=== PATIENT | female | born 1995 | race Caucasian/White ===

== ENCOUNTER → 2018-04-09 15:35 | Outpatient (CLI) | payer BC, SELFPAY ==
[2018-04-09 16:19] LABS: Basophils % 0.4 % (0.1-2.0); Eosinophils # 0.1 K/mm3 (0.0-0.4); Eosinophils % 0.6 % (0.1-12.0); Hematocrit 40.3 % (37.0-47.0); Hemoglobin 13.5 g/dL (12.2-16.2); Lymphocytes # 1.5 K/mm3 (0.7-4.5); Lymphocytes % 15.3 K/mm3 (10-50); Mean Corpuscular HGB Conc 33.5 g/dL (31.8-35.4); Mean Corpuscular Volume 95.5 fl (81-99); Mean Platelet Volume 8.5 fl (7.4-10.4); Monocytes # 0.4 K/mm3 (0.1-1.0); Monocytes % 3.8 % (1.7-9.3); Neutrophils % 79.9 % (37.0-80.0); Platelet Count 247 K/mm3 (142-424); Red Blood Count 4.22 M/mm3 (4.20-5.40); Red Cell Distribution Width 12.4 % (11.5-17.5)
[2018-04-11 18:16] LABS: HIV Screen 4th Generation wRfx Non Reactive (Non Reactive); Hepatitis B Surface Antigen Negative (Negative); Hepatitis C Antibody 0.1 s/co ratio (0.0-0.9); Rapid Plasma Reagin Ab Titer Non Reactive (NonRea<1:1)
== END ==
PROVIDERS: Family Provider Family Medicine; PCP Family Medicine; Visit Provider Obstetrics & Gynecology
DX: Z34.90 Encounter for supervision of normal pregnancy, unspecified, unspecified trimester (principal)
CPT/HCPCS: 36415; 85025; 86592; 86703; 86762; 86850; 87086; 87088; 87186; 87340; 87380; G0432

== ENCOUNTER → 2018-07-09 12:52 | Outpatient (CLI) | payer BC, SELFPAY ==
--- NOTE | 2018-07-09 12:55 | US_ITS ---
US OB /maternal detail: INDICATION: ITS.REASON: US OB Complete ORDERING PHYSICIAN: Silvia Craven MD PATIENT AGE: 23 years TECHNIQUE: ultrasound transabdominal scanning. COMPARISON: No previous relevant studies. FINDINGS: Single viable intrauterine gestation. Cephalic position. Placenta: Anterior placenta grade 1. There is average amount fluid. The cervix appears satisfactory. Closed and measuring 3.6 cm in length. Complete survey performed and was unremarkable on the submitted images as in PACS. No discrete anomalies identified on survey imaging by technologist. Active fetus. Three-vessel cord with satisfactory umbilical cord insertion. 4- chamber heart noted. Survey of brain & ventricles unremarkable. Face and neck survey unremarkable. Diaphragm and chest views unremarkable. Abdomen: Both kidneys noted and unremarkable. Stomach noted and satisfactory. Spine: Survey of the spine satisfactory with no anomalies identified nor imaged. Both arms and legs noted. Amniotic Fluid: Adequate. Maternal adnexa: No significant findings. Measurements: Average ultrasound age 20w6d. Gestational Age 20w3d. Estimated due date by ultrasound age 0311/20/2018. Estimated weight 378 grams. BPD = 21w0d OFD = 21w0d HC = 20w2d AC = 20w2d FL = 21w4d Growth Percentile= 66% Heart Rate = 142 Cerebellum = 20w1d Humerus = 20w6d HC/AC is 1.18 91.09-1.26). CI is 79% (70-86%). FL/BPD is 74%. FL/AC is 24%. IMPRESSION: Single live fetus which is in spine presentation with an average ultrasound age of 20 weeks and 6 days. All parameters correlate. No obvious anomalies apparent. Please see above for detail
== END ==
PROVIDERS: PCP Family Medicine; Visit Provider Obstetrics & Gynecology
DX: Z36.0 Encounter for antenatal screening for chromosomal anomalies (principal)
CPT/HCPCS: 76811

== ENCOUNTER → 2018-07-16 16:57 | Outpatient (CLI) | payer BC, SELFPAY | PROVIDERS: Visit Provider Obstetrics & Gynecology | DX: Z34.90 Encounter for supervision of normal pregnancy, unspecified, unspecified trimester (principal) | CPT/HCPCS: 87086; 87088; 87186 ==

== ENCOUNTER → 2018-08-11 17:52 | Outpatient (CLI) | payer BC, SELFPAY | PROVIDERS: Visit Provider Obstetrics & Gynecology | DX: Z34.90 Encounter for supervision of normal pregnancy, unspecified, unspecified trimester (principal) | CPT/HCPCS: 87086; 87088; 87186 ==

== ENCOUNTER 2018-08-25 07:07 | Outpatient (CLI) | payer BC, SELFPAY ==
[2018-08-25 07:34] LABS: Glucose,Fasting 86 mg/dL (60-105)
[2018-08-25 08:46] LABS: Glucose 1 Hour 81 mg/dL (74-106)
== END 2018-08-25 09:15 | disposition home or self-care (01) ==
LOC: LAB 07:07
PROVIDERS: Visit Provider Obstetrics & Gynecology
DX: Z34.90 Encounter for supervision of normal pregnancy, unspecified, unspecified trimester (principal)
CPT/HCPCS: 36415; 82951; 96372; J2790

== ENCOUNTER 2018-10-03 15:30 | Outpatient (CLI) | payer BC, SELFPAY ==
[2018-10-03 15:41] VITALS: BMI 26.9
[2018-10-03 16:00] VITALS: BP 121/73; PULSE 90; RESP 20; TEMP 36.8; O2SAT 99; BMI 25.3
[2018-10-03 16:04] LABS: Microscopic, Urine URINE MICROSCOPIC (MICROSCOPIC)
[2018-10-03 16:07] LABS: Appearance,Urine SL CLOUDY (Clear); Bilirubin,Urine Negative (Negative); Blood, Urine Negative (Negative); Color,Urine YELLOW (Yellow); Glucose,Urine (UA) Negative (Negative); Ketones,Urine Negative (Negative); Leukocyte Esterase,Urine TRACE (Negative); Nitrate,Urine Negative (Negative); Protein,Urine Negative (Negative); Specific Gravity, Urine 1.015 (1.005-1.030); Urobilinogen,Urine 0.2 EU/dl (0.2)
[2018-10-03 16:20] LABS: Bacteria,Urine 3+ /lpf; RBC,Urine Occasional #/hpf (0-3); Squamous Epithelial Cell,Urine 50-100 #/hpf (0-5)
[2018-10-03 16:37] LABS: Fetal Fibronectin (Rapid) Negative (Negative)
== END 2018-10-03 16:51 | disposition home or self-care (01) ==
LOC: OBOUT 15:34 → OB 15:36
PROVIDERS: PCP Obstetrics & Gynecology; Visit Provider Obstetrics & Gynecology
DX: O26.893 Other specified pregnancy related conditions, third trimester (principal); Z3A.32 32 weeks gestation of pregnancy; R10.9 Unspecified abdominal pain; R10.2 Pelvic and perineal pain
CPT/HCPCS: 59025; 81001; 82731; 87086

== ENCOUNTER → 2018-10-20 18:00 | Outpatient (CLI) | payer BC, SELFPAY | PROVIDERS: Visit Provider Obstetrics & Gynecology | DX: Z34.90 Encounter for supervision of normal pregnancy, unspecified, unspecified trimester (principal) | CPT/HCPCS: 86403 ==

== ENCOUNTER → 2018-10-24 15:03 | Outpatient (CLI) | payer BC, SELFPAY ==
--- NOTE | 2018-10-24 15:07 | US_ITS ---
US OB BPP w/Fet-Mat S/D: Indication: ITS.REASON: US OB BPP Growth S/D Ratio- Small for Dates ORDERING PHYSICIAN: Silvia Craven MD PATIENT AGE: 23 years FINDINGS: The following parameters are obtained: Average ultrasound age is 36w1d. Estimated due date by ultrasound is 11/20/2018. Estimated weight is 2748gm. This is 50th percentile BPD: 37w2d OFD: 34w4d HC: 35w3d AC: 35w2d FL: 36w1d heart rate: 147 bpm. HC/AC: 1.00 90.93-1.11) Cephalic index: 85% (70-86%) FL/BPD: 77%(71-87%) FL/AC: 22% (20-24%) Amniotic fluid index: 10 cm Qualitative AFV: 2 breathing movements: 2 Gross body movements: 2 Tone: 2 Biophysical profile score: 8/8 Doppler evaluation of the umbilical artery: SD ratio: 3.2 Resistive index: 0.69 No obvious anomalies evident. Placenta: Anterior, grade 2 Cervix: Appears closed and measures 2.3 cm IMPRESSION: Single live fetus which is in cephalic presentation with an average ultrasound age of 36 weeks 1 day. Estimated weight is 2748 g which is 50th percentile. All parameters correlate. Biophysical profiles of 8 with amniotic fluid volume index within normal limits at 10 cm SD ratio in resistive index unremarkable Anterior grade 2 placenta
== END ==
PROVIDERS: PCP Family Medicine; Visit Provider Obstetrics & Gynecology
DX: O36.5990 Maternal care for other known or suspected poor fetal growth, unspecified trimester, not applicable or unspecified (principal)
CPT/HCPCS: 76811; 76819; 76820

== ENCOUNTER 2018-11-20 10:46 | Inpatient (IN) ==
[2018-11-20 11:32] LABS: Basophils % 0.3 % (0.1-2.0); Eosinophils # 0.1 K/mm3 (0.0-0.4); Eosinophils % 0.7 % (0.1-12.0); Hematocrit 35.5 % (37.0-47.0); Hemoglobin 12.3 g/dL (12.2-16.2); Lymphocytes # 1.7 K/mm3 (0.7-4.5); Lymphocytes % 19.7 % (10-50); Mean Corpuscular HGB Conc 34.6 g/dL (31.8-35.4); Mean Corpuscular Hemoglobin 33.5 pg (27.0-31.2); Mean Corpuscular Volume 96.9 fl (81-99); Mean Platelet Volume 8.7 fl (7.4-10.4); Monocytes # 0.4 K/mm3 (0.1-1.0); Monocytes % 4.7 % (1.7-9.3); Neutrophils # 6.5 K/mm3 (1.8-7.8); Neutrophils % 74.6 % (37.0-80.0); Platelet Count 350 K/mm3 (142-424); Red Blood Count 3.66 M/mm3 (4.20-5.40); Red Cell Distribution Width 13.9 % (11.5-17.5); White Blood Count 8.7 K/mm3 (4.8-10.8)
[2018-11-20 13:21] LABS: Microscopic, Urine URINE MICROSCOPIC (MICROSCOPIC)
[2018-11-20 13:34] LABS: Appearance,Urine CLEAR (Clear); Bilirubin,Urine Negative (Negative); Blood, Urine TRACE-I (Negative); Color,Urine YELLOW (Yellow); Glucose,Urine (UA) Negative (Negative); Ketones,Urine Negative (Negative); Leukocyte Esterase,Urine Negative (Negative); Protein,Urine Negative (Negative); Specific Gravity, Urine 1.015 (1.005-1.030); Urobilinogen,Urine 0.2 EU/dl (0.2)
[2018-11-20 14:13] LABS: Bacteria,Urine Trace /lpf
[2018-11-20 14:14] LABS: WBC,Urine Occasional #/hpf (0-3)
--- NOTE | 2018-11-20 16:59 | Progress Note ---
[facility] Anesthesia Checklist - Patient Identification Patient Identification: Arm Band, Verbal (Name & ) - Structural Data Admitted From: Home Planned Operative Procedure/s: Labor epidural Consent for Planned Operative Procedure(s) Verified: Yes Verified Documents: Surgical Consent, History and Physical - Chart Verification Results Verified: CBC - Additional verifications Patient : Yes Anesthesia Reactions: No - Airway Assessment C-Spine Mobility Assessed: Yes TMJ Mobility Assessed: Yes Dentition: Good Dentition - Neurological Assessment Level of Consciousness: Awake Hx Seizures: No Numbness or tingling in extremities: No - Anesthesia Plan Anesthesia Risk discussed: Yes Anesthesia Plan: Verified ASA Class: II Anesthesia Type: Epidural [facility] History I have reviewed the patient's past medical history: Yes Medical History: Denies:: Anxiety, Depression, Migraine, MRSA, Seizures *Have you ever received a pneumonia vaccine?: No *Have you received a flu vaccine this season?: No Other Surgeries: Yes: Other. No: Amputation: No Fractures: No - *Social History Smoking Status: Never smoker Alcohol Intake: never Substance Use Type: denies use *Occupational Status:: employed Housing: house Household Members: family - Psychiatric History Pschychiatric History:: Denies:: Anxiety, Depression Family Hx:: Cancer, Diabetes, Thyroid Disorder, Stroke, Hypertension Para: 0
--- NOTE | 2018-11-20 20:19 | History & Physical Report ---
OB - H&P: HPI Antepartum - History of Present Illness Chief complaint: contractions History of present illness: 23 yo G1 @ 39 5/7 admitted from office with contractions and cervical change. complicated by recurrent UTI with antibiotic prophylaxis and Rh negative maternal status; rhogam administration given at appropriate time during . GBS negative. status reassuring. - History of Present care: good care Ultrasounds: normal 1st trimester US, normal mid trimester US Obstetrical complications: other (recurrent UTI) [facility] History I have reviewed the patient's past medical history: Yes Medical History: Denies:: Anxiety, Depression, Migraine, MRSA, Seizures *Have you ever received a pneumonia vaccine?: No *Have you received a flu vaccine this season?: No Other Surgeries: Yes: Other. No: Amputation: No Fractures: No - *Social History Smoking Status: Never smoker Alcohol Intake: never Substance Use Type: denies use *Occupational Status:: employed Housing: house Household Members: family - Psychiatric History Pschychiatric History:: Denies:: Anxiety, Depression Family Hx:: Cancer, Diabetes, Thyroid Disorder, Stroke, Hypertension Para: 0 Review of Systems - Review of Systems CONSTITUTIONAL: no fever/chills HEENT: no oral lesions PULMONARY: no shortness of breath or difficulty breathing CV: no racing heart, palpitations or chest pain ABD: no abdominal pain, N/V : + contractions and bloody show SKIN: no new rash or skin lesions EXT: no edema NEURO: no mental status changes PSYCH: no current anxiety/depression OTHER: normal movement Meds Home Medications Medication Instructions Recorded Confirmed Type 1 tab PO HS 04/09/18 11/20/18 History vitamin,calcium,ugslarhq-erom-hddye acid tablet Nitrofurantoin Monohyd/M-Cryst 100 mg PO DAILY 10/03/18 11/20/18 History [Nitrofurantoin [place]-Mcr 100 mg] breast pump See Dose Instructions .ROUTE 10/20/18 11/20/18 Rx .MEDSUPPLY #1 each Fluticasone Propionate [Flonase 1 spray INTRANASAL DAILY 11/20/18 11/20/18 History Allergy Relief NS] Allergies Allergy/AdvReac Type Severity Reaction Status Date / Time Penicillins Allergy Intermediate Hives Verified 11/20/18 13:19 Sulfa (Sulfonamide Allergy Intermediate Hives Verified 11/20/18 13:19 Antibiotics) OB - H&P: Exam - Physical Exam Vital signs: Temp Pulse Resp BP Pulse Ox 98.7 F 87 18 135/76 98 11/20/18 10:54 11/20/18 10:54 11/20/18 10:54 11/20/18 10:54 11/20/18 10:54 Narrative: CONSTITUTIONAL: no acute distress HEENT: mucous membranes moist PULMONARY: breathing unlabored without audible wheezes CV: no tachycardia or visible JVD; normal LE peripheral pulses ABD: soft, NT/ND, no guarding. Gravid uterus. : cervix 350/-1 SKIN: no visible rash or lesions HEME: no lymphadenopathy EXT: 1+ edema LEs NEURO: alert/oriented, no altered mental status PSYCH: appropriate mood and demeanor without visible anxiety/depression NST: Basline: 140 Variability: moderate Accelerations: yes Decelerations: no Impression: Reactive, Category 1 OB - Results - Labs Labs: Short CBC 11/20/18 Range/Units 11:18 WBC 8.7 (4.8-10.8) K/mm3 Hgb 12.3 (12.2-16.2) g/dL Hct 35.5 L (37.0-47.0) % Plt Count 350 (142-424) K/mm3 Urine 11/20/18 Range/Units 12:55 Urine Color Yellow (Yellow) Urine Appearance Clear (Clear) Urine pH 7.0 (5.0-8.5) Ur Specific [place] 1.015 (1.005-1.030) Urine Protein Negative (Negative) Urine Glucose (UA) Negative (Negative) OB - A/P Antepartum (1) 39 weeks gestation of Current visit: Yes Status: Acute (2) Xrnbo-wzl-zdywg fetus Current visit: No Status: Acute (3) Recurrent urinary tract infection affecting Problem details: macrobid prophylaxis Current visit: Yes Status: Acute (4) Rh negative status during Current visit: Yes Status: Acute - Additional Plan Additional Information:: Admit for labor Pitocin augmentation as needed Continuous monitoring Anticipate Urine culture sent to assess need for continued antibiotic therapy
--- NOTE | 2018-11-20 20:28 | Procedure Note ---
- Delivery Note Delivery Date:: 11/20/18 Delivery Time:: 19:40 Anesthesia Type: Epidural Was labor medically induced?: Yes Induction method: per pitocin protocol Gestational age (weeks): 39 delivered prior to 39 weeks?: No Gender: Female at 1 minute: 7 at 5 minutes: 9 LAC or MLE?: LAC Delivery Procedure:: Spontaneous vaginal delivery of vigorous liveborn female infant over intact perineum. Apgars: 7&9 Delivery uncomplicated; no shoulder dystocia with delivery; nuchal cord x 2 reduced on perineum taken to warmer for nursing assessment and suction immediately after umbilical cord clamped/cut Placenta spontaneously expressed and examined; noted to be complete/intact. Vulva, vagina, and cervix inspected; bilateral vaginal lacerations repaired with 2-0 and 3-0 vicryl EBL: 300cc All sponge/needle/instrument counts correct at conclusion of procedure Disposition: Mom/baby stable to recovery in LDRP Laceration:: vaginal Placental Delivery Description: Spontaneous
[2018-11-21 06:43] LABS: Hematocrit 34.5 % (37.0-47.0); Hemoglobin 11.5 g/dL (12.2-16.2)
--- NOTE | 2018-11-21 09:17 | Progress Note ---
Internal Medicine - PN: Subj *Date: 11/21/18 *Time: 09:13 Interval history: PPD #1 No complaints Lochia appropriate, pain mild Exam Vital signs and Labs for Last 24 Hours: Temp Pulse Resp BP Pulse Ox 98.6 F 97 H 16 129/68 96 11/20/18 20:25 11/20/18 20:25 11/20/18 20:25 11/20/18 20:25 11/20/18 20:25 Laboratory Results - last 24 hr 11/20/18 11:18: WBC 8.7, RBC 3.66 L, Hgb 12.3, Hct 35.5 L, MCV 96.9, MCH 33.5 H, MCHC 34.6, RDW 13.9, Plt Count 350, MPV 8.7, Neut % (Auto) 74.6, Lymph % (Auto) 19.7, [place] % (Auto) 4.7, Eos % (Auto) 0.7, Baso % (Auto) 0.3, Neut # (Auto) 6.5, Lymph # (Auto) 1.7, [place] # (Auto) 0.4, Eos # (Auto) 0.1, Baso # (Auto) 0.0 11/20/18 11:18: Blood Type A Negative, Antibody Screen Negative 11/20/18 12:55: Urine Color Yellow, Urine Appearance Clear, Urine pH 7.0, Ur Specific [place] 1.015, Urine Protein Negative, Urine Glucose (UA) Negative, Urine Ketones Negative, Urine Blood Trace-i, Urine Nitrate Negative, Urine Bilirubin Negative, Urine Urobilinogen 0.2, Ur Leukocyte Esterase Negative, Urine RBC 5-10, Urine WBC Occasional, Ur Squamous Epith Cells 3-5, Urine Bacteria Trace 11/21/18 06:25: Hgb 11.5 L, Hct 34.5 L 11/21/18 06:25: Blood Type A Negative, Baby's Rh Status Positive I & O for Last 24 hours: Intake & Output 11/18/18 11/19/18 11/20/18 11/21/18 11:59 11:59 11:59 11:59 Weight 162 lb Narrative: CONSTITUTIONAL: no acute distress HEENT: mucous membranes moist PULMONARY: breathing unlabored without audible wheezes CV: no tachycardia or visible JVD; normal LE peripheral pulses ABD: soft, NT/ND, no guarding : fundus firm at/below umbilicus SKIN: no visible rash or lesions EXT: 1+ edema LEs NEURO: alert/oriented, no altered mental status PSYCH: appropriate mood and demeanor without visible anxiety/depression Assessment and Plan (1) 39 weeks gestation of Current visit: Yes Status: Acute Category: Medical Code(s): Z3A.39 - 39 weeks gestation of (2) Npztv-nhm-qfgie fetus Current visit: No Status: Acute Category: Medical (3) Recurrent urinary tract infection affecting Problem details: macrobid prophylaxis Current visit: Yes Status: Acute Category: Medical Code(s): O23.40 - Unspecified infection of urinary tract in , unspecified trimester (4) Rh negative status during Current visit: Yes Status: Acute Category: Medical Code(s): O09.899 - Supervision of other high risk pregnancies, unspecified trimester; Z67.91 - Unspecified blood type, Rh negative - Assessment and plan all Dx Assessment and Plan for all problems:: Routine care Anticipate discharge tomorrow
--- NOTE | 2018-11-22 13:06 | Discharge Summary ---
General - General Admission date:: 11/20/18 Discharge date: 11/22/18 HPI HPI: 23 yo G1 admitted at 39+ wks with active labor Normal course uneventful/uncomplicated Ambulating and voiding without difficulty; tolerating regular diet Lochia appropriate and pain control sufficient Asymptomatic with mild acute blood loss anemia (Hgb 12.3 at admission, 11.5 after delivery) Declines narcotic Rx at discharge but requests Ibuprofen Hospital Course Hospital Course: see HPI Rhogam Administration: Given Objective Vital signs: Temp Pulse Resp BP Pulse Ox 98.3 F 69 18 122/67 99 11/21/18 20:02 11/21/18 20:02 11/21/18 20:02 11/21/18 20:02 11/21/18 20:02 Narrative: CONSTITUTIONAL: no acute distress HEENT: mucous membranes moist PULMONARY: breathing unlabored without audible wheezes CV: no tachycardia or visible JVD; normal LE peripheral pulses ABD: soft, NT/ND, no guarding : fundus firm at/below umbilicus SKIN: no visible rash or lesions EXT: 1+ edema LEs NEURO: alert/oriented, no altered mental status PSYCH: appropriate mood and demeanor without visible anxiety/depression DS: Diagnosis - Discharge Diagnosis (1) 39 weeks gestation of Status: Acute (2) Active labor at term Status: Acute (3) Vaginal delivery Status: Acute (4) Ftqrs-tmy-oxddy fetus Status: Acute (5) Rh negative status during Status: Acute (6) Recurrent urinary tract infection affecting Status: Acute Problem details: macrobid prophylaxis (7) Acute blood loss anemia Status: Acute Discharge Plan - Patient Discharge Instructions ACTIVITY: Continue current activity DIET: regular diet Additional Instructions: NO HEAVY LIFTING, NO STRENUOUS ACTIVITY AND NOTHING IN THE VAGINA FOR 6 WEEKS. Patient Instructions: Depression, Hemorrhage, [facility] Post Discharge Instructions - Follow up Plan Follow up with: Silvia Craven MD [Staff Physician] - 01/01/19 1:30 pm Disposition: Home, Self-Correction Medications: Home Medications Medication Instructions Recorded Confirmed Type 1 tab PO HS 04/09/18 11/20/18 History vitamin,calcium,uiuzmiss-zhaa-phtrw acid tablet Nitrofurantoin Monohyd/M-Cryst 100 mg PO DAILY 10/03/18 11/20/18 History [Nitrofurantoin [place]-Mcr 100 mg] breast pump See Dose Instructions .ROUTE 10/20/18 11/20/18 Rx .MEDSUPPLY #1 each Fluticasone Propionate [Flonase 1 spray INTRANASAL DAILY 11/20/18 11/20/18 History Allergy Relief NS] Ibuprofen [Motrin 400mg 800 mg PO Q6HP PRN #40 tablet 11/22/18 Rx tablet] Prescriptions/Medication Reconciliation: New Ibuprofen [Motrin 400mg tablet] 800 mg PO Q6HP PRN #40 tablet PRN Reason: Mild To Moderate Pain Continue vitamin,calcium,soikijsm-hlnf-ewelu acid tablet 1 tab PO HS breast pump See Dose Instructions .ROUTE .MEDSUPPLY #1 each Nitrofurantoin Monohyd/M-Cryst [Nitrofurantoin [place]-Mcr 100 mg] 100 mg PO DAILY Fluticasone Propionate [Flonase Allergy Relief NS] 1 spray INTRANASAL DAILY
[2018-11-22 14:09] VITALS: BP 120/74
== END 2018-11-22 13:52 | disposition home or self-care (01) | DRG 806 ==
LOC: OB 10:46
PROVIDERS: ADMIT Obstetrics & Gynecology; ATTEND Obstetrics & Gynecology
CPT/HCPCS: 36415; 59025; 81001; 85014; 85018; 85025; 85461; 86850; 90686; 94761; C1758; J2790

== ENCOUNTER → 2020-04-26 16:28 | Outpatient (CLI) | payer BC, SELFPAY ==
--- NOTE | 2020-04-26 16:38 | XR_ITS ---
PROCEDURE: XR CHEST PORTABLE CLINICAL HISTORY: COVID Cough and congestion COMPARISON: No exams were available for comparison FINDINGS: The cardiomediastinal silhouette and pulmonary vascularity are within normal limits. The lungs are clear without infiltrates, suspicious nodules, or pleural effusions. There is a calcified granuloma in the right upper lobe. No acute bony findings IMPRESSION: No acute findings. Dictated by: Joss Hernandez MD 04/26/2020 21:29 Joss Hernandez MD in [place] 04/26/2020 21:29
[2020-04-26 16:52] LABS: Adenovirus,PCR Not Detected (NotDetected); Bordetella Pertussis Not Detected (NotDetected); Chlamydophila Pneumoniae, PCR Not Detected (NotDetected); Coronavirus 229E Not Detected (NotDetected); Coronavirus NL63 Not Detected (NotDetected); Coronavirus OC43 Not Detected (NotDetected); Coronovirus HKU1,PCR Not Detected (NotDetected); Human Metapneumovirus Not Detected (NotDetected); Influenza A, PCR Not Detected (NotDetected); Influenza AH1, 2009 Not Detected (NotDetected); Influenza AH1, PCR Not Detected (NotDetected); Influenza AH3,PCR Not Detected (NotDetected); Influenza B, PCR Not Detected (NotDetected); Mycoplasma Pneumoniae, PCR Not Detected (NotDetected); Parainfluenza 1, PCR Not Detected (NotDetected); Parainfluenza 2, PCR Not Detected (NotDetected); Parainfluenza 3, PCR Not Detected (NotDetected); Parainfluenza 4, PCR Not Detected (NotDetected); Respiratory Syncytial Virus Not Detected (NotDetected)
[2020-04-26 16:56] LABS: Basophils # 0.1 K/mm3 (0-0.2); Basophils % 0.6 % (0.1-2.0); Eosinophils # 0.2 K/mm3 (0.0-0.4); Eosinophils % 1.8 % (0.1-12.0); Hematocrit 42.5 % (37.0-47.0); Hemoglobin 14.5 g/dL (12.2-16.2); Lymphocytes # 1.6 K/mm3 (0.7-4.5); Lymphocytes % 18.2 % (10-50); Mean Corpuscular HGB Conc 34.1 g/dL (31.8-35.4); Mean Corpuscular Hemoglobin 32.5 pg (27.0-31.2); Mean Corpuscular Volume 95.4 fl (81-99); Mean Platelet Volume 9.1 fl (7.4-10.4); Monocytes # 0.4 K/mm3 (0.1-1.0); Monocytes % 4.1 % (1.7-9.3); Neutrophils # 6.7 K/mm3 (1.8-7.8); Neutrophils % 75.3 % (37.0-80.0); Platelet Count 224 K/mm3 (142-424); Red Blood Count 4.45 M/mm3 (4.20-5.40); Red Cell Distribution Width 12.8 % (11.5-17.5); White Blood Count 8.9 K/mm3 (4.8-10.8)
[2020-04-26 21:02] LABS: Rhinovirus/Enterovirus Detected (NotDetected)
== END ==
PROVIDERS: PCP Family Medicine; Visit Provider Nurse Practitioner Family
DX: Z20.828 Contact with and (suspected) exposure to other viral communicable diseases (principal)
CPT/HCPCS: 36415; 71045; 85025; 87486; 87581; 87633; 87798; U0003

== ENCOUNTER 2020-07-23 17:23 | Emergency (ER) | payer BC, SELFPAY ==
[2020-07-23 17:45] VITALS: BP 138/82; PULSE 84; RESP 20; TEMP 36.7; O2SAT 96; BMI 24.7
--- NOTE | 2020-07-23 18:14 | HMH.EDUTC ---
[facility] [facility] [place] Clinical Impression: Sciatica Qualifiers: Laterality: right Qualified Code(s): M54.31 - Sciatica, right side Disposition: Home, Self-Care Condition on Discharge: Good Instructions: Sciatica, DI for Sciatica, DI for Back Pain With Sciatica, Cyclobenzaprine Additional Instructions: Stretches may help with sciatic nerve pain *Take medication as prescribed Follow up with Family Doctor if no improvement or any worsening of symptoms Return if needed Straight to ER if any life threatening symptoms *Etodolac lianne 6 hours with meal as needed for pain/inflammation *Remember you had a Toradol shot in the clinic today, which is similar to Etodolac *Not additional anti-inflammatory like motrin, aleve, advil with the above amount of Etodolac. You can still take Tylenol every 4 hours as needed if you need something else for pain *Ice 20 minutes every 2 hours for the first 48 hours after the initial injury followed by moist heat every 20 minutes 3-4 times a day to affected area Prescriptions: Etodolac [Etodolac 200mg Cap*] 200 mg PO Q6H PRN #20 cap PRN Reason: Moderate Pain Transmission Status: Received by [facility] # methylPREDNISolone [Medrol 4mg tab] 4 mg PO DIRECTED #21 tab Transmission Status: Received by [facility] # Referrals: Mingo Jordan MD [Primary Care Provider] - As needed Time of Disposition: 18:22 Medical Decision Making - [place] Inquiry Pt receiving controlled substance: No [place] was queried for this patient: No Vital Signs: 07/23/20 17:45 Temperature 98.0 F Temperature Source Oral Pulse Rate [Radial] 84 Respiratory Rate 20 Blood Pressure [Right Arm] 138/82 Blood Pressure Mean [Right Arm] 100 Blood Pressure Source [Right Arm] Automatic Cuff Blood Pressure Position [Right Arm] Sitting 02 Sat by Pulse Oximetry 96 Oxygen Delivery Method Room Air Orders (Tests/Meds): ED MEDICATIONS Discontinued Medications Generic Name Dose Route Start Last Admin Trade Name Freq PRN Reason Stop Dose Admin Ketorolac Tromethamine 60 mg 07/23/20 18:14 Ketorolac 60mg/2ml Vial IM 07/23/20 18:15 ONCE ONE Methylprednisolone Sodium Succinate 125 mg 07/23/20 18:14 Methylprednisolone Sod Succ 125mg Vial IM 07/23/20 18:15 ONCE ONE Medical Decision Narrative: Patient denies [facility] [place] [facility] [place] - General Stated complaint: sciatic nerve pain Time Seen by Provider: 07/23/20 18:14 Mode of Arrival: Ambulatory Source of Information: Patient Limitations: No Limitations Description of Symptoms (Recalled from Triage Doc. by RN): STATES THAT SHE IS HAVING SCIATICA PAIN HEENT Symptoms (Recalled from RN notes): No Resp Symptoms (Recalled from RN notes): No Skin Symptoms (Recalled from RN notes): No MS Symptoms (Recalled from RN notes): Yes Functional Status (Recalled from RN notes): WNL - History of Present Illness Provider Complaint: Patient states that she has a history of sciatic nerve pain States that for the last couple of days she has been having pain in her right lower back area that radiates down right buttock area into right upper leg States that she has tried tylenol and not helped and today it was still hurting so she come in to get checked - Related Data Home Medications Medication Instructions Recorded Confirmed levonorgestrel 20 mcg/24 hours (6 INTRAUTERI 01/29/20 yrs) 52 mg intrauterine device Previous Rx's Medication Instructions Recorded Etodolac [Etodolac 200mg Cap*] 200 mg PO Q6H PRN #20 cap 07/23/20 methylPREDNISolone [Medrol 4mg 4 mg PO DIRECTED #21 tab 07/23/20 tab] Allergies Allergy/AdvReac Type Severity Reaction Status Date / Time Penicillins Allergy Intermediate Hives Verified 01/29/20 10:08 Sulfa (Sulfonamide Allergy Intermediate Hives Verified 01/29/20 10:08 Antibiotics) - Worker's Comp Is this a Worker's Comp case?: No [facility] History - Hepatitis A Screen Drug us
[2020-07-23 18:50] VITALS: BP 138/82; PULSE 84; RESP 20; TEMP 36.7; O2SAT 96
== END 2020-07-23 18:50 | disposition home or self-care (01) ==
PROVIDERS: Emergency Provider Nurse Practitioner; PCP Family Medicine
DX: M54.31 Sciatica, right side (principal); Z88.0 Allergy status to penicillin; Z88.2 Allergy status to sulfonamides
CPT/HCPCS: 96372; 99201

== ENCOUNTER → 2020-08-03 14:51 | Outpatient (CLI) | payer BC, SELFPAY ==
--- NOTE | 2020-08-03 14:57 | XR_ITS ---
PROCEDURE: XR LUMBAR SPINE MIN 4V CLINICAL INDICATION: SCIATIC LEG PAIN Low back pain with right hip pain COMPARISON: No exams were available for comparison FINDINGS: Normal alignment. The disc spaces are well preserved. No fracture or dislocation. No lytic or blastic change. The disc spaces are well-preserved. No significant degenerative/arthritic changes. No erosive changes evident. Other findings:There is an IUD in place. The SI joints have an unremarkable appearance. IMPRESSION: Negative lumbar spine Dictated by: Joss Hernandez MD 08/03/2020 16:10 Joss Hernandez MD in [facility] 08/03/2020 16:10
--- NOTE | 2020-08-03 14:57 | XR_ITS ---
PROCEDURE: XR HIP RT 2-3V W/PELVIS CLINICAL INDICATION: SCIATIC LEG PAIN COMPARISON: No exams were available for comparison FINDINGS: No fracture or dislocation is evident. No significant degenerative change. No lytic or blastic change. Unremarkable soft tissues. There is a small lucency overlying the neck the right femur. This measures 5 mm. There is an IUD in place. IMPRESSION: There is a faint lucency overlying the mid aspect of the right femoral neck at 5 mm. This is nonspecific possibly due to a cortical defect. Follow-up may confirm stability. Otherwise negative. Dictated by: Joss Hernandez MD 08/03/2020 16:11 Joss Hernandez MD in [facility] 08/03/2020 16:11
== END ==
PROVIDERS: PCP Family Medicine; Visit Provider Nurse Practitioner Family
DX: M54.31 Sciatica, right side (principal)
CPT/HCPCS: 72110; 73502

== ENCOUNTER 2020-08-25 09:30 | Outpatient (RCR) | payer BC, SELFPAY ==
--- NOTE | 2020-08-15 14:59 | HMH.PTOPEV ---
PT Outpatient Evaluation Rehab PT Outpatient Evaluation Start: 08/15/20 13:59 Freq: Status: Active Protocol: Document 08/15/20 14:45 [place] (Rec: 08/15/20 14:57 [facility] [id number]) Electronically Signed By Serge Sanchez, PT 08/15/20 14:45 Outpatient Therapy Subjective History Subjective History Pt is 25 yowf who presents with pain in R side low back and post hip x ~ 3 wks with insidious onset of symptoms. She reports intermittent sciatic pain to the R knee distally, worse with walking or standing. She reports pain is sharp and shooting, but activity dependent. She reports similar symptoms when she was ~2 yrs ago, but those dissipated after the . She reports no significant PMH. Chief Complaint Pain Symptom Type Sharp,Shooting Symptoms Relieved By Rest/Positioning Symptoms Aggravated By Standing,Walking Prior Functional Limitations None Current Functional Limitations Standing,Walking,Stairs Symptom Description Intermittent,Activity Dependent Level of pain today (0-10) 0 Pain scale - at its worst (0-10) 10 Lumbopelvic Eval Palapation tenderness right Lumbar/Sacral Palpation Findings Tenderness Lumbar/Sacral Palpation Overall Comment R SI Range of Motion Lumbar Spine ROM Reason Not Measured Within Functional Limits Manual Muscle Test Right Knee Extension Strength Grade 5 Normal Knee Flexion Strength Grade 4 Good Hip Flexion Strength Grade 4 Good Hip Abduction Strength Grade 5 Normal Hip Adduction Strength Grade 5 Normal Hip Extension Strength Grade 5 Normal Gluteus Nicko Strength Grade 5 Normal Extensor Hallucis Longus Strength Grade 5 Normal Ankle Dorsiflexion Strength Grade 5 Normal Gastronemius/Soleus Strength Grade 5 Normal DTR Rt Patellar 2+ Lt Patellar 2+ Rt Gastroc/Soleus 2+ Lt Gastroc/Soleus 2+ Special Tests Hip Scouring (Quadrant) Test Negative Left,Negative Right Hip Brian (ROBBY) Test Negative Left,Negative Right Sciatic Nerve Tension Test Negative Left,Positive Right Unilateral Straight Leg Raise (Lase[place]) Negative Left,Negative Right Test Lumbar Long Mentor Distraction Test/Manual Negative Traction Outpatient Therapy Assessment Impairments Problems/Impairmments Pal
== END 2020-08-25 09:35 | disposition home or self-care (01) ==
LOC: PT 09:30
PROVIDERS: PCP Family Medicine; Visit Provider Nurse Practitioner Family
DX: M25.551 Pain in right hip (principal)
CPT/HCPCS: 97010; 97014; 97033; 97110; 97140; 97163; G0283

== ENCOUNTER → 2020-09-08 13:45 | Outpatient (CLI) | payer BC, SELFPAY ==
[2020-09-08 14:45] LABS: Basophils # 0.1 K/mm3 (0-0.2); Eosinophils # 0.1 K/mm3 (0.0-0.4); Eosinophils % 1.3 % (0.1-12.0); Hematocrit 44.1 % (37.0-47.0); Hemoglobin 14.3 g/dL (12.2-16.2); Lymphocytes # 1.8 K/mm3 (0.7-4.5); Lymphocytes % 27.7 % (10-50); Mean Corpuscular HGB Conc 32.4 g/dL (31.8-35.4); Mean Corpuscular Volume 98.7 fl (81-99); Mean Platelet Volume 8.5 fl (7.4-10.4); Monocytes # 0.3 K/mm3 (0.1-1.0); Monocytes % 4.8 % (1.7-9.3); Neutrophils # 4.2 K/mm3 (1.8-7.8); Neutrophils % 65.1 % (37.0-80.0); Platelet Count 255 K/mm3 (142-424); Red Blood Count 4.47 M/mm3 (4.20-5.40); Red Cell Distribution Width 12.6 % (11.5-17.5); White Blood Count 6.5 K/mm3 (4.8-10.8)
[2020-09-08 16:19] LABS: Strep Scrn Group A (Rapid) Negative (Negative)
== END ==
PROVIDERS: PCP Nurse Practitioner Family; Visit Provider Nurse Practitioner Family
DX: Z03.818 Encounter for observation for suspected exposure to other biological agents ruled out (principal)
CPT/HCPCS: 85025; 87430; U0003

== ENCOUNTER → 2020-12-08 10:33 | Outpatient (CLI) | payer BC, SELFPAY ==
--- NOTE | 2020-12-08 10:40 | XR_ITS ---
PROCEDURE: XR HAND LT MIN 3V CLINICAL INDICATION: LT THUMB PAIN COMPARISON: No exams were available for comparison FINDINGS: No fracture or dislocation. No lytic or blastic change. There is normal mineralization. The carpals, metacarpals and phalanges are unremarkable. No significant soft tissue abnormality is noted. IMPRESSION: No acute findings. Dictated by: Silvia Deluna 12/08/2020 11:42 Silvia Deluna in [facility] 12/08/2020 11:42
--- NOTE | 2020-12-08 10:40 | XR_ITS ---
PROCEDURE: XR WRIST LT MIN 3V CLINICAL INDICATION: LT WRIST PAIN COMPARISON: No exams were available for comparison FINDINGS: No fracture or dislocation. No lytic or blastic change. There is normal mineralization. The joint spaces are well-preserved. No significant degenerative/arthritic changes. No erosive changes evident. Other findings:None. IMPRESSION: No acute findings. Dictated by: Silvia Deluna 12/08/2020 11:41 Silvia Deluna in [facility] 12/08/2020 11:41
== END ==
PROVIDERS: PCP Physician Assistant; Visit Provider Physician Assistant
DX: M79.645 Pain in left finger(s) (principal); M25.532 Pain in left wrist
CPT/HCPCS: 73110; 73130

== ENCOUNTER 2020-12-24 18:50 | Emergency (ER) | payer BC, SELFPAY ==
[2020-12-24 19:00] VITALS: BP 142/91; PULSE 92; RESP 19; TEMP 37.6; O2SAT 99; BMI 26.1
--- NOTE | 2020-12-24 19:15 | HMH.EDUTC ---
[place] Disposition Clinical Impression: Strep throat Disposition: Home, Self-Care Condition on Discharge: Good Instructions: DI for Strep Throat Additional Instructions: Start antibiotics today be sure to take it as ordered with the full length of time although you should start feeling better in 24-48 hours. Change toothbrush and toothpaste 24-48 hours after starting antibiotics Tylenol or Motrin as needed for fever or pain Encourage fluids, water, Gatorade, Powerade, try cold fluids, popsicles, ice cream will make it feel better You are contagious for 24 hours. Avoid kissing anyone, no eating or drinking after anyone. You are contagious. Follow-up the ER for new or worsening symptoms or no noticeable improvement over the next 24-48 hours. Follow-up with PCP this week. Prescriptions: Azithromycin [Zithromax 250mg tab] 250 mg PO DIRECTED 4 Days #4 tab Transmission Status: Pending to [facility] #[id number] Referrals: Ivet Jacques PA [Primary Care Provider] - Time of Disposition: 19:25 Medical Decision Making - [place] Inquiry Pt receiving controlled substance: No Vital Signs: 12/24/20 19:00 Temperature 99.6 F Temperature Source Oral Pulse Rate [Right Brachial] 92 H Respiratory Rate 19 Blood Pressure [Right Arm] 142/91 H Blood Pressure Mean [Right Arm] 108 Blood Pressure Source [Right Arm] Automatic Cuff Blood Pressure Position [Right Arm] Sitting 02 Sat by Pulse Oximetry 99 Oxygen Delivery Method Room Air Orders (Tests/Meds): ORDERS Category Date Time Status Covid-19 Nasal PCR ([facility]) Routine Lab 12/24/20 19:04 Received [place] HPI - General Chief complaint: Urgent [facility] Stated complaint: nauseous,diarrhea Time Seen by Provider: 12/24/20 19:15 Mode of Arrival: Ambulatory Source of Information: Patient Limitations: No Limitations Description of Symptoms (Recalled from Triage Doc. by RN): PATIENT C/O BODY ACHES, SORE THROAT, DIARRHEA, NAUSEA, CHILLS, AND HEADACHE SINCE SATURDAY HEENT Symptoms (Recalled from RN notes): Yes Resp Symptoms (Recalled from RN notes): No Skin Symptoms (Recalled from RN notes): No MS Symptoms (Recalled from RN notes): No Functional Status (Recalled from RN notes): WNL - History of Present Illness Provider Complaint: 25 yr old female presents for body aches,sore throat,diarrhea,nausea,chills and chaney since . no ill contacts - Related Data Home Medications Medication Instructions Recorded Confirmed levonorgestrel 20 mcg/24 hours (6 1 unit INTRAUTERI ONCE 01/29/20 12/24/20 yrs) 52 mg intrauterine device Previous Rx's Medication Instructions Recorded Azithromycin [Zithromax 250mg 250 mg PO DIRECTED 4 Days #4 tab 12/24/20 tab] Allergies Allergy/AdvReac Type Severity Reaction Status Date / Time Penicillins Allergy Intermediate Hives Verified 01/29/20 10:08 Sulfa (Sulfonamide Allergy Intermediate Hives Verified 01/29/20 10:08 Antibiotics) - Worker's Comp Is this a Worker's Comp case?: No [facility] History - Hepatitis A Screen Drug use history?: No High risk sexual behaviors?: No History of sexually transmitted infection?: No Currently employed?: No Childcare worker?: No Do you have indoor plumbing?: Yes Do you have electricity?: Yes Attestation statement:: This patient has been screened for Hepatitis A risk factors. I have reviewed the patient's past medical history: Yes Medical History: Denies:: Anxiety, Depression, Hyperlipidemia, Hypertension, Migraine, MRSA, Seizures Other Surgeries: Yes: Other. No: Amputation: No Fractures: No Comment: dental surgery - Social History Smoking Status: Never smoker Alcohol Intake: never Substance Use Type: denies use Occupational Status: other Housing: house Household Members: family - Psychiatric History Pschychiatric History:: Denies:: Anxiety, Depression Family Hx:: Cancer, Diabetes, Thyroid Disorder, Stroke, Hypertension ROS Obtained
[2020-12-24 19:26] LABS: UTC Influenza A Antigen Negative (Negative); UTC Strep Screen (Rapid) Positive (Negative)
[2020-12-24 19:27] LABS: UTC Influenza B Antigen Negative (Negative)
[2020-12-24 19:32] VITALS: BP 142/91; PULSE 92; RESP 19; TEMP 37.6; O2SAT 99
--- NOTE | 2020-12-25 10:34 | PC.NURSE ---
PATIENT NOTIFIED OF POSITIVE COVID TEST AT THIS TIME
== END 2020-12-24 19:38 | disposition home or self-care (01) ==
PROVIDERS: Emergency Provider Nurse Practitioner Family; PCP Physician Assistant
DX: U07.1 COVID-19 (principal); J02.0 Streptococcal pharyngitis; Z88.0 Allergy status to penicillin; Z88.2 Allergy status to sulfonamides
CPT/HCPCS: 87804; 87880; 99202; G0463; U0003

== ENCOUNTER 2021-03-17 13:00 | Outpatient (RCR) | payer BC, SELFPAY | END 2021-03-17 13:05 | disposition home or self-care (01) | LOC: OT 13:00 | PROVIDERS: PCP Physician Assistant; Visit Provider Orthopaedic Surgery Hand Surgery | DX: M65.842 Other synovitis and tenosynovitis, left hand (principal); M65.4 Radial styloid tenosynovitis [de Quervain] | CPT/HCPCS: 97010; 97014; 97035; 97140; 97165; 97530; G0283 ==

== ENCOUNTER → 2021-07-12 11:52 | Outpatient (CLI) | payer BC, SELFPAY ==
[2021-07-12 13:18] LABS: Adenovirus,PCR Not Detected (NotDetected); Bordetella Pertussis Not Detected (NotDetected); Chlamydophila Pneumoniae, PCR Not Detected (NotDetected); Coronavirus 19, PCR Not Detected (NotDetected); Coronavirus 229E Not Detected (NotDetected); Coronavirus NL63 Not Detected (NotDetected); Coronavirus OC43 Not Detected (NotDetected); Coronovirus HKU1,PCR Not Detected (NotDetected); Human Metapneumovirus Not Detected (NotDetected); Influenza A, PCR Not Detected (NotDetected); Influenza AH1, 2009 Not Detected (NotDetected); Influenza AH1, PCR Not Detected (NotDetected); Influenza AH3,PCR Not Detected (NotDetected); Influenza B, PCR Not Detected (NotDetected); Mycoplasma Pneumoniae, PCR Not Detected (NotDetected); Parainfluenza 1, PCR Not Detected (NotDetected); Parainfluenza 2, PCR Not Detected (NotDetected); Parainfluenza 3, PCR Not Detected (NotDetected); Parainfluenza 4, PCR Not Detected (NotDetected); Respiratory Syncytial Virus Not Detected (NotDetected); Rhinovirus/Enterovirus Not Detected (NotDetected)
[2021-07-12 13:51] LABS: Basophils # 0.1 K/mm3 (0-0.2); Basophils % 0.8 % (0.1-2.0); Eosinophils # 0.1 K/mm3 (0.0-0.4); Hematocrit 45.3 % (37.0-47.0); Hemoglobin 14.8 g/dL (12.2-16.2); Lymphocytes # 1.4 K/mm3 (0.7-4.5); Lymphocytes % 21.3 % (10-50); Mean Corpuscular HGB Conc 32.7 g/dL (31.8-35.4); Mean Corpuscular Hemoglobin 32.1 pg (27.0-31.2); Mean Platelet Volume 9.2 fl (7.4-10.4); Monocytes # 0.3 K/mm3 (0.1-1.0); Monocytes % 4.9 % (1.7-9.3); Neutrophils # 4.7 K/mm3 (1.8-7.8); Neutrophils % 71.1 % (37.0-80.0); Platelet Count 246 K/mm3 (142-424); Red Blood Count 4.62 M/mm3 (4.20-5.40); Red Cell Distribution Width 12.3 % (11.5-17.5); White Blood Count 6.7 K/mm3 (4.8-10.8)
== END ==
PROVIDERS: PCP Physician Assistant; Visit Provider Physician Assistant
DX: Z20.822 Contact with and (suspected) exposure to COVID-19 (principal)
CPT/HCPCS: 36415; 85025; 87581; 87632; 87798; C9803; U0003; U0005

== ENCOUNTER → 2021-10-09 15:29 | Outpatient (CLI) | payer BC, SELFPAY ==
[2021-10-09 16:09] LABS: Basophils # 0.1 K/mm3 (0-0.2); Basophils % 1.1 % (0.1-2.0); Eosinophils # 0.1 K/mm3 (0.0-0.4); Eosinophils % 1.6 % (0.1-12.0); Hematocrit 43.9 % (37.0-47.0); Hemoglobin 14.3 g/dL (12.2-16.2); Lymphocytes # 1.8 K/mm3 (0.7-4.5); Lymphocytes % 26.6 % (10-50); Mean Corpuscular HGB Conc 32.5 g/dL (31.8-35.4); Mean Corpuscular Hemoglobin 32.5 pg (27.0-31.2); Mean Corpuscular Volume 99.8 fl (81-99); Mean Platelet Volume 9.7 fl (7.4-10.4); Monocytes # 0.3 K/mm3 (0.1-1.0); Monocytes % 4.6 % (1.7-9.3); Neutrophils # 4.4 K/mm3 (1.8-7.8); Neutrophils % 66.1 % (37.0-80.0); Platelet Count 284 K/mm3 (142-424); Red Cell Distribution Width 12.8 % (11.5-17.5); White Blood Count 6.6 K/mm3 (4.8-10.8)
[2021-10-09 16:49] LABS: Strep Scrn Group A (Rapid) Negative (Negative)
== END ==
PROVIDERS: PCP Family Medicine; Visit Provider Nurse Practitioner
DX: Z20.822 Contact with and (suspected) exposure to COVID-19 (principal); J06.9 Acute upper respiratory infection, unspecified
CPT/HCPCS: 36415; 85025; 87275; 87276; 87430; C9803; U0003; U0005

== ENCOUNTER → 2021-11-10 10:52 | Outpatient (CLI) | payer BC, SELFPAY ==
--- NOTE | 2021-11-10 10:53 | US_ITS ---
FINAL REPORT CLINICAL HISTORY: IUD placement FINDINGS: Transvaginal sonographic images of the pelvis were obtained. The uterus measures 6.0 x 4.2 x 4.8 cm. The endometrium measures 5 mm, which is within normal limits. No uterine mass is identified. The right ovary measures 2.9 cm in length and left ovary measures 3.9 cm in length. Normal blood flow seen to the ovaries. Small follicles are present in both ovaries. There is no evidence of free fluid. An IUD is present within the endometrial cavity. IMPRESSION: No acute abnormality identified. IUD is present in proper place within the endometrial cavity. Reviewed, Interpreted and Dictated by Darin Rodriguez III, MD Transcribed by Kassy Parrish Authenticated by Darin Rodriguez III, MD on 11/13/2021 03:50:50 PM [facility]
== END ==
PROVIDERS: PCP Family Medicine; Visit Provider Obstetrics & Gynecology
DX: T83.84XA Pain due to genitourinary prosthetic devices, implants and grafts, initial encounter (principal); Z30.430 Encounter for insertion of intrauterine contraceptive device
CPT/HCPCS: 76830

== ENCOUNTER → 2022-07-09 09:18 | Outpatient (CLI) | payer BC, SELFPAY ==
[2022-07-09 10:40] LABS: HCG,Quantitative 44 mIU/ml (0-5.42)
== END ==
PROVIDERS: PCP Family Medicine; Visit Provider Obstetrics & Gynecology
DX: Z34.90 Encounter for supervision of normal pregnancy, unspecified, unspecified trimester (principal)
CPT/HCPCS: 36415; 84702

== ENCOUNTER 2022-07-13 19:13 | Emergency (ER) | payer BC, SELFPAY ==
[2022-07-13 19:15] VITALS: BP 159/99; PULSE 100; RESP 17; TEMP 36.8; O2SAT 99; BMI 25.8
--- NOTE | 2022-07-13 19:44 | US_ITS ---
PROCEDURE INFORMATION: Exam: US , Transvaginal Exam date and time: 07/13/2022 8:24 PM Age: 27 years old Clinical indication: Lmp or gestational age (in weeks): Wd; Antepartum complications; Bleeding; ; Patient HX: Spotting today-- bhcg went from 44 on Saturday to 8 tonight; Additional info: vaginal bleeding unknown location TECHNIQUE: Imaging protocol: Real-time transvaginal obstetrical ultrasound of the maternal pelvis with image documentation. Transvaginal imaging was used for better evaluation of the fetus, adnexa, and/or cervix. COMPARISON: US TRANSVAGINAL 11/10/2021 11:06 AM FINDINGS: Gestation: No intrauterine gestational sac, pole or yolk sac. MATERNAL: Uterus: Endometrial stripe 5 mm. No uterine fibroids. Uterus measures 6.9 x 3.6 cm. Right ovary/adnexa: Right ovary measures 3.2 x 2.9 x 1.2 cm. Normal vascularity. No mass. Left ovary/adnexa: Left ovary measuring 3.4 x 2.4 x 1.7 cm. Normal vascularity. No mass. Trace free fluid. IMPRESSION: No intrauterine gestational sac, pole or yolk sac identified. Recommend continued follow-up with beta HCG and short-term ultrasound.
--- NOTE | 2022-07-13 19:47 | HMH.EDGENADL ---
Discharge Plan Disposition Patient Disposition: Home, Self-Care Condition: Good Chief Complaint: Vaginal Bleeding Prescriptions Prescriptions: No Action Lo Loestrin Fe 1 mg-10 mcg (24)/10 mcg (2) tablet 1 tab PO ONCE Qty: 28 11RF Referrals Follow up/Referrals: Mingo Jordan MD [Primary Care Provider] - See instructions Activity Restrictions/Add. Instructions Additional Instructions/Restrictions: Return to ER for fever, pelvic pain, ongoing bleeding. Follow-up PCP on Saturday Clinical Impressions Clinical Impression: Spontaneous Instructions Patient Instructions: DI for Miscarriage, Dealing With Miscarriage Discharge ED Provider: Tad Hinojosa General Adult HPI <Tad Hinojosa MD - Last Filed: 07/13/22 20:03> General Chief complaint: Vaginal Bleeding Stated complaint: unsure how far, bleeding Time Seen by Provider: 07/13/22 20:15 Mode of Arrival: Family Vehicle Source of Information: Patient Limitations: No Limitations Description of Symptoms (Recalled from ER Triage Doc. by RN): Pt c/o vaginal bleeding that began around 1500 tonight. She reports to be and is Very early . Thinks it is 4-6wk. Denies any pain. She also reports headache and n/v. She is . History of Present Illness HPI narrative: Patient is a 27-year-old female who presents emergency department for evaluation of vaginal bleeding in the setting of positive test. Patient was on oral contraceptive pill, last menstrual period was the end of May although it is regular at baseline. Patient recently had a positive test. Over the last 24 hours she has had painless vaginal bleeding and presents here for continued evaluation. Patient denies abdominal pain, vomiting, chest pain, cough. There is associated nausea. No other acute complaints at this time. Related Data Previous Rx's Medication Instructions Recorded norethindrone 1 mg-ethinyl 1 tab PO ONCE #28 tabs 11/10/21 estradiol 10 mcg (24)-iron 10 mcg(2) tablet (Lo Loestrin Fe) Allergies Allergy/AdvReac Type Severity Reaction Status Date / Time Penicillins Allergy Intermediate Hives Verified 07/13/22 09:36 Sulfa (Sulfonamide Allergy Intermediate Hives Verified 07/13/22 09:36 Antibiotics) PFSH <Tad Hinojosa MD - Last Filed: 07/13/22 20:03> [facility] Social History Smoking Status: Never smoker alcohol intake: never substance use type: denies use current occupational status: employed and other Travel in the last 8 weeks: None household members: family housing: house number of children: 1 <Tad Hinojosa MD - Last Filed: 07/13/22 20:03> ROS Obtained: Yes Systems reviewed as appropriate & no additional complaints except as documented Physical Exam <Tad Hinojosa MD - Last Filed: 07/13/22 20:03> General General appearance: alert and in no apparent distress Head Head exam: atraumatic and normocephalic Eye Eye exam: Present PERRL and EOMI ENT ENT exam: Present mucous membranes moist Neck Neck exam: Present normal inspection Chest Chest inspection: Present normal inspection and symmetric chest wall rise Respiratory Respiratory exam: Present normal lung sounds bilaterally; Absent respiratory distress Cardiovascular Cardiovascular exam: Present regular rate and normal rhythm Abdominal Exam Abdominal exam: Present soft; Absent tenderness Extremities Exam Extremities exam: Present normal inspection Neurological Exam Neurological exam: Present alert and oriented X3 Psychiatric Psychiatric exam: Present normal affect Skin Skin exam: Present warm and dry Medical Decision Making <Tad Hinojosa MD - Last Filed: 07/13/22 20:03> [place] Inquiry Pt receiving controlled substance: No Vital Signs: 07/13/22 19:15 07/13/22 20:47 07/13/22 21:00 Temperature 98.3 F Temperature Source Oral Pulse Rate 88 99 H Pulse Rate [Right] 100 H Respiratory Rate 17 Blood Pr
[2022-07-13 19:51] LABS: Microscopic, Urine URINE MICROSCOPIC (MICROSCOPIC)
[2022-07-13 19:58] LABS: Basophils # 0.1 K/mm3 (0-0.2); Basophils % 1.7 % (0.1-2.0); Eosinophils # 0.1 K/mm3 (0.0-0.4); Eosinophils % 2.1 % (0.1-12.0); Hematocrit 45.1 % (37.0-47.0); Hemoglobin 14.5 g/dL (12.2-16.2); Lymphocytes # 1.6 K/mm3 (0.7-4.5); Lymphocytes % 26.9 % (10-50); Mean Corpuscular HGB Conc 32.1 g/dL (31.8-35.4); Mean Corpuscular Hemoglobin 31.6 pg (27.0-31.2); Mean Corpuscular Volume 98.3 fl (81-99); Monocytes # 0.3 K/mm3 (0.1-1.0); Monocytes % 5.1 % (1.7-9.3); Neutrophils # 3.7 K/mm3 (1.8-7.8); Neutrophils % 64.3 % (37.0-80.0); Platelet Count 281 K/mm3 (142-424); Red Blood Count 4.59 M/mm3 (4.20-5.40); Red Cell Distribution Width 12.9 % (11.5-17.5); White Blood Count 5.8 K/mm3 (4.8-10.8)
[2022-07-13 20:00] LABS: Chloride 102 mmol/L (98-107); Potassium 3.7 mmoL/L (3.5-5.1); Sodium 140 mmol/L (136-145)
[2022-07-13 20:02] LABS: Alanine Aminotransferase 28 U/L (12-78); Aspartate Amino Transferase 38 U/L (14-36); Blood Urea Nitrogen 10 mg/dl (7-17); Creatinine Clearance Estimated 161 mL/min (50-200); Estimated Glomerular Filt Rate 120 ml/min (>60); GFR (African American) 145 ML/MIN (>60)
[2022-07-13 20:03] LABS: Albumin Level 4.6 g/dl (3.5-5.0); Albumin/Globulin Ratio 1.4 (1.1-1.8); Alkaline Phosphatase 145 U/L (38-126); Anion Gap 16.7 mEq/L (5-15); Bilirubin,Total 1.3 mg/dl (0.2-1.3); Calcium 9.7 mg/dl (8.4-10.2); Carbon Dioxide 25 mmol/L (22.0-30.0); Globulin 3.2 g/dL (1.3-3.2); Glucose 92 mg/dl (74-100); Total Protein,Serum 7.8 g/dl (6.3-8.2)
--- NOTE | 2022-07-13 20:04 | PC.NURSE ---
Notified radiology need to call in u/s tech
[2022-07-13 20:08] LABS: Appearance,Urine CLEAR (Clear); Bilirubin,Urine Negative (Negative); Blood, Urine 3+ (Negative); Color,Urine YELLOW (Yellow); Glucose,Urine (UA) Negative (Negative); Ketones,Urine Negative (Negative); Leukocyte Esterase,Urine TRACE (Negative); Nitrate,Urine Negative (Negative); Protein,Urine Negative (Negative); Specific Gravity, Urine <= 1.005 (1.005-1.030); Urobilinogen,Urine 0.2 EU/dl (0.2)
[2022-07-13 20:20] LABS: HCG,Quantitative 8 mIU/ml (0-5.42)
[2022-07-13 20:47] VITALS: BP 140/87; PULSE 88; O2SAT 99
[2022-07-13 20:58] LABS: Bacteria,Urine Trace /lpf; WBC,Urine Occasional #/hpf (0-3)
[2022-07-13 21:00] VITALS: BP 136/83; PULSE 99; O2SAT 99
--- NOTE | 2022-07-13 23:10 | PC.NURSE ---
rhogam injection given via right hip after identity verification utilizing 2 verifiers as per protocol. Pt education provided and pt requires no additional information at this time. identification card given to patient and packet returned to lab for processing
[2022-07-13 23:14] VITALS: BP 125/70; PULSE 82; RESP 19; TEMP 36.7; O2SAT 98
[2022-07-13 23:32] VITALS: BP 112/70; PULSE 76; RESP 16; TEMP 37; O2SAT 98
== END 2022-07-13 23:34 | disposition home or self-care (01) ==
PROVIDERS: Emergency Provider Emergency Medicine; PCP Family Medicine
DX: O03.9 Complete or unspecified spontaneous abortion without complication; Z88.0 Allergy status to penicillin; Z88.2 Allergy status to sulfonamides
CPT/HCPCS: 36415; 76817; 80053; 81001; 84702; 85025; 85461; 86850; 99284; J2790

== ENCOUNTER → 2023-01-30 07:10 | Outpatient (CLI) | payer BC, SELFPAY ==
[2023-01-30 09:22] LABS: HCG,Quantitative < 2 mIU/ml (0-5.42)
[2023-03-22 23:45] LABS: Factor V Leiden Not Detected
== END ==
PROVIDERS: Obstetrics & Gynecology; PCP Family Medicine; Visit Provider Obstetrics & Gynecology
DX: Z32.01 Encounter for pregnancy test, result positive (principal)
CPT/HCPCS: 36415; 81241; 84144; 84702

== ENCOUNTER → 2023-03-19 11:11 | Outpatient (CLI) | payer BC, SELFPAY ==
[2023-03-20 08:20] LABS: Progesterone 2.8 ng/mL (.)
== END ==
PROVIDERS: PCP Family Medicine; Visit Provider Obstetrics & Gynecology
DX: Z31.41 Encounter for fertility testing (principal)
CPT/HCPCS: 36415; 84144

== ENCOUNTER → 2023-04-27 08:49 | Outpatient (CLI) | payer BC, SELFPAY ==
[2023-04-27 09:25] LABS: Basophils % 0.7 % (0.1-2.0); Eosinophils # 0.1 K/mm3 (0.0-0.4); Eosinophils % 1.6 % (0.1-12.0); Hemoglobin 15.5 g/dL (12.2-16.2); Lymphocytes # 1.5 K/mm3 (0.7-4.5); Lymphocytes % 24.6 % (10-50); Mean Corpuscular HGB Conc 32.4 g/dL (31.8-35.4); Mean Corpuscular Hemoglobin 31.9 pg (27.0-31.2); Mean Corpuscular Volume 98.4 fl (81-99); Mean Platelet Volume 9.4 fl (7.4-10.4); Monocytes # 0.3 K/mm3 (0.1-1.0); Monocytes % 5.8 % (1.7-9.3); Neutrophils % 67.3 % (37.0-80.0); Platelet Count 262 K/mm3 (142-424); Red Blood Count 4.88 M/mm3 (4.20-5.40); Red Cell Distribution Width 12.9 % (11.5-17.5); White Blood Count 5.9 K/mm3 (4.8-10.8)
[2023-04-27 10:17] LABS: Hemoglobin A1C 5.2 % (4.0-6.0)
[2023-04-27 10:20] LABS: Chloride 101 mmol/L (98-107); Sodium 141 mmol/L (136-145)
[2023-04-27 10:21] LABS: Potassium 4.3 mmoL/L (3.5-5.1)
[2023-04-27 10:23] LABS: Alanine Aminotransferase 37 U/L (12-78); Albumin Level 4.7 g/dl (3.5-5.0); Albumin/Globulin Ratio 1.4 (1.1-1.8); Alkaline Phosphatase 113 U/L (38-126); Anion Gap 18.3 mEq/L (5-15); Aspartate Amino Transferase 35 U/L (14-36); Bilirubin,Total 1.7 mg/dl (0.2-1.3); Blood Urea Nitrogen 11 mg/dl (7-17); Carbon Dioxide 26 mmol/L (22.0-30.0); Estimated Glomerular Filt Rate 85 ml/min (>60); GFR (African American) 103 ML/MIN (>60); Globulin 3.4 g/dL (1.3-3.2); Total Protein,Serum 8.1 g/dl (6.3-8.2)
[2023-04-27 10:24] LABS: Calcium 10.2 mg/dl (8.4-10.2); Glucose 90 mg/dl (74-100); Glucose,Fasting 90 mg/dl (74-100)
[2023-04-27 10:53] LABS: Thyroid Stimulating Hormone 1.98 uIU/mL (0.465-4.68)
[2023-04-28 09:53] LABS: Estradiol 33.3 pg/mL (.); FSH 8.3 mIU/mL (.)
[2023-04-29 14:41] LABS: Insulin Level Total 6.4 uIU/mL (2.6-24.9)
[2023-05-02 12:41] LABS: Anti Mullerian Hormone (AMH) 2.22
[2023-05-02 18:24] LABS: Testosterone, Total, LC/MS 11 ng/dL (.)
== END ==
PROVIDERS: PCP Family Medicine; Visit Provider Obstetrics & Gynecology
DX: Z31.9 Encounter for procreative management, unspecified (principal)
CPT/HCPCS: 36415; 80053; 82397; 82670; 82947; 83001; 83036; 83525; 84403; 84443; 85025

== ENCOUNTER → 2023-05-23 10:46 | Outpatient (CLI) | payer BC, SELFPAY ==
[2023-05-23 12:54] LABS: HCG,Quantitative 32 mIU/ml (0-5.42)
[2023-05-24 11:55] LABS: Progesterone 18.3 ng/mL (.)
== END ==
PROVIDERS: PCP Family Medicine; Visit Provider Obstetrics & Gynecology
DX: N92.6 Irregular menstruation, unspecified (principal)
CPT/HCPCS: 36415; 84144; 84702

== ENCOUNTER → 2023-05-29 08:39 | Outpatient (CLI) | payer BC, SELFPAY ==
[2023-05-29 11:02] LABS: HCG,Quantitative 206 mIU/ml (0-5.42)
== END ==
PROVIDERS: PCP Family Medicine; Visit Provider Obstetrics & Gynecology
DX: N92.6 Irregular menstruation, unspecified (principal); Z32.00 Encounter for pregnancy test, result unknown
CPT/HCPCS: 36415; 84702

== ENCOUNTER 2023-06-11 09:48 | Emergency (ER) | payer BC, SELFPAY ==
[2023-06-11 09:49] VITALS: BP 134/71; PULSE 103; RESP 17; TEMP 37.1; O2SAT 100; BMI 27.4
[2023-06-11 10:05] VITALS: BMI 27.4
--- NOTE | 2023-06-11 10:09 | US_ITS ---
PROCEDURE INFORMATION: Exam: US , Transvaginal Exam date and time: 06/11/2023 10:20 AM Age: 28 years old Clinical indication: Other: Left pelvic pain; Gestational age or lmp: Lmp 04/25/2023; ; Patient HX: Hcg 206 today; Additional info: Lower abd pain, LABS AND CLINICAL REPORTS: Last menstrual period start date: 04/25/2023 Gestational age (Established): 6 w 5 d Estimated due date (Established): 01/30/2024 TECHNIQUE: Imaging protocol: Real-time transvaginal obstetrical ultrasound of the maternal pelvis with image documentation. Transvaginal imaging was used for better evaluation of the fetus, adnexa, and/or cervix. COMPARISON: US OB TRANSVAGINAL 07/13/2022 8:24 PM FINDINGS: Gestation: Uterus is retroverted. Single intrauterine sac with yolk sac evident. No pole detected with confidence at this time which may be due to early age. Yolk sac measures 4.2 mm. Tiny perigestational hemorrhage detected. BIOMETRY: Gestational age (AUA): 6 w 0 d Estimated due date (AUA): 02/04/2024 Mean sac diameter: 1.18 cm. Five weeks 6 days. MATERNAL: Right ovary/adnexa: Right ovary measures 2.87 cm x 2.75 cm x 1.47 cm. Right ovarian volume is 6.07 mL. Normal Doppler flow. Left ovary/adnexa: Left ovary measures 3.67 cm x 2.88 cm x 2.36 cm. Left ovarian volume is 13.06 mL. 1.4 cm functional cyst. Normal Doppler flow. IMPRESSION: 5 week 6 day intrauterine gestational sac with yolk sac evident. No pole appreciated which is likely due to early age. Recommend a repeat study in 1-2 weeks to confirm viability.
--- NOTE | 2023-06-11 10:18 | PC.NURSE ---
PT TO US AT THIS TIME
[2023-06-11 10:19] LABS: Microscopic, Urine URINE MICROSCOPIC (MICROSCOPIC)
--- NOTE | 2023-06-11 10:22 | HMH.EDGENADL ---
Discharge Plan Disposition Patient Disposition: Home, Self-Care Chief Complaint: Abdominal Pain Prescriptions Prescriptions: No Action Classic 28 mg iron- 800 mcg tablet 1 tab PO DAILY Referrals Follow up/Referrals: Mingo Jordan MD [Primary Care Provider] - See instructions Activity Restrictions/Add. Instructions Additional Instructions/Restrictions: Call your family doctor to establish care for this visit to the emergency department and schedule follow-up within 48 hours to ensure improvement. If you have any worsening of your condition or any other concerning signs or symptoms, return to the emergency department or your primary care doctor for further evaluation. Follow-up with [facility], they will be able to review records from today and compare your number (hCG) to its baseline. Also follow-up regarding left ovarian cyst. Because you have left ovary cyst, still unable to rule out intermittent torsion, detorsion. If you have persistent, severe pain that would not go away, associated with vomiting, sweating, or any other concerns, be sure to return to the ER promptly. Clinical Impressions Clinical Impression: Cyst of left ovary, Abdominal pain affecting Instructions Patient Instructions: DI for Acute Abdominal Pain Discharge ED Provider: Stevie Stephens General Adult HPI General Chief complaint: Abdominal Pain Stated complaint: 7 weeks , Lt side cramping Time Seen by Provider: 06/11/23 09:53 Mode of Arrival: Family Vehicle Source of Information: Patient Limitations: No Limitations Description of Symptoms (Recalled from ER Triage Doc. by RN): Pt c/o LLQ ABD pain that is intermittent and has been waking her up. She reports to be approx 7 wk /A1 @ 5wk. Denies any vaginal bleeding. She is a known A negative Rh type. Denies any fever, chills, or back pain. She denies any abnormal d/c, she does have small amount clear d/c. She has not had an u/s completed yet. Dr. Ford is her OBGYN and suggested sahe come to the ER. History of Present Illness HPI narrative: 28-year-old female who is currently about 7 weeks by last menstrual period presenting with abdominal pain. Intermittent, sharp, just left of midline. Not associate with nausea or vomiting, dysuria, hematuria, constipation, diarrhea, fevers or chills, abnormal vaginal discharge or bleeding. Patient has next follow-up 7 days from now on the , however called OB and OB recommended she come to the emergency department given patient is Rh-, early in , has not had initial, confirming IUP ultrasound. Related Data Home Medications Medication Instructions Recorded Confirmed vits no.126-ferrous fum 1 tab PO DAILY supplement 06/11/23 06/11/23 28 mg iron-folic acid 800 mcg tablet (Classic ) Allergies Allergy/AdvReac Type Severity Reaction Status Date / Time Penicillins Allergy Intermediate Hives Verified 06/06/23 19:08 Sulfa (Sulfonamide Allergy Intermediate Hives Verified 06/06/23 19:08 Antibiotics) [facility] Disclaimer: The information contained in this section may have been updated after the patient was seen, as this information can be updated by other users. Medical History Complete Patient desires PTSD (post-traumatic stress disorder) Rh negative status during Rhogam 07/09/22 Surgical History No significant past surgical history Family History Grandmother Heart attack Father Hypertension Mother Thyroid disorder Social History Smoking Status: Never smoker alcohol intake: never substance use type: denies use current occupational status: employed and other Travel in the last 8 weeks
[2023-06-11 10:25] LABS: Basophils % 0.5 % (0.1-2.0); Eosinophils # 0.1 K/mm3 (0.0-0.4); Eosinophils % 0.6 % (0.1-12.0); Hematocrit 45.2 % (37.0-47.0); Hemoglobin 14.9 g/dL (12.2-16.2); Lymphocytes # 1.9 K/mm3 (0.7-4.5); Lymphocytes % 25.5 % (10-50); Mean Corpuscular HGB Conc 32.9 g/dL (31.8-35.4); Mean Corpuscular Hemoglobin 31.9 pg (27.0-31.2); Mean Corpuscular Volume 96.9 fl (81-99); Mean Platelet Volume 9.5 fl (7.4-10.4); Monocytes # 0.3 K/mm3 (0.1-1.0); Monocytes % 4.4 % (1.7-9.3); Neutrophils # 5.1 K/mm3 (1.8-7.8); Neutrophils % 69.1 % (37.0-80.0); Platelet Count 270 K/mm3 (142-424); Red Blood Count 4.67 M/mm3 (4.20-5.40); Red Cell Distribution Width 13.3 % (11.5-17.5); White Blood Count 7.3 K/mm3 (4.8-10.8)
[2023-06-11 10:28] LABS: Appearance,Urine CLEAR (Clear); Bilirubin,Urine Negative (Negative); Blood, Urine Negative (Negative); Color,Urine YELLOW (Yellow); Glucose,Urine (UA) Negative (Negative); Ketones,Urine Negative (Negative); Leukocyte Esterase,Urine Negative (Negative); Nitrate,Urine Negative (Negative); PH,Urine 6.5 (5.0-8.5); Protein,Urine Negative (Negative); Specific Gravity, Urine 1.015 (1.005-1.030); Urobilinogen,Urine 0.2 EU/dl (0.2)
[2023-06-11 10:30] LABS: Urine Pregnancy, HCG Qual. Positive (Negative)
--- NOTE | 2023-06-11 10:53 | PC.NURSE ---
pt back in room from u/s. prelim eval is : good flow to both ovaries, intrauterine , yolk present, small embryo . Dr. Stephens notified.
[2023-06-11 11:01] LABS: Alanine Aminotransferase 31 U/L (12-78); Albumin Level 4.6 g/dl (3.5-5.0); Albumin/Globulin Ratio 1.2 (1.1-1.8); Alkaline Phosphatase 93 U/L (38-126); Anion Gap 14.1 mEq/L (5-15); Aspartate Amino Transferase 34 U/L (14-36); Blood Urea Nitrogen 9 mg/dl (7-17); Calcium 9.6 mg/dl (8.4-10.2); Carbon Dioxide 26 mmol/L (22.0-30.0); Chloride 101 mmol/L (98-107); Creatinine Clearance Estimated 146 mL/min (50-200); Estimated Glomerular Filt Rate 100 ml/min (>60); GFR (African American) 121 ML/MIN (>60); Globulin 3.8 g/dL (1.3-3.2); Glucose 101 mg/dl (74-100); Potassium 4.1 mmoL/L (3.5-5.1); Sodium 137 mmol/L (136-145); Total Protein,Serum 8.4 g/dl (6.3-8.2)
[2023-06-11 11:07] LABS: Bacteria,Urine Trace /lpf
--- NOTE | 2023-06-11 11:46 | PC.NURSE ---
called lab to check time remaining on the HCG quant, reports a few more min
--- NOTE | 2023-06-11 11:50 | PC.NURSE ---
DR HENNING AT BEDSIDE TO UPDATE PT
[2023-06-11 12:05] VITALS: BP 133/70; PULSE 76; RESP 17; TEMP 36.7; O2SAT 99
[2023-06-11 12:22] LABS: HCG,Quantitative 18769 mIU/ml (0-5.42)
== END 2023-06-11 12:05 | disposition home or self-care (01) ==
PROVIDERS: Emergency Provider Emergency Medicine; PCP Family Medicine
DX: O26.891 Other specified pregnancy related conditions, first trimester (principal); O99.341 Other mental disorders complicating pregnancy, first trimester; R10.32 Left lower quadrant pain; N83.202 Unspecified ovarian cyst, left side; F43.10 Post-traumatic stress disorder, unspecified; Z3A.01 Less than 8 weeks gestation of pregnancy
CPT/HCPCS: 76817; 80053; 81001; 81025; 84702; 85025; 99285

== ENCOUNTER → 2023-06-18 12:29 | Outpatient (CLI) | payer BC, SELFPAY ==
[2023-06-18 12:57] LABS: Hematocrit 40.7 % (37.0-47.0); Mean Corpuscular Hemoglobin 33.8 pg (27.0-31.2); Mean Corpuscular Volume 97.7 fl (81-99); Red Blood Count 4.16 M/mm3 (4.20-5.40); White Blood Count 8.1 K/mm3 (4.8-10.8)
[2023-06-18 12:58] LABS: Basophils % 0.3 % (0.1-2.0); Eosinophils % 0.5 % (0.1-12.0); Lymphocytes # 1.5 K/mm3 (0.7-4.5); Lymphocytes % 18.7 % (10-50); Mean Corpuscular HGB Conc 34.5 g/dL (31.8-35.4); Mean Platelet Volume 9.4 fl (7.4-10.4); Monocytes # 0.3 K/mm3 (0.1-1.0); Neutrophils # 6.3 K/mm3 (1.8-7.8); Neutrophils % 77.5 % (37.0-80.0); Platelet Count 251 K/mm3 (142-424); Red Cell Distribution Width 13.1 % (11.5-17.5)
[2023-06-20 09:13] LABS: Rubella Antibodies, IgG 2.53 index (Immune >0.99)
[2023-06-20 13:58] LABS: Rapid Plasma Reagin Ab Titer Non Reactive titer (NonRea<1:1)
[2023-06-21 11:03] LABS: Neisseria gonorrhoeae, NAA Negative (Negative)
[2023-06-24 09:00] LABS: HIV Screen 4th Generation wRfx Non Reactive
[2023-06-24 09:01] LABS: Hepatitis B Surface Antigen Negative; Hepatitis C Antibody Non Reactive
== END ==
PROVIDERS: PCP Family Medicine; Visit Provider Obstetrics & Gynecology
DX: Z34.91 Encounter for supervision of normal pregnancy, unspecified, first trimester (principal); Z3A.08 8 weeks gestation of pregnancy
CPT/HCPCS: 36415; 85025; 86593; 86703; 86762; 86850; 87086; 87340; 87380; 87491; 87591; G0432

== ENCOUNTER → 2023-06-24 11:34 | Outpatient (CLI) | payer BC, SELFPAY ==
--- NOTE | 2023-06-24 11:45 | US_ITS ---
PROCEDURE: US OB <= 14 WEEKS FETUS CLINICAL INDICATION: confirm viability COMPARISON: No exams were available for comparison FINDINGS: Transvaginal sonographic images of the pelvis were obtained. From her last menstrual period she is 8weeks 4days. An intrauterine gestational sac is present with a pole with a crown-rump length of 0.44cm This correlates to a gestational age of 6weeks 1day. heart tones are present with an FHR of 82bpm. Yolk sac is noted. The yolk sac measures 2.9mm. There appears to be a small area of subchorionic hemorrhage. The right ovary is seen and appears normal. The left ovary is seen and appears normal. There appears to be a corpus luteum in the left ovary. There is no fluid in the cul-de-sac. IMPRESSION: 1. Viable fetus within the uterine cavity. 2. Rowan-rump length correlates to a gestational age of 6 weeks 1 day. 3. Her due date will be February 16, 2024 based on this ultrasound. 4. Small area of subchorionic hemorrhage. Dictated by: Randall Partida MD 06/24/2023 15:01 Randall Partida MD in OV 06/24/2023 15:01
== END ==
PROVIDERS: PCP Family Medicine; Visit Provider Obstetrics & Gynecology
DX: O36.80X0 Pregnancy with inconclusive fetal viability, not applicable or unspecified (principal); Z3A.08 8 weeks gestation of pregnancy; Z87.59 Personal history of other complications of pregnancy, childbirth and the puerperium
CPT/HCPCS: 76801

== ENCOUNTER → 2023-07-03 10:27 | Outpatient (CLI) | payer BC, SELFPAY | PROVIDERS: PCP Family Medicine; Visit Provider Obstetrics & Gynecology | DX: Z3A.01 Less than 8 weeks gestation of pregnancy; Z34.91 Encounter for supervision of normal pregnancy, unspecified, first trimester | CPT/HCPCS: 36415; 84702 ==

== ENCOUNTER → 2023-07-09 11:01 | Outpatient (CLI) | payer BC, SELFPAY | PROVIDERS: PCP Family Medicine; Visit Provider Obstetrics & Gynecology | DX: Z3A.01 Less than 8 weeks gestation of pregnancy (principal); Z34.91 Encounter for supervision of normal pregnancy, unspecified, first trimester | CPT/HCPCS: 36415; 84702 ==

== ENCOUNTER → 2023-07-17 10:23 | Outpatient (CLI) | payer BC, SELFPAY ==
[2023-07-17 12:23] LABS: HCG,Quantitative 14859 mIU/ml (0-5.42)
== END ==
PROVIDERS: PCP Family Medicine; Visit Provider Obstetrics & Gynecology
DX: O03.9 Complete or unspecified spontaneous abortion without complication (principal)
CPT/HCPCS: 36415; 84702

== ENCOUNTER → 2023-07-18 13:58 | Outpatient (CLI) | payer BC, SELFPAY ==
[2023-07-18 14:26] LABS: Basophils # 0.1 K/mm3 (0-0.2); Basophils % 0.9 % (0.1-2.0); Eosinophils # 0.2 K/mm3 (0.0-0.4); Eosinophils % 2.2 % (0.1-12.0); Hematocrit 41.5 % (37.0-47.0); Hemoglobin 14.3 g/dL (12.2-16.2); Lymphocytes # 1.5 K/mm3 (0.7-4.5); Lymphocytes % 21.7 % (10-50); Mean Corpuscular HGB Conc 34.4 g/dL (31.8-35.4); Mean Corpuscular Hemoglobin 33.6 pg (27.0-31.2); Mean Corpuscular Volume 97.7 fl (81-99); Mean Platelet Volume 8.5 fl (7.4-10.4); Monocytes # 0.4 K/mm3 (0.1-1.0); Monocytes % 5.3 % (1.7-9.3); Neutrophils # 4.9 K/mm3 (1.8-7.8); Neutrophils % 69.9 % (37.0-80.0); Platelet Count 281 K/mm3 (142-424); Red Blood Count 4.25 M/mm3 (4.20-5.40)
[2023-07-18 14:48] LABS: Alanine Aminotransferase 30 U/L (12-78); Albumin Level 4.3 g/dl (3.5-5.0); Albumin/Globulin Ratio 1.4 (1.1-1.8); Alkaline Phosphatase 99 U/L (38-126); Anion Gap 14.1 mEq/L (5-15); Aspartate Amino Transferase 31 U/L (14-36); Bilirubin,Total 0.5 mg/dl (0.2-1.3); Blood Urea Nitrogen 8 mg/dl (7-17); Calcium 9.9 mg/dl (8.4-10.2); Carbon Dioxide 25 mmol/L (22.0-30.0); Chloride 102 mmol/L (98-107); Estimated Glomerular Filt Rate 119 ml/min (>60); GFR (African American) 144 ML/MIN (>60); Globulin 3.1 g/dL (1.3-3.2); Glucose 89 mg/dl (74-100); Potassium 4.1 mmoL/L (3.5-5.1); Sodium 137 mmol/L (136-145); Total Protein,Serum 7.4 g/dl (6.3-8.2)
== END ==
PROVIDERS: PCP Family Medicine; Visit Provider Obstetrics & Gynecology
DX: O02.1 Missed abortion (principal)
CPT/HCPCS: 36415; 80053; 85025; 86850

== ENCOUNTER 2023-07-19 09:49 | Day surgery (SDC) | payer BC, SELFPAY ==
[2023-07-19] VITALS (12 sets, daily range): BP systolic 105–146; BP diastolic 63–99; PULSE 69–111; RESP 12–20; TEMP 36.2–36.7; O2SAT 96–100; BMI 28.2
--- NOTE | 2023-07-19 12:34 | P.OP_ITS ---
Date of procedure: 07/19/23 Pre-op Diagnosis:: 1. Missed 2. Rh negative Post-op Diagnosis:: 1. Missed 2. Rh negative Procedure performed:: Suction dilation and curettage Surgeon:: Beryl Ford DO Bending Roll Hand(s):: N/a EDGE BEADER:: Tae Atkinson Anesthesia: CASSIE Estimated blood loss (mL): 50 Clinical Note:: Ellen is a very pleasant 28 yo who presents to [facility] for Suction D&C for missed . She had first ob ultrasound 06/11/23 that demonstrated 5 week 6 day intrauterine gestational sac with yolk sac evident. No pole appreciated which is likely due to early age. Initial Ob visit in the office, Sono # 2 demonstrated single IUP with grossly normal appearing yolk sac and pole measuring 5w6d, cardiac activity visualized but unable to be picked up with ultrasound. Sono # 2 was not consistent with LMP or Sono # 1. Follow-up ultrasound, sono # 3, demonstrated viable fetus within the uterine cavity, Varnado-rump length correlated to a gestational age of 6 weeks 1 day., small area of subchorionic hemorrhage. FHR 82 bpm. Sono # 4 in the office 07/03/23 demonstrated single IUP with yolk sac and CRL measuring 6w1d, no heart activity seen. No doppler color flow. No growth from ultrasound 1 week prior. Beta hcg quant 39,651 on 07/03/23. Follow-up beta hcg quants 27,914 (07/09/23) and 14,859 (07/17/23). She admits to low back pain and occasional slimy discharge. No vaginal bleeding. She desires suction D&C. She reports a lot of anxiety/depression and PTSD with SAB. This is her second SAB. She is Rh negative. Operative findings:: 1. On bimanual exam, uterus midposition, normal size. No adnexal masses palpated 2. Cervix appears grossly normal Operative note:: Risks, benefits and alternatives were discussed with the patient. Risks include but are not limited to bleeding, infection, uterine perforation and VTE. Patient voiced understanding and agreed to proceed. She received Doxycycline 100 mg PO in preop. She was wheeled back to the operating room and placed under general anesthesia without difficulty. She was placed in dorsal lithotomy position and prepped and draped in the normal sterile fashion. Straight catheter was used to drain the bladder. A bimanual exam was performed. A weighted Auvard was placed in the vaginal vault. Single tooth tenaculum was placed on anterior lip of the cervix. Uterus sounded to 10. Sequential Xavi dilators were used to dilate the cervical os. Suction was set to 40 mm Hg. An 7 mm curved beninese suction curettage was advanced into the uterine cavity without difficulty and was used to suction contents of the uterus. Following removal of the products of conception, a small sized sharp curette was advanced into the uterine cavity and was used to scrape the uterine joe until a gritty texture was noted. Instruments were removed from the vagina. Small amount of oozing noted at Tenaculum site. Pressure and silver nitrate stick x 1 was used. Hemostasis was noted. Patient was awaken from anesthesia without difficulty. Products of conception will be sent to pathology as well as to an outside lab for chromosomal analysis. She was transported to recovery room in stable condition. Patient will be discharged home when awake and ambulating. She was also given instructions to follow-up in the office in 2 weeks. Condition: stable Disposition: same day Specimens:: Productions of conception Complications:: None
--- NOTE | 2023-07-19 12:39 | P.PNANES_ITS ---
[facility] Disclaimer: The information contained in this section may have been updated after the patient was seen, as this information can be updated by other users. Medical History Complete Missed x 2 Nausea and vomiting during PTSD (post-traumatic stress disorder) Rh negative state in antepartum period Surgical History History of wisdom tooth extraction Family History Grandmother Heart attack Father Hypertension Mother Thyroid disorder Social History Smoking Status: Never smoker alcohol intake: never substance use type: denies use current occupational status: employed and other Travel in the last 8 weeks: None household members: family housing: house number of children: 1 [facility] Anesthesia Checklist Patient Identification Patient Identification: Verbal (Name & ) Structural Data Admitted From: Home Planned Operative Procedure/s: d/c Consent for Planned Operative Procedure(s) Verified: Yes NPO Status Verified Time NPO: 00:00 Additional verifications Anesthesia Reactions: No Hx Blood Transfusions: No Blood Transfusion Reaction: No Airway Assessment Mallampati Score:: Class I C-Spine Mobility Assessed: Yes TMJ Mobility Assessed: Yes Dentition: Good Dentition Neurological Assessment Level of Consciousness: Awake, Alert and Appropriate Anesthesia Plan Anesthesia Risk discussed: Yes Anesthesia Plan: Verified ASA Class: I Anesthesia Type: General
--- NOTE | 2023-07-19 12:39 | EXP.ANES.I ---
[facility] Anesthesia Record Part I Anesthesia Record I Intake, IV Amount: 1,000 Hydration: Adequate Estimated blood loss (mL): 50 Urine output (mL): 50 Blood Pressure: 120/74 SaO2: 98 Pulse Rate: 88 Airway Patency: Patent Respiratory Rate: 12 Temperature: 97.5 F Patient is:: Awake and Stable Stable to PACU at:: 12:35
[2023-07-24 10:32] VITALS: BP 120/74; PULSE 77; RESP 18; TEMP 36.2; O2SAT 100
--- NOTE | 2023-07-24 10:32 | P.PNANES_ITS ---
[facility] Anesthesia Record Part II Anesthesia Record Part II Discharge Time: 13:09 Destination: Surgical Day Care (OP Surgery) PACU nurse assessment reviewed?: Yes Patient Condition:: Good Anesthesia Complications:: None Swallowing reflex intact?: Yes Airway Patency: Patent Cyanosis?: No Blood Pressure: 120/74 SaO2: 100 Respiratory Rate: 18 Pulse Rate: 77 Temperature: 97.1 F Mental Status: Alert & Oriented Pain level:: 0 Nausea and/or vomitting:: None Intake, IV Amount: 0 Hydration: Adequate
== END 2023-07-19 14:30 | disposition home or self-care (01) ==
PROVIDERS: PCP Family Medicine; Visit Provider Obstetrics & Gynecology
PROC: (CPT 59820; principal; 2023-07-19 11:30)
DX: O02.1 Missed abortion (principal); O03.4 Incomplete spontaneous abortion without complication
CPT/HCPCS: 59820; 85461; J2405; J2790

== ENCOUNTER → 2023-08-07 15:00 | Outpatient (CLI) | payer BC, SELFPAY ==
[2023-08-07 15:46] LABS: HCG,Quantitative 11 mIU/ml (0-5.42)
== END ==
PROVIDERS: PCP Family Medicine; Visit Provider Obstetrics & Gynecology
DX: O02.1 Missed abortion (principal)
CPT/HCPCS: 36415; 84702

== ENCOUNTER → 2023-08-16 13:21 | Outpatient (CLI) | payer BC, SELFPAY ==
[2023-08-16 14:42] LABS: HCG,Quantitative 3 mIU/ml (0-5.42)
== END ==
PROVIDERS: PCP Family Medicine; Visit Provider Obstetrics & Gynecology
DX: Z32.00 Encounter for pregnancy test, result unknown (principal)
CPT/HCPCS: 36415; 84702

== ENCOUNTER 2023-09-21 23:22 | Emergency (ER) | payer BC, SELFPAY ==
[2023-09-21 23:23] VITALS: BP 145/82; PULSE 130; RESP 20; TEMP 39.2; O2SAT 98; BMI 28.2
[2023-09-21 23:43] LABS: Coronavirus 19, PCR Not Detected (NotDetected); Influenza B, PCR Not Detected (NotDetected)
[2023-09-22 00:04] LABS: Influenza A, PCR Detected (NotDetected)
[2023-09-22 00:11] LABS: Microscopic, Urine URINE MICROSCOPIC (MICROSCOPIC)
[2023-09-22 00:15] LABS: Appearance,Urine CLEAR (Clear); Bilirubin,Urine Negative (Negative); Blood, Urine Negative (Negative); Color,Urine YELLOW (Yellow); Glucose,Urine (UA) Negative (Negative); Ketones,Urine Negative (Negative); Leukocyte Esterase,Urine Negative (Negative); Nitrate,Urine Negative (Negative); Protein,Urine Negative (Negative); Urobilinogen,Urine 0.2 EU/dl (0.2)
[2023-09-22 00:19] LABS: Urine Pregnancy, HCG Qual. Negative (Negative)
[2023-09-22 00:28] LABS: Squamous Epithelial Cell,Urine Occasional #/hpf (0-5)
[2023-09-22] MEDS: ONDANSETRON 4MG ODT 4 MG SL (00:58)
[2023-09-22] MEDS: IBUPROFEN 400 MG TABLET 800 MG PO (00:58)
[2023-09-22] MEDS: OSELTAMIVIR 75MG CAPSULE 75 MG PO (00:58)
[2023-09-22] MEDS: ACETAMINOPHEN 500MG TAB 1000 MG PO (00:58)
[2023-09-22 01:16] VITALS: BP 137/78; PULSE 120; RESP 20; TEMP 38.3; O2SAT 99
--- NOTE | 2023-09-22 01:37 | HMH.EDGENADL ---
Discharge Plan Disposition Patient Disposition: Home, Self-Care Condition: Good Prescriptions Prescriptions: New ondansetron 4 mg tablet,disintegrating 4 mg PO Q8H PRN (Reason: nausea and vomiting) 4 Days Qty: 12 0RF oseltamivir [Tamiflu] 75 mg capsule 75 mg PO BID 5 Days Qty: 10 0RF No Action Classic 28 mg iron- 800 mcg tablet PO DAILY sertraline 100 mg tablet 100 mg PO DAILY Qty: 30 2RF Referrals Follow up/Referrals: Mingo Jordan MD [Primary Care Provider] - See instructions Activity Restrictions/Add. Instructions Additional Instructions/Restrictions: You were evaluated in the emergency department today. You were diagnosed with the flu. Take Tylenol and ibuprofen every 4-6 hours as needed for pain and fever. 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 electrical installation supervisor your prescription for Tamiflu and take to shorten your flu symptoms. Return to the emergency department for new or worsening symptoms. Clinical Impressions Clinical Impression: Influenza A Stand Alone Forms Stand Alone Forms: Work/School Release Instructions Patient Instructions: DI for Influenza -- Adult Discharge ED Provider: Lindsay Pleitez General Adult HPI General Chief complaint: Upper Respiratory Infection Stated complaint: Body aches,SOA,Dizziness,chills Time Seen by Provider: 09/21/23 23:27 Mode of Arrival: Ambulatory Source of Information: Patient Limitations: No Limitations Description of Symptoms (Recalled from ER Triage Doc. by RN): pt complains of fatigue, body aches, flu s/s since 4 days ago. pt last took tylenol at 2100 tonight History of Present Illness HPI narrative: This patient is a 28-year-old female who denies significant past medical history presenting to the emergency department for evaluation with concern for 4 days of fevers, body aches, fatigue, and diarrhea. She states that she feels like she has the flu. She took Tylenol at 2100 tonight without good improvement. She also complains of nausea. No other concerns noted, such as sore throat, cough, shortness of breath, dysuria, polyuria, or other concerns. Related Data Home Medications Medication Instructions Recorded Confirmed vits no.126-ferrous fum tab PO DAILY 08/07/23 09/13/23 28 mg iron-folic acid 800 mcg tablet (Classic ) Previous Rx's Medication Instructions Recorded sertraline 100 mg tablet 100 mg PO DAILY #30 tabs 08/07/23 ondansetron 4 mg disintegrating 4 mg PO Q8H PRN nausea and 09/22/23 tablet vomiting 4 days #12 tabs oseltamivir 75 mg capsule (Tamiflu) 75 mg PO BID 5 days #10 caps 09/22/23 Allergies Allergy/AdvReac Type Severity Reaction Status Date / Time Penicillins Allergy Intermediate Hives Verified 09/13/23 08:29 Sulfa (Sulfonamide Allergy Intermediate Hives Verified 09/13/23 08:29 Antibiotics) [facility] Disclaimer: The information contained in this section may have been updated after the patient was seen, as this information can be updated by other users. Medical History Complete Missed Nausea and vomiting during PTSD (post-traumatic stress disorder) Rh negative state in antepartum period Surgical History H/O dilation and curettage History of wisdom tooth extraction Family History Grandmother Heart attack Father Hypertension Mother Thyroid disorder Social History Smoking Status: Never smoker alcohol intake: never substance use type: denies use current occupational status: employed and other Travel in the last 8 weeks: None household members: family housing: house number of children: 1 ROS Obtained: Yes All systems reviewed & no additional complaints except as documented Physical Exam General General appearance: alert and in no apparent distress Head Head exam: atraumatic and normocephalic Eye Eye exam: Present normal appearance, PERRL and EOMI ENT ENT exam: Present normal exam, normal oropharynx, mucous membranes moist and normal external ear exam Neck Neck exam: Present normal inspection, full ROM and trachea midline; Absent tenderness Chest Chest inspection: Present normal inspection and symmetric chest wall rise; Absent tenderness Respiratory Respiratory exam: Present normal lung sounds bilaterally; Absent respiratory distress, wheezes, stridor or accessory muscle use Cardiovascular Cardiovascular exam: Present normal rhythm and tachycardia Abdominal Exam Abdominal exam: Present soft; Absent distention, tenderness or guarding Extremities Exam Extremities exam: Present normal inspection, full ROM and normal capillary refill; Absent tenderness or edema Back Exam Back exam: Present normal inspection and full ROM; Absent tenderness Neurological Exam Neurological exam: Present alert, oriented X3, CN II-XII intact and normal gait; Absent motor sensory deficit Psychiatric Psychiatric exam: Present normal affect and normal mood Skin Skin exam: Present warm and dry Medical Decision Making Medical Records Medical records reviewed: Yes I reviewed the patient's medical records. [place] Inquiry Pt receiving controlled substance: No Vital Signs: 09/21/23 23:23 09/22/23 01:16 Temperature 102.5 F H 101.0 F H Temperature Source Oral Oral Pulse Rate 120 H Pulse Rate [Right Radial] 130 H Respiratory Rate 20 20 Blood Pressure 137/78 Blood Pressure [Right Arm] 145/82 H Blood Pressure Mean [Right Arm] 103 02 Sat by Pulse Oximetry 98 Oxygen Delivery Method Room Air Room Air Lab Data Lab results reviewed: Yes I reviewed the patient's lab results. Lab Results 09/21/23 23:35: SARS-CoV-2 (PCR) Not detected, Influenza A Untype (PCR) Detected A, Influenza Type B (PCR) Not detected 09/21/23 23:38: Urine Color Yellow, Urine Appearance Clear, Urine pH 6.0, Ur Specific [place] 1.020, Urine Protein Negative, Urine Glucose (UA) Negative, Urine Ketones Negative, Urine Blood Negative, Urine Nitrate Negative, Urine Bilirubin Negative, Urine Urobilinogen 0.2, Ur Leukocyte Esterase Negative, Urine RBC None, Urine WBC None, Ur Squamous Epith Cells Occasional, Urine Bacteria None, Urine HCG, Qual Negative Orders (Tests/Meds): ED MEDICATIONS Discontinued Medications Generic Name Dose Route Start Last Admin Trade Name Heidi PRN Reason Stop Dose Admin Acetaminophen 1,000 mg 09/22/23 00:42 09/22/23 00:58 Acetaminophen 500mg Tab PO 09/22/23 00:43 1,000 mg ONCE ONE Administration Ibuprofen 800 mg 09/22/23 00:30 09/22/23 00:58 Ibuprofen 400 Mg Tablet PO 09/22/23 00:31 800 mg ONCE ONE Administration Ondansetron HCl 4 mg 09/22/23 00:42 09/22/23 00:58 Ondansetron 4mg Odt SL 09/22/23 00:43 4 mg ONCE ONE Administration Oseltamivir Phosphate 75 mg 09/22/23 00:42 09/22/23 00:58 Oseltamivir 75mg Capsule PO 09/22/23 00:43 75 mg BID ONE Administration ORDERS Category Date Time Status Rapid PCR Covid and Flu A/B Stat Lab 09/21/23 23:35 Completed Urinalysis and Microscopic Stat Lab 09/21/23 23:38 Completed Urine , HCG Qual. Stat Lab 09/21/23 23:38 Completed Medical Decision Narrative: In summary, this patient is a 28-year-old female presenting to the Emergency Department for evaluation of fevers, body aches, chills, and diarrhea. Differential diagnoses considered include but are not limited to viral syndrome, pneumonia, gastroenteritis, colitis, urinary tract infection. Ruling out the most morbid conditions drove assessment. On exam, the patient is nontoxic-appearing. No focal findings on exam to suggest acute bacterial infection. She is mildly tachycardic, but otherwise vitals are reassuring. She was given oral ibuprofen, Tylenol, and Zofran for symptomatic improvement. Workup included urinalysis, urine test, and viral swab. Patient tested positive for flu A. Patient elects to receive Tamiflu for this despite that her symptoms started several days ago. She was given dose here as well as prescription for this. On reassessment, patient is resting comfortably with improved symptoms. At this time, feel that she is appropriate for discharge with instructions for supportive management of flu A. She is given expectant management, strict return precautions, and instructions for close follow-up with her primary care provider. She was also given prescription for Zofran. She was discharged in stable condition after all questions were answered. Critical Care Critical Care Time Critical Care Time: No
== END 2023-09-22 01:18 | disposition home or self-care (01) ==
PROVIDERS: Emergency Provider Emergency Medicine; PCP Family Medicine
DX: J10.1 Influenza due to other identified influenza virus with other respiratory manifestations (principal); R50.9 Fever, unspecified; R19.7 Diarrhea, unspecified; R11.0 Nausea; R53.83 Other fatigue; M79.18 Myalgia, other site
CPT/HCPCS: 81001; 81025; 87636; 99283

== ENCOUNTER 2023-11-12 11:12 | Outpatient (CLI) | payer BC, SELFPAY ==
[2023-11-12 12:17] LABS: HCG,Quantitative 48 mIU/ml (0-5.42)
[2023-11-13 08:18] LABS: Progesterone 26.2 ng/mL (.)
== END 2023-11-12 23:59 ==
LOC: LAB 11:13
PROVIDERS: PCP Family Medicine; Visit Provider Obstetrics & Gynecology
DX: N92.6 Irregular menstruation, unspecified (principal)
CPT/HCPCS: 36415; 84144; 84702

== ENCOUNTER 2023-11-15 08:55 | Outpatient (CLI) | payer BC, SELFPAY ==
[2023-11-15 09:59] LABS: HCG,Quantitative 192 mIU/ml (0-5.42)
== END 2023-11-15 23:59 ==
LOC: LAB 08:56
PROVIDERS: PCP Family Medicine; Visit Provider Obstetrics & Gynecology
DX: N92.6 Irregular menstruation, unspecified (principal)
CPT/HCPCS: 36415; 84702

== ENCOUNTER 2023-11-23 18:19 | Emergency (ER) | payer BC, SELFPAY ==
[2023-11-23] VITALS (8 sets, daily range): BP systolic 118–144; BP diastolic 72–81; PULSE 79–119; RESP 16–20; TEMP 36.9–37.2; O2SAT 99–100; BMI 28.2
[2023-11-23 18:48] LABS: Microscopic, Urine URINE MICROSCOPIC (MICROSCOPIC)
[2023-11-23 18:51] LABS: Basophils # 0.1 K/mm3 (0-0.2); Basophils % 0.6 % (0.1-2.0); Eosinophils # 0.1 K/mm3 (0.0-0.4); Hematocrit 40.9 % (37.0-47.0); Hemoglobin 13.7 g/dL (12.2-16.2); Lymphocytes # 2.1 K/mm3 (0.7-4.5); Lymphocytes % 22.6 % (10-50); Mean Corpuscular HGB Conc 33.4 g/dL (31.8-35.4); Mean Corpuscular Hemoglobin 32.9 pg (27.0-31.2); Mean Corpuscular Volume 98.5 fl (81-99); Mean Platelet Volume 9.6 fl (7.4-10.4); Monocytes # 0.4 K/mm3 (0.1-1.0); Monocytes % 3.8 % (1.7-9.3); Neutrophils # 6.8 K/mm3 (1.8-7.8); Neutrophils % 72.1 % (37.0-80.0); Platelet Count 260 K/mm3 (142-424); Red Blood Count 4.15 M/mm3 (4.20-5.40); Red Cell Distribution Width 13.3 % (11.5-17.5); White Blood Count 9.4 K/mm3 (4.8-10.8)
[2023-11-23 18:52] LABS: Chloride 105 mmol/L (98-107)
[2023-11-23 18:53] LABS: Potassium 3.5 mmoL/L (3.5-5.1); Sodium 134 mmol/L (136-145)
[2023-11-23 18:55] LABS: Alanine Aminotransferase 31 U/L (12-78); Aspartate Amino Transferase 30 U/L (14-36); Blood Urea Nitrogen 12 mg/dl (7-17); Creatinine Clearance Estimated 150 mL/min (50-200); Estimated Glomerular Filt Rate 100 ml/min (>60); GFR (African American) 121 ML/MIN (>60)
[2023-11-23 18:56] LABS: Albumin Level 4.2 g/dl (3.5-5.0); Albumin/Globulin Ratio 1.4 (1.1-1.8); Alkaline Phosphatase 110 U/L (38-126); Anion Gap 8.5 mEq/L (5-15); Bilirubin,Total 0.5 mg/dl (0.2-1.3); Calcium 9.4 mg/dl (8.4-10.2); Carbon Dioxide 24 mmol/L (22.0-30.0); Glucose 99 mg/dl (74-100); Total Protein,Serum 7.2 g/dl (6.3-8.2)
[2023-11-23 18:57] LABS: Appearance,Urine CLEAR (Clear); Bilirubin,Urine Negative (Negative); Blood, Urine Negative (Negative); Color,Urine YELLOW (Yellow); Glucose,Urine (UA) Negative (Negative); Ketones,Urine Negative (Negative); Leukocyte Esterase,Urine Negative (Negative); Nitrate,Urine Negative (Negative); PH,Urine 6.5 (5.0-8.5); Protein,Urine Negative (Negative); Specific Gravity, Urine 1.025 (1.005-1.030); Urobilinogen,Urine 0.2 EU/dl (0.2)
[2023-11-23 19:13] LABS: HCG,Quantitative 4513 mIU/ml (0-5.42)
--- NOTE | 2023-11-23 19:31 | PC.NURSE ---
Called RAD about ultrasound for pt per Wards request. Calling in technical support analyst per Zeenat. SHRADDHA
[2023-11-23 19:40] LABS: Squamous Epithelial Cell,Urine Occasional #/hpf (0-5); WBC,Urine Occasional #/hpf (0-3)
--- NOTE | 2023-11-23 19:55 | US_ITS ---
PROCEDURE INFORMATION: Exam: US , Transvaginal and US Duplex Artery and Vein, Ovaries, Complete Exam date and time: 11/23/2023 8:06 PM Age: 28 years old Clinical indication: Lmp or gestational age (in weeks): ; Other: Spotting; ; Additional info: Bleeding 1st trimester LABS AND CLINICAL REPORTS: Last menstrual period start date: 10/17/2023 Gestational age (Established): 5 w 2 d Estimated due date (Established): 07/23/2024 TECHNIQUE: Imaging protocol: Real-time transvaginal obstetrical ultrasound of the maternal pelvis and a first trimester with image documentation. Transvaginal imaging was used for better evaluation of the fetus, adnexa, and/or cervix. Real-time duplex ultrasound scan of the arterial and venous flow of the ovaries with B-mode, color Doppler flow and spectral waveform analysis, Complete Duplex. Duplex exam was performed to evaluate for torsion and other vascular conditions. COMPARISON: US OB <= 14 WEEKS FETUS 06/24/2023 11:43 AM FINDINGS: GESTATION: Gestation: Single intrauterine gestational sac containing yolk sac without visualization pole. heart rate: NA Placenta: Not evaluated due to early gestation. Amniotic fluid: Not evaluated due to early gestation. BIOMETRY: Gestational age (AUA): 5 w 2 d Estimated due date (AUA): 07/23/2024 Mean sac diameter: 0.96 cm. MATERNAL: Right ovary/adnexa: Right ovary measures 2.54 cm x 2.28 cm x 1.41 cm. Right ovarian volume is 4.28 mL. Multiple small anechoic peripheral follicles. Left ovary/adnexa: Left ovary measures 3.31 cm x 2.91 cm x 2.21 cm. Left ovarian volume is 11.15 mL. Complex LEFT ovarian corpus luteal cyst/follicle measuring approximately 1.8 x 1.2 cm and an anechoic simple paraovarian cyst measuring 1.4 x 1.5 x 1.2 cm. Doppler: Doppler examination of the ovaries with pulsed wave and color images was performed which demonstrate arterial/venous waveforms within normal limits. Intraperitoneal space: No free fluid in the pelvis. IMPRESSION: 1. Single early intrauterine gestation containing yolk sac without pole as described. 2. Recommend short interval followup in 11-14 days. 3. Complex LEFT ovarian corpus luteal cyst/follicle and a simple LEFT paraovarian cyst. 4. Multiple small subcentimeter RIGHT ovarian follicles differential diagnosis includes physiologic changes versus polycystic ovarian disease. 5. Both ovaries demonstrate blood flow on Doppler sonogram. COMMENTS: Recommendations For Followup If No Viable Intrauterine : Gestational Sac With Yolk Sac: Followup sonogram after 11 days. NO embryo WITH heartbeat on follow up sonogram is suggestive failed .
[2023-11-23] MEDS: RHO(D) IMMUNE GLOBULIN 1,500 UNIT SYRINGE 300 UNIT IM (19:58)
--- NOTE | 2023-11-23 20:03 | ED_ITS ---
Discharge Plan Disposition Patient Disposition: Home, Self-Care Condition: Good Prescriptions Prescriptions: No Action Classic 28 mg iron- 800 mcg tablet PO DAILY sertraline 100 mg tablet 100 mg PO DAILY Qty: 30 2RF progesterone micronized [Prometrium] 200 mg capsule 200 mg vaginal HS Qty: 30 1RF ondansetron 4 mg tablet,disintegrating 4 mg PO Q8H PRN (Reason: nausea and vomiting) 4 Days Qty: 12 0RF oseltamivir [Tamiflu] 75 mg capsule 75 mg PO BID 5 Days Qty: 10 0RF Referrals Follow up/Referrals: Mingo Jordan MD [Primary Care Provider] - See instructions Beryl Ford DO [Staff Physician] - See instructions (48h follow up HCG) Activity Restrictions/Add. Instructions Additional Instructions/Restrictions: You were evaluated in the ER. Make an appointment with MACHINIST JOB SETTER for reevaluation in 48 hours to recheck your hCG levels. Return to the ER with any new, worsening, or otherwise concerning symptoms. Clinical Impressions Clinical Impression: Vaginal bleeding affecting early Discharge ED Provider: Ifeoma Barton General Adult HPI General Chief complaint: Vaginal Bleeding Stated complaint: 5 weeks with spotting Time Seen by Provider: 11/23/23 18:43 Mode of Arrival: Ambulatory Source of Information: Patient Limitations: No Limitations Description of Symptoms (Recalled from ER Triage Doc. by RN): pt presents to ED with vaginal bleeding. pt reports she was at work today and began spotting around 1430. pt does work at [employer]. pt reports she has had two miscarriages in the past. has had one live . pt does follow with dr acevedo. pt is rh negative. History of Present Illness HPI narrative: 28-year-old female G4, P1 presents to the ER with concerns of vaginal bleeding. Patient states she is approximately 5 weeks . Most recent miscarriage was in July and required D&C. Patient states she has had to have RhoGAM previously due to negative blood type. Patient states she has upcoming ultrasound at the beginning of December. She is only having mild spotting, she is not requiring pads. She states it was initially bright red but is now just a little bit and brown. She states she has not passed any clots or tissues. No dizziness or weakness. No numbness, tingling, or shortness of breath. No pelvic pain. Related Data Home Medications Medication Instructions Recorded Confirmed vits no.126-ferrous fum tab PO DAILY 08/07/23 09/13/23 28 mg iron-folic acid 800 mcg tablet (Classic ) Previous Rx's Medication Instructions Recorded sertraline 100 mg tablet 100 mg PO DAILY #30 tabs 08/07/23 ondansetron 4 mg disintegrating 4 mg PO Q8H PRN nausea and 09/22/23 tablet vomiting 4 days #12 tabs oseltamivir 75 mg capsule (Tamiflu) 75 mg PO BID 5 days #10 caps 09/22/23 progesterone micronized 200 mg 200 mg vaginal HS #30 caps 11/12/23 capsule (Prometrium) Allergies Allergy/AdvReac Type Severity Reaction Status Date / Time Penicillins Allergy Intermediate Hives Verified 09/13/23 08:29 Sulfa (Sulfonamide Allergy Intermediate Hives Verified 09/13/23 08:29 Antibiotics) [facility] Disclaimer: The information contained in this section may have been updated after the patient was seen, as this information can be updated by other users. Medical History Complete Missed Nausea and vomiting during PTSD (post-traumatic stress disorder) Rh negative state in antepartum period Surgical History H/O dilation and curettage History of wisdom tooth extraction Family History Grandmother Heart attack Father Hypertension Mother Thyroid disorder Social History Smoking Status: Never smoker alcohol intake: never substance use type: denies use current occupational status: employed and other Travel in the last 8 weeks: None household members: family housing: house number of children: 1 ROS Obtained: Yes All systems reviewed & no additional complaints except as documented Constitutional Constitutional: Denies chills, Denies fever(s), Denies headache(s) and Denies weakness Eyes Eyes: Denies change in vision ENT Ears, Nose, Mouth, and Throat: Denies dizziness, Denies headache(s), Denies nasal congestion and Denies sore throat Cardiovascular Cardiovascular: Denies chest pain, Denies dyspnea and Denies leg edema Respiratory Respiratory: Denies cough and Denies dyspnea Gastrointestinal Gastrointestingal: Denies constipation, diarrhea, nausea or vomiting Genitourinary Female Genitourinary: Denies dysuria Comments: Vaginal spotting Musculoskeletal Musculoskeletal: Denies arthralgias, Denies myalgias, Denies numbness and Denies tingling Integumentary/Breasts Skin/Breast: Denies change in pigmentation Neurologic Neurologic: Denies dizziness, Denies headache(s), Denies numbness, Denies tingling and Denies weakness Physical Exam General General appearance: alert and in no apparent distress Head Head exam: atraumatic and normocephalic Eye Eye exam: Present PERRL and EOMI ENT ENT exam: Present mucous membranes moist Neck Neck exam: Present normal inspection and full ROM Chest Chest inspection: Present symmetric chest wall rise Respiratory Respiratory exam: Absent respiratory distress or stridor Cardiovascular Cardiovascular exam: Present regular rate and normal rhythm Abdominal Exam Abdominal exam: Present soft; Absent distention or tenderness Extremities Exam Extremities exam: Present full ROM Neurological Exam Neurological exam: Present alert and oriented X3; Absent motor sensory deficit Psychiatric Psychiatric exam: Present normal affect and normal mood Skin Skin exam: Present warm and dry Medical Decision Making Medical Records Medical records reviewed: Yes I reviewed the patient's medical records. [place] Inquiry Pt receiving controlled substance: No Vital Signs: 11/23/23 18:21 11/23/23 18:33 11/23/23 19:00 Temperature 99.0 F Temperature Source Oral Pulse Rate 109 H 103 H Pulse Rate [Left Radial] 119 H Respiratory Rate 19 20 Blood Pressure 143/81 H 144/77 H Blood Pressure [Right Arm] 143/81 H Blood Pressure Mean 94 Blood Pressure Mean [Right Arm] 101 02 Sat by Pulse Oximetry 100 100 100 Oxygen Delivery Method Room Air Room Air Room Air 11/23/23 19:30 11/23/23 21:00 11/23/23 21:30 Temperature Temperature Source Pulse Rate 79 88 97 H Pulse Rate [Left Radial] Respiratory Rate 18 20 Blood Pressure 121/77 118/74 124/78 Blood Pressure [Right Arm] Blood Pressure Mean 91 82 88 Blood Pressure Mean [Right Arm] 02 Sat by Pulse Oximetry 100 100 100 Oxygen Delivery Method Room Air Room Air 11/23/23 22:00 11/23/23 22:09 Temperature 98.4 F Temperature Source Oral Pulse Rate 80 85 Pulse Rate [Left Radial] Respiratory Rate 16 Blood Pressure 122/72 122/72 Blood Pressure [Right Arm] Blood Pressure Mean 85 Blood Pressure Mean [Right Arm] 02 Sat by Pulse Oximetry 100 Oxygen Delivery Method Room Air Lab Data Lab Results 11/23/23 18:34: Urine Color Yellow, Urine Appearance Clear, Urine pH 6.5, Ur Specific [place] 1.025, Urine Protein Negative, Urine Glucose (UA) Negative, Urine Ketones Negative, Urine Blood Negative, Urine Nitrate Negative, Urine Bilirubin Negative, Urine Urobilinogen 0.2, Ur Leukocyte Esterase Negative, Urine RBC None, Urine WBC Occasional, Ur Squamous Epith Cells Occasional, Urine Bacteria None 11/23/23 18:41: WBC 9.4, RBC 4.15 L, Hgb 13.7, Hct 40.9, MCV 98.5, MCH 32.9 H, MCHC 33.4, RDW 13.3, Plt Count 260, MPV 9.6, Neut % (Auto) 72.1, Lymph % (Auto) 22.6, [place] % (Auto) 3.8, Eos % (Auto) 1.0, Baso % (Auto) 0.6, Neut # (Auto) 6.8, Lymph # (Auto) 2.1, [place] # (Auto) 0.4, Eos # (Auto) 0.1, Baso # (Auto) 0.1, S odium 134 L, Potassium 3.5, Chloride 105, Carbon Dioxide 24, Anion Gap 8.5, BUN 12, Creatinine 0.70, Estimated Creat Clear 150, Estimated GFR 100, Est GFR ( Amer) 121, Glucose 99, Calcium 9.4, Total Bilirubin 0.5, AST 30, ALT 31, Alkaline Phosphatase 110, Total Protein 7.2, Albumin 4.2, Globulin 3.0, Albumin/Globulin Ratio 1.4, HCG, Quant 4513 H 11/23/23 18:57: Blood Type A Negative, Antibody Screen Negative 11/23/23 18:41 11/23/23 18:41 Orders (Tests/Meds): ED MEDICATIONS Discontinued Medications Generic Name Dose Route Start Last Admin Trade Name Freq PRN Reason Stop Dose Admin Rho Immune Globulin 300 unit 11/23/23 18:51 11/23/23 19:58 Rho(D) Immune Globulin 1,500 Unit Syringe IM 11/23/23 18:52 300 unit ONCE ONE Administration ORDERS Category Date Time Status Rhogam Stat BBK 11/23/23 18:57 Completed Complete Blood Count Auto Diff Stat Lab 11/23/23 18:41 Completed Comprehensive Metabolic Panel Stat Lab 11/23/23 18:41 Completed HCG,Quantitative Stat Lab 11/23/23 18:41 Completed UA [Urinalysis and Microscopic] Stat Lab 11/23/23 18:34 Completed US OB transvaginal Stat Ultrasound 11/23/23 19:55 Completed Medical Decision Narrative: In summary, this 28year old female G4, P1 approximately 5 weeks with history of miscarriage and prior missed requiring D&C which is a comorbidity of current condition presents to the emergency department today with vaginal bleeding. On initial evaluation patient is hemodynamically stable, afebrile, resting comfortably, she states her bleeding has significantly decreased. No abnormal abdominal exam findings or other findings on exam. Differential diagnosis includes but is not limited to early , ectopic , heterotopic , I considered spontaneous as well as subchorionic hemorrhage and asymptomatic bacteriuria. Based on these concerns, I ordered urine studies, hCG, basic labs including type and screen. Patient has a blood type of a negative. She requires RhoGAM which was administered. Other labs demonstrate no findings of anemia or leukocytosis, no asymptomatic bacteriuria or UTI on urinalysis, quantitative hCG is elevated consistent with early . Transvaginal ultrasound personally interpreted does demonstrate findings of single intrauterine on my personal interpretation. Radiology read demonstrates findings of corpus luteum cyst on the left ovary, no findings of ectopic or torsion. See radiology read for final interpretation. On reassessment patient continues to be stable. She is appropriate for discharge at this time. She received instructions on continued symptomatic management and monitoring as well as instructions for repeat hCG to be completed at her OB. Patient was given instructions on symptomatic management, follow up instructions, and return precautions for the emergency department. Patient indicated understanding and was discharged in stable condition. Critical Care Critical Care Time Critical Care Time: No
--- NOTE | 2023-11-23 20:06 | PC.NURSE ---
patient to ultrasound at this time.
--- NOTE | 2023-11-23 20:47 | PC.NURSE ---
Patient returned from rad. US tech revealed + for gestational sac, questionable yolk sac, left ovary suspicious for ectopic
--- NOTE | 2023-11-23 20:48 | PC.NURSE ---
notified of results.
== END 2023-11-23 22:11 | disposition home or self-care (01) ==
PROVIDERS: Emergency Provider Emergency Medicine; PCP Family Medicine
DX: O26.851 Spotting complicating pregnancy, first trimester (principal); Z3A.01 Less than 8 weeks gestation of pregnancy; Z67.91 Unspecified blood type, Rh negative
CPT/HCPCS: 76817; 80053; 81001; 84702; 85025; 96372; 99285; J2790

== ENCOUNTER 2023-11-26 11:53 | Outpatient (CLI) | payer BC, SELFPAY ==
[2023-11-26 12:46] LABS: Basophils # 0.1 K/mm3 (0-0.2); Basophils % 0.9 % (0.1-2.0); Eosinophils # 0.1 K/mm3 (0.0-0.4); Eosinophils % 0.7 % (0.1-12.0); Hematocrit 43.6 % (37.0-47.0); Hemoglobin 14.4 g/dL (12.2-16.2); Lymphocytes # 1.7 K/mm3 (0.7-4.5); Lymphocytes % 21.2 % (10-50); Mean Corpuscular HGB Conc 33.1 g/dL (31.8-35.4); Mean Corpuscular Hemoglobin 33.6 pg (27.0-31.2); Mean Corpuscular Volume 101.4 fl (81-99); Mean Platelet Volume 9.5 fl (7.4-10.4); Monocytes # 0.4 K/mm3 (0.1-1.0); Monocytes % 4.8 % (1.7-9.3); Neutrophils # 5.9 K/mm3 (1.8-7.8); Neutrophils % 72.5 % (37.0-80.0); Platelet Count 246 K/mm3 (142-424); Red Cell Distribution Width 13.3 % (11.5-17.5); White Blood Count 8.1 K/mm3 (4.8-10.8)
[2023-11-26 13:38] LABS: HCG,Quantitative 12681 mIU/ml (0-5.42)
[2023-11-27 07:44] LABS: Rubella Antibodies, IgG 2.04 index (Immune >0.99)
[2023-11-27 08:40] LABS: HIV Screen 4th Generation wRfx Non Reactive (Non Reactive)
[2023-11-27 12:13] LABS: Rapid Plasma Reagin Ab Titer Non Reactive titer (NonRea<1:1)
[2023-11-30 12:34] LABS: Hepatitis B Surface Antigen Negative; Hepatitis C Antibody Non Reactive
== END 2023-11-26 23:59 ==
LOC: LAB 11:53
PROVIDERS: PCP Family Medicine; Visit Provider Obstetrics & Gynecology
DX: O20.9 Hemorrhage in early pregnancy, unspecified (principal); O26.891 Other specified pregnancy related conditions, first trimester; Z3A.01 Less than 8 weeks gestation of pregnancy
CPT/HCPCS: 36415; 84702; 85025; 86593; 86703; 86762; 86850; 86870; 87086; 87340; 87380; G0432

== ENCOUNTER 2024-02-29 16:16 | Emergency (ER) | payer BC, SELFPAY ==
[2024-02-29 16:17] VITALS: BP 121/85; PULSE 102; RESP 18; TEMP 37; O2SAT 100; BMI 30.9
--- NOTE | 2024-02-29 17:22 | EXP.UTC ---
Discharge Plan Disposition Patient Disposition: Home, Self-Care Condition: Good Prescriptions Prescriptions: New fluticasone propionate [Flonase Allergy Relief] 50 mcg/actuation spray,suspension 1 spray intranasal Q12H Qty: 16 0RF Rx Instructions: administer into each nostril No Action Classic 28 mg iron- 800 mcg tablet PO DAILY promethazine 12.5 mg tablet 12.5 mg PO Q6H PRN (Reason: nausea and vomiting) Qty: 20 1RF Referrals Follow up/Referrals: Mingo Jordan MD [Primary Care Provider] - See instructions Activity Restrictions/Add. Instructions Additional Instructions/Restrictions: Use medication as prescribed. Use 2 mineral drops in right ear twice a day for 4 days then take a warm shower and let warm water go into ear to remove wax. Clinical Impressions Clinical Impression: Impacted cerumen of right ear Eustachian tube dysfunction Qualifiers: Laterality: left Qualified Code(s): H69.92 - Unspecified Eustachian tube disorder, left ear Stand Alone Forms Stand Alone Forms: Work/School Release Instructions Patient Instructions: DI for Eustachian Tube Dysfunction-Adult Discharge ED Provider: Nataliya Crowe [facility] General Stated complaint: ear ache Mode of Arrival: Ambulatory Source of Information: Patient Limitations: No Limitations Time Seen by Provider: 02/29/24 17:21 Description of Symptoms (Recalled from Triage Doc. by RN): LEFT EAR PAIN AND ACID REFLUX PT IS 19 WEEKS HEENT Symptoms (Recalled from RN notes): Yes Resp Symptoms (Recalled from RN notes): No Skin Symptoms (Recalled from RN notes): No MS Symptoms (Recalled from RN notes): No Functional Status (Recalled from RN notes): WNL History of Present Illness Provider Complaint: Pt relates that when she lays on her left ear it will hurt and if she turns to her right side she will have reflux. She states that she takes Tums for her reflux. Related Data Home Medications Medication Instructions Recorded Confirmed vits no.126-ferrous fum tab PO DAILY 08/07/23 01/30/24 28 mg iron-folic acid 800 mcg tablet (Classic ) Previous Rx's Medication Instructions Recorded promethazine 12.5 mg tablet 12.5 mg PO Q6H PRN nausea and 12/18/23 vomiting #20 tabs fluticasone propionate 50 1 spray intranasal Q12H #16 grams 02/29/24 mcg/actuation nasal spray,suspension (Flonase Allergy Relief) Allergies Allergy/AdvReac Type Severity Reaction Status Date / Time Penicillins Allergy Intermediate Hives Verified 01/30/24 10:54 Sulfa (Sulfonamide Allergy Intermediate Hives Verified 01/30/24 10:54 Antibiotics) Worker's Comp Is this a Worker's Comp case?: No [facility] Disclaimer: The information contained in this section may have been updated after the patient was seen, as this information can be updated by other users. Medical History Dysuria during History of miscarriage x 2 Rh negative state in antepartum period Nausea and vomiting during Complete PTSD (post-traumatic stress disorder) Surgical History H/O dilation and curettage History of wisdom tooth extraction Family History Grandmother Heart attack Father Hypertension Mother Thyroid disorder Social History Smoking Status: Never smoker alcohol intake: never substance use type: denies use current occupational status: employed and other Travel in the last 8 weeks: None household members: family housing: house number of children: 1 ROS Obtained: Yes All systems reviewed & no additional complaints except as documented Constitutional Constitutional: Reports system reviewed and no additional complaints, except as documented Eyes Eyes: Reports system reviewed and no additional complaints, except as documented ENT Ears, Nose, Mouth, and Throat: Reports system reviewed and no additional complaints, except as documented and Reports otalgia Cardiovascular Cardiovascular: Reports system reviewed and no additional complaints, except as documented Respiratory Respiratory: Reports system reviewed and no additional complaints, except as documented Gastrointestinal Gastrointestingal: Reports system reviewed and no additional complaints, except as documented Genitourinary Female Genitourinary: Reports system reviewed and no additional complaints, except as documented Musculoskeletal Musculoskeletal: Reports system reviewed and no additional complaints, except as documented Integumentary/Breasts Skin/Breast: Reports system reviewed and no additional complaints, except as documented Neurologic Neurologic: Reports system reviewed and no additional complaints, except as documented Endocrine Endocrine: Reports system reviewed and no additional complaints, except as documented Hematologic/Lymphatic Henatologic/Lymphatic: Reports system reviewed and no additional complaints, except as documented Allergic/Immunologic Allergic/Immunologic: Reports system reviewed and no additional complaints, except as documented Physical Exam General General appearance: alert and in no apparent distress Head Head exam: atraumatic and normocephalic Eye Eye exam: Present normal appearance ENT ENT exam: Present mucous membranes moist Expanded ENT Exam External ear exam: Present normal external inspection TM/Canal exam: Left TM: effusion and Right TM: cerumen impaction Nose exam: Absent sinus tenderness Nasal speculum exam: Bilateral: normal Mouth exam: Present normal external inspection Teeth exam: Present normal inspection Throat exam: Present normal inspection Neck Neck exam: Present normal inspection; Absent lymphadenopathy Chest Chest inspection: Present normal inspection and symmetric chest wall rise Respiratory Respiratory exam: Present normal lung sounds bilaterally Cardiovascular Cardiovascular exam: Present regular rate, normal rhythm and normal heart sounds Abdominal Exam Abdominal exam: Present soft Back Exam Back exam: Present normal inspection Neurological Exam Neurological exam: Present alert and oriented X3 Psychiatric Psychiatric exam: Present normal affect and normal mood Skin Skin exam: Present warm, dry and intact Lymphatic Lymphatic Findings: no adenopathy Medical Decision Making [place] Inquiry Pt receiving controlled substance: No [place] was queried for this patient: No Vital Signs: 02/29/24 16:17 Temperature 98.6 F Temperature Source Oral Pulse Rate [Radial] 102 H Respiratory Rate 18 Blood Pressure [Right Arm] 121/85 Blood Pressure Mean [Right Arm] 97 Blood Pressure Source [Right Arm] Automatic Cuff Blood Pressure Position [Right Arm] Sitting 02 Sat by Pulse Oximetry 100 Oxygen Delivery Method Room Air
[2024-02-29 17:36] VITALS: BP 121/85; PULSE 102; RESP 18; TEMP 37; O2SAT 100
== END 2024-02-29 17:36 | disposition home or self-care (01) ==
PROVIDERS: Emergency Provider Nurse Practitioner Family; PCP Family Medicine
DX: H69.92 Unspecified Eustachian tube disorder, left ear (principal); H92.02 Otalgia, left ear; H61.21 Impacted cerumen, right ear
CPT/HCPCS: 99204; 99212; G0463

== ENCOUNTER 2024-03-04 12:43 | Outpatient (CLI) | payer BC, SELFPAY ==
--- NOTE | 2024-03-04 12:43 | US_ITS ---
PROCEDURE: US OB /MATERNAL DETAIL CLINICAL INDICATION: 20 week anatomy scan COMPARISON: US US OB TRANSVAGINAL from 11/23/2023 FINDINGS: Transabdominal sonographic images of the pelvis were obtained. From her established due date she is 19 weeks 6 days. Single viable intrauterine gestation. Cephalic position. Placenta: Posterior placenta grade 1. Cervix is 1.7-2.0 cm from the internal os. There are several placental lakes. There is an average amount of fluid. The cervix appears satisfactory. Closed and measuring 6.1 cm in length. Complete survey performed and was unremarkable on the submitted images as in PACS. No discrete anomalies identified on survey imaging by technologist. Active fetus. Three-vessel cord with satisfactory umbilical cord insertion. 4- chamber heart noted. Situs, aortic arch, LVOT, RVOT, three-vessel view appear normal. Survey of brain & ventricles Unremarkable. Cerebellum, thalamus, choroid plexus, cisterna magna appear normal. Face and neck survey unremarkable. Profile, nasion, lips and nose appeared normal. Diaphragm and chest views unremarkable. Abdomen: Both kidneys noted and unremarkable. Stomach and bladder noted and satisfactory. Spine: Survey of the spine satisfactory with no anomalies identified nor imaged. Cervical, thoracic, lower spine appear normal. Both arms and legs noted. Amniotic Fluid: Adequate. MVP 4.66 cm. Measurements: Average ultrasound age 20weeks 6days. Estimated due date by ultrasound age 1107/16/2024. Estimated weight 395g BPD = 20weeks 6days HC = 20weeks 0 days AC = 21weeks 4days FL = 20weeks 6days Growth Percentile= 96 Heart Rate = 158bpm Cerebellum = 19weeks 3days Humerus = 20weeks 2days HC/AC is 1.06 FL/BPD is 0.7 FL/AC is 0.21 IMPRESSION: 1. Viable fetus in the cephalic presentation with a posterior placenta grade 1. 2. The fluid is within normal limits with an MVP 4.66 cm. 3. Anatomical scan appears normal. 4. biometry is consistent with the dates although the fetus is somewhat large at the 96th percentile. 5. The posterior placenta is low lying measuring 1.7-2.0 cm from the internal os. There are several placental lakes. 6. Suggest repeat scan for growth and placental position at 28 weeks. Dictated by: Randall Partida MD 03/04/2024 17:37 Randall Partida MD in OV 03/04/2024 17:37
== END 2024-03-04 23:59 | disposition home or self-care (01) ==
LOC: RAD 12:43
PROVIDERS: PCP Family Medicine; Visit Provider Obstetrics & Gynecology
DX: Z36.89 Encounter for other specified antenatal screening (principal); Z3A.19 19 weeks gestation of pregnancy
CPT/HCPCS: 76811

== ENCOUNTER 2024-04-30 10:27 | Outpatient (CLI) | payer BC, SELFPAY ==
[2024-04-30 10:48] LABS: Basophils % 0.4 % (0.1-2.0); Eosinophils # 0.1 K/mm3 (0.0-0.4); Hematocrit 41.3 % (37.0-47.0); Lymphocytes # 1.6 K/mm3 (0.7-4.5); Lymphocytes % 16.7 % (10-50); Mean Corpuscular HGB Conc 31.5 g/dL (31.8-35.4); Mean Corpuscular Volume 104.9 fl (81-99); Mean Platelet Volume 9.4 fl (7.4-10.4); Monocytes # 0.4 K/mm3 (0.1-1.0); Monocytes % 3.9 % (1.7-9.3); Neutrophils # 7.4 K/mm3 (1.8-7.8); Platelet Count 285 K/mm3 (142-424); Red Blood Count 3.94 M/mm3 (4.20-5.40); Red Cell Distribution Width 14.6 % (11.5-17.5); White Blood Count 9.5 K/mm3 (4.8-10.8)
[2024-04-30 11:13] LABS: Glucose,Fasting 91 mg/dl (74-100)
[2024-04-30 12:21] LABS: Glucose 1 Hour 82 mg/dL (74-100)
--- NOTE | 2024-04-30 12:54 | US_ITS ---
PROCEDURE: US OB FOLLOW UP CLINICAL INDICATION: growth, lga, and placental location COMPARISON: US US OB TRANSVAGINAL from 11/23/2023 US US OB /MATERNAL DETAIL from 03/04/2024 FINDINGS: Transabdominal and transvaginal sonographic images of the pelvis were obtained. The following parameters are obtained: From her established due date she is 28weeks 0 days Viable fetus in the breech presentation with a posterior placenta grade 1. The posterior placenta is at least 3.3 cm away from the internal cervical os. The cervix measures 3.8 cm when measured transvaginally. heart rate: 143bpm bpm. BPD: 30weeks 3days, 96 percentile HC: 30weeks 2days, 85 percentile AC: 30weeks 0 days, 91 percentile FL: 28weeks 4days, 50 percentile HC/AC: 1.07 FL/BPD: 0.71 FL/AC: 0.21 Growth percentile: 91 Amniotic fluid index: 11.66cm, MVP 4.91 cm. No obvious anomalies evident. profile seen, nasion, stomach, bladder, kidneys, three-vessel cord, four chamber heart appear normal. IMPRESSION: 1. Viable fetus in the breech presentation with a posterior placenta grade 1. 2. The posterior placenta is 3.3 cm away from the internal cervical os. 3. The fluid is within normal limits with an amniotic fluid index 11.66 cm, MVP 4.91 cm. 4. Fetus is large for gestational age globally and measures approximately 2 weeks ahead. 91st percentile. 5. The cervix measures 3.8 cm transvaginally. Dictated by: Randall Partida MD 04/30/2024 14:31 Randall Partida MD in [place] 04/30/2024 14:31
[2024-04-30] MEDS: RHO(D) IMMUNE GLOBULIN 1,500 UNIT (300MCG) SYRINGE 300 MCG IM (13:48)
[2024-05-01 11:15] LABS: Rapid Plasma Reagin Ab Titer Non Reactive titer (NonRea<1:1)
== END 2024-04-30 23:59 | disposition home or self-care (01) ==
LOC: RAD 10:27 → INF 13:47
PROVIDERS: PCP Family Medicine; Visit Provider Obstetrics & Gynecology
DX: O26.899 Other specified pregnancy related conditions, unspecified trimester; Z67.91 Unspecified blood type, Rh negative
CPT/HCPCS: 36415; 76816; 82951; 85025; 86593; J2790

== ENCOUNTER 2024-06-04 12:52 | Outpatient (CLI) | payer BC, OTHER, SELFPAY ==
--- NOTE | 2024-06-04 12:52 | US_ITS ---
PROCEDURE: US OB FOLLOW UP CLINICAL INDICATION: LGA COMPARISON: US US OB TRANSVAGINAL from 11/23/2023 US US OB /MATERNAL DETAIL from 03/04/2024 US US OB FOLLOW UP from 04/30/2024 FINDINGS: Transabdominal sonographic images of the pelvis were obtained. The following parameters are obtained: From her established due date she is 33weeks 0 days Viable fetus in the cephalic presentation with a posterior placenta grade 2. The cervix measures 4.2 cm transvaginally weight 2713 grams, 6 lb 0 oz heart rate: 150bpm bpm. BPD: 35weeks 3days, 95 percentile HC: 36weeks 0 days, 85 percentile AC: 36weeks 5days, >98 percentile FL: 33weeks 3days, 49 percentile HC/AC: 0.97 FL/BPD: 0.74 FL/AC: 0.2 Growth percentile: >98 Amniotic fluid index: 9.52cm, MVP 5.2 cm No obvious anomalies evident. profile seen, stomach, bladder, kidneys, three-vessel cord, four chamber heart appear normal. IMPRESSION: 1. Viable fetus in the cephalic presentation with a posterior placenta grade 2. 2. The fluid is within normal limits with an amniotic fluid index 9.52 cm, MVP 5.2 cm. 3. There has been good growth and fetus is large for gestational age. The weight is greater than 98th percentile for gestational age. 4. Limited anatomical scan appears normal. Dictated by: Randall Partida MD 06/04/2024 15:39 Randall Partida MD in OV 06/04/2024 15:39
== END 2024-06-04 23:59 | disposition home or self-care (01) ==
LOC: RAD 12:52
PROVIDERS: PCP Family Medicine; Visit Provider Obstetrics & Gynecology
DX: O36.63X0 Maternal care for excessive fetal growth, third trimester, not applicable or unspecified (principal); Z3A.33 33 weeks gestation of pregnancy
CPT/HCPCS: 76816

== ENCOUNTER 2024-06-24 10:30 | Outpatient (CLI) | payer BC, OTHER, SELFPAY | END 2024-06-24 23:59 | disposition home or self-care (01) | LOC: LAB.DROPOF 06-25 10:07 | PROVIDERS: PCP Obstetrics & Gynecology; Visit Provider Obstetrics & Gynecology | DX: Z34.90 Encounter for supervision of normal pregnancy, unspecified, unspecified trimester (principal) | CPT/HCPCS: 86403 ==

== ENCOUNTER 2024-07-03 13:38 | Outpatient (CLI) | payer BC, OTHER, SELFPAY ==
--- NOTE | 2024-07-03 13:39 | US_ITS ---
PROCEDURE: US OB BIOPHYSICAL PROFILE CLINICAL INDICATION: LGA COMPARISON: US US OB TRANSVAGINAL from 11/23/2023 US US OB /MATERNAL DETAIL from 03/04/2024 US US OB FOLLOW UP from 04/30/2024 US US OB FOLLOW UP from 06/04/2024 FINDINGS: Transabdominal sonographic images of the uterus were obtained. From her established due date she is 37weeks 1day. The following parameters are obtained: Viable Fetus in the cephalic presentation with a posterior placenta grade 2. Average ultrasound age is 39weeks 1day Estimated weight 3,744g, 8 lb 4 oz The cervix measures 3.73 cm transvaginally. Measurements: heart Rate = 126bpm BPD = 39weeks 1day, 96 percentile HC = 39weeks 5days, 83 percentile AC = 40weeks 2days, >98 percentile FL = 37weeks 0 days, 44 percentile HC/AC is 0.95 FL/BPD is 0.75 FL/AC is 0.2 96 percentile Amniotic fluid index: 12.0cm, MVP 4.98 cm. Qualitative AFV:2 Breathing movements: 2 Gross Body Movements: 2 Tone: 2 Biophysical profile score: 8 No obvious anomalies evident.Kidneys, bladder, stomach, four-chamber heart, three-vessel cord appear normal. IMPRESSION: 1. Viable fetus in the cephalic presentation with a posterior placenta grade 2. 2. The fluid is within normal limits with an amniotic fluid index 12.0 cm, MVP 4.98 cm. 3. Biophysical profile is 8/8 with good breathing movement and movement seen. 4. Fetus continues to be large for gestational age with the fetus currently 96th percentile. The abdominal circumference is more than 3 weeks ahead. 5. Limited anatomical scan appears normal. Dictated by: Randall Partida MD 07/04/2024 08:42 Randall Partida MD in [place] 07/04/2024 08:42
== END 2024-07-03 23:59 | disposition home or self-care (01) ==
LOC: RAD 13:38
PROVIDERS: Visit Provider Nurse Practitioner Obstetrics & Gynecology
DX: O36.63X0 Maternal care for excessive fetal growth, third trimester, not applicable or unspecified (principal)
CPT/HCPCS: 76816; 76819

== ENCOUNTER 2024-07-08 19:03 | Inpatient (IN) | payer BC, OTHER, SELFPAY ==
[2024-07-08 15:46] VITALS: BMI 35.0
[2024-07-08 15:48] VITALS: BP 141/86; PULSE 97; RESP 18; TEMP 36.8; O2SAT 100; BMI 35.0
[2024-07-08 16:02] LABS: Microscopic, Urine URINE MICROSCOPIC (MICROSCOPIC)
[2024-07-08 16:05] LABS: Appearance,Urine CLEAR (Clear); Bilirubin,Urine Negative (Negative); Blood, Urine Negative (Negative); Color,Urine YELLOW (Yellow); Glucose,Urine (UA) Negative (Negative); Ketones,Urine Negative (Negative); Leukocyte Esterase,Urine TRACE (Negative); Nitrate,Urine Negative (Negative); Protein,Urine Negative (Negative); Urobilinogen,Urine 0.2 EU/dl (0.2)
[2024-07-08 16:19] LABS: Amphetamine/Metha Screen,Urine Negative ng/ml (<1000); Benzodiazepines Screen,Urine Negative ng/ml (<200)
[2024-07-08 16:20] LABS: Barbiturates Screen,Urine Negative ng/ml (<200)
[2024-07-08 16:21] LABS: Cannabinoid Screen,Urine Negative ng/ml (<50); Cocaine Screen,Urine Negative ng/ml (<300)
[2024-07-08 16:22] LABS: Methadone Screen,Urine Negative ng/ml (<300)
[2024-07-08 16:23] LABS: Opiate Screen,Urine Negative ng/ml (<300); Phencyclidine Screen,Urine Negative ng/ml (<25)
[2024-07-08 16:35] LABS: Bacteria,Urine 1+ /lpf; RBC,Urine Occasional #/hpf (0-3)
[2024-07-08 16:36] LABS: Basophils # 0.1 K/mm3 (0-0.2); Basophils % 0.6 % (0.1-2.0); Eosinophils # 0.1 K/mm3 (0.0-0.4); Eosinophils % 1.1 % (0.1-12.0); Hematocrit 36.8 % (37.0-47.0); Hemoglobin 12.8 g/dL (12.2-16.2); Lymphocytes # 1.5 K/mm3 (0.7-4.5); Lymphocytes % 17.6 % (10-50); Mean Corpuscular HGB Conc 34.9 g/dL (31.8-35.4); Mean Corpuscular Hemoglobin 34.1 pg (27.0-31.2); Mean Corpuscular Volume 97.8 fl (81-99); Monocytes # 0.5 K/mm3 (0.1-1.0); Monocytes % 5.7 % (1.7-9.3); Neutrophils # 6.5 K/mm3 (1.8-7.8); Platelet Count 241 K/mm3 (142-424); Red Blood Count 3.77 M/mm3 (4.20-5.40); Red Cell Distribution Width 14.2 % (11.5-17.5); White Blood Count 8.7 K/mm3 (4.8-10.8)
[2024-07-08] MEDS: ACETAMINOPHEN 500MG TAB 1000 MG PO (16:40)
[2024-07-08 16:43] LABS: Albumin Level 3.5 g/dl (3.5-5.0); Chloride 107 mmol/L (98-107); Potassium 3.8 mmoL/L (3.5-5.1); Sodium 135 mmol/L (136-145)
[2024-07-08 16:46] LABS: Alanine Aminotransferase 9 U/L (12-78); Albumin/Globulin Ratio 1.2 (1.1-1.8); Alkaline Phosphatase 186 U/L (38-126); Anion Gap 9.8 mEq/L (5-15); Aspartate Amino Transferase 18 U/L (14-36); Bilirubin,Total 0.9 mg/dl (0.2-1.3); Blood Urea Nitrogen 3 mg/dl (7-17); Calcium 8.8 mg/dl (8.4-10.2); Carbon Dioxide 22 mmol/L (22.0-30.0); Creatinine Clearance Estimated 258 mL/min (50-200); Estimated Glomerular Filt Rate 146 ml/min (>60); GFR (African American) 177 ML/MIN (>60); Globulin 2.9 g/dL (1.3-3.2); Glucose 85 mg/dl (74-100); Total Protein,Serum 6.4 g/dl (6.3-8.2)
[2024-07-08 16:51] LABS: Activated Partial Thrombo Time 24.7 seconds (22.8-30.6); Fibrinogen 465 mg/dL (229.9-363.5); INR 0.86 (0.9-1.1); Prothrombin Time 9.8 seconds (10.1-12.5)
[2024-07-08] MEDS: LACTATED RINGERS 1000ML 1,000 ML 999 ML IV (17:29)
[2024-07-08 17:31] LABS: Uric Acid 3.9 mg/dl (2.5-6.2)
[2024-07-08 18:43] LABS: Creatinine,Urine Random 27 mg/dL (Not Estab.)
[2024-07-08] MEDS: miSOPROStol 100MCG TABLET 50 MCG PO (20:13)
--- NOTE | 2024-07-08 22:29 | P.HP_ITS ---
OB - H&P: HPI Antepartum History of Present Illness Chief complaint: Elevated blood pressure, headache, pelvic pressure History of present illness: Mrs Ellen Medley is a 29 yo at 37w6d who presents to [facility] L&D with complaint of headache, blurred vision and pelvic pressure. She states headache started this morning. She took Tylenol with some relief. Headache returned around 1330 today. BP on L&D was mild range and normotensive. Baby was active. No leakage of fluid or vaginal bleeding. She was having irregular contractions. She has had good care. Baby has been measuring LGA. Last growth ultrasound, 07/03/24, demonstrated EFW 96 %ile; BPP /. History of Present Criteria for establishing EDC:: LMP confirmed by 1st trimester US care: good care Ultrasounds: normal mid trimester US Obstetrical complications: none Medical complications: none Labs Blood type: A (-) negative Rubella: immune RPR/VDRL: nonreactive GBS status: negative HBsAG: negative PFSH PFSH Disclaimer: The information contained in this section may have been updated after the roseline ent was seen, as this information can be updated by other users. Medical History (Updated 07/08/24 @ 22:57 by Beryl Ford DO) Preeclampsia LGA (large for gestational age) fetus Dysuria during History of miscarriage Rh negative state in antepartum period Nausea and vomiting during Complete PTSD (post-traumatic stress disorder) Surgical History H/O dilation and curettage History of wisdom tooth extraction Family History Grandmother Heart attack Father Hypertension Mother Thyroid disorder Social History Smoking Status: Never smoker alcohol intake: never substance use type: denies use current occupational status: employed Travel in the last 8 weeks: None household members: family housing: house number of children: 1 Other Medical History Have you received the Flu Vaccine for this season: No Have you received the Pneumonia Vaccine: No Review of Systems Review of Systems Review of systems:: pertinent systems reviewed and negative unless documented below Constitutional Constitutional: Reports headache(s) ENT Ears, Nose, Mouth, and Throat: Reports headache(s) *Genitourinary Comments: + pelvic pressure *Neurologic Neurologic: Reports headache(s) Meds Home Medications and Allergies Home Medications ?Medication ?Instructions ?Recorded ?Confirmed ?Type promethazine 12.5 mg tablet 12.5 mg PO Q6H PRN nausea and 12/18/23 07/07/24 Rx vomiting #20 tabs famotidine 20 mg tablet mg PO DAILY 03/04/24 07/07/24 History vits no.130-ferrous fum tab PO DAILY 03/04/24 07/07/24 History 27 mg iron-folic acid 800 mcg tablet ( Vitamin) New Prescriptions to Start Prescriptions: Allergies Allergy/AdvReac Type Severity Reaction Status Date / Time Penicillins Allergy Intermediate Hives Verified 07/07/24 14:19 Sulfa (Sulfonamide Allergy Intermediate Hives Verified 07/07/24 14:19 Antibiotics) OB - H&P: Exam Physical Exam Vital signs: Temp Pulse Resp BP Pulse Ox O2 Del Method 98.3 F 97 H 18 141/86 H 100 Room Air 07/08/24 15:48 07/08/24 15:48 07/08/24 15:48 07/08/24 15:48 07/08/24 15:48 07/08/24 15:48 Constitutional no acute distress and cooperative Routine HEENT Exam Head: Present normocephalic and atraumatic Eye: Absent conjunctivae pink ENT: Present mucous membranes moist Routine Neck Exam Present full ROM Routine Respiratory Exam Present CTA bilaterally and normal respiratory effort Routine Cardiovascular Exam Present RRR Routine Abdominal Exam Present soft (Gravid); Absent tenderness Routine Rectal Exam Patient deferred: visual exam Routine Exam External: Present normal urethra appearance; Absent erythema, tenderness, lesions or lacerations Routine Extremities Exam Present edema (+1 bilateral lower extremity edema) and full ROM; Absent calf tenderness Routine Neurological Exam Present alert, moving all extremities and normal speech OB - Results Labs Labs: Short CBC 07/08/24 Range/Units 16:29 WBC 8.7 (4.8-10.8) K/mm3 Hgb 12.8 (12.2-16.2) g/dL Hct 36.8 L (37.0-47.0) % Plt Count 241 (142-424) K/mm3 BMP 07/08/24 16:29 Sodium 135 L Potassium 3.8 Chloride 107 Carbon Dioxide 22 BUN 3 L Creatinine 0.50 L Glucose 85 Calcium 8.8 Liver Function 07/08/24 Range/Units 16:29 Total Bilirubin 0.9 (0.2-1.3) mg/dl AST 18 (14-36) U/L ALT 9 L (12-78) U/L Alkaline Phosphatase 186 H (38-126) U/L Albumin 3.5 (3.5-5.0) g/dl Urine 07/08/24 Range/Units 15:53 Urine Color Yellow (Yellow) Urine Appearance Clear (Clear) Urine pH 7.0 (5.0-8.5) Ur Specific [place] 1.010 (1.005-1.030) Urine Protein Negative (Negative) Urine Glucose (UA) Negative (Negative) OB - A/P Antepartum (1) Preeclampsia: Status: Acute (2) History of miscarriage: Problem details: x 2 Status: Acute (3) Rh negative state in antepartum period: Status: Acute Additional Plan Planning to breastfeed?: Yes Additional Information:: Admit to [facility] for induction of labor secondary to preeclampsia at 37w6d. Mild range and normotensive BP with headache. PIH labs within normal limits but urine protein/creatinine ratio was elevated, 0.592. Tylenol PRN headaches Induction with Cytotec followed by Pitocin GBS negative Close monitoring
[2024-07-09] MEDS: BUTORPHANOL TARTRATE 1 MG/ML VIAL IV (02:07)
[2024-07-09] MEDS: DEXTROSE 5%-LACTATED RINGERS 1,000 ML 125 ML IV ×2 (04:56→12:49)
[2024-07-09] MEDS: LACTATED RINGERS 1000ML 1,000 ML 999 ML IV (04:56)
[2024-07-09] MEDS: OXYTOCIN/RINGERS LACTATE 30 UNITS/500 ML BAG IV (04:56)
[2024-07-09 11:14] VITALS: BP 117/66; PULSE 82; RESP 16; TEMP 36.9; O2SAT 99
[2024-07-09] MEDS: LACTATED RINGERS 1000ML 1,000 ML 250 ML IV (12:45)
--- NOTE | 2024-07-09 12:55 | EXP.LABOR.NO ---
Labor Note Subjective: Date: 07/09/24 Time: 12:55 regular contraction Objective: NST:: Reactive Contractions:: every 2-3 minutes Cervical Dilation:: 5 Effacement:: 80% Station: -2 Membranes: ruptured and artificially ruptured (clear fluid) Fetus: Monitoring?: Yes monitoring type:: External Assessment: Labor progressing?: Yes Cephalopelvic disproportion?: No Plan: Anesthesia for epidural?: Yes Plan for ?: No Continue to monitor?: Yes Comment:: Patient is doing well. no concern. [place] gender, would like dad to announce. Reports is LGA. Last , 5years ago of a 7lb , no complications. Growth US from 07/03/24 reviewed: EFW: 3744g, 8lb4oz, 96%. #Preeclampsia -BP well controlled -Labs within normal limits #AROM -No complications. Pt tolerated well with discomfort. anticipate
--- NOTE | 2024-07-09 12:59 | EXP.ANES.CKL ---
[facility] Disclaimer: The information contained in this section may have been updated after the patient was seen, as this information can be updated by other users. Medical History Preeclampsia LGA (large for gestational age) fetus Dysuria during History of miscarriage Rh negative state in antepartum period Nausea and vomiting during Complete PTSD (post-traumatic stress disorder) Surgical History H/O dilation and curettage History of wisdom tooth extraction Family History Grandmother Heart attack Father Hypertension Mother Thyroid disorder Social History Smoking Status: Never smoker alcohol intake: never substance use type: denies use current occupational status: employed Travel in the last 8 weeks: None household members: family housing: house number of children: 1 [facility] Anesthesia Checklist Patient Identification Patient Identification: Arm Band and Verbal (Name & ) Structural Data Admitted From: Inpatient Planned Operative Procedure/s: Labor epidural Consent for Planned Operative Procedure(s) Verified: Yes Verified Documents: History and Physical NPO Status Verified Time NPO: 00:00 Chart Verification Results Verified: CBC Additional verifications Patient : Yes Anesthesia Reactions: No Hx Blood Transfusions: No Blood Transfusion Reaction: No Airway Assessment Mallampati Score:: Class II C-Spine Mobility Assessed: Yes TMJ Mobility Assessed: Yes Dentition: Good Dentition Neurological Assessment Level of Consciousness: Awake Hx Seizures: No Numbness or tingling in extremities: No Anesthesia Plan Anesthesia Risk discussed: Yes Anesthesia Plan: Verified ASA Class: II Anesthesia Type: Epidural
--- NOTE | 2024-07-09 17:34 | EXP.DN ---
Delivery Note Delivery Date:: 07/09/24 Delivery Time:: 17:19 Anesthesia Type: Epidural Was labor medically induced?: Yes Induction method: per misoprostol protocol Gestational age (weeks): 38 Infant delivered prior to 39 weeks?: Yes Justification for early elective delivery:: Pre-eclampsia Gender: Male at 1 minute: 9 at 5 minutes: 9 Delivery Procedure:: Preoperative diagnosis: 1. at 38w0d gestation, vertex 2. Rh negative 3. GBS negative 4. Preeclampsia Postoperative diagnosis: 1. at 38w0d gestation, vertex 2. Rh negative 3. GBS negative 4. Preeclampsia EBL: 400mL Specimen: 1. Cord blood 2. Placenta Findings: 1. Liveborn viable male : Undecided. Apgars 9/9 at 1 and 5 minutes respectively. Weight pending at time of dictation 2. First degree midline perineal laceration Complications: None Procedure: Nonoperative spontaneous vaginal delivery Ellen Medley is a 29-year-old who is brought in last night for Cytotec induction secondary to newly diagnosed preeclampsia at 37 weeks and 6 days gestation. She was given 1 dose of Cytotec and noted to be cl on her own. Pitocin was started this morning and she experienced artificial rupture membranes, clear fluid, around lunchtime today. I was coming up to the unit to check on the patient and she was noted to be complete. The patient was placed in the dorsal lithotomy position for delivery The was noted to be in the direct OA position. With effective maternal pushing there was a nonoperative spontaneous vaginal delivery at 1719. There was no nuchal cord. The anterior right shoulder delivered, followed by the posterior shoulder without dystocia. The body and lower extremities delivered without difficulty. The infant was bulb suctioned and was crying immediately following delivery. The infant was placed on the maternal abdomen and greater than one minute was appreciated for delayed cord clamping. The umbilical cord was doubly clamped and cut. Cord blood was collected and sent for routine testing. The placenta delivered with cord traction and suprapubic contertraction at 1927. Pitocin was started. The uterus was firm and bleeding. The perineum, vaginal joe, cervix, and paraurethral area were inspected thoroughly. There was a first-degree midline perineal laceration that was repaired in the usual fashion using 3-0 Vicryl suture with a simple interrupted. The laceration was hemostatic. The cervix and vaginal joe were inspected and noted to be hemostatic. This concluded the delivery. The patient was counseled regarding the events of the delivery and repair. The patient tolerated the delivery well. All counts were correct by nursing. Mother and infant were doing well and bonding upon my leaving the delivery room. Laceration:: vaginal Placental Delivery Description: Spontaneous
[2024-07-09] MEDS: OXYTOCIN/RINGERS LACTATE 30 UNITS/500 ML BAG 40 UNITS IV (17:42)
[2024-07-09] MEDS: ACETAMINOPHEN 500MG TAB 1000 MG PO (21:21)
[2024-07-09] MEDS: IBUPROFEN 400 MG TABLET 800 MG PO (21:21)
[2024-07-10] MEDS: ACETAMINOPHEN 500MG TAB 1000 MG PO ×2 (03:54→12:41)
[2024-07-10 07:29] LABS: Basophils # 0.1 K/mm3 (0-0.2); Basophils % 0.5 % (0.1-2.0); Eosinophils # 0.1 K/mm3 (0.0-0.4); Eosinophils % 1.2 % (0.1-12.0); Hematocrit 34.9 % (37.0-47.0); Hemoglobin 11.8 g/dL (12.2-16.2); Lymphocytes # 1.6 K/mm3 (0.7-4.5); Lymphocytes % 14.3 % (10-50); Mean Corpuscular HGB Conc 33.7 g/dL (31.8-35.4); Mean Corpuscular Hemoglobin 33.8 pg (27.0-31.2); Mean Corpuscular Volume 100.3 fl (81-99); Mean Platelet Volume 10.3 fl (7.4-10.4); Monocytes # 0.7 K/mm3 (0.1-1.0); Monocytes % 6.1 % (1.7-9.3); Neutrophils # 8.5 K/mm3 (1.8-7.8); Neutrophils % 77.8 % (37.0-80.0); Platelet Count 227 K/mm3 (142-424); Red Blood Count 3.48 M/mm3 (4.20-5.40); Red Cell Distribution Width 14.2 % (11.5-17.5); White Blood Count 10.9 K/mm3 (4.8-10.8)
[2024-07-10 07:53] LABS: Alanine Aminotransferase 12 U/L (12-78); Albumin Level 2.9 g/dl (3.5-5.0); Albumin/Globulin Ratio 1.1 (1.1-1.8); Alkaline Phosphatase 150 U/L (38-126); Anion Gap 9.1 mEq/L (5-15); Aspartate Amino Transferase 25 U/L (14-36); Bilirubin,Total 1.3 mg/dl (0.2-1.3); Blood Urea Nitrogen 3 mg/dl (7-17); Calcium 8.6 mg/dl (8.4-10.2); Carbon Dioxide 25 mmol/L (22.0-30.0); Chloride 108 mmol/L (98-107); Creatinine Clearance Estimated 258 mL/min (50-200); Estimated Glomerular Filt Rate 146 ml/min (>60); GFR (African American) 177 ML/MIN (>60); Globulin 2.6 g/dL (1.3-3.2); Glucose 81 mg/dl (74-100); Potassium 4.1 mmoL/L (3.5-5.1); Sodium 138 mmol/L (136-145); Total Protein,Serum 5.5 g/dl (6.3-8.2)
[2024-07-10 08:44] VITALS: BP 126/79; PULSE 75; RESP 16; TEMP 36.8; O2SAT 98
[2024-07-10] MEDS: FAMOTIDINE 20MG TABLET 20 MG PO (08:47)
[2024-07-10] MEDS: IBUPROFEN 400 MG TABLET 800 MG PO (08:47)
--- NOTE | 2024-07-10 09:11 | P.PN_ITS ---
Subjective *Date: 07/10/24 *Time: 09:11 Interval history: PPD # 1 s/p Feeling well. Pain controlled. Breast feeding. Lochia is appropriate. Voiding without difficulty and passing flatus. Tolerating regular diet. Denies fever/chills, chest pain and shortness of breath. No headaches, vision changes, lightheadedness/dizziness. No lower extremity swelling. Ambulating well ad basilia. Medical Exam Vital signs and Labs for Last 24 Hours: Vital Signs Temp Pulse Resp BP Pulse Ox O2 Del Method 07/09/24 11:14 98.5 F 82 16 117/66 99 Room Air Laboratory Results - last 24 hr 07/10/24 07:13: WBC 10.9 H D, RBC 3.48 L, Hgb 11.8 L, Hct 34.9 L, MCV 100.3 H, MCH 33.8 H, MCHC 33.7, RDW 14.2, Plt Count 227, MPV 10.3, Neut % (Auto) 77.8, Lymph % (Auto) 14.3, [place] % (Auto) 6.1, Eos % (Auto) 1.2, Baso % (Auto) 0.5, Neut # (Auto) 8.5 H, Lymph # (Auto) 1.6, [place] # (Auto) 0.7, Eos # (Auto) 0.1, Baso # (Auto) 0.1, Sodium 138, Potassium 4.1, Chloride 108 H, Carbon Dioxide 25, Anion Gap 9.1, BUN 3 L, Creatinine 0.50 L, Estimated Creat Clear 258, Estimated GFR 146, Est GFR ( Amer) 177, Glucose 81, Calcium 8.6, Total Bilirubin 1.3, AST 25 D, ALT 12 D, Alkaline Phosphatase 150 H, Total Protein 5.5 L, Albumin 2.9 L, Globulin 2.6, Albumin/Globulin Ratio 1.1, Screen Negative, Baby's Rh Status Positive I & O for Labs for Last 24 Hours: Intake & Output 07/07/24 07/08/24 07/09/24 07/10/24 23:59 23:59 23:59 23:59 Weight 217 lb Head: Present atraumatic and normocephalic ENT: Present normal exam Neck: Present normal inspection and full ROM Respiratory: Present CTA bilaterally and normal respiratory effort Cardiac: Present Reg Rate and Rhythm GI: Present soft; Absent tenderness Comments:: Uterine fundus firm and below umbilicus Rectal (female): Present deferred (female): Present deferred Extremities: Present full ROM and edema (+1 bilateral lower extremity edema); Absent calf tenderness Neuro: Present alert, awake and moves all extremities Assessment and Plan *Assessment and plan (1) Status post normal vaginal delivery: Status: Acute Category: Medical (2) Preeclampsia: Status: Acute Category: Medical Code(s): O14.90 - Unspecified pre-eclampsia, unspecified trimester (3) LGA (large for gestational age) fetus: Status: Acute Category: Medical Plan Continue routine care BP normotensive since delivery No complaints or concerns Encouraged increased ambulation Plan d/c home tomorrow, PPD # 2
[2024-07-10] MEDS: WITCH HAZEL 40 PADS/BOX 1 EACH TP (10:48)
[2024-07-10 12:18] LABS: Rapid Plasma Reagin Ab Titer Non Reactive titer (NonRea<1:1)
[2024-07-10] MEDS: RHO(D) IMMUNE GLOBULIN 1,500 UNIT (300MCG) SYRINGE 300 MCG IM (14:35)
[2024-07-11] MEDS: ACETAMINOPHEN 500MG TAB 1000 MG PO ×2 (01:25→09:42)
[2024-07-11] MEDS: FAMOTIDINE 20MG TABLET 20 MG PO (09:42)
[2024-07-11] MEDS: IBUPROFEN 400 MG TABLET 800 MG PO (09:42)
--- NOTE | 2024-07-11 11:10 | P.DS_ITS ---
General Admission date:: 07/08/24 Discharge date: 07/11/24 HPI HPI HPI: PPD # 2 s/p Feeling well. Pain controlled. Breast feeding. Lochia is appropriate. Voiding without difficulty and passing flatus. Tolerating regular diet. Denies fever/chills, chest pain and shortness of breath. No headaches, vision changes, lightheadedness/dizziness. No lower extremity swelling. Ambulating well ad basilia. Hospital Course Hospital Course Hospital Course: Mrs Ellen Medley is a 29 yo at 37w6d admitted to [facility] L&D for preeclampsia. She complained of headache, blurred vision and pelvic pressure. On arrival to L&D she had mild range and normotensive BP with headache. PIH labs within normal limits but urine protein/creatinine ratio was elevated, 0.592. Baby was active. No leakage of fluid or vaginal bleeding. She was having irregular contractions. She has had good care. Baby has been measuring LGA. Last growth ultrasound, 07/03/24, demonstrated EFW 96 %ile; BPP 8/8. She underwent induction of labor with Cytotec followed by Pitocin. She had a normal spontaneous vaginal delivery on 07/09/24 at 1719. She delivered a live male baby, Virgilio, weighing 8 lb 9 oz. APGARs 9 (1 min), 9 (5 min). EBL 400 mL. She did well . Pain controlled. Breast feeding. Light lochia. Voiding without difficulty and passing flatus. Tolerating regular diet. Denies fever/chills, chest pain and shortness of breath. No headaches, dizziness/lightheadedness or vision changes. Vital signs stable, afebrile. Heart regular rate and rhythm. Lungs clear to auscultation. Abdomen soft, nontender. No lower extremity swelling. Ambulating well ad basilia. Normal hospital course. She was discharged to home on POD # 2 with instructions to follow-up in the office in 2 weeks or sooner if needed. Exam Data for Last 24 hours Vital signs and Labs for Last 24 Hours: Temp Pulse Resp BP Pulse Ox O2 Del Method 98.2 F 75 16 126/79 98 Room Air 07/10/24 08:44 07/10/24 08:44 07/10/24 08:44 07/10/24 08:44 07/10/24 08:44 07/10/24 08:44 Laboratory Results - last 24 hr 07/08/24 19:09: RPR Titer Non reactive I & O for Last 24 hours: Intake & Output 07/08/24 07/09/24 07/10/24 07/11/24 23:59 23:59 23:59 23:59 Weight 217 lb Constitutional Constitutional: no acute distress and cooperative *Routine HEENT Exam Head: Present normocephalic and atraumatic Eye: Absent conjunctivae pink ENT: Present mucous membranes moist *Routine Neck Exam Neck: Present full ROM *Routine Respiratory Exam Respiratory: Present CTA bilaterally and normal respiratory effort *Routine Cardiovascular Exam Cardiovascular: Present RRR *Routine Abdominal Exam Abdominal: Present soft and normoactive bowel sounds; Absent tenderness or distended *Routine Rectal Exam Patient deferred: visual exam *Routine Exam Patient deferred: external exam *Routine Extremities Exam Extremities: Present full ROM; Absent edema or calf tenderness *Routine Neurological Exam Neurological: Present alert, moving all extremities and normal speech Routine Psychiatric Exam Psychiatric: Present normal affect and cooperative Results Data Completed and Pending Labs on day of discharge: Labs from last 24 hours 07/08/24 19:09 RPR Titer Non reactive DS: Diagnosis Discharge Diagnosis (1) Status post normal vaginal delivery: Status: Acute (2) Preeclampsia: Status: Acute Code(s): O14.90 - Unspecified pre-eclampsia, unspecified trimester (3) LGA (large for gestational age) fetus: Status: Acute Meds Home Medications and Allergies Home Medications ?Medication ?Instructions ?Recorded ?Confirmed ?Type famotidine 20 mg tablet 20 mg PO DAILY 03/04/24 07/09/24 History vits no.130-ferrous fum 1 tab PO DAILY 03/04/24 07/09/24 History 27 mg iron-folic acid 800 mcg tablet ( Vitamin) ibuprofen 800 mg tablet 800 mg PO Q8H PRN pain #20 tabs 07/11/24 Rx New Prescriptions to Start Prescriptions: Beryl Pham Allergies Allergy/AdvReac Type Severity Reaction Status Date / Time Penicillins Allergy Intermediate Hives Verified 07/07/24 14:19 Sulfa (Sulfonamide Allergy Intermediate Hives Verified 07/07/24 14:19 Antibiotics) Discharge Plan Disposition Patient Disposition: Home, Self-Care Condition: Good Discharge Order Discharge Orders: Discharge Order (Routine); Ordered 07/11/24 Ordered By: Beryl Ford Follow up Plan Follow up with: Beryl Ford DO [Staff Physician] - 07/23/24 9:30 am () Prescriptions/Medication Reconciliation: New ibuprofen 800 mg tablet 800 mg PO Q8H PRN (Reason: pain) Qty: 20 0RF Continued famotidine 20 mg tablet 20 mg PO DAILY Patient Comments: TAKE ONE TABLET BY MOUTH EVERY DAY AT BEDTIME NEEDED Vitamin 27 mg iron- 800 mcg tablet 1 tab PO DAILY Patient Comments: TAKE ONE TABLET BY MOUTH EVERY DAY Problem Reconciliation Problems Reviewed?: Yes Patient Discharge Instructions ACTIVITY: Limited activity DIET: continue same diet and regular diet Additional Instructions: Congratulations!! Discharge: 1. Take 800 mg Ibuprofen every 8 hours as needed for pain. You can also take 500-1000 mg of Tylenol in between doses, every 6-8 hours. 2. Nothing in the vagina for 6 weeks - no intercourse, douching or tampons. No tub baths/hot tubs or swimming pools 3. Reasons to return to L&D or call On-Call doctor - fever (greater than 100.4) - heavy vaginal bleeding (soaking through 1 pad in less than 2 hours) - vaginal discharge (malodorous and/or purulent) - severe headaches not resolved by medication or rest and leg tenderness/edema 4. depression/blues - Normal to feel anxious/overwhelmed for first 2 weeks - Talk to your doctor if: severe anxiety, trouble bonding with baby, withdrawing from other family members, thoughts of harming yourself or others Beryl Ford DO [facility] [phone] Print Language: Monegasque Providers Primary Care Provider: Mingo Jordan Admit Provider: Beryl Ford Attending Provider: Beryl Ford
== END 2024-07-11 12:05 | disposition home or self-care (01) | DRG 807 ==
LOC: OBOUT 19:04 → OB 19:04
PROVIDERS: Obstetrics & Gynecology; Admitting Provider Obstetrics & Gynecology; PCP Family Medicine; Visit Provider Obstetrics & Gynecology
DX: O14.94 Unspecified pre-eclampsia, complicating childbirth (principal); Z37.0 Single live birth; Z3A.38 38 weeks gestation of pregnancy; O70.0 First degree perineal laceration during delivery; O36.63X0 Maternal care for excessive fetal growth, third trimester, not applicable or unspecified
CPT/HCPCS: 36415; 80053; 80307; 81001; 82570; 84156; 84550; 85025; 85384; 85461; 85610; 85730; 86593; 86850; 94761; G0283; J0595; J2790; J3010; J7120

== ENCOUNTER 2024-07-16 18:37 | Inpatient (IN) | payer BC, OTHER, SELFPAY ==
[2024-07-16] VITALS (16 sets, daily range): BP systolic 100–166; BP diastolic 53–95; PULSE 71–89; RESP 17–18; TEMP 37.5; O2SAT 95–98; BMI 31.4
--- NOTE | 2024-07-16 15:10 | PC.NURSE ---
Pt arrived to unit from 's office via w/c to be further evaluated for hypertension. Phone orders received per prior to pt's arrival for PIH labs as well as saline lock and serial blood pressures. Urine specimen collected upon admit and sent to lab. Plan of care discussed with pt. She is accompanied by her baby (no other adult at this time). Denies any questions or concerns at this time.
--- NOTE | 2024-07-16 15:21 | PC.NURSE ---
IV saline lock inserted in rt wrist at this time. Tolerated well. Blood drawn for labs at time of insertion.
[2024-07-16 16:25] LABS: Microscopic, Urine URINE MICROSCOPIC (MICROSCOPIC)
[2024-07-16 16:27] LABS: Basophils # 0.1 K/mm3 (0-0.2); Eosinophils # 0.1 K/mm3 (0.0-0.4); Eosinophils % 1.7 % (0.1-12.0); Hematocrit 40.5 % (37.0-47.0); Hemoglobin 14.3 g/dL (12.2-16.2); Lymphocytes # 1.8 K/mm3 (0.7-4.5); Lymphocytes % 25.7 % (10-50); Mean Corpuscular HGB Conc 35.4 g/dL (31.8-35.4); Mean Corpuscular Hemoglobin 34.6 pg (27.0-31.2); Mean Corpuscular Volume 97.7 fl (81-99); Mean Platelet Volume 8.7 fl (7.4-10.4); Monocytes # 0.4 K/mm3 (0.1-1.0); Monocytes % 5.1 % (1.7-9.3); Neutrophils # 4.7 K/mm3 (1.8-7.8); Neutrophils % 66.4 % (37.0-80.0); Platelet Count 347 K/mm3 (142-424); Red Blood Count 4.14 M/mm3 (4.20-5.40); Red Cell Distribution Width 13.7 % (11.5-17.5); White Blood Count 7.1 K/mm3 (4.8-10.8)
[2024-07-16 16:37] LABS: Alanine Aminotransferase 26 U/L (12-78); Albumin/Globulin Ratio 1.3 (1.1-1.8); Alkaline Phosphatase 162 U/L (38-126); Anion Gap 15.8 mEq/L (5-15); Aspartate Amino Transferase 29 U/L (14-36); Blood Urea Nitrogen 10 mg/dl (7-17); Calcium 8.7 mg/dl (8.4-10.2); Carbon Dioxide 19 mmol/L (22.0-30.0); Chloride 109 mmol/L (98-107); Creatinine Clearance Estimated 193 mL/min (50-200); Estimated Glomerular Filt Rate 118 ml/min (>60); GFR (African American) 143 ML/MIN (>60); Globulin 3.1 g/dL (1.3-3.2); Glucose 75 mg/dl (74-100); Potassium 3.8 mmoL/L (3.5-5.1); Sodium 140 mmol/L (136-145); Total Protein,Serum 7.1 g/dl (6.3-8.2); Uric Acid 6.3 mg/dl (2.5-6.2)
[2024-07-16 16:39] LABS: Appearance,Urine CLEAR (Clear); Bilirubin,Urine Negative (Negative); Blood, Urine 3+ (Negative); Color,Urine YELLOW (Yellow); Glucose,Urine (UA) Negative (Negative); Ketones,Urine Negative (Negative); Leukocyte Esterase,Urine Negative (Negative); Nitrate,Urine Negative (Negative); Protein,Urine Negative (Negative); Urobilinogen,Urine 0.2 EU/dl (0.2)
[2024-07-16 16:44] LABS: Creatinine,Urine Random 97 mg/dL (Not Estab.); Total Protein,Urine Random < 5.0 mg/dL (0.0-12.0)
--- NOTE | 2024-07-16 16:44 | PC.NURSE ---
16:44 Tylenol 1000mg PO and Labetalol 200mg PO given per 's orders.
[2024-07-16 16:52] LABS: Amphetamine/Metha Screen,Urine Negative ng/ml (<1000); Barbiturates Screen,Urine Negative ng/ml (<200)
[2024-07-16 16:53] LABS: Benzodiazepines Screen,Urine Negative ng/ml (<200)
[2024-07-16 16:54] LABS: Cannabinoid Screen,Urine Negative ng/ml (<50); Cocaine Screen,Urine Negative ng/ml (<300)
[2024-07-16 16:55] LABS: Bacteria,Urine 2+ /lpf; Methadone Screen,Urine Negative ng/ml (<300); Mucus,Urine 4+ /lpf; Opiate Screen,Urine Negative ng/ml (<300)
[2024-07-16 16:56] LABS: Phencyclidine Screen,Urine Negative ng/ml (<25)
[2024-07-16] MEDS: ACETAMINOPHEN 500MG TAB 1000 MG PO (16:56)
[2024-07-16] MEDS: LABETALOL 100MG TABLET 200 MG PO (16:56)
[2024-07-16] MEDS: SODIUM CHLORIDE 0.9% 10ML FLUSH SYRINGE 10 ML IV (16:57)
--- NOTE | 2024-07-16 17:00 | PC.NURSE ---
Labetalol 200mg PO and Tylenol 1000mg PO given per MD orders. now in department.
--- NOTE | 2024-07-16 18:00 | PC.NURSE ---
notified of pt's recent blood pressure 166/94. V/U. Phone order received for Labetatol 20mg IV x1 dose now, then Magnesium Sulfate 4gm bolus then 2gm / hr. Serum mag level 4hrs after 4gm bolus, regular diet. R/V. Pt notified of POC. V/U. Denies questions at this time. Pt notified family to come sit with baby.
[2024-07-16 18:17] LABS: Activated Partial Thrombo Time 27.6 seconds (22.8-30.6); Fibrinogen 323 mg/dL (229.9-363.5); INR 0.91 (0.9-1.1); Prothrombin Time 10.3 seconds (10.1-12.5)
[2024-07-16] MEDS: LABETALOL 20MG/4ML SYRINGE 20 MG IV (18:20)
--- NOTE | 2024-07-16 18:24 | PC.NURSE ---
Pt moved to Room 274 for admission. Mattress pad applied to bed. Fan provided at bs. Urine specimen hat placed in toilet to measure urine output. Seizure pads applied to bed rails. Visitors x2 at bs attentive to baby.
[2024-07-16] MEDS: MAGNESIUM SULFATE IN WATER 4 GM/50 ML PIGGYBACK IV (18:38)
[2024-07-16 18:40] LABS: Magnesium 2.1 mg/dl (1.6-2.3)
--- NOTE | 2024-07-16 18:45 | PC.NURSE ---
4gm bolus started. RN x2 at bs.
[2024-07-16] MEDS: MAGNESIUM SULFATE IN WATER 20 GM/500 ML IV.SOLN IV (19:03)
--- NOTE | 2024-07-16 19:03 | PC.NURSE ---
Magnesium Sulfate 2gm / hr started with NS @ 75ml/hr
--- NOTE | 2024-07-16 20:09 | P.HP_ITS ---
History of Present Illness *Admission Date: 07/16/24 *Reason for visit:: preeclampsia *History of present illness: Mrs Ellen Medley is a 29 yo P2022 7 days s/p vaginal delivery who presented to [facility] L&D from the office for elevated blood pressures and headache. She was induced at 37w6d for preeclampsia. After delivery blood pressures were stable and she was asymptomatic. She started with a headache last night. She took medication with some relief. BP in the office was 152/102 and 158/110 with headache. She admits to continued bilateral lower extremity swelling. No calf pain. No scotoma or RUQ pain. She is breast feeding. [facility] Disclaimer: The information contained in this section may have been updated after the patient was seen, as this information can be updated by other users. Medical History Preeclampsia Status post normal vaginal delivery LGA (large for gestational age) fetus Dysuria during History of miscarriage Rh negative state in antepartum period Nausea and vomiting during Complete PTSD (post-traumatic stress disorder) Surgical History H/O dilation and curettage History of wisdom tooth extraction Family History Grandmother Heart attack Father Hypertension Mother Thyroid disorder Social History (Updated 07/16/24 @ 18:53 by Lea Medley RN) Smoking Status: Never smoker alcohol intake: never substance use type: denies use current occupational status: employed Travel in the last 8 weeks: None household members: family housing: house number of children: 1 Other Medical History Have you received the Flu Vaccine for this season: No Have you received the Pneumonia Vaccine: No Review of Systems Review of Systems Review of systems:: pertinent systems reviewed and negative unless documented below Constitutional Constitutional: Reports headache(s) ENT Ears, Nose, Mouth, and Throat: Reports headache(s) *Musculoskeletal Musculoskeletal: Reports other (Lower extremity swelling) *Neurologic Neurologic: Reports headache(s) Meds Home Medications and Allergies Home Medications ?Medication ?Instructions ?Recorded ?Confirmed ?Type vits no.130-ferrous fum 1 tab PO DAILY 03/04/24 07/09/24 History 27 mg iron-folic acid 800 mcg tablet ( Vitamin) New Prescriptions to Start Prescriptions: Allergies Allergy/AdvReac Type Severity Reaction Status Date / Time Penicillins Allergy Intermediate Hives Verified 07/16/24 14:14 Sulfa (Sulfonamide Allergy Intermediate Hives Verified 07/16/24 14:14 Antibiotics) Exam Data for Last 24 hours Vital signs and Labs for Last 24 Hours: Temp Pulse Resp BP Pulse Ox O2 Del Method 99.5 F 75 18 111/69 95 Room Air 07/16/24 15:15 07/16/24 19:07 07/16/24 15:15 07/16/24 19:07 07/16/24 19:07 07/16/24 19:07 Laboratory Results - last 24 hr 07/16/24 15:20: Urine Color Yellow, Urine Appearance Clear, Urine pH 6.0, Ur Specific [place] 1.020, Urine Protein Negative, Urine Glucose (UA) Negative, Urine Ketones Negative, Urine Blood 3+ A, Urine Nitrate Negative, Urine Bilirubin Negative, Urine Urobilinogen 0.2, Ur Leukocyte Esterase Negative, Urine RBC 3-5, Urine WBC 5-10, Ur Squamous Epith Cells 10-20, Urine Bacteria 2+, Urine Mucus 4+, Urine Creatinine 97, Urine Total Protein < 5.0, Urine Opiates Screen Negative, Urine Methadone Screen Negative, Ur Barbituates Screen Negative, Ur Phencyclidine Scrn Negative, Ur Amphetamines Screen Negative, U Benzodiazepines Scrn Negative, Urine Cocaine Screen Negative, U Marijuana (THC) Screen Negative 07/16/24 15:37: WBC 7.1, RBC 4.14 L, Hgb 14.3, Hct 40.5, MCV 97.7, MCH 34.6 H, MCHC 35.4, RDW 13.7, Plt Count 347, MPV 8.7, Neut % (Auto) 66.4, Lymph % (Auto) 25.7, [place] % (Auto) 5.1, Eos % (Auto) 1.7, Baso % (Auto) 1.0, Neut # (Auto) 4.7, Lymph # (Auto) 1.8, [place] # (Auto) 0.4, Eos # (Auto) 0.1, Baso # (Auto) 0.1, PT 10.3, INR 0.91, APTT 27.6, Fibrinogen 323, Sodium 140, Potassium 3.8, Chloride 109 H, Carbon Dioxide 19 L, Anion Gap 15.8 H, BUN 10, Creatinine 0.60, Estimated Creat Clear 193, Estimated GFR 118, Est GFR ( Amer) 143, Glucose 75, Uric Acid 6.3 H, Calcium 8.7, Magnesium 2.1, Total Bilirubin 1.0, AST 29, ALT 26, Alkaline Phosphatase 162 H, Total Protein 7.1 D, Albumin 4.0, Globulin 3.1, Albumin/Globulin Ratio 1.3 I & O for Last 24 hours: Intake & Output 07/13/24 07/14/24 07/15/24 07/16/24 23:59 23:59 23:59 23:59 Weight 195 lb Constitutional Constitutional: no acute distress and cooperative *Routine HEENT Exam Head: Present normocephalic and atraumatic Eye: Absent conjunctivae pink ENT: Present mucous membranes moist *Routine Neck Exam Neck: Present full ROM *Routine Respiratory Exam Respiratory: Present CTA bilaterally and normal respiratory effort *Routine Cardiovascular Exam Cardiovascular: Present RRR *Routine Abdominal Exam Abdominal: Present soft and normoactive bowel sounds; Absent tenderness or distended *Routine Rectal Exam Rectal:: deferred *Routine Genitalia Exam Genitalia:: deferred *Routine Extremities Exam Extremities: Present edema (+2 bilateral lower extremity swelling) and full ROM; Absent calf tenderness *Routine Neurological Exam Neurological: Present alert, moving all extremities and normal speech Routine Psychiatric Exam Psychiatric: Present normal affect and cooperative Assessment and Plan *Assessment and plan (1) Preeclampsia: Status: Acute Qualifiers: Trimester: third trimester Qualified Code(s): O14.93 - Unspecified pre- eclampsia, third trimester Category: Medical Code(s): O14.90 - Unspecified pre-eclampsia, unspecified trimester (2) Status post normal vaginal delivery: Status: Acute Category: Medical Plan Admit to [facility] L&D for preeclampsia with severe range blood pressures PIH labs within normal limits Labetalol 200 mg PO q 12 hours She received Labetalol 20 IV x 1 dose Mag sulfate 4gm bolus with 2 gm/hr maintenance for 24 hours Mag level 4 hours after bolus Tylenol and Ibuprofen PRN headache Regular diet SCDs Close monitoring
[2024-07-16 23:39] LABS: Magnesium 5.5 mg/dl (1.6-2.3)
[2024-07-17] VITALS (19 sets, daily range): BP systolic 95–133; BP diastolic 54–86; PULSE 67–86; RESP 14–18; TEMP 36.6–36.8; O2SAT 96–98
--- NOTE | 2024-07-17 04:42 | PC.NURSE ---
Patient has rested throughout the night, hourly rounding completed per Magnesium Sulfate Administration protocol. Patient has ambulated to bathroom with standby assist, has voided without difficulty, pt states her headache is coming back but is tolerable, informed pt to inform RN if headache worsens. pt V/U. vitals have been stable throughout shift, lung sounds clear bilaterally throughout, bowel sounds active in all quadrants, fundus remains at U/2 firm and midline, pt states bleeding is scant to small. no edema noted on reassessment. Pt denies any needs at this time
[2024-07-17] MEDS: MAGNESIUM SULFATE IN WATER 20 GM/500 ML IV.SOLN IV ×2 (05:26→15:51)
--- NOTE | 2024-07-17 08:24 | HMH.PHAINT1 ---
Pharmacy Intervention Comments: MEDICATION RECONCILIATION COMPLETED ON PATIENT USING EXTERNAL FILL HISTORY FROM PHARMACY. -CORNELIUS RAMSEY, MALCOMD
--- NOTE | 2024-07-17 12:34 | EXP.DC.SUM ---
General Admission date:: 07/16/24 Discharge date: 07/17/24 HPI HPI HPI: Mrs Ellen Medley is a 29 yo P2022 7 days s/p vaginal delivery who presented to [facility] L&D from the office for elevated blood pressures and headache. She was induced at 37w6d for preeclampsia. After delivery blood pressures were stable and she was asymptomatic. She started with a headache last night. She took medication with some relief. BP in the office was 152/102 and 158/110 with headache. She admits to continued bilateral lower extremity swelling. No calf pain. No scotoma or RUQ pain. She is breast feeding. Hospital Course Hospital Course Hospital Course: She was admitted and started on IV magnesium sulfate with a 4 g bolus and 2 g an hour. We have kept her on the medication for 24 hours. She received labetalol 200 mg twice daily. Her blood pressure was low this morning and we have held her labetalol. Her headache has resolved and she is eating and drinking and ambulating. Her blood pressures are normal. She is breast-feeding. She will be discharged home later this afternoon to follow-up with Dr. Ford in a week. She will continue with her vitamins and iron. We have given her prescription for labetalol 200 mg twice daily. Her condition on discharge is stable and improved. She was given these instructions with respect to limiting her activity, driving and sexual activity. Exam Data for Last 24 hours Vital signs and Labs for Last 24 Hours: Temp Pulse Resp BP Pulse Ox O2 Del Method 98.3 F 74 15 125/75 96 Room Air 07/17/24 07:01 07/17/24 12:05 07/17/24 12:05 07/17/24 12:05 07/17/24 07:01 07/17/24 12:05 Laboratory Results - last 24 hr 07/16/24 15:20: Urine Color Yellow, Urine Appearance Clear, Urine pH 6.0, Ur Specific [place] 1.020, Urine Protein Negative, Urine Glucose (UA) Negative, Urine Ketones Negative, Urine Blood 3+ A, Urine Nitrate Negative, Urine Bilirubin Negative, Urine Urobilinogen 0.2, Ur Leukocyte Esterase Negative, Urine RBC 3-5, Urine WBC 5-10, Ur Squamous Epith Cells 10-20, Urine Bacteria 2+, Urine Mucus 4+, Urine Creatinine 97, Urine Total Protein < 5.0, Urine Opiates Screen Negative, Urine Methadone Screen Negative, Ur Barbituates Screen Negative, Ur Phencyclidine Scrn Negative, Ur Amphetamines Screen Negative, U Benzodiazepines Scrn Negative, Urine Cocaine Screen Negative, U Marijuana (THC) Screen Negative 07/16/24 15:37: WBC 7.1, RBC 4.14 L, Hgb 14.3, Hct 40.5, MCV 97.7, MCH 34.6 H, MCHC 35.4, RDW 13.7, Plt Count 347, MPV 8.7, Neut % (Auto) 66.4, Lymph % (Auto) 25.7, [place] % (Auto) 5.1, Eos % (Auto) 1.7, Baso % (Auto) 1.0, Neut # (Auto) 4.7, Lymph # (Auto) 1.8, [place] # (Auto) 0.4, Eos # (Auto) 0.1, Baso # (Auto) 0.1, PT 10.3, INR 0.91, APTT 27.6, Fibrinogen 323, Sodium 140, Potassium 3.8, Chloride 109 H, Carbon Dioxide 19 L, Anion Gap 15.8 H, BUN 10, Creatinine 0.60, Estimated Creat Clear 193, Estimated GFR 118, Est GFR ( Amer) 143, Glucose 75, Uric Acid 6.3 H, Calcium 8.7, Magnesium 2.1, Total Bilirubin 1.0, AST 29, ALT 26, Alkaline Phosphatase 162 H, Total Protein 7.1 D, Albumin 4.0, Globulin 3.1, Albumin/Globulin Ratio 1.3 07/16/24 23:09: Magnesium 5.5 H D I & O for Last 24 hours: Intake & Output 07/15/24 07/16/24 07/17/24 07/18/24 11:59 11:59 11:59 11:59 Intake Total 1927 / 1927 Output Total 2450 / 2450 Balance -523 / -523 Weight 195 lb Constitutional Constitutional: no acute distress *Routine HEENT Exam Head: Present normocephalic *Routine Respiratory Exam Respiratory: Present normal respiratory effort; Absent accessory muscle use Results Data Completed and Pending Labs on day of discharge: Labs from last 24 hours 07/16/24 07/16/24 07/16/24 23:09 15:37 15:20 WBC 7.1 RBC 4.14 L Hgb 14.3 Hct 40.5 MCV 97.7 MCH 34.6 H MCHC 35.4 RDW 13.7 Plt Count 347 MPV 8.7 Neut % (Auto) 66.4 Lymph % (Auto) 25.7 [place] % (Auto) 5.1 Eos % (Auto) 1.7 Baso % (Auto) 1.0 Neut # (Auto) 4.7 Lymph # (Auto) 1.8 [place] # (Auto) 0.4 Eos # (Auto) 0.1 Baso # (Auto) 0.1 PT 10.3 INR 0.91 APTT 27.6 Fibrinogen 323 Sodium 140 Potassium 3.8 Chloride 109 H Carbon Dioxide 19 L Anion Gap 15.8 H BUN 10 Creatinine 0.60 Estimated Creat Clear 193 Estimated GFR 118 Est GFR ( Amer) 143 Glucose 75 Uric Acid 6.3 H Calcium 8.7 Magnesium 5.5 H D 2.1 Total Bilirubin 1.0 AST 29 ALT 26 Alkaline Phosphatase 162 H Total Protein 7.1 D Albumin 4.0 Globulin 3.1 Albumin/Globulin Ratio 1.3 Urine Color Yellow Urine Appearance Clear Urine pH 6.0 Ur Specific [place] 1.020 Urine Protein Negative Urine Glucose (UA) Negative Urine Ketones Negative Urine Blood 3+ A Urine Nitrate Negative Urine Bilirubin Negative Urine Urobilinogen 0.2 Ur Leukocyte Esterase Negative Urine RBC 3-5 Urine WBC 5-10 Ur Squamous Epith Cells 10-20 Urine Bacteria 2+ Urine Mucus 4+ Urine Creatinine 97 Urine Total Protein < 5.0 Urine Opiates Screen Negative Urine Methadone Screen Negative Ur Barbituates Screen Negative Ur Phencyclidine Scrn Negative Ur Amphetamines Screen Negative U Benzodiazepines Scrn Negative Urine Cocaine Screen Negative U Marijuana (THC) Screen Negative DS: Diagnosis Discharge Diagnosis (1) Preeclampsia: Status: Acute Code(s): O14.90 - Unspecified pre-eclampsia, unspecified trimester Qualifiers: Trimester: third trimester Qualified Code(s): O14.93 - Unspecified pre-eclampsia, third trimester (2) Status post normal vaginal delivery: Status: Acute Meds Home Medications and Allergies Home Medications ?Medication ?Instructions ?Recorded ?Confirmed ?Type vits no.130-ferrous fum 1 tab PO DAILY 03/04/24 07/17/24 History 27 mg iron-folic acid 800 mcg tablet ( Vitamin) famotidine 20 mg tablet 20 mg PO HSP PRN Acid Reflux 07/17/24 07/17/24 History labetalol 100 mg tablet 200 mg (2 x 100 mg) PO Q12H #60 07/17/24 Rx tabs New Prescriptions to Start Prescriptions: Allergies Allergy/AdvReac Type Severity Reaction Status Date / Time Penicillins Allergy Intermediate Hives Verified 07/16/24 14:14 Sulfa (Sulfonamide Allergy Intermediate Hives Verified 07/16/24 14:14 Antibiotics) Discharge Plan Disposition Patient Disposition: Home, Self-Care Discharge Order Discharge Orders: Discharge Order (Routine); Ordered 07/17/24 Ordered By: Randall Partida Follow up Plan Prescriptions/Medication Reconciliation: New labetalol 100 mg Tablet 200 mg PO Q12H Qty: 60 0RF Continued Vitamin 27 mg iron- 800 mcg tablet 1 tab PO DAILY Patient Comments: TAKE ONE TABLET BY MOUTH EVERY DAY famotidine 20 mg tablet 20 mg PO HSP PRN (Reason: Acid Reflux) Patient Comments: TAKE ONE TABLET BY MOUTH EVERY DAY AT BEDTIME NEEDED Problem Reconciliation Problems Reviewed?: Yes Patient Discharge Instructions ACTIVITY: No heavy lifting DIET: continue same diet Patient Instructions: DI for Pre-eclampsia Print Language: Latvian Providers Primary Care Provider: Mingo Jordan Admit Provider: Beryl Ford Attending Provider: Beryl Ford
[2024-07-17] MEDS: LABETALOL 100MG TABLET 200 MG PO (17:14)
== END 2024-07-17 18:31 | disposition home or self-care (01) | DRG 776 ==
LOC: OBOUT 18:38 → OB 18:38
PROVIDERS: Admitting Provider Obstetrics & Gynecology; PCP Family Medicine; Visit Provider Obstetrics & Gynecology
DX: O14.95 Unspecified pre-eclampsia, complicating the puerperium (principal)
CPT/HCPCS: 80053; 80307; 81001; 82570; 83735; 84156; 84550; 85025; 85384; 85610; 85730; 87086; J1920

== ENCOUNTER 2025-04-26 15:48 | Outpatient (CLI) | payer BC, OTHER, SELFPAY ==
--- OUTSIDE RECORDS SUMMARY | 2025-02-04 11:45 | XMS_ITS ---
Author Organization [facility] Address [address] [facility] [address] [place] [id number] Care Team Providers Care Proposal Rep Name Role Phone Julia Jordan Primary Care Provider [phone] Ivet Jacques Unavailable [phone] Allergies Allergen (clinical drug ingredient) Drug/Non Drug [...] day; Duration: 30 day(s) Active Vital Signs Weight 175.6 lbs 02/04/2025 Blood pressure systolic 118 mm Hg 02/05/20 25 Blood pressure diastolic 72 mm Hg 025 Heart Rate 93 /min 02/04/2025 Height 66.50 in 02/04/2025 BMI 27.91 kg/m2 02/04/2025 Encounters Encounter Location Date Provider Diagnosis [facility] 36 [facility] [address] [place] [id number] 02/04/2025 Ivet Guzmanysamani Gastroenteritis K52. 9 Assessments Encounter Date Diagnosis [...] Appt Details Follow Up: prn, Reason: Provider Name:Nate Gupta , 04/26/2025 03:00:00 PM, 12[address] [facility] 36 [facility], [address], [place], [id number], Progress Notes * Lionel MEDLEYEmilyB:1995 ( 30 yo F)Acc No.[id number]:02/04/2025 Progress Notes Patient: Ellen NUGENT Provider: JUAN Hernandez :1995 A ge:30 Y S ex:Female Date:02/04/2025 Address:[id number] Pcp:Julia Jordan Subjective: * Chief Complaints: [...] 93, O2 Sat: 98% on RA, Nurse: [facility], Ht: 66.50, BMI:27.91. * Examination: G eneral [...] Procedure Codes: 3 6416 CAPILLARY BLOOD DRAW, 11102 CBC WITH AUTO DIFF * Follow Up: p rn * Images: Billing Information: * Visit Code: 44975 Office Visit, Est Pt., Level 3. * Procedure Codes: 37013 CAPILLARY BLOOD DRAW. 12178 CBC WITH AUTO DIFF. * Electronic signature of JUAN Chu on 04/26/2025 at 03:51 PM EDT Sign off status: Pending * Provider: JUAN Hernandez Date: 0 02/04/2025 Generated for Chris howard/Justin/eTransmitting on: 0 04/26/2025 03:51 PM EDT History and Physical Notes * HPI (History [...]
--- OUTSIDE RECORDS SUMMARY | 2025-02-11 11:30 | XMS_ITS ---
Author Organization [facility] Address [address] [place] [id number] Care Team Providers Care Bobbin Drier Name Role Phone Julia Jordan Primary Care Provider [phone] Allergies Allergen (clinical drug ingredient) Drug/Non Drug [...] Duration: 30 day(s) Active Vital Signs Weight 178.2 lbs 02/11/2025 Blood pressure systolic 120 mm Hg 02/12/20 25 Blood pressure diastolic 80 mm Hg 025 Heart Rate 96 /min 02/11/2025 Height 66.50 in 02/11/2025 BMI 28.33 kg/m2 02/11/2025 Encounters Encounter Location Date Provider Diagnosis [facility] [address] [facility] [address] [place] [phone] 02/11/2025 Julia Jordan Acute pharyngitis J02.9 and [...] Details Follow Up: prn, Reason: Provider Name:Nate casper, 04/26/2025 03:00:00 PM, 1210 [facility] 36 [facility], [address], [place], [phone], Progress Notes * Lionel MEDLEYEmilyB:1995 ( 30 yo F)Acc No.[id number]:02/11/2025 Progress Notes Patient: lElen NUGENT Provider: Julia Jordan M.D. :1995 A ge:30 Y S ex:Female Date:02/11/2025 Address:[address] Subjective: * Chief Complaints: * 1 [...] pharyngitis - J02.9 (Primary) 2 . B [place] 28.0-28.9,adult - Z68.28? Plan: * Treatment: * [...] * Images: Billing Information: * Visit Code: 58320 Office Visit, Est Pt., Level 4. * Procedure Codes: 03103 STREP A ASSAY W/OPTIC. Modifiers: QW 1036F TOBACCO NON-USER. G8420 BMI<30 AND >=22 CALC & DOCU. G8783 BP SCR PRFRM RCMDD DEFIND SCR INTVL. G8752 MOST RECENT SYSTOLIC BP < 140MM HG. G8754 MOST RECENT DIASTOLIC BP < 90MM HG. * Electronic signature of Julia Jordan MD on 04/26/2025 at 03:50 PM EDT Sign off status: Pending * Provider: Julia Jordan M.D. Date: 0 02/11/2025 Generated for Chaimi lee/Justin/Romesmitting on: 0 04/26/2025 03:50 PM EDT History and Physical Notes * Examination Category Sub-Category Detail Notes Category Not es General Examination She appe ars in no distress. TMs are normal bilaterally. Nares patent. Oropharynx is erythematous. I do not appreciate any exudate or vesicles. Neck is supple with bilateral superior cervical tender adenopathy. Lungs are clear.
--- NOTE | 2025-04-26 15:51 | XR_ITS ---
PROCEDURE INFORMATION: Exam: XR Chest Exam date and time: 04/26/2025 4:03 PM Age: 30 years old Clinical indication: Shortness of breath; Other: Chest pain, anterior and posterior; Pain upon inspiration and expiration, anterior and posterior; Additional info: Other chest pain TECHNIQUE: Imaging protocol: Radiologic exam of the chest. Views: 2 views. COMPARISON: CR XR CHEST PORTABLE 04/26/2020 5:00 PM FINDINGS: Lungs: Stable right upper lobe granuloma. No consolidation. Pleural spaces: Unremarkable. No pleural effusion. No pneumothorax. Heart/Mediastinum: Unremarkable. No cardiomegaly. Bones/joints: Unremarkable. IMPRESSION: No acute findings.
--- OUTSIDE RECORDS SUMMARY | 2025-04-26 15:51 | XMS_ITS | Patient Health Record ---
Author Organization [facility] Address [address] [facility] [address] [place] [id number] Care Team Providers Care Adjunct Nursing Faculty Name Role Phone Julia Jordan Primary Care Provider Jorge Nate Unavailable [phone] Ivet Jacques Unavailable [phone] Allergies Allergen (clinical drug ingredient) Drug/Non Drug Allergy documented on EMR Reaction Allergy Type Onset Date Status Substance with penicillin structure and antibacterial mechanism of action (substance) Penicillins Unknown Drug Allergy Active Substance with sulfonamide structure and antibacterial mechanism of action (substance) Sulfa Antibiotics Unknown Drug Allergy Active Results Component Value Reference Range Notes CBC Fingerstick (in house) ( Not yet reviewed by provider) Interpretation: Performing Lab: Notes/Report: wbc 8.0 3.5 - 10 lym 27.3% 15 - 50 mid 6.4% 2 - 15 gran 66.3% 35 - 80 rbc 4.78 3.5 - 5.5 hgb 15.2 11.5 - 16.5 hct 44.9 35 - 55 mcv 93.7 75 - 100 mch 31.7 25 - 35 mchc 33.8 31 - 38 plat 214 100 - 400 CBC Fingerstick (in house) Reviewed date:02/05/2025 12:35:51 [...] - 38 plat 208 100 - 400 Rapid Strep- Inhouse Reviewed date:02/12/2025 03:41:31 PM Interpretation:neg Performing Lab: Notes/Report: neg strep test neg Influenza Screen (in house) Reviewed date:10/16/2024 04:35:04 [...] Interpretation:neg Performing Lab: Notes/Report: neg Result: neg Reason For Referral No Information Medications Medication SIG (Take, Route, Frequency, Duration) Notes Start Date End Date Status (w/Iron & FA) 27-0.8 MG 1 tablet Orally Once a day; Duration: 30 day(s) Active dexAMETHasone 2 MG 1 tablet Orally twic e a day; Duration: 5 days 04/26/2025 Active Immunizations Vaccine Route Administration Date Status Comme nts COVID 19 Pfizer Unknown 07/06/2021 Administered Fluzone PF Quad (6-35 months) Unknown 11/22/2018 Admini stered MMR Unknown 05/07/1996 Administered MMR Unknown 02/02/1999 Administered Tetanus Tdap-Adacel (over 7yrs) Unknown 04/17/2006 Admi nistered Varivax Unknown 06/02/1996 Administered Problems Problem Type SNOMED Code ICD Code Onset Dates Problem Status W/U Status Risk Notes Problem Scoliosis (334867188) Scoliosis (737.43) Active confirmed Problem Gastroesophageal reflux disease (543816714) GERD (gastroesophag eal reflux disease) (K21.9) Active confirmed Problem Otitis externa (8695210) Otitis externa (H60.90) Active confirmed Problem Sciatica (47510694) Sciatic leg pain (M54.30) Active confirmed Problem Posttraumatic stress disorder (16967804) PTSD (post-traumati c stress disorder) (F43.10) Active confirmed Problem Adjustment disorder with mixed emotional features (41536226) 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 9 [facility] [address] [facility] [address] [place], [place] [id number] 02/11/2025 R Christopher Jordan Acute pharyngitis J0 2.9 and BMI 28.0-28.9,adult Z68.28 [facility] [address] [place], [place] [phone] 04/26/2025 Nate [place] Other chest pain R07 .89 Assessments Encounter Date Diagnosis (ICD Code) Assessment Notes Treatment Notes Treatment Clinical Notes Section Notes 10/16/2024 Acute URI (ICD-10 - J06.9) fluids, rest, supportive measures for fever/symptom relief 02/04/2025 Gastroenteritis (ICD-10 - K52.9) fluids, rest, supportive measures 02/11/2025 Acute pharyngitis (ICD-10 - J02.9) 02/11/2025 BMI 28.0-28.9,adult (ICD-10 - Z68.28) 04/26/2025 Other chest pain (ICD-10 - R07.89) Plan Of Treatment Pending Test Test Name Order Date CXR 04/26/2025 CBC Fingerstick (in house) 04/26/2025 Next Appt Details Provider Name:Nate Gupta ry, 04/26/2025 03:00:00 PM, [address], [address], [place], [id number], Insurance Providers Payer Name Payer Address Payer Phone Subscriber Number Group Number Insured Name Patient Relationship to Insured Coverage Start Date Coverage End Date [employer] [address] [place] [address] [id number] Ellen Medley Self - patient is the insured [facility] [address] [place], [place] [id number] Ellen Medley Self - patient is the insured Medications Administered Medication Instructions Date of Administration Dosage Notes Dexamethasone 07/25/2020 1 mL Medical (General) History Surgical History Surgery Date(Month/Year) Hospitalization History Reason Date(Month/Year)
== END 2025-04-26 23:59 ==
LOC: RAD 15:48
PROVIDERS: PCP Family Medicine; Visit Provider Family Medicine
DX: J84.10 Pulmonary fibrosis, unspecified (principal); R06.02 Shortness of breath
CPT/HCPCS: 71046

== ENCOUNTER 2025-06-14 12:03 | Outpatient (CLI) | payer BC, OTHER, SELFPAY ==
--- OUTSIDE RECORDS SUMMARY | 2025-02-04 11:45 | XMS_ITS ---
Author Organization [facility] Address [address] [facility] [address] [place] [id number] Care Team Providers Care Surgeon Assistant Name Role Phone Julia Jordan Primary Care Provider Ivet Jacques Unavailable [phone] Allergies Allergen (clinical drug ingredient) Drug/Non Drug [...] Encounter Location Date Provider Diagnosis [facility] [facility] 36 [facility] [address] [place], [place] [phone] 02/04/2025 Ivet Sawyer Gastroenteritis K52. 9 Assessments [...] Follow Up: prn, Reason: Provider Name:Ivet alicea, 06/16/2025 11:30:00 AM, 12[address] [facility] 36 [facility], [address], [place], [id number], Progress Notes * Lionel MEDLEYEmilyB:1995 ( 30 yo F)Acc No.[id number]:02/04/2025 Progress Notes Patient: Ellen NUGENT Provider: JUAN Hernandez :1995 A ge:30 Y S ex:Female Date:02/04/2025 Address:[id number] Pcp:Julia Jordan Subjective: * Chief Complaints: [...] 93, O2 Sat: 98% on RA, Nurse: [facility], Ht: 66.50, BMI:27.91. * Examination: G eneral [...] Procedure Codes: 3 6416 CAPILLARY BLOOD DRAW, 38735 CBC WITH AUTO DIFF * Follow Up: p rn * Images: Billing Information: * Visit Code: 80429 Office Visit, Est Pt., Level 3. * Procedure Codes: 77265 CAPILLARY BLOOD DRAW. 07858 CBC WITH AUTO DIFF. * Electronic signature of JUAN Chu on 06/14/2025 at 12:06 PM EDT Sign off status: Pending * Provider: JUAN Hernandez Date: 0 02/04/2025 Generated for Chris howard/Justin/eTransmitting on: 1 12:06 PM EDT History and Physical Notes * [...]
--- OUTSIDE RECORDS SUMMARY | 2025-02-11 11:30 | XMS_ITS ---
Author Organization [facility] Address [address] [place] [id number] Care Team Providers Care Licensed Physical Therapy Assistant Name Role Phone Julia Jordan Primary [...] Provider Diagnosis [facility] [address] [facility] [address] [place] [id number] 02/11/2025 Julia Jordan Acute pharyngitis J02.9 and [...] Provider Name:Ivet alicea, 06/16/2025 11:30:00 AM, 1210 [facility] 36 [facility], [address], [place], [phone], Progress Notes * SARAH ChloéB:1995 ( 30 yo F)Acc No.[id number]:02/11/2025 Progress Notes Patient: Ellen NUGENT Provider: Julia Jordan M.D. :1995 A ge:30 Y S ex:Female Date:02/11/2025 Address:[phone] Subjective: * Chief Complaints: * 1 [...] pharyngitis - J02.9 (Primary) 2 . B [place] 28.0-28.9,adult - Z68.28? Plan: * Treatment: * [...] * Images: Billing Information: * Visit Code: 21230 Office Visit, Est Pt., Level 4. * Procedure Codes: 97920 STREP A ASSAY W/OPTIC. Modifiers: QW 1036F TOBACCO NON-USER. G8420 BMI<30 AND >=22 CALC & DOCU. G8783 BP SCR PRFRM RCMDD DEFIND SCR INTVL. G8752 MOST RECENT SYSTOLIC BP < 140MM HG. G8754 MOST RECENT DIASTOLIC BP < 90MM HG. * Electronic signature of Julia Jordan MD on 06/14/2025 at 12:06 PM EDT Sign off status: Pending * Provider: Julia Jordan M.D. Date: 0 02/11/2025 Generated for Chaimi lee/Justin/Romesmitting on: 1 12:06 PM EDT History and Physical Notes * Examination Category Sub-Category Detail Notes Category Not es General Examination She appe ars in no distress. TMs are normal bilaterally. Nares patent. Oropharynx is erythematous. I do not appreciate any exudate or vesicles. Neck is supple with bilateral superior cervical tender adenopathy. Lungs are clear.
--- OUTSIDE RECORDS SUMMARY | 2025-04-26 11:00 | XMS_ITS ---
Author Organization [facility] Address [address] [facility] [address] [place] [id number] Care Team Providers Care Sports Attorney Name Role Phone Julia Jordan Primary Care Provider Nate Patel Unavailable [phone] Allergies Allergen (clinical drug ingredient) Drug/Non Drug [...] Duration: 5 days 04/26/2025 Active Vital Signs Weight 181.2 lbs 04/26/2025 Blood pressure systolic 130 mm Hg 04/26/20 25 Blood pressure diastolic 78 mm Hg 025 Heart Rate 109 /min 04/26/2025 Height 66.50 in 04/26/2025 BMI 28.81 kg/m2 04/26/2025 Encounters Encounter Location Date Provider Diagnosis [facility] [address] [place] [address] 36 [facility] [address] [place], [place] [id number] 04/26/2025 Nate Patel Other chest pain R07.89 [...] rt test results, Reason: Provider Name:Ivet alicea, 06/16/2025 11:30:00 AM, [facility] [address], [address], [place], [id number], Progress Notes * Martin MEDLEYKristaB:1995 ( 30 yo F)Acc No.[id number]:04/26/2025 Progress Notes Patient: Ellen NUGENT Provider: Vic Patel M.D. :1995 A ge:30 Y S ex:Female Date:04/26/2025 Address:[address] Pcp:Julia Jordan Subjective: * Chief Complaints: [...] pain - R07.89 (Primary) 2 . B AK 28.0-28.9,adult - Z68.28? Plan: * Treatment: Value [...] ?Imaging: CXR (Performed Date - 04/26/2025)?nothing acute* [place] 04/27/2025 10:34: 20 AM EDT > Pt notified * Procedure Codes: 3 6416 CAPILLARY BLOOD DRAW, 02759 CBC WITH AUTO DIFF, 1036F TOBACCO NON-USER, 3075F SYST BP GE 130 - 139MM HG, 3078F DIAST BP < 80 MM HG * Follow Up: v ia phone to report test results * Images: Billing Information: * Visit Code: 51616 Office Visit, Est Pt., Level 3. * Procedure Codes: 01432 CAPILLARY BLOOD DRAW. 53721 CBC WITH AUTO DIFF. 1036F TOBACCO NON-USER. 3075F SYST BP GE 130 - 139MM HG. 3078F DIAST BP < 80 MM HG. * Electronic signature of Mikki Patel MD on 06/14/2025 at 12:06 PM EDT Sign off status: Pending * Provider: Vic Patel M.D. Date: 0 04/26/2025 Generated for Chris howard/Justin/eTbee on: 1 12:06 PM EDT History and [...]
--- OUTSIDE RECORDS SUMMARY | 2025-05-12 10:30 | XMS_ITS ---
Author Organization [facility] Address [address] [facility] [address] [place] [id number] Care Team Providers Care Centerless Grinder Name Role Phone Julia Jordan Primary Care Provider Ivet Jacques [phone] Allergies Allergen (clinical drug ingredient) Drug/Non Drug [...] Duration: 30 day(s) Active Vital Signs Weight 185 lbs 05/12/2025 Blood pressure systolic 120 mm Hg 05/12/20 25 Blood pressure diastolic 70 mm Hg 025 Heart Rate 74 /min 05/12/2025 Height 66.50 in 05/12/2025 BMI 29.41 kg/m2 05/12/2025 Encounters Encounter Location Date Provider Diagnosis [place] [address] [facility] [address] [place] [phone] 05/12/2025 Ivet Jacques PTSD (post-traumatic stress disorder) [...] Details Follow Up: 4 Weeks, Reason: Provider Name:Ivetelan José y, 06/16/2025 11:30:00 AM, [address], [address], [place], [place], [phone], Progress Notes * Lionel MEDLEYEmilyB:1995 ( 30 yo F)Acc No.[id number]:05/12/2025 Progress Notes Patient: Ellen NUGENT Provider: JUAN Hernandez :1995 A ge:30 Y S ex:Female Date:05/12/2025 Address:[address] [address], [place], [place] Pcp:Julia Jordan Subjective: * Chief Complaints: [...] * Images: Billing Information: * Visit Code: 83807 Office Visit, Est Pt., Level 3. * Procedure Codes: * Electronic signature of JUAN Chu on 06/14/2025 at 12:06 PM EDT Sign off status: Pending * Provider: JUAN Hernandez Date: 0 05/12/2025 Generated for Chris howard/Justin/eTransmitting on: 1 12:06 [...]
--- OUTSIDE RECORDS SUMMARY | 2025-06-02 07:15 | XMS_ITS ---
Author Organization [facility] Address [address] [facility] [address] [place] [id number] Care Team Providers Care Oil Expert Name Role Phone Julia Jordan Primary Care Provider [phone] Ivet Jacques Unavailable [phone] Allergies Allergen (clinical drug ingredient) Drug/Non Drug [...] Once a day 05/12/2025 Not-Taking Vital Signs Weight 183.4 lbs 06/02/2025 Blood pressure systolic 128 mm Hg 06/02/20 25 Blood pressure diastolic 74 mm Hg 025 Heart Rate 107 /min 06/02/2025 Height 66.50 in 06/02/2025 BMI 29.15 kg/m2 06/02/2025 Encounters Encounter Location Date Provider Diagnosis [place] [address] [facility] 36 [facility] [address] [place] [id number] 06/02/2025 Ivet Jacques PTSD (post-traumatic stress disorder) [...] Follow Up: 2 Weeks, Reason: Provider Name:Ivetelan José y, 06/16/2025 11:30:00 AM, [address] [facility] 36 [facility], [address], [place], [phone], Progress Notes * MEDLEYMartinKristaB:1995 ( 30 yo F)Acc No.[id number]:06/02/2025 Progress Notes Patient: Ellen NUGENT Provider: JUAN Hernandez :1995 A ge:30 Y S ex:Female Date:06/02/2025 Address:[address] Pcp:Julia Jordan Subjective: * Chief Complaints: [...] * Images: Billing Information: * Visit Code: 32117 Office Visit, Est Pt., Level 3. * Procedure Codes: 1036F TOBACCO NON-USER. 3074F SYST BP LT 130 MM HG. 3078F DIAST BP < 80 MM HG. * Electronic signature of JUAN Chu on 06/14/2025 at 12:07 PM EDT Sign off status: Pending * Provider: JUAN Hernandez Date: 0 06/02/2025 Generated for Chris howard/Justin/Gray on: 12:07 PM EDT History and Physical Notes * [...]
--- OUTSIDE RECORDS SUMMARY | 2025-06-14 12:06 | XMS_ITS | Patient Health Record ---
Author Organization [facility] Address [address] [facility] [address] [place] [phone] Care Team Providers Care Senior Qc Technician Name Role Phone Julia Jordan Primary Care Provider Nate Patel Unavailable [phone] Ivet Jacques Unavailable [phone] Allergies Allergen (clinical drug ingredient) Drug/Non Drug [...] Performing Lab: Notes/Report: neg strep test neg CBC Fingerstick (in house) Reviewed date:04/27/2025 08:54:51 [...] Interpretation:nothing acute Performing Lab: Notes/Report: nothing acute Influenza Screen (in house) Reviewed date:10/16/2024 04:35:04 [...] daily Orally Once a day 05/12/2025 Not-Taking Immunizations Vaccine Route Administration Date Status Comme nts Varivax Unknown 06/02/1996 Administered Tetanus Tdap-Adacel (over 7yrs) Unknown 04/17/2006 Admi nistered MMR Unknown 05/07/1996 Administered MMR Unknown 02/02/1999 Administered Fluzone PF Quad (6-35 months) Unknown 11/22/2018 Admini stered COVID 19 Pfizer Unknown 07/06/2021 Administered Problems Problem Type SNOMED Code ICD Code Onset Dates Problem Status W/U Status Risk Notes Problem Scoliosis (089921052) Scoliosis (737.43) Active confirmed Problem Gastroesophageal reflux disease (086617795) GERD (gastroesophag eal reflux disease) (K21.9) Active confirmed Problem Otitis externa (5509016) Otitis externa (H60.90) Active confirmed Problem Sciatica (51223328) Sciatic leg pain (M54.30) Active confirmed Problem Posttraumatic stress disorder (46706629) PTSD (post-traumati c stress disorder) (F43.10) Active confirmed Problem Adjustment disorder with mixed emotional features (68298462) 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) Active confirmed Vital Signs Heart Rate 107 /min 06/02/2025 Blood pressure diastolic 74 mm Hg 06/02/2025 Height 66.50 in 06/02/2025 Blood pressure systolic 128 mm Hg 06/02/2025 Weight 183.4 lbs 06/02/2025 BMI 29.15 kg/m2 06/02/2025 Encounters Encounter Location Date Provider Diagnosis [facility] [address] [place], [place] [id number] 10/16/2024 Nate Cornelia Acute URI J06.9 [facility] [address] [place], [place] [id number] 02/04/2025 Ivet Crowdy Gastroenteritis K52. 9 [facility] [address] [place], [place] [phone] 02/11/2025 R Christopher Jordan Acute pharyngitis J0 2.9 and BMI 28.0-28.9,adult Z68.28 [facility] [address] [place], [place] [id number] 04/26/2025 Nate Cornelia Other chest pain R07 .89 and BMI 28.0-28.9,adult Z68.28 [facility] [address] [place], [place] [id number] 05/12/2025 Ivet Jacques PTSD (post-traumatic stress disorder) F43.10 [facility] 36 [facility] [address] [place] [id number] 06/02/2025 Ivet Jacques PTSD (post-traumatic stress disorder) F43.10 and Situational mixed anxiety and depressive disorder F43.23 [facility] [address] [facility] 36 [facility] [address] [place] [id number] 05/17/2025 Julia Jordan [facility] [address] [facility] 36 [facility] [address] [place] [id number] 05/24/2025 Ivet Jacques Assessments Encounter Date Diagnosis (ICD Code) Assessment Notes Treatment Notes Treatment Clinical Notes Section Notes 10/16/2024 Acute URI (ICD-10 - J06.9) fluids, rest, supportive measures for fever/symptom relief 02/04/2025 Gastroenteritis (ICD-10 - K52.9) fluids, rest, supportive measures 02/11/2025 Acute pharyngitis (ICD-10 - J02.9) 02/11/2025 BMI 28.0-28.9,adult (ICD-10 - Z68.28) 04/26/2025 Other chest pain (ICD-10 - R07.89) 04/26/2025 BMI 28.0-28.9,adult (ICD-10 - Z68.28) 05/12/2025 PTSD (post-traumatic stress disorder) (ICD-10 - F43.10) 06/02/2025 PTSD (post-traumatic stress disorder) (ICD-10 - F43.10) 06/02/2025 Situational mixed anxiety and depressive disorder (ICD-10 - F43.23) Will need to remain off work until f/u Plan Of Treatment Next Appt Details Provider Name:Ivet José nixon, 06/16/2025 11:30:00 AM, [address] [facility] 36 [facility], [address], [place], [phone], Insurance Providers Payer Name Payer Address Payer Phone Subscriber Number Group Number Insured Name Patient Relationship to Insured Coverage Start Date Coverage End Date [facility] [address] [place] [address] [id number] Ellen Medley Self - patient is the insured [facility] [address] [place], [place] [id number] Galindo Ellen Self - patient is the insured Medications Administered Medication Instructions Date of Administration Dosage Notes Dexamethasone 07/25/2020 1 mL Medical (General) History Surgical History Surgery Date(Month/Year) Hospitalization History Reason Date(Month/Year)
== END 2025-06-14 23:59 | disposition home or self-care (01) ==
PROVIDERS: PCP Family Medicine; Visit Provider Obstetrics & Gynecology
DX: Z34.90 Encounter for supervision of normal pregnancy, unspecified, unspecified trimester (principal); N92.6 Irregular menstruation, unspecified; Z3A.00 Weeks of gestation of pregnancy not specified
CPT/HCPCS: 36415; 84144; 84702

== ENCOUNTER 2025-06-16 09:52 | Outpatient (CLI) | payer BC, OTHER, SELFPAY | END 2025-06-16 23:59 | disposition home or self-care (01) | LOC: LAB 09:53 | PROVIDERS: PCP Family Medicine; Visit Provider Obstetrics & Gynecology | DX: Z34.90 Encounter for supervision of normal pregnancy, unspecified, unspecified trimester (principal); Z3A.00 Weeks of gestation of pregnancy not specified | CPT/HCPCS: 36415; 84702 ==

== ENCOUNTER 2025-06-21 09:53 | Outpatient (CLI) | payer BC, OTHER, SELFPAY | END 2025-06-21 23:59 | disposition home or self-care (01) | LOC: LAB 09:54 | PROVIDERS: PCP Family Medicine; Visit Provider Obstetrics & Gynecology | DX: Z34.90 Encounter for supervision of normal pregnancy, unspecified, unspecified trimester (principal); Z3A.00 Weeks of gestation of pregnancy not specified | CPT/HCPCS: 36415; 84702 ==

== ENCOUNTER 2025-07-01 15:56 | Outpatient (CLI) | payer BC, OTHER, SELFPAY ==
--- OUTSIDE RECORDS SUMMARY | 2025-07-01 15:59 | XMS_ITS | Data Portability ---
Author Organization [facility] Address [address] [place] [address] Assessment Encounter Date Assessment Date Assessment LastModified by Organization Details LastModified Time 07/11/2023 07/11/2023 28 yo here for second opinion on missed miscarriage [email or web address] Not available 07/11/2023 10:53:54 Plan of Treatment Reminders Order Date Submit Date Provider Last Modified By Organization Details Last Modified Time Details Appointments None recorded. Lab pap, IG + CT/NG + reflex HPV - last pap 11/02/16 lgsil pos hpv 2017 018 CARLOS [facility], [address], Rick [address], [place], [address], 8 20:10:08 urinalysis , dipstick 2016 017 [facility] [employer], [address] [place] [address] , [place], [address], 7 11:21:40 culture, urine 2016 017 CARLOS [facility], [address], [address], [place], [address], 7 06:06:27 Referral None recorded. Procedures None recorded. Surgeries None recorded. Imaging US, obstetric, 1st trimester 2022 023 [email or web address] [facility], [address] [place] [address] , [place], [address], 3 10:56:45 Medication Orders Sronyx 0.1 mg-20 mcg tablet 2017 018 [email or web address] [id number], [address] [place], [id number], 3 10:21:28 Macrobid 100 mg capsule 2016 017 [id number], [address] [place], [id number], 8 08:42:07 Pyridium 200 mg tablet 2016 017 [facility] #[id number], [address], [id number], 8 08:42:13 Patient TargetsNo targets recorded. Patient Instructions Encounter Date Encounter Id Patient Instructions Last Modified By Organization Details Last Modified Time 06/13/2017 [id number] Finish medicatio n as directed Wipe front to back Increase intake of H20 Limit caffeines and sugars Will call with culture results F/u 7-10 days if s/s not improved [email or web address] Not available 06/13/2017 11:28:22 12/06/2017 [id number] Encourage Self Breast Exam Encourage Healthy eating/regular physical activity Doing well with contraceptive method and desires to continue Start bcps for cycle regulation, tx of dysmenorrhea and acne Understands risks of taking hormonal contraception Encourage MV F/u 2 months [email or web address] Not available 12/06/2017 09:11:42 We will call abnormal test results in 7-10 days. Patient is advised that normal test results will be retrievable through [facility] Patient Portal and that they will be notified of the availability of normal results from [facility] by phone call, text or email. [email or web address] Not available 12/06/2017 09:11:47 01/31/2018 [id number] See HPI Rto for IUD removal Continue bcps [email or web address] Not available 01/31/2018 08:36:43 02/14/2018 [id number] IUD removed with out difficulty Continue bcps Rto for AWE or earlier prn [email or web address] Not available 02/14/2018 08:48:03 07/11/2023 [id number] medical record request* - records from [facility]; US reports Not available 11/14/2023 11:05:49 Discussed management options for missed miscarriage including expectant mgmt, medication and surgical. She will discuss with her partner. She is Rh negative. Discussed that new recommendations show that Rhogam may not be needed in 1st TM. If has D&C, would advise Rhogam. 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 [email or web address] Not available 07/11/2023 10:56:18 Reason for Referral None Reported. Results Created Date Observation Date Name Description Value Unit Range Abnormal Flag Note LastModifiedBy Organization Detail LastModifiedTime 06/13/20 17 06/13/2017 urina lysis , dipst ick Leukocytes Modera te Not Available [facility] [address] [place] [address] , [place], [address], 06/13/2017 11:04:56 06/13/20 17 06/13/2017 urina lysis , dipst ick Nitrite positi ve Not Available [facility] [address] [place] [address] , [place], [address], 06/13/2017 11:04:56 06/13/20 17 06/13/2017 urina lysis , dipst ick Urobilinogen .2 Not Available [facility] [address] [place] [address] , [place], [address], 06/13/2017 11:04:56 06/13/20 17 06/13/2017 urina lysis , dipst ick Protein Negati ve Not Available [facility] [address] [place] [address] , [place], [address], 06/13/2017 11:04:56 06/13/20 17 06/13/2017 urina lysis , dipst ick pH 6.0 Not Available [facility] [address] [place] [address] , [place], [address], 06/13/2017 11:04:56 06/13/20 17 06/13/2017 urina lysis , dipst ick Blood Modera te Not Available [facility] [address] [place] [address] , [place], [address], 06/13/2017 11:04:56 06/13/20 17 06/13/2017 urina lysis , dipst ick Specific [place] 1.015 Not Available [facility] [address] [place] [address] , [place], [address], 06/13/2017 11:04:56 06/13/20 17 06/13/2017 urina lysis , dipst ick Ketone Small Not Available [facility]/[address] , [place], [address], 06/13/2017 11:04:56 06/13/20 17 06/13/2017 urina lysis , dipst ick Bilirubin Negati ve Not Available [facility]/[address] , [place], [address], 06/13/2017 11:04:56 06/13/20 17 06/13/2017 urina lysis , dipst ick Glucose Negati ve Not Available [facility]/[address] , [place], [address], 06/13/2017 11:04:56 06/13/20 17 06/13/2017 urina lysis , dipst ick Appearance Slight ly Cloudy Not Available [facility]/[address] , [place], [address], 06/13/2017 11:04:56 06/13/20 17 06/13/2017 urina lysis , dipst ick Color Dark Yellow Not Available [facility] [address] [place] [address] , [place], [address], 06/13/2017 11:04:56 06/13/20 17 06/15/2017 cultu re, urine urine culture, routine Final report Not Available [facility] ([facility]) [address] [place], [address], 06/15/2017 06:06:27 06/13/20 17 06/15/2017 cultu re, urine result 1 Commen t Great er than 2 organ isms recov ered, none predo minan t. Pleas e submi t anoth er sampl e if clini damon indic ated. Great er than 100,0 00 colon y formi ng units per mL Not Available [facility] ([facility]) [address] [facility], [place], [address], 06/15/2017 06:06:27 12/07/19 18 12/09/2017 pap, IG + CT/NG + refle x HPV chlamydia, nuc. acid amp Negati ve negati ve Not Available [facility] ([facility]) [address] [place], [address], 12/16/2017 20:10:08 12/07/19 18 12/09/2017 pap, IG + CT/NG + refle x HPV gonococcus, nuc. acid amp Negati ve negati ve Not Available [facility] ([facility]) [address] [place], [address], 12/16/2017 20:10:08 12/07/19 18 12/13/2017 pap, IG + CT/NG + refle x HPV diagnosis: Commen t abnormal EPITH ELIAL CELL ABNOR MALIT Y. ATYPI EDUARDO SQUAM OUS CELLS OF UNDET ERMIN ED SIGNI FICAN CE. Not Available [facility] ([facility]) [address] [place], [address], 12/16/2017 20:10:08 12/07/19 18 12/13/2017 pap, IG + CT/NG + refle x HPV recommendati on: Perla ross abnormal Sugge st follo w up as clini damon appro luis alberto e. Not Available [facility] ([facility]) [address] [facility], [place], [address], 12/16/2017 20:10:08 12/07/19 18 12/13/2017 pap, IG + CT/NG + refle x HPV specimen adequacy: Perla ross Satis facto ry for evalu ation . Endoc ervic al and/o r squam ous metap lasti c cells (endo cervi eduardo compo nent) are prese nt. Not Available [facility] ([facility]) [address] [facility], [place], [address], 12/16/2017 20:10:08 12/07/19 18 12/13/2017 pap, IG + CT/NG + refle x HPV clinician provided ICD10: Perla ross Z12.4 Not Available [facility] ([facility]) [address] [place], [address], 12/16/2017 20:10:08 12/07/19 18 12/13/2017 pap, IG + CT/NG + refle x HPV performed by: Perla Menezes ns, Cytot echno logis t (ASCP ) Not Available [facility] ([facility]) [address] [place], [address], 12/16/2017 20:10:08 12/07/19 18 12/13/2017 pap, IG + CT/NG + refle x HPV QC reviewed by: Perla Lim ns, Cytot echno logis t (ASCP ) Not Available [facility] ([facility]) [address] [place], [address], 12/16/2017 20:10:08 12/07/19 18 12/13/2017 pap, IG + CT/NG + refle x HPV electronical ly signed by: Perla Pichardo MD, Patho logis t Not Available [facility] ([facility]) [address] [facility], [place], [address], 12/16/2017 20:10:08 12/07/19 18 12/13/2017 pap, IG + CT/NG + refle x HPV . . Not Available [facility] ([facility]) [address] [facility], [place], [address], 12/16/2017 20:10:08 12/07/19 18 12/13/2017 pap, IG + CT/NG + refle x HPV pathologist provided ICD10: Perla ross R87.6 10 Not Available [facility] ([facility]) [address] [facility], [place], [address], 12/16/2017 20:10:08 12/07/19 18 12/13/2017 pap, IG + CT/NG + refle x HPV note: Perla t The Pap smear is a scree onel test desig africa to aid in the detec tion of kiara ligna nt and malig nant condi tions of the uteri ne cervi x. It is not a diagn ostic proce dure and shoul d not be used as the sole means of detec ting cervi eduardo cance r. Both false -posi tive and false -nega tive repor ts do occur . Not Available [facility] ([facility]) [address] [facility], [place], [address], 12/16/2017 20:10:08 12/07/19 18 12/13/2017 pap, IG + CT/NG + refle x HPV test methodology: Perla ross This liqui d based ThinP rep(R ) pap test was scree [place] with the use of an image guide isai chambers Not Available [facility] ([facility]) [address] [facility], [place], [address], 12/16/2017 20:10:08 12/07/19 18 12/13/2017 pap, IG + CT/NG + refle x HPV . Commen t See below for HPV testi ng resul ts. Not Available [facility] ([facility]) [address] [facility], [place], [address], 12/16/2017 20:10:08 12/07/19 18 12/16/2017 pap, IG + CT/NG + refle x HPV HPV, high-risk Negati ve negati ve This high- risk HPV test detec ts thirt een high- risk types (16/1 8/31/ 33/35 /39/4 5/51/ 52/56 /58/5 ) witho ut diffe renti ation . Not Available [facility] ([facility]) [address] [facility], [place], [address], 12/16/2017 20:10:08 07/11/20 23 US, obste tric, 1st trime ster No observ ation record ed. [email or web address] [facility] [employer] [address] [place] [address] , [place], [address], 07/11/2023 10:54:59 07/12/20 23 07/11/2023 US, obste tric, 1st trime ster No observ ation record ed. BARCODE [facility] [address] [place] [address] , [place], [address], 07/12/2023 14:07:10 Result Notes None recorded. Problems Name Problem SNOMED Code Status Onset Date Resolution Date Notes Provider Name and Address Organization Details Recorded Time Low grade squamous intraepithe lial lesion on cervical Papanicolao u smear 6850164476884 5 Active 2016 Funmilayo Rodriguez APRN [address], [place], [address], [place] - [facility] 7 16:15:59 Cervical intraepithe lial neoplasia grade 1 482554488 Active 2016 Funmilayo Rodriguez APRN [address], [place], [address], [place] - [facility] 7 09:28:46 Dysmenorrhe a 790351478 Active 2017 Crystal Willard null, [place] - [facility] 8 08:20:23 Pain in pelvis 72325238 Active 2017 Funmilayo Rodriguez APRN [address], [place], [address], [place] - [facility] 8 08:36:20 Missed miscarriage 36120199 Active 2022 Denae Bar MD [address], [place], [address], [place] - [facility] 3 10:53:40 Problem Notes None recorded. Procedures Surgical History Date Name Laterality Status Provider Name and Address Organization Details Recorded Time 07/11/20 23 OB Ultrasound Summary completed Aroldo Craven [place] - [facility] 07/11/2023 09:58:56 02/15/20 18 IUD Removal completed Stacy Wright [place] - [facility] 02/14/2018 08:26:25 02/15/20 18 IUD Removal completed Funmilayo Rodriguez APRN [address], [place], [address], [place] - [facility] 02/14/2018 08:49:02 12/07/19 18 Date of Last Pap Smear completed Funmilayo Rodriguez APRN [address], [place], [address], [place] - [facility] 12/18/2017 09:47:47 01/11/20 17 Colposcopy completed Funmilayo Rodriguez APRN [address], [place], [address], [place] - [facility] 01/10/2017 16:14:59 01/11/20 17 Colposcopy completed Funmilayo Rodriguez APRN [address], [place], [address], [place] - [facility] 01/16/2017 09:28:07 08/26/20 15 IUD Insertion completed Crystal Willard [place] - [facility] 11:31:18 dental surgery completed Crystal Willard [place] - [facility] 11/02/2016 12:57:55 Imaging Results None recorded. Procedure Notes None recorded. Medical Equipment None Reported. Allergies Allergen ID Allergen Name Allergen Category Reaction Reaction Severity Criticality Documentation Date Start Date Code Code System Note Provider Name and Address Organization Details Recorded Time 51090 Substance with sulfonami de structure and antibacte rial mechanism of action (substanc e) medicatio n Not available Not available Not available 06/15/20162014 64368 8003 SNOMED Not Available [facility] 6 08:13:49 55862 Product containin g penicilli n (product) medicatio n Not available Not available Not available 06/15/20162014 48423 8001 SNOMED Not Available [facility] 6 10:35:43 Medications Name Sig Start Date Stop Date Status Note LastModified by Organization Details LastModified Time promethaz ine-DM 6.25 mg-15 mg/5 mL oral syrup 12/06 completed Not Available Not Available Not Available Vitamin B-6 25 mg tablet TAKE 1 TABLET BY MOUTH THREE TIMES DAILY active Not Available Not Available No t Available azithromy ternece 250 mg tablet TAKE 2 TABLETS BY MOUTH FOR 1 DAY THEN TAKE 1 TABLET BY MOUTH DAILY FOR 4 DAYS 07/11 completed Not Available Not Available Not Available fluconazo le 150 mg tablet TAKE 1 TABLET BY MOUTH EVERY DAY FOR 3 DAYS 07/11 completed Not Available Not Available Not Available phenazopy ridine 200 mg tablet Take 1 tablet 3 times a day by oral route for 5 days. 12/06 completed Not Available Not Available Not Available clindamyc in HCl 150 mg capsule TAKE 1 CAPSULE BY MOUTH FOUR TIMES DAILY FOR 7 DAYS 07/11 completed Not Available Not Available Not Available ciproflox acin 500 mg tablet TAKE 1 TABLET BY MOUTH EVERY 12 HOURS FOR 5 DAYS 07/11 completed Not Available Not Available Not Available oseltamiv ir 75 mg capsule 12/06 completed Not Available Not Available Not Available nystatin- triamcino lone 100,000 unit/g-0. 1 % topical cream APPLY TOPICALL Y TO THE AFFECTED AREA TWICE DAILY FOR 14 DAYS 07/11 completed Not Available Not Available Not Available diclofena c sodium 75 mg tablet,de layed release 12/06 completed Not Available Not Available Not Available ibuprofen 600 mg tablet active Not Available Not Available Not Available brompheni ramine-ps eudoephed rine-DM 2 mg-30 mg-10 mg/5 mL oral syrup 12/06 completed Not Available Not Available Not Available cefdinir 300 mg capsule 11/02 completed Not Available Not Available Not Available sertralin e 50 mg tablet TAKE 1 TABLET BY MOUTH ONCE DAILY 07/11 completed Not Available Not Available Not Available loratadin e 10 mg tablet 12/06 completed Not Available Not Available Not Available nitrofura ntoin monohydra te/macroc rystals 100 mg capsule TAKE 1 CAPSULE BY MOUTH TWICE DAILY FOR 7 DAYS WITH MEAL/MILDRED D active Not Available Not Available No t Available sodium fluoride 1.1 % dental paste active Not Available Not Available Not Available Lo Loestrin Fe 1 mg-10 mcg (24)/10 mcg (2) tablet TAKE 1 TABLET BY MOUTH ONCE DAILY 07/11 completed Not Available Not Available Not Available 28 mg iron-800 mcg tablet TAKE 1 TABLET BY MOUTH ONCE DAILY active Not Available Not Available No t Available Cielo 14 mcg/24 hr (up to 3 years) 13.5 mg intrauter ine device place 1 device by intraute rine route q 3 years 02/14 completed Cielo 14 mcg/24 hour (3 years) intraute rine intraute rine device;R ecorded Status: Recorded on: 08/26/20 15 2:27PM;U ser: tuckerd; Indicati on: Encounte r for insertio n of intraute rine contrace ptive device - (V25.11) Not Available Not Available Not Available Vienva 0.1 mg-20 mcg tablet Take 1 tablet every day by oral route. 07/11 completed Not Available Not Available Not Available Vitals Date Recorded Body height Body mass index (BMI) Body weight Systolic And Diastolic Provider Name and Address Organization Details Last Updated DateTime 12/06/2017 168.91 cm 21.1 kg/m2 86485.79 g 122/60 mm[Hg] Crystal Willard [place] - [facility] 12/06/2017 08:41:47 Date Recorded Body height Body mass index (BMI) Body weight Systolic And Diastolic Provider Name and Address Organization Details Last Updated DateTime 01/31/2018 168.91 cm 21.1 kg/m2 45928.79 g 118/60 mm[Hg] Crystal Willard [place] - [facility] 01/31/2018 08:20:03 Date Recorded Body mass index (BMI) Body weight Systolic And Diastolic Provider Name and Address Organization Details Last Updated DateTime 02/14/2018 21.1 kg/m2 38207.79 g 116/72 mm[Hg] Stacy Wright [place] - [facility] 02/14/2018 08:23:42 Date Recorded Body height Provider Name an d Address Organization Details Last Updated DateTime 02/14/2018 168.91 cm Stacey Chicas [place] - [facility] 02/15/20 18 08:19:06 Date Recorded Body height Body mass index (BMI) Body weight Systolic And Diastolic Provider Name and Address Organization Details Last Updated DateTime 06/13/2017 168.91 cm 20.4 kg/m2 85147.82 g 130/88 mm[Hg] Crystal Sudheer [place] - [facility] 06/13/2017 10:59:37 Date Recorded Body height Body mass index (BMI) Body weight Systolic And Diastolic Provider Name and Address Organization Details Last Updated DateTime 07/11/2023 167.64 cm 28.2 kg/m2 27736.66 g 118/78 mm[Hg] Abraham Reardon [place] - [facility] 07/11/2023 10:20:31 Social History Question Answer Notes LastModified by Organizat ion Details LastModified Time Tobacco Smoking Status Never Smoker Crystal Sudheer kramer [place] - [facility] 09/17/2016 11:27:13 Do You Have An Advance Directive? No Information not available 11/02/2016 Are You Blind Or Do You Have Difficulty Seeing? No Information not available 09/17/2016 Is Blood Transfusion Acceptable In An Emergency? Yes Information not available 11/02/2016 What Is Your Level Of Caffeine Consumption? Moderate Information not available 11/02/2016 How Much Tobacco Do You Chew? None Information not available 09/17/2016 Are You Deaf Or Do You Have Serious Difficulty Hearing? No Information not available 09/17/2016 What Type Of Diet Are You Following? REGULAR Information not available 09/17/2016 Which Illicit Or Recreational Drugs Have You Used? Denies Information not available 09/17/2016 Live Alone Or With Others? With Others Information not available 09/17/2016 What Was The Date Of Your Most Recent Tobacco Screening? 02/14/2018 Information not available 04/01/2019 How Many Children Do You Have? 0 Information not available 11/02/2016 Performs Monthly Self-breast Exam? Yes Sometimes Information not available 11/02/2016 What Is Your Relationship Status? Single In A Relationship Information not available 06/13/2017 Seat Belts Used Routinely Yes Information not available 11/02/2016 Are You Sexually Active? Yes Information not available 12/06/2017 Do You Use Sunscreen Routinely? Yes Information not available 11/02/2016 Do You Have Difficulty Walking Or Climbing Stairs? No Information not available 09/17/2016 Sex: Female Functional Status Question Answer Note LastModified by Organizat ion Details LastModified Time What is your level of alcohol consumption? Occasional Information not available 11/02/2016 Are you currently employed? No Information not available 11/02/2016 Do you have difficulty doing errands alone? No Information not available 09/17/2016 What is your occupation? [employer] Information not available 06/13/2017 Do you have difficulty dressing, bathing, grooming, or toileting? No Information not available 09/17/2016 What is your exercise level? None Information not available 09/17/2016 Mental Status Question Answer Note LastModified by Organization D etails LastModified Time Do you have difficulty concentrating, remembering or making decisions? No Information no t available 09/17/2016 Family History Relationship Description Onset Age of this Age Resolved Age Notes LastModified by Organization Details LastModified Time Mother Anxiety disorder ntarter Not available 2016 11:26:26 Mother Hyperlipidem ia ntarter Not available 2016 11:26:37 Mother Hyperthyroid ism ntarter Not available 2016 11:27:02 Father Hypertensive disorder ntarter Not available 2016 11:26:51 Medical History Condition Response Pancreatitis N Other N Atrial Fibrillation N congenital heart disease N Blood Diseases N Hyperthyroidism N Rheumatoid arthritis N Blood Transfusion N Erectile Dysfunction N amputation N Skin Lesions N Depression N Pneumonia N Incontinence N Murmur N Edema N Alzheimer's Disease N Migraine Headaches N Tobacco Abuse N Anxiety Disorder N Hemorrhoids N Obesity N Vision or Eye Problems N Arthritis N Restless Leg Syndrome N Polyps N Infertility N Carpal Tunnel N Acid Reflux (GERD) N Cancer N Varicosities N Stroke N Tendonitis N Crohn's Disease N Hypercholesterolemia N Skin Cancer N Headaches N Fibromyalgia N Irritable Bowel Syndrome N Anal Fissure N Kidney Disease N Heart Problems N Hospitalizations N Gallstones N Kidney or Bladder Problems N Goiter N Acne N Eating Disorder N Barton's Esophagus N Hypertriglyceridemia N Constipation N Embolism N Vitamin B12 Deficiency N Deviated Septum N AIDS/HIV N Myocardial Infarction N Asthma N Mitral Valve Disorders N Vertigo N Hepatitis N Thyroid Cancer N Neuropathy N History of DVT N Herniated Disc N Chicken Pox N Von Willebrands Disease N Thrombophilias N Breast Cancer N Hernia N Plantar Fasciitis N Hypothyroidism N Lung Disease N Defects or Inherited Disease N Breast Problem N Ovarian Cyst N Anesthesia Complications N Testosterone Deficiency N Interstitial Cystitis N Congenital Anomalies N Hypoglycemia N Blood clot N Vitamin D Deficiency N Cellulitis N Endometriosis N Bladder or Kidney Problems N Fracture N Panic Disorder N Schizophrenia N Concussion N Spina Bifida N Osteoarthritis N Parkinson's Disease N Disc Protrusion N STI N Esophagitis N Angina N Thyroid Problems N GI Problems N ADD/ADHD N Anemia N Multiple Sclerosis N Abnormal PAP N Lumbago N Mental Illness N Psychiatric Illness N Diabetes N Ovarian Cancer N Degenerative Disc Disease N Seizures/Epilepsy N Hyperlipidemia N Syncope N Insomnia N Eczema N Abuse/Domestic Violence N Attention Deficient Disorder N Dementia N Ulcerative colitis N Cerebrovascular Disease N Depression N Guillain-[place] N Sleep Apnea N Aneurysm N Bronchitis N Heart Disease N Hypertension N Pre-Eclampsia N Suicidal Ideation N Osteoporosis N Gynecological History Statement/Question Response Abnormal Pap Y Flow Light Date of LMP 04/25/2023 Colposcopy 01/10/2017 Current Control Method BCPs Age at Menarche 12 Last Annual Exam/Provider 12/06/17 w/DT Sexually Active? Y Date of Last Cervical Culture 12/06/2017 Menses Monthly N Date of Last Pap Smear 12/06/2017 Sexual Problems? N LMP Approximate Desired Control Method BCPs Obstetrics History GPAL:G 3 P 1 0 0 0 Type Value Full Term 1 Total 3 Past Encounters Encounter ID Performer Location Encounter Start Date Encounter Closed Date Diagnosis/Indication Diagnosis SNOMED-CT Code Diagnosis ICD10 Code Diagnosis IMO Codes Diagnosis Note [id number] [facility] [address] [place] [id number] 08/08/2015 00:00:00 [id number] [facility] [address] [place] [id number] 08/26/2015 00:00:00 [id number] [facility] [address] [place] [id number] 10/20/2015 00:00:00 [id number] XIOMARA Marrero [employer]GRAM [employer]ORDIN[employer]UC[employer] [address] [place] [address] JOHNIE Ayoub [id number] 11/02/2016 12:35:19 11/02/2016 13:22:51 Routine gynecologic examination done 5704467930 91 Z01.419 Depression screening 171 049445 Z13.89 Hypertensi on screening 399953416 Z13.6 Screening for malignant neoplasm of cervix 263247931 Z12.4 Diet education 33640214 Z71.3 Encourage healthy eating/dec reased fats, sugars, fried foods Counseling [id number] Z71 .9 Encouraged regular exercise 30-40min/d ay 4-5 days/wk Contracept ion care management 117429775 Z30.[address] Vaccine de clined by patient [id number] 02 Z28.21 Body mass index 20-24 - normal [id number] Z68.21 [id number] XIOMARA Marrero PROGRAM COORDINATOR EXECUTIVE EDUCATION [address] [place] [address] JOHNIE Ayoub [id number] 7 12/06/2017 08:30:44 12/06/2017 09:05:31 Routine gynecologic examination done [id number] 9101 Z01.419 Depression screening 171 966884 Z13.89 Hypertensi on screening 993999024 Z13.6 Screening for malignant neoplasm of cervix 701322474 Z12.4 Diet education 60575702 Z71.3 Encourage healthy eating/irizarry it fats, sugars, fried foods Counseling 593903840 Z71 .9 Encouraged regular exercise 30-40min/d ay 4-5 days/wk Contracept ion care management 099622463 Z30.[address] Body mass index 20-24 - normal 131144720 Z68.21 Dysmenorrhea 392104313 N 94.6 Irregular periods 762780 07 N92.6 [id number] XIOMARA Marrero PROGRAM COORDINATOR EXECUTIVE EDUCATION [address] [place] [address] JOHNIE Ayoub [id number] 7 01/10/2017 14:21:53 01/10/2017 15:27:35 Low grade squamous intraepithelial lesion on cervical Papanicolaou smear [id number] 9105 R87.650 [id number] XIOMARA Marrero PROGRAM COORDINATOR EXECUTIVE EDUCATION [address] [place] [address] JOHNIE Ayoub [id number] 7 06/13/2017 10:51:39 06/13/2017 11:26:11 Increased frequency of urination 367098574 R35.0 Acute urin mata tract infection 334030162 N39.0 [id number] XIOMARA Marrero PROGRAM COORDINATOR EXECUTIVE EDUCATION [address] [place] [address] JOHNIE Ayoub [id number] 7 01/31/2018 08:08:33 01/31/2018 08:31:32 Pain in pelvis 77429322 R10.2 Uses IUD (intrauterine device) contraception 143329611 Z97.5 [id number] XIOMARA Marrero PROGRAM COORDINATOR EXECUTIVE EDUCATION [address] [place] [address] JOHNIE Ayoub [id number] 7 02/14/2018 08:15:41 02/14/2018 08:50:53 Removal of intrauterine device 43180850 Z30.933 [id number] Denae Bar MD [place] PROGRAM COORDINATOR EXECUTIVE EDUCATION [address] [place] [address] JOHNIE Ayoub [id number] 7 07/11/2023 09:33:45 07/11/2023 10:45:47 Missed miscarriage 00044357 O02.1 Recurrent miscarriage 10 1183095 N96 Health Concerns Section Related Observation LastModified by Organization Detai ls LastModified Time None Recorded Concern Status LastModified by Organization Details LastModified Time None Recorded Advance Directives Directive N: Payers Insurance Date Sequence Insurance Name Policy Number Policy Gutierrez Covered Member ID Gutierrez Member ID Guarantor Name 11/09/2016 1 [employer] [facility] (MEDICAID HMO) Ellen Urban [id number] Ellen Urban 07/17/2023 1 [place] [id number] Ellen Urban [id number] Ellen Youngbloodn 06/11/2018 [place] [facility] (MEDICAID) Ellen Urban [id number] Ellen Urban 06/11/2018 2 PASSPORT [employer]. (MEDICAID REPLACEMENT - HMO) MEDICAID Ellen Youngbloodn [id number] Ellen Urban Notes Date Note Type Note Provider Name and Address Organization Details Recorded Time 06/13/20 17 text/htm l Pelvic PainReported by PatientHPIFor associated symptoms, patient reportsback pain,nausea,vomiting,nocturia, andurinary frequencybut reportsno abdominal pain,no chills,no constipation,no diarrhea,no vaginal discharge,no pain with urination,normal emptying of bladder,no feelings of urgency,no blood in the urine,normal libido,no fever,no sexual abuse,no ectopic pregnancies,no endometriosis,no vaginal itching or irritation, andno dyspareunia. For location, patient reportsright (radiates to mid pelvis)andlower back. For onset/timing, patient reports1-7 days. For duration, patient reportsintermittent. For quality, patient reportsstabbing,throbbing,radiat ing, andno change with intercourse. For severity, patient reportsmild. For alleviating factors, patient reportsposition change (laying on stomach gives relief). For aggravating factors, patient reportsmovement (up on her feet). Funmilayo Rodriguez, EMBRYOLOGY TEACHER [address], [place], [address], [place] - [facility] 06/13/2017 11:28:37 12/07/19 18 text/htm l Annual - MOBReported by PatientHistoryFor history, patient reportslast annual exam: 11/02/16(c/o dysmenorrhea).ContraceptionFor current contraception, patient reportssatisfied with current contraceptionandintrauterine device (iud).Preventative measuresFor preventive measures, patient reportshistory of abnormal pap smear/cervical dysplasiabut reportsencourage self breast examination,encourage regular exercise, andencourage no tobacco use.Ellen returns for AWE. She is doing well but is having more cramping and bleeding irregularly. She describes her bleeding as a spot here and there unpredictably. She has also c/o more acne.She is working fast food shift lead at . Funmilayo Rodriguez APRN [address], [place], [address], [place] - [facility] 12/06/2017 09:12:50 02/01/20 18 text/htm l ELIZABETH as noted in the HPI Patient is an established patient who presents for follow up on dysmenorrhea. At the last visit where this was addressed, which was her last annual exam with myself, she was noted to have supervisor long goods problems with dysmenorrhea and medical treatment was recommended. Testing was ordered at the last visit. She states that she is still having very intense cramping even with taking the bcps. After discussion today, she is agreeable to a plan of other treatment. The specifics of treatment and timing of followup visit(s) are outlined below. Ellen states she still has cramping pain worse than period cramps randomly. She is doing well with bcps, but doesn't feel the pain is r/t her cycle. BCPs have helped with acne. Her IUD would be due for removal in 6-7 months. She is ready to go ahead and have this removed and just continue w/bcps. Will schedule to rto. Funmilayo Rodriguez APRN [address], [place], [address], [place] - [facility] 01/31/2018 08:37:20 02/15/20 18 text/htm l Ellen is here today for IUD removal Funmilayo Rodriguez APRN [address], [place], [address], [place] - [facility] 02/14/2018 08:49:13 07/11/20 23 text/htm l ELIZABETH as noted in the HPI Ellen is a 28 yo who presents today for second opinion. She has been following with [facility] for early . 06/11 she went to the ER and US showed CRL 5+6 wk GA without FHR. F/u in office 06/18 showed US with CRL 5+6 wk with flutter. F/u US 06/24 showed CRL 6+1 wk GA with a heartbeat. US 07/03 then showed CRL with 6+1 wk without heartbeat. She was told to follow HCGs until negative. Ellen wanted to discuss other options for missed miscarriage management. She also states she may have had a progesterone deficiency previously or POCS. She is known Rh negative Pt has records from prior facility showing these ultrasounds. Denae Bar MD [facility] [address], [place], [address], [place] - [facility] 07/11/2023 10:57:03 OBGyn Episode Ob Episode Information Episode Created Date Number of Fetuses Patient Bloodtype Patient rh Status Prepregnancy Weight lbs Domestic Partner Domestic Partner Phone Father Name Buzzsaw Operator Status 07/11/20 1 CLOSED Fetus Data First Name Last Name Admitted to NICU Weight (g) Sex Living Outcome Pediatric Complications Fetus ID Race Codes Race Delivery Type Full Term Hilario Calculation Initial Hilario Date Initial Exam Date Initial Exam Provider Initial Ultrasound Date Last Menstrual Period Date Ultra Sound Weeks Gestation 0 Eighteen To Twenty Week Hilario Update Ultra Sound Date Fundal Height At Umbil Quickening Date Ultra Sound Latest Weeks Gestation Final Hilario Confirmed By Final Hilario Confirmed Date Final Hilario Date Ultra Sound Latest Days Gestation 0 0 Menstrual History Last Menstrual Date Menses Monthly On Bcp Conception Prior Menses Frequency Hcg Plus Date Menarche Onset Age Delivery Information Delivery Date Delivery Type Labor Anesthesia Weeks Gestation Incision Type Labor Labor Length Hrs Delivered By Post Complications Tubal Sterilization Discharge Date Comments 9 39 false Discharge Information Feeding Method Contraceptive Method Maternal HG B and HCT Levels Ob Episode Information Episode Created Date Number of Fetuses Patient Bloodtype Patient rh Status Prepregnancy Weight lbs Domestic Partner Domestic Partner Phone Father Name Buzzsaw Operator Status 07/11/20 23 1 CLOSED Fetus Data First Name Last Name Admitted to NICU Weight (g) Sex Living Outcome Pediatric Complications Fetus ID Race Codes Race Delivery Type , Spontane ous Hilario Calculation Initial Hilario Date Initial Exam Date Initial Exam Provider Initial Ultrasound Date Last Menstrual Period Date Ultra Sound Weeks Gestation 0 Eighteen To Twenty Week Hilario Update Ultra Sound Date Fundal Height At Umbil Quickening Date Ultra Sound Latest Weeks Gestation Final Hilario Confirmed By Final Hilario Confirmed Date Final Hilario Date Ultra Sound Latest Days Gestation 0 0 Menstrual History Last Menstrual Date Menses Monthly On Bcp Conception Prior Menses Frequency Hcg Plus Date Menarche Onset Age Delivery Information Delivery Date Delivery Type Labor Anesthesia Weeks Gestation Incision Type Labor Labor Length Hrs Delivered By Post Complications Tubal Sterilization Discharge Date Comments 2 3 miscarri a ge Discharge Information Feeding Method Contraceptive Method Maternal HG B and HCT Levels
== END 2025-07-01 23:59 | disposition home or self-care (01) ==
LOC: LAB 15:57
PROVIDERS: PCP Family Medicine; Visit Provider Obstetrics & Gynecology
DX: Z34.90 Encounter for supervision of normal pregnancy, unspecified, unspecified trimester (principal); N92.6 Irregular menstruation, unspecified; Z3A.00 Weeks of gestation of pregnancy not specified
CPT/HCPCS: 36415; 84702

== ENCOUNTER 2025-07-06 13:44 | Outpatient (CLI) | payer BC, OTHER, SELFPAY ==
--- NOTE | 2025-07-06 14:00 | US_ITS ---
PROCEDURE: US OB TRANSVAGINAL CLINICAL INDICATION: dates and viability COMPARISON: No exams were available for comparison FINDINGS: Transvaginal sonographic images of the pelvis were obtained. From her last menstrual period she is 8weeks 3days. An intrauterine gestational sac is present with a pole with a crown-rump length of 0.96cm This correlates to a gestational age of 7weeks 1 days. BOYD 02/21/2026 heart tones are present with an FHR of 149bpm. Yolk sac is noted. The yolk sac measures 4.5mm. The uterus is retroverted. The right ovary is seen and appears normal. There is a corpus luteum in the right ovary. There is a small amount of fluid adjacent to the right ovary. The left ovary is seen and appears normal. There is no fluid in the cul-de-sac. IMPRESSION: 1. Viable embryo within the uterine cavity. Heart rate activity is seen. 2. The embryo measures 7 weeks 1 day and her due date should be revised to reflect this. Her new BOYD will be 02/21/2026. 3. Both ovaries are seen and appear normal. The right ovary contains a corpus luteum. 4. No fluid in the cul-de-sac. Dictated by: Randall Partida MD 07/06/2025 15:18 Randall Partida MD in OV 07/06/2025 15:18
--- OUTSIDE RECORDS SUMMARY | 2025-07-06 14:17 | XMS_ITS | Data Portability ---
Author Organization [facility] Address [address] [place] [address] Assessment Encounter Date Assessment Date Assessment LastModified [...] CARLOS [facility], [address], Rick [address], [place], [address], 8 20:10:08 urinalysis , dipstick 2016 017 [email or web address] [employer], [address] [place] [address] , [place], [address], 7 11:21:40 culture, urine 2016 017 CARLOS [facility], [address], [address], [place], [address], 7 06:06:27 Referral None recorded. Procedures None recorded. Surgeries None recorded. Imaging US, obstetric, 1st trimester 2022 023 [email or web address] [employer] [employer], [address] [place] [address] , [place], [address], 3 10:56:45 Medication Orders Sronyx 0.1 mg-20 mcg tablet 2017 018 [email or web address] [facility][id number], [address], [id number], 3 10:21:28 Macrobid 100 mg capsule 2016 017 formerly [facility] #[id number], [address], [id number], 8 08:42:07 Pyridium 200 mg tablet [address] [facility] #[id number], [address], [id number], 8 08:42:13 Patient TargetsNo targets recorded. Patient Instructions Encounter Date Encounter Id Patient Instructions Last Modified By Organization Details Last Modified Time 06/13/2017 [id number] Finish medicatio n as directed Wipe front to back Increase intake of H20 Limit caffeines and sugars Will call with culture results F/u 7-10 days if s/s not improved [email or web address] Not available 06/13/2017 11:28:22 12/06/2017 [id number] Encourage Self Breast Exam Encourage Healthy eating/regular physical activity Doing well with contraceptive method and desires to continue Start bcps for cycle regulation, tx of dysmenorrhea and acne Understands risks of taking hormonal contraception Encourage MV F/u 2 months [email or web address] Not available 12/06/2017 09:11:42 We will call abnormal test results in 7-10 days. Patient is advised that normal test results will be retrievable through [facility] and that they will be notified of the availability of normal results from [facility] by phone call, text or email. [email or web address] Not available 12/06/2017 09:11:47 01/31/2018 [id number] See HPI Rto for IUD removal Continue bcps [email or web address] Not available 01/31/2018 08:36:43 02/14/2018 [id number] IUD removed with out difficulty Continue bcps Rto for AWE or earlier prn [email or web address] Not available 02/14/2018 08:48:03 07/11/2023 [id number] medical record request* - records from [facility]; US reports Not available 11/14/2023 11:05:49 [...] dipst ick Leukocytes Modera te Not Available [employer] [address] [place] [address] , [place], [address], 06/13/2017 11:04:56 06/13/20 17 06/13/2017 urina lysis , dipst ick Nitrite positi ve Not Available [employer] [address] [place] [address] , [place], [address], 06/13/2017 11:04:56 06/13/20 17 06/13/2017 urina lysis , dipst ick Urobilinogen .2 Not Available [employer] [address] [place] [address] , [place], [address], 06/13/2017 11:04:56 06/13/20 17 06/13/2017 urina lysis , dipst ick Protein Negati ve Not Available [employer] [address] [place] [address] , [place], [address], 06/13/2017 11:04:56 06/13/20 17 06/13/2017 urina lysis , dipst ick pH 6.0 Not Available [employer] [address] [place] [address] , [place], [address], 06/13/2017 11:04:56 06/13/20 17 06/13/2017 urina lysis , dipst ick Blood Modera te Not Available [facility] [address] [place] [address] , [place], [address], 06/13/2017 11:04:56 06/13/20 17 06/13/2017 urina lysis , dipst ick Specific [place] 1.015 Not Available [facility] [employer] [address] [place] [address] , [place], [address], 06/13/2017 11:04:56 06/13/20 17 06/13/2017 urina lysis , dipst ick Ketone Small Not Available [facility]/[address] , [place], [address], 06/13/2017 11:04:56 06/13/20 17 06/13/2017 urina lysis , dipst ick Bilirubin Negati ve Not Available [facility]/[address] , [place], [address], 06/13/2017 11:04:56 06/13/20 17 06/13/2017 urina lysis , dipst ick Glucose Negati ve Not Available [facility]/[address] , [place], [address], 06/13/2017 11:04:56 06/13/20 17 06/13/2017 urina lysis , dipst ick Appearance Slight ly Cloudy Not Available [facility]/[address] , [place], [address], 06/13/2017 11:04:56 06/13/20 17 06/13/2017 urina lysis , dipst ick Color Dark Yellow Not Available [facility] [address] [place] [address] , [place], [address], 06/13/2017 11:04:56 06/13/20 17 06/15/2017 cultu re, urine urine culture, routine Final report Not Available [facility] ([facility]) [address] [place], [address], 06/15/2017 06:06:27 06/13/20 17 06/15/2017 cultu re, urine result 1 Commen t Great er than 2 organ isms recov ered, none predo minan t. Pleas e submi t anoth er sampl e if clini damon indic ated. Great er than 100,0 00 colon y formi ng units per mL Not Available [facility] ([facility]) [address], [place], [address], 06/15/2017 06:06:27 12/07/19 18 12/09/2017 pap, IG + CT/NG + refle x HPV chlamydia, nuc. acid amp Negati ve negati ve Not Available [facility] ([facility]) [address] [place], [address], 12/16/2017 20:10:08 12/07/19 18 12/09/2017 pap, IG + CT/NG + refle x HPV gonococcus, nuc. acid amp Negati ve negati ve Not Available [facility] ([facility]) [address] [place], [address], 12/16/2017 20:10:08 12/07/19 18 12/13/2017 pap, IG + CT/NG + refle x HPV diagnosis: Commen t abnormal EPITH ELIAL CELL ABNOR MALIT Y. ATYPI EDUARDO SQUAM OUS CELLS OF UNDET ERMIN ED SIGNI FICAN CE. Not Available [facility] ([facility]) [address] [place], [address], 12/16/2017 20:10:08 12/07/19 18 12/13/2017 pap, IG + CT/NG + refle x HPV recommendati on: Perla ross abnormal Sugge st follo w up as clini damon appro luis alberto e. Not Available [facility] ([facility]) [address], [place], [address], 12/16/2017 20:10:08 12/07/19 18 12/13/2017 pap, IG + CT/NG + refle x HPV specimen adequacy: Perla ross Satis facto ry for evalu ation . Endoc ervic al and/o r squam ous metap lasti c cells (endo cervi eduardo compo nent) are prese nt. Not Available [facility] ([facility]) [address], [place], [address], 12/16/2017 20:10:08 12/07/19 18 12/13/2017 pap, IG + CT/NG + refle x HPV clinician provided ICD10: Perla ross Z12.4 Not Available [facility] ([facility]) [address] [place], [address], 12/16/2017 20:10:08 12/07/19 18 12/13/2017 pap, IG + CT/NG + refle x HPV performed by: Perla Menezes ns, Cytot echno logis t (ASCP ) Not Available [facility] ([facility]) [address] [place], [address], 12/16/2017 20:10:08 12/07/19 18 12/13/2017 pap, IG + CT/NG + refle x HPV QC reviewed by: Perla Lim ns, Cytot echno logis t (ASCP ) Not Available [facility] ([facility]) [address] [place], [address], 12/16/2017 20:10:08 12/07/19 18 12/13/2017 pap, IG + CT/NG + refle x HPV electronical ly signed by: Perla Pichardo MD, Patho logis t Not Available [facility] ([facility]) [address], [place], [address], 12/16/2017 20:10:08 12/07/19 18 12/13/2017 pap, IG + CT/NG + refle x HPV . . Not Available [facility] ([facility]) [address], [place], [address], 12/16/2017 20:10:08 12/07/19 18 12/13/2017 pap, IG + CT/NG + refle x HPV pathologist provided ICD10: Perla ross R87.6 10 Not Available [facility] ([facility]) [address], [place], [address], 12/16/2017 20:10:08 12/07/19 18 12/13/2017 pap, IG [...] ts do occur . Not Available [facility] ([facility]) [address], [place], [address], 12/16/2017 20:10:08 12/07/19 18 12/13/2017 pap, IG + CT/NG + refle x HPV test methodology: Perla ross This liqui d based ThinP rep(R ) pap test was [place] with the use of an image guide isai chambers Not Available [facility] ([facility]) [address], [place], [address], 12/16/2017 20:10:08 12/07/19 18 12/13/2017 pap, IG + CT/NG + refle x HPV . Commen t See below for HPV testi ng resul ts. Not Available [facility] ([facility]) [address], [place], [address], 12/16/2017 20:10:08 12/07/19 18 12/16/2017 pap, IG + CT/NG + refle x HPV HPV, high-risk Negati ve negati ve This high- risk HPV test detec ts thirt een high- risk types (16/1 8/31/ 33/35 /39/4 5/51/ 52/56 /58/5 ) witho ut diffe renti ation . Not Available [facility] ([facility]) [address], [place], [address], 12/16/2017 20:10:08 07/11/20 23 US, obste tric, 1st trime ster No observ ation record ed. [email or web address] [employer] [employer] [address] [place] [address] , [place], [address], 07/11/2023 10:54:59 07/12/20 23 07/11/2023 US, obste tric, 1st trime ster No observ ation record ed. BARCODE [employer] [address] [place] [address] , [place], [address], 07/12/2023 14:07:10 Result Notes None recorded. Problems Name Problem SNOMED Code Status Onset Date Resolution Date Notes Provider Name and Address Organization Details Recorded Time Low grade squamous intraepithe lial lesion on cervical Papanicolao u smear 1830089812461 5 Active 2016 Funmilayo Rodriguez APRN [address], [place], [address], [place] - [facility] 7 16:15:59 Cervical intraepithe lial neoplasia grade 1 325838777 Active 2016 Funmilayo Rodriguez APRN [address], [place], [address], [place] [facility] 7 09:28:46 Dysmenorrhe a 117067609 Active 2017 Crystal Willard null, [place] - [facility] 8 08:20:23 Pain in pelvis 84706596 Active 2017 Funmilayo Rodriguez APRN [address], [place], [address], [place] [facility] 8 08:36:20 Missed miscarriage 14945184 Active 2022 Denae Bar MD [address], [place], [address], [place] - [facility] 3 10:53:40 Problem Notes None recorded. Procedures Surgical History Date Name Laterality Status Provider Name and Address Organization Details Recorded Time 07/11/20 23 OB Ultrasound Summary completed Aroldo Craven [place] - [facility] 07/11/2023 09:58:56 02/15/20 18 IUD Removal completed Stacy Wright [place] - [facility] 02/14/2018 08:26:25 02/15/20 18 IUD Removal completed Funmilayo Rodriguez APRN [address], [place], [address], [place] [facility] 02/14/2018 08:49:02 12/07/19 18 Date of Last Pap Smear completed Funmilayo Rodriguez APRN [address], [place], [address], [place] [facility] 12/18/2017 09:47:47 01/11/20 17 Colposcopy completed Funmilayo Rodriguez APRN [address], [place], [address], [place] [facility] 01/10/2017 16:14:59 01/11/20 17 Colposcopy completed Funmilayo Rodriguez APRN [address], [place], [address], [place] [facility] 01/16/2017 09:28:07 08/26/20 15 [...] Name and Address Organization Details Recorded Time 02829 Substance with sulfonami de structure and antibacte rial mechanism of action (substanc e) medicatio n Not available Not available Not available 06/15/20162014 67479 8003 SNOMED Not Available [facility] 6 08:13:49 52510 Product containin g penicilli n (product) medicatio n Not available Not available Not available 06/15/20162014 72724 8001 SNOMED Not Available [facility] 6 10:35:43 Medications Name Sig Start Date Stop Date Status Note LastModified by Organization Details LastModified Time promethaz ine-DM 6.25 mg-15 mg/5 mL oral syrup 12/06 completed Not Available Not Available Not Available Vitamin B-6 25 mg tablet TAKE 1 TABLET BY MOUTH THREE TIMES DAILY active Not Available Not Available No t Available azithromy terence 250 mg tablet TAKE 2 TABLETS BY [...] Updated DateTime 12/06/2017 168.91 cm 21.1 kg/m2 80832.79 g 122/60 mm[Hg] Crystal Willard [place] - [facility] 12/06/2017 08:41:47 Date Recorded Body height Body mass index (BMI) Body weight Systolic And Diastolic Provider Name and Address Organization Details Last Updated DateTime 01/31/2018 168.91 cm 21.1 kg/m2 92526.79 g 118/60 mm[Hg] Crystal Willard [place] - [facility] 01/31/2018 08:20:03 Date Recorded Body mass index (BMI) Body weight Systolic And Diastolic Provider Name and Address Organization Details Last Updated DateTime 02/14/2018 21.1 kg/m2 74547.79 g 116/72 mm[Hg] Stacy Wright [place] - [facility] 02/14/2018 08:23:42 Date Recorded Body height Provider Name an d Address Organization Details Last Updated DateTime 02/14/2018 168.91 cm Stacey Chicas [place] - [facility] 02/15/20 18 08:19:06 Date Recorded Body height Body mass index (BMI) Body weight Systolic And Diastolic Provider Name and Address Organization Details Last Updated DateTime 06/13/2017 168.91 cm 20.4 kg/m2 07638.82 g 130/88 mm[Hg] Crystal Sudheer [place] - [facility] 06/13/2017 10:59:37 Date Recorded Body height Body mass index (BMI) Body weight Systolic And Diastolic Provider Name and Address Organization Details Last Updated DateTime 07/11/2023 167.64 cm 28.2 kg/m2 50434.66 g 118/78 mm[Hg] Abraham Reardon [place] - [...] colitis N Cerebrovascular Disease N Depression N Guillain-[place] N Sleep Apnea N Aneurysm N Bronchitis [...] ICD10 Code Diagnosis IMO Codes Diagnosis Note [id number] [facility] [address] [place] [address] 08/08/2015 00:00:00 701774 [facility] [address] [place] [address] 08/26/2015 00:00:00 [id number] [facility] [address] [place] [address] 10/20/2015 00:00:00 [id number] XIOMARA Marrero CHIEF INFORMATICS OFFICER [address] [place] [address] JOHNIE Ayoub [address] 11/02/2016 12:35:19 11/02/2016 13:22:51 Routine gynecologic examination done 2062727995 91 Z01.419 Depression screening 171 920086 Z13.89 Hypertensi on screening 230084105 Z13.6 Screening for malignant neoplasm of cervix 766594390 Z12.4 Diet education 25856264 Z71.3 Encourage healthy eating/dec reased fats, sugars, fried foods Counseling 771207161 Z71 .9 Encouraged regular exercise 30-40min/d ay 4-5 days/wk Contracept ion care management 207805729 Z30.[address] Vaccine de clined by patient 5062915948 02 Z28.21 Body mass index 20-24 - normal 911925671 Z68.21 [id number] XIOMARA Marrero CHIEF INFORMATICS OFFICER [address] [place] [address] JOHN[place] Ayoub [address] 12/06/2017 08:30:44 12/06/2017 09:05:31 Routine gynecologic examination done 4957605686 9101 Z01.419 Depression screening 171 318995 Z13.89 Hypertensi on screening 435589709 Z13.6 Screening for malignant neoplasm of cervix 452129835 Z12.4 Diet education 20945536 Z71.3 Encourage healthy eating/irizarry it fats, sugars, fried foods Counseling 556724458 Z71 .9 Encouraged regular exercise 30-40min/d ay 4-5 days/wk Contracept ion care management 297054734 Z30.[address] Body mass index 20-24 - normal 275122824 Z68.21 Dysmenorrhea 992493493 N 94.6 Irregular periods 080101 07 N92.6 [id number] XIOMARA Marrero CHIEF INFORMATICS OFFICER [address] [place] [address] JOHN[place] Ayoub [address] 01/10/2017 14:21:53 01/10/2017 15:27:35 Low grade squamous intraepithelial lesion on cervical Papanicolaou smear 9174303423 9105 R87.982 [id number] XIOMARA Marrero CHIEF INFORMATICS OFFICER [address] [place] [address] JOHN[place] Ayoub [address] 06/13/2017 10:51:39 06/13/2017 11:26:11 Increased frequency of urination 292560367 R35.0 Acute urin mata tract infection 384402450 N39.0 [id number] XIOMARA Marrero CHIEF INFORMATICS OFFICER [address] [place] [address] JOHN[place] Ayoub [address] 01/31/2018 08:08:33 01/31/2018 08:31:32 Pain in pelvis 66191972 R10.2 Uses IUD (intrauterine device) contraception 159905459 Z97.5 [id number] XIOMARA Marrero CHIEF INFORMATICS OFFICER [address] [place] [address] JOHNIE Ayoub [address] 02/14/2018 08:15:41 02/14/2018 08:50:53 Removal of intrauterine device 41754287 Z30.912 [id number] Denae Bar MD [place] [employer] [address] [place] [address] JOHN[place] Ayoub [address] 07/11/2023 09:33:45 07/11/2023 10:45:47 Missed miscarriage 38668855 O02.1 Recurrent miscarriage 10 0921331 N96 Health Concerns Section Related Observation LastModified by Organization Detai ls LastModified Time None Recorded Concern Status LastModified by Organization Details LastModified Time None Recorded Advance Directives Directive N: Payers Insurance Date Sequence Insurance Name Policy Number Policy Gutierrez Covered Member ID Gutierrez Member ID Guarantor Name 11/09/2016 1 [employer] [facility] (MEDICAID HMO) Ellen Urban [id number] Ellen Urban 07/17/2023 1 [place] [id number] Ellen Urban [id number] Ellen Youngbloodn 06/11/2018 [place] [facility] WRAP BILLING (MEDICAID) Ellen Urban [id number] Ellen Urban 06/11/2018 2 PASSPORT BY [employer]. (MEDICAID REPLACEMENT - HMO) MEDICAID Ellen Youngbloodn [id number] Ellen Urban Notes Date Note Type Note [...] reportsmovement (up on her feet). Funmilayo Rodriguez, SALES AGENT [employer] [address], [place], [address], [place] [facility] 06/13/2017 11:28:37 12/07/19 18 [...] has also c/o more acne.She is working business services assistant at . Funmilayo Rodriguez APRN [address], [place], [address], [place] - [facility] 12/06/2017 09:12:50 02/01/20 18 text/htm l ELIZABETH as noted in the HPI Patient is an established patient who presents for follow up on dysmenorrhea. 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 Funmilayo Rodriguez APRN [address], [place], [address], [place] [facility] 01/31/2018 08:37:20 02/15/20 18 text/htm l Ellen is here today for IUD removal Funmilayo Rodriguez APRN [address], [place], [address], [place] [facility] 02/14/2018 08:49:13 07/11/20 23 text/htm l ELIZABETH as noted in the HPI Ellen is a 28 yo who presents today for second opinion. She has been following with [facility] for early . 06/11 she went to [...] facility showing these ultrasounds. Denae Bar MD [facility] [address], [place], [address], [place] [facility] 07/11/2023 10:57:03 OBGyn Episode Ob Episode Information Episode Created Date Number of Fetuses Patient Bloodtype Patient rh Status Prepregnancy Weight lbs Domestic Partner Domestic Partner Phone Father Name Architectural Draftsman Status 07/11/20 1 CLOSED Fetus Data First [...] Domestic Partner Domestic Partner Phone Father Name Architectural Draftsman Status 07/11/20 23 1 CLOSED Fetus Data [...]
[2025-07-06 17:07] LABS: Hematocrit 41.6 % (37.0-47.0); Hemoglobin 14.1 g/dL (12.2-16.2); Immature Granulocytes % 0.2 %; Mean Corpuscular HGB Conc 33.9 g/dL (31.8-35.4); Mean Corpuscular Hemoglobin 31.8 pg (27.0-31.2); Mean Corpuscular Volume 93.7 fl (81-99); Nucleated Red Blood Cells % 0 %; Platelet Count 288 K/mm3 (142-424); Red Blood Count 4.44 M/mm3 (4.20-5.40); Red Cell Distribution Width-SD 43.4 fL; White Blood Count 8.5 K/mm3 (4.8-10.8)
[2025-07-06 19:39] LABS: Hepatitis C Ab Qual. W/ RFX NEGATIVE (Negative)
[2025-07-07 03:36] LABS: Hepatitis B Surface Antigen Negative (Negative)
[2025-07-07 07:11] LABS: Rubella Antibodies, IgG 2.03 index (Immune >0.99)
[2025-07-07 14:59] LABS: RPR W/RFX Titers Nonreactive (Nonreactive)
== END 2025-07-06 23:59 | disposition home or self-care (01) ==
PROVIDERS: Nurse Practitioner Obstetrics & Gynecology; PCP Family Medicine; Visit Provider Obstetrics & Gynecology
DX: O34.81 Maternal care for other abnormalities of pelvic organs, first trimester (principal); N83.11 Corpus luteum cyst of right ovary; Z3A.01 Less than 8 weeks gestation of pregnancy
CPT/HCPCS: 36415; 76817; 85025; 86592; 86762; 86787; 86803; 86850; 87340; 87389

== ENCOUNTER 2025-07-15 00:41 | Emergency (ER) | payer BC, OTHER, SELFPAY ==
--- OUTSIDE RECORDS SUMMARY | 2024-03-02 09:30 | XMS_ITS ---
[facility] Address [address] [place] [id number] Care Team Providers Care Payroll Tax Specialist Name Role Phone Julia Jordan Primary Care Provider Christi Sandoval Unavailable [phone] Allergies Allergen (clinical drug ingredient) Drug/Non Drug Allergy documented on EMR Reaction Allergy Type Onset Date Status Substance with penicillin structure and antibacterial mechanism of action (substance) Penicillins Unknown Drug Allergy Active Substance with sulfonamide structure and antibacterial mechanism of action (substance) Sulfa Antibiotics Unknown Drug Allergy Active REASON FOR VISIT earache Medications Medication SIG (Take, Route, Frequency, Duration) Notes Start Date End Date Status Pepcid 20 MG 1 tablet at bedtime as needed Orally Once a day; Duration: 30 day(s) 03/02/2024 Active Flonase Allergy Relief 50 MCG/ACT 1 spray in each nostril Nasally Once a day; Duration: 30 day(s) Active (w/Iron & FA) 27-0.8 MG 1 tablet Orally Once a day; Duration: 30 day(s) Active Ciprofloxacin-dexAMETHason e 0.3-0.1 % 4 drops into left ear Otic Twice a day; Duration: 7 day(s) 03/02/2024 Active Problems Problem Type SNOMED Code ICD Code Onset Dates Problem Status W/U Status Risk Notes Problem Gastroesophageal reflux disease (123668843) GERD (gastroeso phageal reflux disease) (K21.9) Active confirmed Vital Signs Blood pressure systolic 126 mm Hg 03/02/20 24 Blood pressure diastolic 60 mm Hg 024 Heart Rate 110 /min 03/02/2024 Height 66.50 in 03/02/2024 Weight 192.8 lbs 03/02/2024 BMI 30.65 kg/m2 03/02/2024 Encounters Encounter Location Date Provider Diagnosis [facility] [address] [facility] [address] [facility] [address] [place] [phone] 03/02/2024 Christi Sandoval GERD (gastroesophageal reflux disease) K21.9 ; Otitis externa H60.90 and Z33.1 Assessments Encounter Date Diagnosis (ICD Code) Assessment Notes Treatment Notes Treatment Clinical Notes Section Notes 03/02/2024 GERD (gastroesophage al reflux disease) (ICD-10 - K21.9) discussed bland diet with small portions and no POP; sees her OB this week as well 03/02/2024 Otitis externa (ICD-10 - H60.90) to keep ear dry 03/02/2024 (ICD-10 - Z33.1) 19 weeks IUP Plan Of Treatment Medication Medication Name Sig Start Date Stop Date Notes Pepcid 20 MG 1 tablet at bedtime as needed Orally Once a day; Duration: 30 day(s) 03/02/2024 (w/Iron & FA) 27-0. 8 MG 1 tablet Orally Once a day; Duration: 30 day(s) Ciprofloxacin-dexAMETHasone 0.3-0.1 % 4 drops into left ear Otic Twice a day; Duration: 7 day(s) 03/02/2024 Treatment Notes Assessment Notes GERD (gastroesophageal reflux disease) d iscussed bland diet with small portions and no POP; sees her OB this week as well Otitis externa to keep ear dry 19 weeks IUP Next Appt Details Follow Up: prn, Reason: Provider Name:Ivet alicea, 12/29/2025 10:30:00 AM, [address] [facility], [address], [place], [id number], Progress Notes * Chloé MEDLEYB:1995 ( 30 yo F)Acc No.[id number]:03/02/2024 Progress Notes Patient: Lionel NUGENTa Provider: DENIZ Mahan :1995 A ge:29 Y S ex:Female Date:03/02/2024 Address: [address], [facility] [place], [id number] Pcp:Julia Jordan Subjective: * Chief Complaints: * 1 . Earache. * HPI: E NT/respiratory: 29 year old female presents with c/o ear pain P t presents today with c/o ear pain. Pt sts that she was seen at [facility] on Saturday and prescribed Flonase but it has not been helping. Pt sts that she also has acid reflux with this and cannot sleep on her right side. Pt sts that if she sleeps on her left side her ear hurts extremely bad and she even has pain in the left side of her face. Pt sts that she will try to hold off to get something for acid reflux when she sees OB on Saturday. * ROS: D ERMATOLOGY: no R eugenia. n o H nnamdi. G ASTROENTEROLOGY: no N ausea. n o V omiting. n o D iarrhea.? U ROLOGY: no D ifficulty urinating. n o B lood in urine. * Medical History: , : yes. * Family History: F ather: alive 48 yrs. M other: alive 46 yrs, thyroid issues and anxiety attacks. 4 brother(s) - healthy. . * Social History: C URRENT TOBACCO USE S moking Status: Patient does NOT smoke. C affeine: no. Exercise: yes. Home smoke detector use: no. Marital Status: Single. New since last visit: none. Past smoking status: no, Smoking status: Does not smoke, Second hand smoke exposure: Yes, Number of years exposed to second hand smoke: 16. Recreational drug use: no. Alcohol: no. Sexually active: no.. Travel ouside [place]: no. * Medications: T aking Flonase Allergy Relief 50 MCG/ACT Suspension 1 spray in each nostril Nasally Once a day , Taking (w/Iron & FA) 27-0.8 MG Tablet 1 tablet Orally Once a day , Discontinued Tamiflu 75 MG Capsule 1 capsule Orally Twice a day , Discontinued Zoloft 100 MG Tablet 1 tablet Orally Once a day , Discontinued Albuterol Sulfate HFA 108 (90 Base) MCG/ACT Aerosol Solution 1 puff as needed Inhalation every 4 hrs, prn , Medication List reviewed and reconciled with the patient * Allergies: P enicillins, Sulfa Antibiotics. Objective: * Vitals: W t:192.8, Temp:98.5, BP:126/60, HR:110, O2 Sat:99% on RA, Nurse:LYRIC, Ht: 66.50, BMI:30.65. * Examination: E NT/Respiratory: General Appearance: well nourished and hydrated, NAD, alert, active. E yes: sclera and conjunctiva clear. E ars: tympanic membranes normal bilaterally; right ear canal appears fine; left ear canal with edema/erythema. N ose : nares patent. O ral cavity : no erythema or exudate seen on pharynx. N heaven : supple, no cervical lymphadenopathy. H eart : RRR. L ungs: CTAB A&P. ? Assessment: * Assessment: 1. G ERD (gastroesophageal reflux disease) - K21.9 (Primary) 2 . O titis externa - H60.90 S pecify :left 3 . P regnancy - Z33.1 Plan: * Treatment: 2. O titis externa Start Ciprofloxacin-dexAMETHasone Suspension, 0.3-0.1 %, 4 drops into left ear, Otic, Twice a day, 7 day(s), 1, Refills 1. Notes: to keep ear dry 3. P regnancy Refill (w/Iron & FA) Tablet, 27-0.8 MG, 1 tablet, Orally, Once a day, 30 day(s), 30, Refills 6. Notes: 19 weeks IUP * Procedure Codes: 9 4760 PULSE OX * Follow Up: p rn * Images: Billing Information: * Visit Code: 56392 Office Visit, Est Pt., Level 3. * Procedure Codes: 04503 PULSE OX. * Electronic signature of Matilde Sandoval APRN on 07/15/2025 at 12:48 AM EST Sign off status: Pending * Provider: DENIZ Mahan Date: 0 03/02/2024 Generated for Printi ng/Faxing/eTransmitting on: 1 09/14/2024 12:48 AM EST History and Physical Notes * HPI (History of Present Illness) Category Sub-Category Detail Notes Category Not es ENT/respiratory ear pain Pt presents toda y with c/o ear pain. Pt sts that she was seen at [facility] on Saturday and prescribed Flonase but it has not been helping. Pt sts that she also has acid reflux with this and cannot sleep on her right side. Pt sts that if she sleeps on her left side her ear hurts extremely bad and she even has pain in the left side of her face. Pt sts that she will try to hold off to get something for acid reflux when she sees OB on Saturday Examination Category Sub-Category Detail Notes Category Not es ENT/Respiratory Oral cavity : no erythema or exudate s een on pharynx Ears: tympanic membranes n ormal bilaterally; right ear canal appears fine; left ear canal with edema/erythema Neck : supple, no cervical lymphadenopathy Heart : RRR Lungs: CTAB A&P General Appearance: well nourished and h ydrated, NAD, alert, active Nose : nares patent Eyes: sclera and conjuncti va clear
--- OUTSIDE RECORDS SUMMARY | 2024-04-23 09:30 | XMS_ITS ---
Author Organization [facility] Address [address] [facility] [address] [place] [id number] Care Team Providers Care Precipitator Supervisor Name Role Phone Julia Jordan Primary Care Provider Ivet Jacques Unavailable [phone] Allergies Allergen (clinical drug ingredient) Drug/Non Drug [...] growth Performing Lab: Notes/Report: Test performed by [facility] [address] [place] [address] , [address], [place] [address] Feng Doan MD, Laundry Equipment Operator CLIA: [id number] Specimen Source Urine - Void Culture, Urine [...] 04/23/2024 Encounters Encounter Location Date Provider Diagnosis [facility] [address] [place] [id number] 04/23/2024 Ivet Jacques Dysuria R30.0 Assessments Encounter [address], [place], [phone], Progress Notes * Chloé MEDLEYB:1995 ( 30 yo F)Acc No.[id number]:04/23/2024 Progress Notes Patient: Ellen NUGENT Provider: JUAN Hernandez :1995 A ge:29 Y S ex:Female Date:04/23/2024 Address:[id number] Pcp:Julia Jordan Subjective: * Chief Complaints: [...] * Images: Billing Information: * Visit Code: 23176 Office Visit, Est Pt., Level 3. * Procedure Codes: 79480 Urinalysis, no micro. * Electronic signature of JUAN Chu on 07/15/2025 at 12:48 AM EST Sign off status: Pending * Provider: JUAN Hernandez Date: 0 04/23/2024 Generated for Chaimi ng/Fayolanda/eTransmitting on: 1 09/14/2024 12:48 AM EST History [...]
--- OUTSIDE RECORDS SUMMARY | 2024-10-16 10:15 | XMS_ITS ---
Author Organization [facility] Address [address] [facility] [address] [place] [id number] Care Team Providers Care Wardrobe Assistant Name Role Phone Julia Jordan Primary Care Provider [phone] Nate Patel Unavailable [phone] Allergies Allergen (clinical drug ingredient) Drug/Non Drug Allergy documented on EMR Reaction Allergy Type Onset Date Status Substance with penicillin structure and antibacterial mechanism of action (substance) Penicillins Unknown Drug Allergy Active Substance with sulfonamide structure and antibacterial mechanism of action (substance) Sulfa Antibiotics Unknown Drug Allergy Active Results Component Value Reference Range Notes Influenza Screen (in house) Reviewed date:10/16/2024 04:35:04 PM Interpretation:neg Performing Lab: Notes/Report: neg results neg CBC Fingerstick (in house) Reviewed date:10/16/2024 04:35:13 PM Interpretation: Performing Lab: Notes/Report: wbc 6.0 3.5 - 10 lym 27.1 15 - 50 mid 7.1 2 - 15 gran 65.8 35 - 80 rbc 4.63 3.5 - 5.5 hgb 14.5 11.5 - 16.5 hct 43.1 35 - 55 mcv 92.9 75 - 100 mch 31.3 25 - 35 mchc 33.7 31 - 38 plat 208 100 - 400 Covid test (in house) Reviewed date:10/16/2024 04:34:55 PM Interpretation:neg Performing Lab: Notes/Report: neg Result: neg REASON FOR VISIT Itchy, Sore Throat Medications Medication SIG (Take, Route, Frequency, Duration) Notes Start Date End Date Status (w/Iron & FA) 27-0.8 MG 1 tablet Orally Once a day; Duration: 30 day(s) Active Vital Signs Blood pressure systolic 126 mm Hg 10/16/19 25 Blood pressure diastolic 74 mm Hg 025 Heart Rate 115 /min 10/16/2024 Height 66.50 in 10/16/2024 Weight 188.8 lbs 10/16/2024 BMI 30.01 kg/m2 10/16/2024 Encounters Encounter Location Date Provider Diagnosis [facility] [address] [facility] [address] [facility] [address] [place], [place] [id number] 10/16/2024 Nate Patel Acute URI J06.9 Assessments Encounter Date Diagnosis (ICD Code) Assessment Notes Treatment Notes Treatment Clinical Notes Section Notes 10/16/2024 Acute URI (ICD-10 - J06.9) fluids, rest, supportive measures for fever/symptom relief Plan Of Treatment Treatment Notes Assessment Notes Acute URI fluids, rest, suppor tive measures for fever/symptom relief Next Appt Details Follow Up: prn, Reason: Provider Name:Ivet alicea, 12/29/2025 10:30:00 AM, [address] [facility] [address] [facility], [address], [place], [place], [id number], Progress Notes * Lionel MEDLEYTrang:1995 ( 30 yo F)Acc No.[id number]:10/16/2024 Progress Notes Patient: Ellen NUGENT Provider: Vic Patel M.D. :1995 A ge:29 Y S ex:Female Date:10/16/2024 Address:[address] [address], [place], [id number] Pcp:Julia Jordan Subjective: * Chief Complaints: * 1 . Itchy, Sore Throat. * HPI: E NT/respiratory: 29 year old female presents with c/o cough P t complains of dry without any sputum production cough for 2 days. Associated with dry, itchy throat. Denies : Fever. D enies : body aches. * ROS: D ERMATOLOGY: no R eugenia. n o H nnamdi. G ASTROENTEROLOGY: no N ausea. n o V omiting. U ROLOGY: no D ifficulty urinating. n o B lood in urine. * Medical History: M edical History Verified. * Surgical History: D enies Past Surgical History. * Hospitalization/Major Diagno stic Procedure: D enies Past Hospitalization. * Family History: F ather: alive 49 yrs. M other: alive 47 yrs, thyroid issues and anxiety attacks. 4 [...] ouside US: no. * Medications: T aking (w/Iron & FA) 27-0.8 MG Tablet 1 tablet Orally Once a day , Discontinued Flonase Allergy Relief 50 MCG/ACT Suspension 1 spray in each nostril Nasally Once a day , Discontinued Pepcid 20 MG Tablet 1 tablet at bedtime as needed Orally Once a day , Medication List reviewed and reconciled with the patient * Allergies: P enicillins, Sulfa Antibiotics. Objective: * Vitals: W t:188.8, Temp:98.6, BP:126/74, HR:115, O2 Sat:97% on RA, Nurse:antonio, Ht: 66.50, BMI:30.01. Assessment: * Assessment: 1Dequan velasco URI - J06.9 (Primary) Plan: * Treatment: Value Reference Range r esults neg * Sheri Cabrera 10/16/2024 4:27:2 2 PM > Provider reviewed results while patient in office. ?LAB: CBC Fingerstick (in house) (Collection Date & Time - 10/16/2024)* Value Reference Range w bc 6.0 3.5 - 10 * l ym 27.1 15 - 50 * m id 7.1 2 - 15 * g ran 65.8 35 - 80 * r bc 4.63 3.5 - 5.5 * h gb 14.5 11.5 - 16.5 * h ct 43.1 35 - 55 * m cv 92.9 75 - 100 * m ch 31.3 25 - 35 * m chc 33.7 31 - 38 * p lat 208 100 - 400 * Sheri Cabrera 10/16/2024 4:22:1 7 PM > Provider reviewed results while patient in office. ?LAB: Covid test (in house) (Collection Date & Time - 10/16/2024)?neg* Value Reference Range R esult: neg * Sheri Cabrera 10/16/2024 4:27:4 2 PM > Provider reviewed results while patient in office. Notes: fluids, rest, supportive measures for fever/symptom relief?? * Procedure Codes: 3 6416 CAPILLARY BLOOD DRAW, 68495 CBC WITH AUTO DIFF, 68392 COVID TEST IN HOUSE, Modifiers: QW , 52403 Flu Test- Nasal Swab, Modifiers: QW * Follow Up: p rn * Images: Billing Information: * Visit Code: 97514 Office Visit, Est Pt., Level 3. * Procedure Codes: 52750 CAPILLARY BLOOD DRAW. 71542 CBC WITH AUTO DIFF. 88144 COVID TEST IN HOUSE. Modifiers: QW 17797 Flu Test- Nasal Swab. Modifiers: QW * Electronic signature of Mikki Patel MD on 07/15/2025 at 12:48 AM EST Sign off status: Pending * Provider: Vic Patel M.D. Date: 0 10/16/2024 Generated for Chris howard/Justin/eTbladimirsmitting on: 1 09/14/2024 12:48 AM EST History and Physical Notes * HPI (History of Present Illness) Category Sub-Category Detail Notes Category Not es ENT/respiratory cough Pt complains of dry without any sputum production cough for 2 days. Associated with dry, itchy throat Fever body aches
--- OUTSIDE RECORDS SUMMARY | 2025-02-04 10:45 | XMS_ITS ---
Author Organization [facility] Address [address] [facility] [address] [place] [id number] Care Team Providers Care Tow Truck Dispatcher Name Role Phone Julia Jordan Primary Care Provider [phone] Ivet Jacques Unavailable [phone] Allergies Allergen (clinical drug ingredient) Drug/Non Drug [...] Encounter Location Date Provider Diagnosis [facility] 36 [facility] [address] [place], [place] [id number] 02/04/2025 Ivet Sawyer Gastroenteritis K52. 9 Assessments [...] Provider Name:Ivet alicea, 12/29/2025 10:30:00 AM, 1210 [facility] 36 [facility], [address], [place], [id number], Progress Notes * Lionel MEDLEYEmilyB:1995 ( 30 yo F)Acc No.[id number]:02/04/2025 Progress Notes Patient: Ellen NUGENT Provider: JUAN Hernandez :1995 A ge:30 Y S ex:Female Date:02/04/2025 Address:[id number] Pcp:Julia Jordan Subjective: * Chief Complaints: [...] 93, O2 Sat: 98% on RA, Nurse: [facility], Ht: 66.50, BMI:27.91. * Examination: G eneral [...] Procedure Codes: 3 6416 CAPILLARY BLOOD DRAW, 35680 CBC WITH AUTO DIFF * Follow Up: p rn * Images: Billing Information: * Visit Code: 89774 Office Visit, Est Pt., Level 3. * Procedure Codes: 70842 CAPILLARY BLOOD DRAW. 01227 CBC WITH AUTO DIFF. * Electronic signature of JUAN Chu on 07/15/2025 at 12:49 AM EST Sign off status: Pending * Provider: JUAN Hernandez Date: 0 02/04/2025 Generated for Chris howard/Justin/eTransmitting on: 09/14/2024 12:49 AM EST History and Physical Notes * [...]
--- OUTSIDE RECORDS SUMMARY | 2025-02-11 10:30 | XMS_ITS ---
Author Organization [facility] Address [address] [place] [id number] Care Team Providers Care Athletic Director Name Role Phone Julia Jordan Primary Care Provider Allergies Allergen (clinical drug ingredient) Drug/Non Drug [...] Provider Diagnosis [facility] [address] [facility] [address] [place] [id number] 02/11/2025 Julia Jordan Acute pharyngitis J02.9 and BMI 28.0-28.9,adult Z68.28 [...] Provider Name:Ivet alicea, 12/29/2025 10:30:00 AM, 1210 [facility] 36 [facility], [address], [place], [phone], Progress Notes * SARAH ChloéB:1995 ( 30 yo F)Acc No.[id number]:02/11/2025 Progress Notes Patient: Ellen NUGENT Provider: Julia Jordan M.D. :1995 A ge:30 Y S ex:Female Date:02/11/2025 Address:[phone] Subjective: * Chief Complaints: * 1 [...] pharyngitis - J02.9 (Primary) 2 . B [place] 28.0-28.9,adult - Z68.28? Plan: * Treatment: * [...] * Images: Billing Information: * Visit Code: 34565 Office Visit, Est Pt., Level 4. * Procedure Codes: 63025 STREP A ASSAY W/OPTIC. Modifiers: QW 1036F TOBACCO NON-USER. G8420 BMI<30 AND >=22 CALC & DOCU. G8783 BP SCR PRFRM RCMDD DEFIND SCR INTVL. G8752 MOST RECENT SYSTOLIC BP < 140MM HG. G8754 MOST RECENT DIASTOLIC BP < 90MM HG. * Electronic signature of Julia Jordan MD on 07/15/2025 at 12:49 AM EST Sign off status: Pending * Provider: Julia Jordan M.D. Date: 0 02/11/2025 Generated for Chris ohward/Justin/Rezaitting on: 1 09/14/2024 12:49 AM EST History and Physical Notes * Examination Category Sub-Category Detail Notes Category Not es General Examination She appe ars in no distress. TMs are normal bilaterally. Nares patent. Oropharynx is erythematous. I do not appreciate any exudate or vesicles. Neck is supple with bilateral superior cervical tender adenopathy. Lungs are clear.
--- OUTSIDE RECORDS SUMMARY | 2025-04-26 10:00 | XMS_ITS ---
Author Organization [facility] Address [address] [facility] [address] [place] [id number] Care Team Providers Care Bell Ringer Name Role Phone Julia Jordan Primary Care Provider Nate Patel Unavailable [phone] Allergies Allergen (clinical drug ingredient) Drug/Non Drug Allergy documented on EMR Reaction Allergy Type Onset Date Status Substance with penicillin structure and antibacterial mechanism of action (substance) Penicillins Unknown Drug Allergy Active Substance with sulfonamide structure and antibacterial mechanism of action (substance) Sulfa Antibiotics Unknown Drug Allergy Active Results Component Value Reference Range Notes CBC Fingerstick (in house) Reviewed date:04/27/2025 08:54:51 AM Interpretation: Performing Lab: Notes/Report: wbc 8.0 3.5 - 10 lym 27.3% 15 - 50 mid 6.4% 2 - 15 gran 66.3% 35 - 80 rbc 4.78 3.5 - 5.5 hgb 15.2 11.5 - 16.5 hct 44.9 35 - 55 mcv 93.7 75 - 100 mch 31.7 25 - 35 mchc 33.8 31 - 38 plat 214 100 - 400 CXR Reviewed date:04/27/2025 10:34:27 AM Interpretation:nothing acute Performing Lab: Notes/Report: nothing acute REASON FOR VISIT poss. pleurisy Medications Medication SIG (Take, Route, Frequency, Duration) Notes Start Date End Date Status (w/Iron & FA) 27-0.8 MG 1 tablet Orally Once a day; Duration: 30 day(s) Active dexAMETHasone 2 MG 1 tablet Orally twic e a day; Duration: 5 days 04/26/2025 Active Vital Signs Blood pressure systolic 130 mm Hg 04/26/20 25 Blood pressure diastolic 78 mm Hg 025 Heart Rate 109 /min 04/26/2025 Height 66.50 in 04/26/2025 Weight 181.2 lbs 04/26/2025 BMI 28.81 kg/m2 04/26/2025 Encounters Encounter Location Date Provider Diagnosis [facility] [address] [place] [address] [address] [facility] [address] [place], [place] [id number] 04/26/2025 Nate Patel Other chest pain R07.89 and BMI 28.0-28.9,adult Z68.28 Assessments Encounter Date Diagnosis (ICD Code) Assessment Notes Treatment Notes Treatment Clinical Notes Section Notes 04/26/2025 Other chest pain (ICD-10 - R07.89) 04/26/2025 BMI 28.0-28.9,adult (ICD-10 - Z68.28) Plan Of Treatment Medication Medication Name Sig Start Date Stop Date Notes dexAMETHasone 2 MG 1 tablet Orally twic e a day; Duration: 5 days 04/26/2025 Next Appt Details Follow Up: via phone to repo rt test results, Reason: Provider Name:Ivet alicea, 12/29/2025 10:30:00 AM, [facility] [address], [address], [place], [id number], Progress Notes * Martin MEDLEYKristaB:1995 ( 30 yo F)Acc No.[id number]:04/26/2025 Progress Notes Patient: Ellen NUGENT Provider: Vic Patel M.D. :1995 A ge:30 Y S ex:Female Date:04/26/2025 Address:[address] Pcp:Julia Jordan Subjective: * Chief Complaints: * 1 . Poss. pleurisy. * HPI: E NT/respiratory: 30 year old female presents with c/o Short of Breath P t complains of feeling short of breath since . Pt states it hurts to breathe and it feels like there is a stack of books on her chest at times. Pt states she was dx with Pleurisy as a child and this feels the same . Pt states she does not have cough, congestion or any other symptoms. * ROS: D ERMATOLOGY: no R eugenia. [...] . * Social History: C URRENT TOBACCO USE: No S moking Status: Patient does NOT smoke. [...] tablet Orally Once a day , Discontinued Ondansetron 4 MG Tablet Disintegrating 1 tablet on the tongue and allow to dissolve Orally three times a day as needed , Discontinued Zithromax Z-Que 250 MG Tablet as directed Orally , Medication List reviewed and reconciled with the patient * Allergies: P enicillins, Sulfa Antibiotics. Objective: * Vitals: W t: 181.2, Temp: 98.0, BP: 130/78, HR: 109, O2 Sat: 98% on RA, Nurse: antonio, Ht: 66.50, BMI:28.81. * Examination: G eneral Examination: General Appearance: N AD, jara with deep breathing. H eart: R SR. L ungs: c lear to auscultation. Assessment: * Assessment: 1. O ther chest pain - R07.89 (Primary) 2 . B PA 28.0-28.9,adult - Z68.28? Plan: * Treatment: Value Reference Range w bc 8.0 3.5 - 10 * l ym 27.3% 15 - 50 * m id 6.4% 2 - 15 * g ran 66.3% 35 - 80 * r bc 4.78 3.5 - 5.5 * h gb 15.2 11.5 - 16.5 * h ct 44.9 35 - 55 * m cv 93.7 75 - 100 * m ch 31.7 25 - 35 * m chc 33.8 31 - 38 * p lat 214 100 - 400 * Martin Queenira 04/26/2025 03:18: 57 PM EDT > Provider reviewed results while patient in office. ?Imaging: CXR (Performed Date - 04/26/2025)?nothing acute* Martin Queenira 04/27/2025 10:34: 20 AM EDT > Pt notified * Procedure Codes: 3 6416 CAPILLARY BLOOD DRAW, 30763 CBC WITH AUTO DIFF, 1036F TOBACCO NON-USER, 3075F SYST BP GE 130 - 139MM HG, 3078F DIAST BP < 80 MM HG * Follow Up: v ia phone to report test results * Images: Billing Information: * Visit Code: 28305 Office Visit, Est Pt., Level 3. * Procedure Codes: 28494 CAPILLARY BLOOD DRAW. 93395 CBC WITH AUTO DIFF. 1036F TOBACCO NON-USER. 3075F SYST BP GE 130 - 139MM HG. 3078F DIAST BP < 80 MM HG. * Electronic signature of Mikki Patel MD on 07/15/2025 at 12:49 AM EST Sign off status: Pending * Provider: Vic Patel M.D. Date: 0 04/26/2025 Generated for Chris howard/Justin/eTbladimirsmitting on: 1 09/14/2024 12:49 AM EST History and Physical Notes * HPI (History of Present Illness) Category Sub-Category Detail Notes Category Not es ENT/respiratory Short of Breath Pt complains of feeling short of breath since . Pt states it hurts to breathe and it feels like there is a stack of books on her chest at times. Pt states she was dx with Pleurisy as a child and this feels the same . Pt states she does not have cough, congestion or any other symptoms Examination Category Sub-Category Detail Notes Category Not es General Examination Heart: RSR Lungs: clear to auscultatio n General Appearance: NAD, jara with deep b reathing
--- OUTSIDE RECORDS SUMMARY | 2025-05-12 09:30 | XMS_ITS ---
Author Organization [facility] Address [address] [facility] [address] [place] [id number] Care Team Providers Care Office Messenger Helper Name Role Phone Julia Jordan Primary Care Provider [phone] Ivet Jacques [phone] Allergies Allergen (clinical drug ingredient) Drug/Non Drug Allergy documented on EMR Reaction Allergy Type Onset Date Status Substance with penicillin structure and antibacterial mechanism of action (substance) Penicillins Unknown Drug Allergy Active Substance with sulfonamide structure and antibacterial mechanism of action (substance) Sulfa Antibiotics Unknown Drug Allergy Active REASON FOR VISIT check up Medications Medication SIG (Take, Route, Frequency, Duration) Notes Start Date End Date Status Sertraline HCl 50 MG 1/2 tab daily x 2 w eeks, then 1 tab daily Orally Once a day 05/12/2025 Active Sertraline HCl 100 MG 1 tablet Orally On ce a day; Duration: 30 days 05/12/2025 Not-Takin g (w/Iron & FA) 27-0.8 MG 1 tablet Orally Once a day; Duration: 30 day(s) Active Vital Signs Blood pressure systolic 120 mm Hg 05/12/20 25 Blood pressure diastolic 70 mm Hg 025 Heart Rate 74 /min 05/12/2025 Height 66.50 in 05/12/2025 Weight 185 lbs 05/12/2025 BMI 29.41 kg/m2 05/12/2025 Encounters Encounter Location Date Provider Diagnosis [place] [address] [facility] [address] [place] [id number] 05/12/2025 Ivet Jacques PTSD (post-traumatic stress disorder) F43.10 Assessments Encounter Date Diagnosis (ICD Code) Assessment Notes Treatment Notes Treatment Clinical Notes Section Notes 05/12/2025 PTSD (post-traumatic stress disorder) (ICD-10 - F43.10) Plan Of Treatment Medication Medication Name Sig Start Date Stop Date Notes Sertraline HCl 50 MG 1/2 tab daily x 2 w eeks, then 1 tab daily Orally Once a day 05/12/2025 Next Appt Details Follow Up: 4 Weeks, Reason: Provider Name:Ivet Davon José y, 12/29/2025 10:30:00 AM, [address], [address], [place], [place], [phone], Progress Notes * Lionel MEDLEYEmilyB:1995 ( 30 yo F)Acc No.[id number]:05/12/2025 Progress Notes Patient: Ellen NUGENT Provider: JUAN Hernandez :1995 A ge:30 Y S ex:Female Date:05/12/2025 Address:[address] [address], [place], [place] Pcp:Julia Jordan Subjective: * Chief Complaints: * 1 . Check up. * HPI: H PI: Patient is here today for riki ferris. Pt states she needs to go back on the sertraline. Has been off since she had a baby. * ROS: D ERMATOLOGY: no R eugenia. [...] 1 tablet Orally Once a day , Not- Taking Sertraline HCl 100 MG Tablet 1 tablet Orally Once a day , Discontinued dexAMETHasone 2 MG Tablet 1 tablet Orally twice a day , Medication List reviewed and reconciled with the patient * Allergies: P enicillins, Sulfa Antibiotics. Objective: * Vitals: W t: 185, Temp: 98.2, BP: 120/70, HR: 74, Nurse: pe, Ht: 66.50, BMI:29.41. * Examination: P sychology: General Appearance: N AD. G rooming : a dequate.?Eye contact : n ormal. M ood : p leasant. H eart: R SR. L ungs: c lear to auscultation. N eurologic Exam: I ntact, gait normal. Assessment: * Assessment: 1. P TSD (post-traumatic stress disorder) - F43.10 (Primary) Plan: * Treatment: * Follow Up: 4 Weeks * Images: Billing Information: * Visit Code: 39200 Office Visit, Est Pt., Level 3. * Procedure Codes: * Electronic signature of JUAN Chu on 07/15/2025 at 12:49 AM EST Sign off status: Pending * Provider: JUAN Hernandez Date: 0 05/12/2025 Generated for Chris howard/Justin/eTransmitting on: 09/14/2024 12:49 AM EST History and Physical Notes * HPI (History of Present Illness) Category Sub-Category Detail Notes Category Not es HPI Patient is here today for checku p. Pt states she needs to go back on the sertraline. Has been off since she had a baby Examination Category Sub-Category Detail Notes Category Not es Psychology Heart: RSR Lungs: clear to auscultatio n General Appearance: NAD Neurologic Exam: Intact, gait normal Grooming : adequate Eye contact : normal Mood : pleasant
--- OUTSIDE RECORDS SUMMARY | 2025-06-02 06:15 | XMS_ITS ---
Author Organization [facility] Address [address] [facility] [address] [place] [id number] Care Team Providers Care Senior Test Engineer Name Role Phone Julia Jordan Primary Care Provider Ivet Jacques Unavailable [phone] Allergies Allergen (clinical drug ingredient) Drug/Non Drug Allergy documented on EMR Reaction Allergy Type Onset Date Status Substance with penicillin structure and antibacterial mechanism of action (substance) Penicillins Unknown Drug Allergy Active Substance with sulfonamide structure and antibacterial mechanism of action (substance) Sulfa Antibiotics Unknown Drug Allergy Active REASON FOR VISIT discuss meds Medications Medication SIG (Take, Route, Frequency, Duration) Notes Start Date End Date Status Escitalopram Oxalate 5 MG 1 tablet Orall y Once a day; Duration: 30 days 06/02/2025 Active (w/Iron & FA) 27-0.8 MG 1 tablet Orally Once a day; Duration: 30 day(s) Active Sertraline HCl 100 MG 1 tablet Orally On ce a day; Duration: 30 days 05/12/2025 Not-Takin g Paxil 20 MG 1 tablet in the morn ing Orally Once a day; Duration: 30 days 05/26/2025 Not-Taking Sertraline HCl 50 MG 1/2 tab daily x 2 weeks, then 1 tab daily Orally Once a day 05/12/2025 Not-Taking Vital Signs Blood pressure systolic 128 mm Hg 06/02/20 25 Blood pressure diastolic 74 mm Hg 025 Heart Rate 107 /min 06/02/2025 Height 66.50 in 06/02/2025 Weight 183.4 lbs 06/02/2025 BMI 29.15 kg/m2 06/02/2025 Encounters Encounter Location Date Provider Diagnosis [place] [address] [facility] [address] [place] [phone] 06/02/2025 Ivet Jacques PTSD (post-traumatic stress disorder) F43.10 and Situational mixed anxiety and depressive disorder F43.23 Assessments Encounter Date Diagnosis (ICD Code) Assessment Notes Treatment Notes Treatment Clinical Notes Section Notes 06/02/2025 PTSD (post-traumatic stress disorder) (ICD-10 - F43.10) 06/02/2025 Situational mixed anxiety and depressive disorder (ICD-10 - F43.23) Will need to remain off work until f/u Plan Of Treatment Medication Medication Name Sig Start Date Stop Date Notes Escitalopram Oxalate 5 MG 1 tablet Orall y Once a day; Duration: 30 days 06/02/2025 Treatment Notes Assessment Notes Situational mixed anxiety an d depressive disorder Will need to remain off work until f/u Next Appt Details Follow Up: 2 Weeks, Reason: Provider Name:Ivetelan alicea, 12/29/2025 10:30:00 AM, [address] [facility], [address], [place], [phone], Progress Notes * MEDLEYMartinKristaB:1995 ( 30 yo F)Acc No.[id number]:06/02/2025 Progress Notes Patient: Ellen NUGENT Provider: JUAN Hernandez :1995 A ge:30 Y S ex:Female Date:06/02/2025 Address:[address] Pcp:Julia Jordan Subjective: * Chief Complaints: * 1 . Discuss meds. * HPI: P sychology: 30 year old female presents with c/o Anxiety P t here for change of Anxiety medication. Pt states she started taking Paxil 20mg on 05/26. Pt states she has stopped taking the medication after a few days due to the way it made her feel. Pt states she was unable to sleep and felt extra nervous Pt states she noticed she was shaking/tapping her leg more. * ROS: D ERMATOLOGY: no R eugenia. [...] 1 tablet Orally Once a day , Not-Taking Sertraline HCl 50 MG Tablet 1/2 tab daily x 2 weeks, then 1 tab daily Orally Once a day , Not- Taking Paxil 20 MG Tablet 1 tablet in the morning Orally Once a day , Medication List reviewed and reconciled with the patient * Allergies: P enicillins, Sulfa Antibiotics. Objective: * Vitals: W t: 183.4, Temp: 98.4, BP: 128/74, HR: 107, Nurse: MADHU, Ht: 66.50, BMI:29.15. * Examination: P sychology: General Appearance: N AD. G rooming : a dequate.?Eye contact : n ormal. M ood : d epressed, anxious, tearful. H eart: R SR.?Lungs: C TAB A&P. N eurologic Exam: I ntact, gait normal. Assessment: * Assessment: 1. P TSD (post-traumatic stress disorder) - F43.10 (Primary) 2 . S ituational mixed anxiety and depressive disorder - F43.23 Plan: * Treatment: * Procedure Codes: 1 036F TOBACCO NON-USER, 3074F SYST BP LT 130 MM HG, 3078F DIAST BP < 80 MM HG * Follow Up: 2 Weeks * Images: Billing Information: * Visit Code: 20379 Office Visit, Est Pt., Level 3. * Procedure Codes: 1036F TOBACCO NON-USER. 3074F SYST BP LT 130 MM HG. 3078F DIAST BP < 80 MM HG. * Electronic signature of JUAN Chu on 07/15/2025 at 12:49 AM EST Sign off status: Pending * Provider: JUAN Hernandez Date: 0 06/02/2025 Generated for Chris howard/Justin/Gray on: 09/14/2024 12:49 AM EST History and Physical Notes * HPI (History of Present Illness) Category Sub-Category Detail Notes Category Not es Psychology Anxiety Pt here for jasmine ge of Anxiety medication. Pt states she started taking Paxil 20mg on 05/26. Pt states she has stopped taking the medication after a few days due to the way it made her feel. Pt states she was unable to sleep and felt extra nervous Pt states she noticed she was shaking/tapping her leg more Examination Category Sub-Category Detail Notes Category Not es Psychology Heart: RSR Lungs: CTAB A&P General Appearance: NAD Neurologic Exam: Intact, gait normal Grooming : adequate Eye contact : normal Mood : depressed, anxious, tearful
--- OUTSIDE RECORDS SUMMARY | 2025-06-16 06:30 | XMS_ITS ---
Author Organization [facility] Address [address] [facility] [address] [place] [id number] Care Team Providers Care Global Logistics Analyst Name Role Phone Julia Jordan Primary Care Provider [phone] Ivet Jacques [phone] Allergies Allergen (clinical drug ingredient) Drug/Non Drug [...] Provider Diagnosis [place] [address] [facility] [address] [place] [phone] 06/16/2025 Ivet Jacques PTSD (post-traumatic stress disorder) [...] Name:Ivet alicea, 12/29/2025 10:30:00 AM, [address] [facility] 36 [facility], [address] , [place], [place], [phone], Progress Notes * MEDLEYMartinKristaB:1995 ( 30 yo F)Acc No.[id number]:06/16/2025 Progress Notes Patient: Ellen NUGENT Provider: JUAN Hernandez :1995 A ge:30 Y S ex:Female Date:06/16/2025 [address] Pcp:Julia Jordan Subjective: * Chief Complaints: [...] disorder) - F43.10 (Primary) 2 . B AR 29.0-29.9,adult - Z68.29 Plan: * Treatment: * Procedure Codes: 1 036F TOBACCO NON-USER, 3074F SYST BP LT 130 MM HG, 3078F DIAST BP < 80 MM HG * Follow Up: 2 Weeks * Images: Billing Information: * Visit Code: 16210 Office Visit, Est Pt., Level 3. * Procedure Codes: 1036F TOBACCO NON-USER. 3074F SYST BP LT 130 MM HG. 3078F DIAST BP < 80 MM HG. * Electronic signature of JUAN Chu on 07/15/2025 at 12:49 AM EST Sign off status: Pending * Provider: JUAN Hernandez Date: Generated for Chris howard/Justin/Romesmitting on: 09/14/2024 12:49 AM EST History and [...]
--- OUTSIDE RECORDS SUMMARY | 2025-06-30 05:30 | XMS_ITS ---
Author Organization [facility] Address [address] [place] [phone] Care Team Providers Care Diamond Assorter Name Role Phone Julia Jordan Primary Care Provider Ivet Jacques [phone] Allergies Allergen (clinical drug ingredient) Drug/Non Drug Allergy documented on EMR Reaction Allergy Type Onset Date Status Substance with penicillin structure and antibacterial mechanism of action (substance) Penicillins Unknown Drug Allergy Active Substance with sulfonamide structure and antibacterial mechanism of action (substance) Sulfa Antibiotics Unknown Drug Allergy Active REASON FOR VISIT 2 week f/u Medications Medication SIG (Take, Route, Frequency, Duration) Notes Start Date End Date Status Sertraline HCl 50 MG 1 tablet Orally Once a day Active (w/Iron & FA) 27-0.8 MG 1 tablet Orally Once a day; Duration: 30 day(s) Active Vital Signs Blood pressure systolic 122 mm Hg 06/30/20 25 Blood pressure diastolic 80 mm Hg 025 Heart Rate 104 /min 06/30/2025 Height 66.50 in 06/30/2025 Weight 187.4 lbs 06/30/2025 BMI 29.79 kg/m2 06/30/2025 Encounters Encounter Location Date Provider Diagnosis [place] [address] [place] [id number] 06/30/2025 Ivet Jacques PTSD (post-traumatic stress disorder) F43.10 Assessments Encounter Date Diagnosis (ICD Code) Assessment Notes Treatment Notes Treatment Clinical Notes Section Notes 06/30/2025 PTSD (post-traumatic stress disorder) (ICD-10 - F43.10) Can return to work on Saturday. Plan Of Treatment Medication Medication Name Sig Start Date Stop Date Notes Sertraline HCl 50 MG 1 tablet Orally Once a day Treatment Notes Assessment Notes PTSD (post-traumatic stress disorder) Ca n return to work on Saturday. Next Appt Details Follow Up: 6 Months, Reason: Provider Name:Ivet alicea, 12/29/2025 10:30:00 AM, [address] [facility] [address], [address], [place], [place], [phone], Progress Notes * Lionel MEDLEYaDOB:1995 ( 30 yo F)Acc No.[id number]:06/30/2025 Patient: Ellen NUGENT Provider: JUAN Hernandez :1995 A ge:30 Y S ex:Female Date:06/30/2025 Address:[phone] Pcp:Julia Jordan Subjective: * Chief Complaints: * 1 . 2 week f/u. * HPI: P sychology: 30 year old female presents with c/o Anxiety P t here for checkup on anxiety. Pt states she is doing okay. Pt states some days are better than others. * ROS: D ERMATOLOGY: no R eugenia. n o H nnamdi. G ASTROENTEROLOGY: no N ausea. n o V omiting. n o D iarrhea.? U ROLOGY: no B lood in urine. n o F requent urination. ? * Medical History: M edical History Verified. [...] tablet Orally Once a day , Taking Sertraline HCl 50 MG Tablet 1 tablet Orally Once a day , Medication List reviewed and reconciled with the patient * Allergies: P enicillins, Sulfa Antibiotics. Objective: * Vitals: W t: 187.4, Temp: 98.3, BP: 122/80, HR: 104, Nurse: addison, Ht: 66.50, BMI:29.79. * Examination: P sychology: General Appearance: N AD. G rooming : a dequate.?Eye contact : n orsuzette. M ood : p leasant. H eart: R SR. L ungs: riki lear to auscultation. Assessment: * Assessment: 1. P TSD (post-traumatic stress disorder) - F43.10 (Primary) Plan: * Treatment: * Follow Up: 6 Months * Images: Billing Information: * Visit Code: 17033 Office Visit, Est Pt., Level 3. * Procedure Codes: * Electronic signature of JUAN Chu on 07/15/2025 at 12:49 AM EST Sign off status: Pending * Provider: JUAN Hernandez Date: Generated for Chris howard/Justin/eTransmitting on: 09/14/2024 12:49 AM EST History and Physical Notes * HPI (History of Present Illness) Category Sub-Category Detail Notes Category Not es Psychology Anxiety Pt here for [facility] on anxiety. Pt states she is doing okay. Pt states some days are better than others Examination Category Sub-Category Detail Notes Category Not es Psychology Heart: RSR Lungs: clear to auscultatio n General Appearance: NAD Grooming : adequate Eye contact : normal Mood : pleasant
[2025-07-15] VITALS (20 sets, daily range): BP systolic 120–165; BP diastolic 73–96; PULSE 62–85; RESP 16; TEMP 37; O2SAT 92–100; BMI 29.0
--- OUTSIDE RECORDS SUMMARY | 2025-07-15 00:48 | XMS_ITS | Data Portability ---
Author Organization [facility] Address [address] [place] [address] Assessment Encounter Date Assessment Date Assessment LastModified [...] CARLOS [facility], [address], Rick [place], [place], [address], 8 20:10:08 urinalysis , dipstick 2016 017 [email or web address] [facility] [employer], [address] [place] [address] , [place], [address], 7 11:21:40 culture, urine 2016 017 CARLOS [facility], [address], [place], [place], [address], 7 06:06:27 Referral None recorded. Procedures None recorded. Surgeries None recorded. Imaging US, obstetric, 1st trimester 2022 023 [email or web address] [facility] [employer], [address] [place] [address] , [place], [address], 3 10:56:45 Medication Orders Sronyx 0.1 mg-20 mcg tablet 2017 018 [email or web address] [id number], [address] [place], [id number], 3 10:21:28 Macrobid 100 mg capsule 2016 017 formerly [facility][id number], [address] [place], [id number], 8 08:42:07 Pyridium 200 mg tablet 2016 017 [facility] #[id number], [address], [id number], 8 08:42:13 Patient TargetsNo targets recorded. Patient Instructions Encounter Date Encounter Id Patient Instructions Last Modified By Organization Details Last Modified Time 06/13/2017 [id number] Finish medicatio n as directed Wipe front to back Increase intake of H20 Limit caffeines and sugars Will call with culture results F/u 7-10 days if s/s not improved [email or web address] Not available 06/13/2017 11:28:22 12/06/2017 [id number] Encourage Self Breast Exam Encourage Healthy eating/regular physical activity Doing well with contraceptive method and desires to continue Start bcps for cycle regulation, tx of dysmenorrhea and acne Understands risks of taking hormonal contraception Encourage MV F/u 2 months [email or web address] Not available 12/06/2017 09:11:42 We will call abnormal test results in 7-10 days. Patient is advised that normal test results will be retrievable through [facility] Patient Portal and that they will be notified of the availability of normal results from [facility] by phone call, text or email. [email or web address] Not available 12/06/2017 09:11:47 01/31/2018 [id number] See HPI Rto for IUD removal Continue bcps [email or web address] Not available 01/31/2018 08:36:43 02/14/2018 [id number] IUD removed with out difficulty Continue bcps Rto for AWE or earlier prn [email or web address] Not available 02/14/2018 08:48:03 07/11/2023 [id number] medical record request* - records from [facility]; US reports Not available 11/14/2023 11:05:49 Discussed [...] dipst ick Leukocytes Modera te Not Available [employer] [employer] [address] [place] [address] , [place], [address], 06/13/2017 11:04:56 06/13/20 17 06/13/2017 urina lysis , dipst ick Nitrite positi ve Not Available [employer] [employer] [address] [place] [address] , [place], [address], 06/13/2017 11:04:56 06/13/20 17 06/13/2017 urina lysis , dipst ick Urobilinogen .2 Not Available [facility] [employer] [address] [place] [address] , [place], [address], 06/13/2017 11:04:56 06/13/20 17 06/13/2017 urina lysis , dipst ick Protein Negati ve Not Available [facility] [employer] [address] [place] [address] , [place], [address], 06/13/2017 11:04:56 06/13/20 17 06/13/2017 urina lysis , dipst ick pH 6.0 Not Available [employer] [employer] [address] [place] [address] , [place], [address], 06/13/2017 11:04:56 06/13/20 17 06/13/2017 urina lysis , dipst ick Blood Modera te Not Available [facility] [address] [place] [address] , [place], [address], 06/13/2017 11:04:56 06/13/20 17 06/13/2017 urina lysis , dipst ick Specific Delta 1.015 Not Available [facility] [employer] [address] [place] [address] , [place], [address], 06/13/2017 11:04:56 06/13/20 17 06/13/2017 urina lysis , dipst ick Ketone Small Not Available [facility]/[address] , [place], [address], 06/13/2017 11:04:56 06/13/20 17 06/13/2017 urina lysis , dipst ick Bilirubin Negati ve Not Available [facility]/[address] , [place], [address], 06/13/2017 11:04:56 06/13/20 17 06/13/2017 urina lysis , dipst ick Glucose Negati ve Not Available [facility]/[address] , [place], [address], 06/13/2017 11:04:56 06/13/20 17 06/13/2017 urina lysis , dipst ick Appearance Slight ly Cloudy Not Available [facility]/[address] , [place], [address], 06/13/2017 11:04:56 06/13/20 17 06/13/2017 urina lysis , dipst ick Color Dark Yellow Not Available [facility] [address] [place] [address] , [place], [address], 06/13/2017 11:04:56 06/13/20 17 06/15/2017 cultu re, urine urine culture, routine Final report Not Available [facility] ([facility]) [address] [place], [address], 06/15/2017 06:06:27 06/13/20 17 06/15/2017 cultu re, urine result 1 Commen t Great er than 2 organ isms recov ered, none predo minan t. Pleas e submi t anoth er sampl e if clini damon indic ated. Great er than 100,0 00 colon y formi ng units per mL Not Available [facility] ([facility]) [address] [facility], [place], [address], 06/15/2017 06:06:27 12/07/19 18 12/09/2017 pap, IG + CT/NG + refle x HPV chlamydia, nuc. acid amp Negati ve negati ve Not Available [facility] ([facility]) [address] [place], [address], 12/16/2017 20:10:08 12/07/19 18 12/09/2017 pap, IG + CT/NG + refle x HPV gonococcus, nuc. acid amp Negati ve negati ve Not Available [facility] ([facility]) [address] [place], [address], 12/16/2017 20:10:08 12/07/19 18 12/13/2017 pap, IG + CT/NG + refle x HPV diagnosis: Commen t abnormal EPITH ELIAL CELL ABNOR MALIT Y. ATYPI EDUARDO SQUAM OUS CELLS OF UNDET ERMIN ED SIGNI FICAN CE. Not Available [facility] ([facility]) [address] [place], [address], 12/16/2017 20:10:08 12/07/19 18 12/13/2017 pap, IG + CT/NG + refle x HPV recommendati on: Perla ross abnormal Sugge st follo w up as clini damon appro luis alberto e. Not Available [facility] ([facility]) [address] [facility], [place], [address], 12/16/2017 20:10:08 12/07/19 18 12/13/2017 pap, IG + CT/NG + refle x HPV specimen adequacy: Perla ross Satis facto ry for evalu ation . Endoc ervic al and/o r squam ous metap lasti c cells (endo cervi eduardo compo nent) are prese nt. Not Available [facility] ([facility]) [address] [facility], [place], [address], 12/16/2017 20:10:08 12/07/19 18 12/13/2017 pap, IG + CT/NG + refle x HPV clinician provided ICD10: Perla ross Z12.4 Not Available [facility] ([facility]) [address] [place], [address], 12/16/2017 20:10:08 12/07/19 18 12/13/2017 pap, IG + CT/NG + refle x HPV performed by: Perla Menezes ns, Cytot echno logis t (ASCP ) Not Available [facility] ([facility]) [address] [place], [address], 12/16/2017 20:10:08 12/07/19 18 12/13/2017 pap, IG + CT/NG + refle x HPV QC reviewed by: Perla Lim ns, Cytot echno logis t (ASCP ) Not Available [facility] ([facility]) [address] [place], [address], 12/16/2017 20:10:08 12/07/19 18 12/13/2017 pap, IG + CT/NG + refle x HPV electronical ly signed by: Perla Pichardo MD, Patho logis t Not Available [facility] ([facility]) [address] [facility], [place], [address], 12/16/2017 20:10:08 12/07/19 18 12/13/2017 pap, IG + CT/NG + refle x HPV . . Not Available [facility] ([facility]) [address] [facility], [place], [address], 12/16/2017 20:10:08 12/07/19 18 12/13/2017 pap, IG + CT/NG + refle x HPV pathologist provided ICD10: Perla ross R87.6 10 Not Available [facility] ([facility]) [address] [facility], [place], [address], 12/16/2017 20:10:08 12/07/19 18 12/13/2017 pap, IG [...] ts do occur . Not Available [facility] ([facility]) [address] [facility], [place], [address], 12/16/2017 20:10:08 12/07/19 18 12/13/2017 pap, IG + CT/NG + refle x HPV test methodology: Perla ross This liqui d based ThinP rep(R ) pap test was scree [place] with the use of an image guide isai chambers Not Available [facility] ([facility]) [address] [facility], [place], [address], 12/16/2017 20:10:08 12/07/19 18 12/13/2017 pap, IG + CT/NG + refle x HPV . Commen t See below for HPV testi ng resul ts. Not Available [facility] ([facility]) [address] [facility], [place], [address], 12/16/2017 20:10:08 12/07/19 18 12/16/2017 pap, IG + CT/NG + refle x HPV HPV, high-risk Negati ve negati ve This high- risk HPV test detec ts thirt een high- risk types (16/1 8/31/ 33/35 /39/4 5/51/ 52/56 /58/5 ) witho ut diffe renti ation . Not Available [facility] ([facility]) [address] [facility], [place], [address], 12/16/2017 20:10:08 07/11/20 23 US, obste tric, 1st trime ster No observ ation record ed. [email or web address] [employer] [address] [place] [address] , [place], [address], 07/11/2023 10:54:59 07/12/20 23 07/11/2023 US, obste tric, 1st trime ster No observ ation record ed. BARCODE [facility] [address] [place] [address] , [place], [address], 07/12/2023 14:07:10 Result Notes None recorded. Problems Name Problem SNOMED Code Status Onset Date Resolution Date Notes Provider Name and Address Organization Details Recorded Time Low grade squamous intraepithe lial lesion on cervical Papanicolao u smear 2250733979464 5 Active 2016 Funmilayo Rodriguez APRN [address], [place], [address], [place] [facility] 7 16:15:59 Cervical intraepithe lial neoplasia grade 1 382596494 Active 2016 Funmilayo Rodriguez APRN [address], [place], [address], [place] [facility] 7 09:28:46 Dysmenorrhe a 641302979 Active 2017 Crystal Willard null, [place] - [facility] 8 08:20:23 Pain in pelvis 97492237 Active 2017 Funmilayo Rodriguez APRN [address], [place], [address], [place] [facility] 8 08:36:20 Missed miscarriage 92073375 Active 2022 Denae Bar MD [address], [place], [address], [place] [facility] 3 10:53:40 Problem Notes None recorded. Procedures Surgical History Date Name Laterality Status Provider Name and Address Organization Details Recorded Time 07/11/20 23 OB Ultrasound Summary completed Aroldo Craven [place] - [facility] 07/11/2023 09:58:56 02/15/20 18 IUD Removal completed Stacy Wright [place] - [facility] 02/14/2018 08:26:25 02/15/20 18 IUD Removal completed Funmilayo Rodriguez APRN [address], [place], [address], [place] [facility] 02/14/2018 08:49:02 12/07/19 18 Date of Last Pap Smear completed Funmilayo Rodriguez APRN [address], [place], [address], [place] [facility] 12/18/2017 09:47:47 01/11/20 17 Colposcopy completed Funmilayo Rodriguez APRN [address], [place], [address], [place] [facility] 01/10/2017 16:14:59 01/11/20 17 Colposcopy completed Funmilayo Rodriguez APRN [address], [place], [address], [place] [facility] 01/16/2017 09:28:07 08/26/20 15 [...] Name and Address Organization Details Recorded Time 76081 Substance with sulfonami de structure and antibacte rial mechanism of action (substanc e) medicatio n Not available Not available Not available 06/15/20162014 28071 8003 SNOMED Not Available Replaced by [facility] 6 08:13:49 15962 Product containin g penicilli n (product) medicatio n Not available Not available Not available 06/15/20162014 22369 8001 SNOMED Not Available Replaced by [facility] 6 10:35:43 Medications Name Sig Start Date [...] Updated DateTime 12/06/2017 168.91 cm 21.1 kg/m2 92001.79 g 122/60 mm[Hg] Crystal Willard [place] - [facility] 12/06/2017 08:41:47 Date Recorded Body height Body mass index (BMI) Body weight Systolic And Diastolic Provider Name and Address Organization Details Last Updated DateTime 01/31/2018 168.91 cm 21.1 kg/m2 59717.79 g 118/60 mm[Hg] Crystal Willard [place] - [facility] 01/31/2018 08:20:03 Date Recorded Body mass index (BMI) Body weight Systolic And Diastolic Provider Name and Address Organization Details Last Updated DateTime 02/14/2018 21.1 kg/m2 41668.79 g 116/72 mm[Hg] Stacy Wright [place] - [facility] 02/14/2018 08:23:42 Date Recorded Body height Provider Name an d Address Organization Details Last Updated DateTime 02/14/2018 168.91 cm Stacey Chicas [place] - [facility] 02/15/20 18 08:19:06 Date Recorded Body height Body mass index (BMI) Body weight Systolic And Diastolic Provider Name and Address Organization Details Last Updated DateTime 06/13/2017 168.91 cm 20.4 kg/m2 62997.82 g 130/88 mm[Hg] Crystal Sudheer [place] - [facility] 06/13/2017 10:59:37 Date Recorded Body height Body mass index (BMI) Body weight Systolic And Diastolic Provider Name and Address Organization Details Last Updated DateTime 07/11/2023 167.64 cm 28.2 kg/m2 28833.66 g 118/78 mm[Hg] Abraham Reardon [place] - [...] disease N Blood Diseases N Hyperthyroidism N Blood Transfusion N Rheumatoid arthritis N Erectile Dysfunction N amputation N Skin [...] colitis N Cerebrovascular Disease N Depression N Guillain-Sparks N Sleep Apnea N Aneurysm N Bronchitis [...] ICD10 Code Diagnosis IMO Codes Diagnosis Note [id number] [facility] [address] [place] [address] 08/08/2015 00:00:00 261002 [facility] [address] [place] [address] 08/26/2015 00:00:00 699679 [facility] [address] [place] [address] 10/20/2015 00:00:00 [id number] XIOMARA Marrero PACKING ATTENDANT [address] [place] [address] JOHN[place] Ayoub [address] 11/02/2016 12:35:19 11/02/2016 13:22:51 Routine gynecologic examination done 7586053208 91 Z01.419 Depression screening 171 343278 Z13.89 Hypertensi on screening 268440362 Z13.6 Screening for malignant neoplasm of cervix 221492997 Z12.4 Diet education 31947385 Z71.3 Encourage healthy eating/dec reased fats, sugars, fried foods Counseling 015650147 Z71 .9 Encouraged regular exercise 30-40min/d ay 4-5 days/wk Contracept ion care management 469331932 Z30.[address] Vaccine de clined by patient 3565197231 02 Z28.21 Body mass index 20-24 - normal 582165640 Z68.21 [id number] XIOMARA Marrero PACKING ATTENDANT [address] [place] [address] JOHN[place] Ayoub [address] 12/06/2017 08:30:44 12/06/2017 09:05:31 Routine gynecologic examination done 4198741926 9101 Z01.419 Depression screening 171 958992 Z13.89 Hypertensi on screening 188383975 Z13.6 Screening for malignant neoplasm of cervix 248279017 Z12.4 Diet education 30909795 Z71.3 Encourage healthy eating/irizarry it fats, sugars, fried foods Counseling 208595772 Z71 .9 Encouraged regular exercise 30-40min/d ay 4-5 days/wk Contracept ion care management 477264579 Z30.[address] Body mass index 20-24 - normal 478277548 Z68.21 Dysmenorrhea 450860730 N 94.6 Irregular periods 984638 07 N92.6 [id number] XIOMARA Marrero PACKING ATTENDANT [address] [place] [address] JOHN[place] Ayoub [address] 01/10/2017 14:21:53 01/10/2017 15:27:35 Low grade squamous intraepithelial lesion on cervical Papanicolaou smear 9161574301 9105 R87.092 [id number] XIOMARA Marrero PACKING ATTENDANT [address] [place] [address] JOHN[place] Ayoub [address] 06/13/2017 10:51:39 06/13/2017 11:26:11 Increased frequency of urination 675472291 R35.0 Acute urin mata tract infection 160169808 N39.0 [id number] XIOMARA Marrero PACKING ATTENDANT [address] [place] [address] [place] A[place] [address] 01/31/2018 08:08:33 01/31/2018 08:31:32 Pain in pelvis 02227705 R10.2 Uses IUD (intrauterine device) contraception 068773941 Z97.5 [id number] XIOMARA Marrero PACKING ATTENDANT [address] [place] [address] [place] A[place]b [address] 02/14/2018 08:15:41 02/14/2018 08:50:53 Removal of intrauterine device 58024951 Z30.387 [id number] Denae Bar MD [facility] [employer] [address] [place] [address] [place]b [address] 07/11/2023 09:33:45 07/11/2023 10:45:47 Missed miscarriage 91898930 O02.1 Recurrent miscarriage 10 2183951 N96 Health Concerns Section Related Observation LastModified by Organization Detai ls LastModified Time None Recorded Concern Status LastModified by Organization Details LastModified Time None Recorded Advance Directives Directive N: Payers Insurance Date Sequence Insurance Name Policy Number Policy Gutierrez Covered Member ID Gutierrez Member ID Guarantor Name 11/09/2016 1 [facility] (MEDICAID HMO) Ellen Urban [id number] Ellen Urban 07/17/2023 1 [place] [id number] Ellen Urban [id number] Ellen Youngbloodn 06/11/2018 [place] [facility] (MEDICAID) Ellen Urban [id number] Ellen Urban 06/11/2018 2 [employer]SP[employer]. (MEDICAID REPLACEMENT - HMO) MEDICAID Ellen Youngbloodn [id number] Ellen Urban Notes Date Note Type Note [...] reportsmovement (up on her feet). Funmilayo Rodriguez, BREEDING TECHNICIAN [address], [place], [address], [place] [facility] 06/13/2017 11:28:37 12/07/19 18 [...] has also c/o more acne.She is working shift mgr at . Funmilayo Rodriguez APRN [address], [place], [address], [place] [facility] 12/06/2017 09:12:50 02/01/20 18 text/htm l ELIZABETH as noted in the HPI Patient is an established patient who presents for follow up on dysmenorrhea. 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 Funmilayo Rodriguez APRN [address], [place], [address], [place] [facility] 01/31/2018 08:37:20 02/15/20 18 text/htm l Ellen is here today for IUD removal Funmilayo Rodriguez APRN [address], [place], [address], [place] [facility] 02/14/2018 08:49:13 07/11/20 23 text/htm l ELIZABETH as noted in the HPI Ellen is a 28 yo who presents today for second opinion. She has been following with [facility] for early . 06/11 she went [...] facility showing these ultrasounds. Denae Bar MD [facility] [address], [place], [address], [place] [facility] 07/11/2023 10:57:03 OBGyn Episode Ob Episode Information Episode Created Date Number of Fetuses Patient Bloodtype Patient rh Status Prepregnancy Weight lbs Domestic Partner Domestic Partner Phone Father Name Cold Strip Feeder Status 07/11/20 1 CLOSED Fetus Data First [...] Domestic Partner Domestic Partner Phone Father Name Cold Strip Feeder Status 07/11/20 23 1 CLOSED Fetus Data [...]
--- OUTSIDE RECORDS SUMMARY | 2025-07-15 00:48 | XMS_ITS | Patient Health Record ---
Author Organization Formerly [facility] Address [address] [facility] [address] [place] [id number] Care Team Providers Care Commercial Food Instructor Name Role Phone Julia Jordan Primary Care Provider [phone] Nate Patel Unavailable [phone] Ivet Jacques Unavailable [phone] Allergies Allergen (clinical drug ingredient) Drug/Non Drug [...] Interpretation:neg Performing Lab: Notes/Report: neg Result: neg Rapid Strep- Inhouse Reviewed date:02/12/2025 03:41:31 PM [...] Interpretation:nothing acute Performing Lab: Notes/Report: nothing acute CBC Fingerstick (in house) Reviewed date:02/05/2025 12:35:51 [...] - 38 plat 208 100 - 400 Reason For Referral No Information Medications Medication SIG (Take, Route, Frequency, Duration) Notes Start Date End Date Status Sertraline HCl 50 MG 1 tablet Orally Once a day Active (w/Iron & FA) 27-0.8 MG 1 tablet Orally Once a day; Duration: 30 day(s) Active Immunizations Vaccine Route Administration Date Status Comme nts Varivax Unknown 06/02/1996 Administered Tetanus Tdap-Adacel (over 7yrs) Unknown 04/17/2006 Admi nistered MMR Unknown 05/07/1996 Administered MMR Unknown 02/02/1999 Administered Fluzone PF Quad (6-35 months) Unknown 11/22/2018 Admini stered COVID 19 Pfizer Unknown 07/06/2021 Administered Problems Problem Type SNOMED Code ICD Code Onset Dates Problem Status W/U Status Risk Notes Problem Scoliosis (098187367) Scoliosis (737.43) Active confirmed Problem Gastroesophageal reflux disease (009181120) GERD (gastroesophag eal reflux disease) (K21.9) Active confirmed Problem Otitis externa (7719977) Otitis externa (H60.90) Active confirmed Problem Sciatica (76390187) Sciatic leg pain (M54.30) Active confirmed Problem Posttraumatic stress disorder (66247072) PTSD (post-traumati c stress disorder) (F43.10) Active confirmed Problem Adjustment disorder with mixed emotional features (96005350) 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 9 [facility] [address] [facility] [address] [place], [place] [id number] 02/11/2025 R Christopher Jordan Acute pharyngitis J0 2.9 and BMI 28.0-28.9,adult Z68.28 [facility] [address] [place], [place] [id number] 04/26/2025 Nate Ovid Other chest pain R07 .89 and BMI 28.0-28.9,adult Z68.28 [facility] [address] [facility] [address] [place], [place] [id number] 05/12/2025 Ivet Jacques PTSD (post-traumatic stress disorder) F43.10 [facility] [address] [facility] [address] [place], [place] [id number] 06/02/2025 Ivet Jacques PTSD (post-traumatic stress disorder) F43.10 and Situational mixed anxiety and depressive disorder F43.23 [facility] [address] [facility] [address] [place] [id number] 06/16/2025 Ivet Jacques PTSD (post-traumatic stress disorder) F43.10 and BMI 29.0-29.9,adult Z68.29 [facility] [address] [place] [id number] 06/30/2025 Ivet Jacques PTSD (post-traumatic stress disorder) F43.10 [facility] [address] [place] [id number] 05/17/2025 Julia Jordan [facility] [address] [place], [place] [id number] 05/24/2025 Ivet Jacques Assessments Encounter Date Diagnosis (ICD Code) Assessment Notes Treatment Notes Treatment Clinical Notes Section Notes 06/30/2025 PTSD (post-traumatic stress disorder) (ICD-10 - F43.10) Can return to work on Saturday. 06/16/2025 BMI 29.0-29.9,adult (ICD-10 - Z68.29) 06/16/2025 PTSD (post-traumatic stress disorder) (ICD-10 - F43.10) Headaches were likely from new . She would like to go back on the sertraline. Will remain off work for 2 weeks and f/u. 06/02/2025 PTSD (post-traumatic stress disorder) (ICD-10 - F43.10) 06/02/2025 Situational mixed anxiety and depressive disorder (ICD-10 - F43.23) Will need to remain off work until f/u 05/12/2025 PTSD (post-traumatic stress disorder) (ICD-10 - F43.10) 04/26/2025 Other chest pain (ICD-10 - R07.89) 04/26/2025 BMI 28.0-28.9,adult (ICD-10 - Z68.28) 02/11/2025 Acute pharyngitis (ICD-10 - J02.9) 02/11/2025 BMI 28.0-28.9,adult (ICD-10 - Z68.28) 02/04/2025 Gastroenteritis (ICD-10 - K52.9) fluids, rest, supportive measures 10/16/2024 Acute URI (ICD-10 - J06.9) fluids, rest, supportive measures for fever/symptom relief Plan Of Treatment Next Appt Details Provider Name:Ivet alicea, 12/29/2025 10:30:00 AM, [address], [place], [id number], Insurance Providers Payer Name Payer Address Payer Phone Subscriber Number Group Number Insured Name Patient Relationship to Insured Coverage Start Date Coverage End Date [employer] [address] [place] [address] [id number] Ellen Medley Self - patient is the insured [facility] [address] [place], [place] [id number] Ellen Medley Self - patient is the insured Medications Administered Medication Instructions Date of Administration Dosage Notes Dexamethasone 07/25/2020 1 mL Medical (General) History Surgical History Surgery Date(Month/Year) Hospitalization History Reason Date(Month/Year)
--- NOTE | 2025-07-15 00:50 | HMH.EDGENADL ---
Discharge Plan Disposition Patient Disposition: Home, Self-Care Prescriptions Prescriptions: New doxylamine-pyridoxine (vit B6) 10-10 mg tablet,delayed release (DR/EC) 1 tab PO DAILY Qty: 30 0RF ondansetron HCl 4 mg tablet 4 mg PO Q8H PRN (Reason: nausea and vomiting) 5 Days Qty: 30 0RF No Action Vitamin 27 mg iron- 800 mcg tablet 1 tab PO DAILY Patient Comments: TAKE ONE TABLET BY MOUTH EVERY DAY nitrofurantoin monohyd/m-cryst [Macrobid] 100 mg capsule 100 mg PO BID 7 Days Qty: 14 0RF Rx Instructions: must administer with a meal/food Vitafol Gummies 3.33 mg iron- 0.33 mg tablet,chewable 3 tab PO DAILY Qty: 90 2RF Referrals Follow up/Referrals: Nate Patel MD [Primary Care Provider, Medical] - See instructions Activity Restrictions/Add. Instructions Additional Instructions/Restrictions: Recommend using the Unisom and B6 for nausea and vomiting. You can take the Zofran if the Unisom B6 is not working well. Recommend following up with your SENIOR COST ESTIMATOR for further assessment. Please follow-up with your primary care provider. Please return to the emergency department if you develop any new or worsening symptoms or become concerned for your health. Clinical Impressions Clinical Impression: Nausea and vomiting during , Abdominal pain Instructions Patient Instructions: DI for Acute Abdominal Pain Print Language Print Language: Estonian Discharge ED Provider: Kumar Godfrey General Adult HPI General Chief complaint: Abdominal Pain Stated complaint: abd pain, vomiting, 8 wks antepartum, UTI Time Seen by Provider: 07/15/25 00:45 History of Present Illness HPI narrative: 30-year-old female, 8 weeks , presents for nausea vomiting and abdominal pain. She reports that she has been having difficulty keeping food and water down over the last week or so. She was diagnosed with a urinary tract infection and is still on Macrobid for treatment. She reports that she never typically has symptoms when she gets UTIs. She has been intermittently having right sided abdominal pain that radiates to the back. She had a ultrasound done a few days ago which showed a nam intrauterine . She denies any fever but does report intermittent chills. No history of kidney stone. She denies any vaginal bleeding or discharge. Related Data Home Medications ?Medication ?Instructions ?Recorded ?Confirmed vits no.130-ferrous fum 1 tab PO DAILY 03/04/24 07/15/25 27 mg iron-folic acid 800 mcg tablet ( Vitamin) Previous Rx's ?Medication ?Instructions ?Recorded vits 112-iron 3.33 3 tab PO DAILY #90 tabs 07/07/25 mg-folate 0.33 [id number] chew tablet (Vitafol Gummies) nitrofurantoin 100 mg PO BID 7 days #14 caps 07/09/25 monohydrate/macrocrystals 100 mg capsule (Macrobid) doxylamine 10 mg-pyridoxine (vit 1 tab PO DAILY #30 tabs 07/15/25 B6) 10 mg tablet,delayed release ondansetron HCl 4 mg tablet 4 mg PO Q8H PRN nausea and 07/15/25 vomiting 5 days #30 tabs Allergies Allergy/AdvReac Type Severity Reaction Status Date / Time Penicillins Allergy Intermediate Hives Verified 07/06/25 15:07 Sulfa (Sulfonamide Allergy Intermediate Hives Verified 07/06/25 15:07 Antibiotics) [facility] Disclaimer: The information contained in this section may have been updated after the patient was seen, as this information can be updated by other users. Medical History Early stage of Encounter for supervision of normal , unspecified, unspecified trimester Contraceptive management Encounter for routine gynecological examination Sciatica Preeclampsia Status post normal vaginal delivery LGA (large for gestational age) fetus Dysuria during History of miscarriage x 2 Rh negative state in antepartum period Nausea and vomiting during Complete PTSD (post-traumatic stress disorder) Surgical History H/O dilation and curettage History of wisdom tooth extraction Family History Grandmother Heart attack Father Hypertension Mother Thyroid disorder Social History Smoking Status: Never smoker alcohol intake: never substance use type: denies use current occupational status: employed Travel in the last 8 weeks?: None household members: family housing: house number of children: 1 Have you lived/traveled outside US in past 30 days?: No Contact w/someone who lives/traveled outside US past 30 days?: No Exposure to someone with infectious disease in past 14 days?: No Do you have a fever (greater than 100.4 F or 38 C)?: No Have you tested positive for COVID-19?: No Exposed to someone with COVID-19 in past 14 days?: No Do you have a sore throat?: No Do you have a cough?: No Do you have any weakness?: No Do you have any diarrhea?: No Are you experiencing any unusual bleeding?: No Do you have any muscle aches/pain?: No Do you have any abdominal pain?: Yes Are you experiencing loss of taste or smell?: No Other Medical History Have you received the Flu Vaccine for this season: No Have you received the Pneumonia Vaccine: No ROS Obtained: Yes All systems reviewed & no additional complaints except as documented Physical Exam General General appearance: alert and in no apparent distress Head Head exam: atraumatic and normocephalic Eye Eye exam: Present normal appearance, PERRL and EOMI ENT ENT exam: Present normal oropharynx and normal external ear exam Neck Neck exam: Present normal inspection and full ROM Chest Chest inspection: Present normal inspection and symmetric chest wall rise; Absent tenderness Respiratory Respiratory exam: Present normal lung sounds bilaterally; Absent respiratory distress Cardiovascular Cardiovascular exam: Present regular rate and normal rhythm Abdominal Exam Abdominal exam: Present soft; Absent distention, tenderness or guarding Extremities Exam Extremities exam: Present normal inspection; Absent edema or joint swelling Back Exam Back exam: Present normal inspection and CVA tenderness (R) Neurological Exam Neurological exam: Present alert and oriented X3; Absent motor sensory deficit Psychiatric Psychiatric exam: Present normal affect and normal mood Skin Skin exam: Present warm, dry and normal color Lymphatic Lymphatic Findings: no adenopathy Medical Decision Making Medical Records Medical records reviewed: Yes I reviewed the patient's medical records. Screening: Per USPSTF and CDC recommendations, given the prevalence of disease in our region, it is our hospital?s policy to screen for HIV and viral Hepatitis for all patients aged 18 and over and those with ongoing risk factors. [place] Inquiry Pt receiving controlled substance: No [place] was queried for this patient: No Vital Signs: 07/15/25 00:43 07/15/25 00:56 07/15/25 00:57 Temperature 98.6 F Temperature Source Oral Pulse Rate 76 79 Pulse Rate [Left Radial] 75 Respiratory Rate 16 Blood Pressure Blood Pressure [Right Arm] 165/86 H Blood Pressure Mean Blood Pressure Mean [Right Arm] 112 Blood Pressure Source Blood Pressure Source [Right Arm] Automatic Cuff Blood Pressure Position Blood Pressure Position [Right Arm] Sitting 02 Sat by Pulse Oximetry 100 99 Oxygen Delivery Method Room Air 07/15/25 00:57 07/15/25 01:00 07/15/25 01:00 Temperature Temperature Source Pulse Rate 83 Pulse Rate [Left Radial] Respiratory Rate Blood Pressure 147/93 H 134/94 H Blood Pressure [Right Arm] Blood Pressure Mean 111 114 Blood Pressure Mean [Right Arm] Blood Pressure Source Blood Pressure Source [Right Arm] Blood Pressure Position Blood Pressure Position [Right Arm] 02 Sat by Pulse Oximetry 100 Oxygen Delivery Method 07/15/25 01:03 07/15/25 01:03 07/15/25 01:05 Temperature Temperature Source Pulse Rate 85 76 Pulse Rate [Left Radial] Respiratory Rate Blood Pressure 144/90 H Blood Pressure [Right Arm] Blood Pressure Mean 108 Blood Pressure Mean [Right Arm] Blood Pressure Source Blood Pressure Source [Right Arm] Blood Pressure Position Blood Pressure Position [Right Arm] 02 Sat by Pulse Oximetry 92 L 99 Oxygen Delivery Method 07/15/25 01:06 07/15/25 01:07 07/15/25 01:09 Temperature Temperature Source Pulse Rate 79 Pulse Rate [Left Radial] Respiratory Rate Blood Pressure 150/96 H 150/86 H Blood Pressure [Right Arm] Blood Pressure Mean 114 107 Blood Pressure Mean [Right Arm] Blood Pressure Source Blood Pressure Source [Right Arm] Blood Pressure Position Blood Pressure Position [Right Arm] 02 Sat by Pulse Oximetry 99 Oxygen Delivery Method 07/15/25 01:35 07/15/25 01:35 07/15/25 01:38 Temperature Temperature Source Pulse Rate 63 67 Pulse Rate [Left Radial] Respiratory Rate Blood Pressure 120/79 Blood Pressure [Right Arm] Blood Pressure Mean 86 Blood Pressure Mean [Right Arm] Blood Pressure Source Blood Pressure Source [Right Arm] Blood Pressure Position Blood Pressure Position [Right Arm] 02 Sat by Pulse Oximetry 99 100 Oxygen Delivery Method 07/15/25 01:39 07/15/25 01:42 07/15/25 01:42 Temperature Temperature Source Pulse Rate 81 Pulse Rate [Left Radial] Respiratory Rate Blood Pressure 121/75 125/82 Blood Pressure [Right Arm] Blood Pressure Mean 85 92 Blood Pressure Mean [Right Arm] Blood Pressure Source Blood Pressure Source [Right Arm] Blood Pressure Position Blood Pressure Position [Right Arm] 02 Sat by Pulse Oximetry Oxygen Delivery Method 07/15/25 01:45 07/15/25 01:45 07/15/25 01:48 Temperature Temperature Source Pulse Rate 65 62 Pulse Rate [Left Radial] Respiratory Rate Blood Pressure 124/86 Blood Pressure [Right Arm] Blood Pressure Mean 96 Blood Pressure Mean [Right Arm] Blood Pressure Source Blood Pressure Source [Right Arm] Blood Pressure Position Blood Pressure Position [Right Arm] 02 Sat by Pulse Oximetry 100 100 Oxygen Delivery Method 07/15/25 01:48 07/15/25 01:51 07/15/25 01:51 Temperature Temperature Source Pulse Rate 64 Pulse Rate [Left Radial] Respiratory Rate Blood Pressure 126/82 128/85 Blood Pressure [Right Arm] Blood Pressure Mean 95 99 Blood Pressure Mean [Right Arm] Blood Pressure Source Blood Pressure Source [Right Arm] Blood Pressure Position Blood Pressure Position [Right Arm] 02 Sat by Pulse Oximetry 100 Oxygen Delivery Method 07/15/25 01:54 07/15/25 01:54 07/15/25 01:57 Temperature Temperature Source Pulse Rate 66 76 Pulse Rate [Left Radial] Respiratory Rate Blood Pressure 129/86 Blood Pressure [Right Arm] Blood Pressure Mean 100 Blood Pressure Mean [Right Arm] Blood Pressure Source Blood Pressure Source [Right Arm] Blood Pressure Position Blood Pressure Position [Right Arm] 02 Sat by Pulse Oximetry 100 100 Oxygen Delivery Method 07/15/25 01:57 07/15/25 02:00 07/15/25 02:00 Temperature Temperature Source Pulse Rate 66 Pulse Rate [Left Radial] Respiratory Rate Blood Pressure 137/90 129/73 Blood Pressure [Right Arm] Blood Pressure Mean 100 97 Blood Pressure Mean [Right Arm] Blood Pressure Source Blood Pressure Source [Right Arm] Blood Pressure Position Blood Pressure Position [Right Arm] 02 Sat by Pulse Oximetry 100 Oxygen Delivery Method 07/15/25 02:15 Temperature 98.6 F Temperature Source Oral Pulse Rate 73 Pulse Rate [Left Radial] Respiratory Rate 16 Blood Pressure 129/73 Blood Pressure [Right Arm] Blood Pressure Mean Blood Pressure Mean [Right Arm] Blood Pressure Source Automatic Cuff Blood Pressure Source [Right Arm] Blood Pressure Position Supine Blood Pressure Position [Right Arm] 02 Sat by Pulse Oximetry Oxygen Delivery Method Room Air Lab Data Lab results reviewed: Yes I reviewed the patient's lab results. Lab Results 07/15/25 00:50: Urine Color Yellow, Urine Appearance Clear, Urine pH 5.5, Ur Specific [place] 1.010, Urine Protein Negative, Urine Glucose (UA) Negative, Urine Ketones Negative, Urine Blood Negative, Urine Nitrate Negative, Urine Bilirubin Negative, Urine Urobilinogen 0.2, Ur Leukocyte Esterase Negative 07/15/25 01:00: WBC 9.2, RBC 4.46, Hgb 14.3, Hct 42.1, MCV 94.4, MCH 32.1 H, MCHC 34.0, RDW 12.9, Plt Count 304, MPV 11.0 H, Neut % (Auto) 73.5, Lymph % (Auto) 19.2, [place] % (Auto) 6.2, Eos % (Auto) 0.5, Baso % (Auto) 0.3, Neut # (Auto) 6.8, Lymph # (Auto) 1.8, [place] # (Auto) 0.6, Eos # (Auto) 0.1, Baso # (Auto) 0.0, Sodium 136, Potassium 3.5, Chloride 99, Carbon Dioxide 26, Anion Gap 14.5, BUN 8, Creatinine 0.60, Estimated Creat Clear 177, Estimated GFR 117, Est GFR ( Amer) 142, Glucose 93, Calcium 9.4, Magnesium 1.8, Total Bilirubin 0.8, AST 27, ALT 20, Alkaline Phosphatase 176 H, Total Protein 8.8 H, Albumin 5.6 H, Globulin 3.2, Albumin/Globulin Ratio 1.8, Lipase 106, HCG, Quant [id number] H 07/15/25 01:00 07/15/25 01:00 Orders (Tests/Meds): ED MEDICATIONS Discontinued Medications Generic Name Dose Route Start Last Admin Trade Name Freq PRN Reason Stop Dose Admin Acetaminophen 1,000 mg 07/15/25 00:54 07/15/25 01:05 Acetaminophen 500mg Tab PO 07/15/25 00:55 1,000 mg ONCE ONE Administration Lactated Ringer's 1,000 mls @ 999 mls/hr 07/15/25 01:00 07/15/25 02:13 Lactated Ringer's 1000 Ml Bag IV 07/15/25 02:00 Infused .Q1H1M TAYLOR Infusion Ondansetron HCl 4 mg 07/15/25 00:54 07/15/25 01:05 Ondansetron 4mg/2ml Vial IV 07/15/25 00:55 4 mg ONCE ONE Administration ORDERS Category Date Time Status Beta HCG, Quant [HCG,Quantitative] Stat Lab 07/15/25 01:00 Completed CBC w/Auto Diff [Complete Blood Count Auto Diff] Stat Lab 07/15/25 01:00 Completed CMP [Comprehensive Metabolic Panel] Stat Lab 07/15/25 01:00 Completed Lipase Stat Lab 07/15/25 01:00 Completed Magnesium Stat Lab 07/15/25 01:00 Completed UA [Urinalysis and Microscopic] Stat Lab 07/15/25 00:50 Completed Urine Chlam/Gono/Trich ([facility]) Stat Lab 07/15/25 00:50 Received Blood Culture Stat Micro 07/15/25 01:20 Received Urine Culture Stat Micro 07/15/25 00:50 Received Medical Decision Narrative: 30-year-old female, 8 weeks , known intrauterine , presents for nausea vomiting for the last week as well as intermittent right sided abdominal pain. History was obtained via interactive discussion with patient, chart review. On arrival, patient is [afebrile, hemodynamically stable, satting appropriately, alert, oriented x4, GCS 15], moving all extremities spontaneously. Full physical exam performed and significant for no significant abdominal tenderness, mild right flank tenderness Differential includes but is not limited to UTI, pyelonephritis, appendicitis, constipation, gastroenteritis, ovarian pathology, ectopic nausea vomiting and . Patient was given 1 L IV fluid bolus, Zofran, Tylenol for symptomatic management and correction of underlying abnormalities. Workup initiated including CBC CMP UA blood cultures. On re-evaluation, patient reports significant symptomatic improvement Laboratory workup independently interpreted by me and significant for urinalysis without evidence of infection, no significant electrolyte derangement or renal dysfunction, no leukocytosis. CT/MRI imaging of the abdomen was considered given concern for appendicitis and kidney stones. However, given no leukocytosis, no significant tenderness on exam and duration of symptoms, I think appendicitis is extremely unlikely and does not require further imaging at this time. No history of kidney stones and no noted blood in the urine to suggest kidney stones. Given patient history, exam and workup, patient's presentation most likely represents nausea vomiting associated . I prescribed patient Unisom and B6 and recommended she begin taking that for her nausea and vomiting. Also sent Zofran to take as needed if symptoms are not improved. Recommend she follow-up with her SENIOR COST ESTIMATOR for further assessment. Return precautions given. Procedures Risk/Benefits of Procedure(s) Were Explained: Yes Critical Care Critical Care Time Critical Care Time: No
[2025-07-15 01:00] LABS: Microscopic, Urine URINE MICROSCOPIC (MICROSCOPIC)
[2025-07-15] MEDS: ONDANSETRON 4MG/2ML VIAL 4 MG IV (01:05)
[2025-07-15] MEDS: LACTATED RINGERS 1000ML 1,000 ML 999 ML IV (01:05)
[2025-07-15] MEDS: ACETAMINOPHEN 500MG TAB 1000 MG PO (01:05)
[2025-07-15 01:11] LABS: Hematocrit 42.1 % (37.0-47.0); Hemoglobin 14.3 g/dL (12.2-16.2); Immature Granulocytes % 0.3 %; Mean Corpuscular HGB Conc 34.0 g/dL (31.8-35.4); Mean Corpuscular Hemoglobin 32.1 pg (27.0-31.2); Mean Corpuscular Volume 94.4 fl (81-99); Nucleated Red Blood Cells % 0 %; Platelet Count 304 K/mm3 (142-424); Red Blood Count 4.46 M/mm3 (4.20-5.40); Red Cell Distribution Width-SD 44.4 fL; White Blood Count 9.2 K/mm3 (4.8-10.8)
[2025-07-15 01:13] LABS: Bilirubin,Urine Negative (Negative); Color,Urine YELLOW (Yellow); Glucose,Urine (UA) Negative (Negative); Ketones,Urine Negative (Negative); Leukocyte Esterase,Urine Negative (Negative); PH,Urine 5.5 (5.0-8.5); Protein,Urine Negative (Negative); Specific Gravity, Urine 1.010 (1.005-1.030); Urobilinogen,Urine 0.2 EU/dl (0.2)
[2025-07-15 01:20] LABS: Chloride 99 mmol/L (98-107)
[2025-07-15 01:21] LABS: Albumin Level 5.6 g/dl (3.5-5.0); Potassium 3.5 mmoL/L (3.5-5.1); Sodium 136 mmol/L (136-145)
[2025-07-15 01:23] LABS: Alanine Aminotransferase 20 U/L (12-78); Aspartate Amino Transferase 27 U/L (14-36); Blood Urea Nitrogen 8 mg/dl (7-17); Creatinine Clearance Estimated 177 mL/min (50-200); Creatinine,Serum 0.60 mg/dl (0.52-1.04); Estimated Glomerular Filt Rate 117 ml/min (>60); GFR (African American) 142 ML/MIN (>60)
[2025-07-15 01:24] LABS: Albumin/Globulin Ratio 1.8 (1.1-1.8); Alkaline Phosphatase 176 U/L (38-126); Anion Gap 14.5 mEq/L (5-15); Bilirubin,Total 0.8 mg/dl (0.2-1.3); Calcium 9.4 mg/dl (8.4-10.2); Carbon Dioxide 26 mmol/L (22.0-30.0); Globulin 3.2 g/dL (1.3-3.2); Glucose 93 mg/dl (74-100); Lipase 106 U/L (23-300); Magnesium 1.8 mg/dl (1.6-2.3); Total Protein,Serum 8.8 g/dl (6.3-8.2)
== END 2025-07-15 02:17 | disposition home or self-care (01) ==
PROVIDERS: Emergency Provider Emergency Medicine; PCP Family Medicine
DX: O21.9 Vomiting of pregnancy, unspecified (principal); O26.891 Other specified pregnancy related conditions, first trimester; R10.31 Right lower quadrant pain; Z3A.08 8 weeks gestation of pregnancy
CPT/HCPCS: 80053; 81001; 83690; 83735; 84702; 85025; 87040; 87086; 87491; 87591; 87661; 96361; 96374; 99284; 99285; J2405; J7120

== ENCOUNTER 2025-08-22 14:49 | Outpatient (CLI) | payer BC, OTHER, SELFPAY ==
--- OUTSIDE RECORDS SUMMARY | 2024-04-23 09:30 | XMS_ITS ---
[facility] Organization [facility] Address [address] [facility] [address] [place] [phone] Care Team Providers Care Central Supply Worker Name Role Phone Julia Jordan Primary Care Provider Ivet Jacques Unavailable [phone] Allergies Allergen (clinical drug ingredient) Drug/Non Drug Allergy documented on EMR Reaction Allergy Type Onset Date Status Substance with penicillin structure and antibacterial mechanism of action (substance) Penicillins Unknown Drug Allergy Active Substance with sulfonamide structure and antibacterial mechanism of action (substance) Sulfa Antibiotics Unknown Drug Allergy Active Results Component Value Reference Range Notes Urinalysis - Inhouse Reviewed date:04/23/2024 03:27:22 PM Interpretation: Performing Lab: Notes/Report: Color/Clarity dark yellow/clear Leuk neg Nitrite neg Urobili 3.2 Protein neg pH 7.0 Blood neg Sp. Gr. 1.020 Ketone 2+ Bili neg Gluc neg P-Culture, Urine Reviewed date:05/08/2024 03:38:54 PM Interpretation:No growth Performing Lab: Notes/Report: Test performed by [facility] [address] [place] [address] , [address], [place] [address] Feng Doan MD, Animal Control Officer CLIA: [id number] Specimen Source Urine - Void Culture, Urine See Below Final Report : No growth REASON FOR VISIT possible UTI Medications Medication SIG (Take, Route, Frequency, Duration) Notes Start Date End Date Status (w/Iron & FA) 27-0.8 MG 1 tablet Orally Once a day; Duration: 30 day(s) Active Pepcid 20 MG 1 tablet at bedtime as needed Orally Once a day; Duration: 30 day(s) 03/02/2024 Active Flonase Allergy Relief 50 MCG/ACT 1 spray in each nostril Nasally Once a day; Duration: 30 day(s) Active Vital Signs Blood pressure systolic 122 mm Hg 04/23/20 Blood pressure diastolic 68 mm Hg 024 Heart Rate 98 /min 04/23/2024 Height 66.50 in 04/23/2024 Weight 204 lbs 04/23/2024 BMI 32.43 kg/m2 04/23/2024 Encounters Encounter Location Date Provider Diagnosis [facility] [address] [place] [phone] 04/23/2024 Ivet Jacques Dysuria R30.0 Assessments Encounter Date Diagnosis (ICD Code) Assessment Notes Treatment Notes Treatment Clinical Notes Section Notes 04/23/2024 Dysuria (ICD-10 - R30.0) Will culture urine and increase water intake. Patient is and has been having some cramping but no bleeding. Will contact her OBGYN to report symptoms. Plan Of Treatment Treatment Notes Assessment Notes Dysuria Will culture urine a nd increase water intake. Patient is and has been having some cramping but no bleeding. Will contact her OBGYN to report symptoms. Next Appt Details Follow Up: via phone to repo rt test results, Reason: Provider Name:Ivet alicea, 12/29/2025 10:30:00 AM, [address], [address], [place], [phone], Progress Notes * Chloé MEDLEYB:1995 ( 30 yo F)Acc No.[id number]:04/23/2024 Progress Notes Patient: Ellen NUGENT Provider: JUAN Hernandez :1995 A ge:29 Y S ex:Female Date:04/23/2024 Address:[phone] Pcp:Julia Jordan Subjective: * Chief Complaints: * 1 . possible UTI. * HPI: U rology: 29 year old female presents with c/o flank pain P t complains of lower back pain for about 2 days, states that her urine is dark as well. * ROS: C ARDIOLOGY: no D izziness. n o C hest pain. D ERMATOLOGY: no R eugenia. n o H nnamdi. G ASTROENTEROLOGY: no N ausea. n o V omiting. * Medical History: M edical History Verified. * Surgical History: D enies Past Surgical History. * Hospitalization/Major Diagno stic Procedure: D enies Past Hospitalization. * Family History: F ather: alive 48 [...] 1 tablet Orally Once a day , Taking Pepcid 20 MG Tablet 1 tablet at bedtime as needed Orally Once a day , Discontinued Ciprofloxacin-dexAMETHasone 0.3-0.1 % Suspension 4 drops into left ear Otic Twice a day , Medication List reviewed and reconciled with the patient * Allergies: P enicillins, Sulfa Antibiotics. Objective: * Vitals: W t:204, Temp:98.0, BP:122/68, HR:98, Nurse:antonio, Ht: 66.50, BMI:32.43. * Examination: G eneral Examination: General Appearance: N AD. C hest: n ormal shape and expansion. H eart: R SR. L ungs: c lear to auscultation. A bdomen: , bowel sounds present, soft and nontender, no organomegaly or masses, no guarding or rigidity. Back: no CVA tenderness. Assessment: * Assessment: 1. D ysuria - R30.0 (Primary) Plan: * Treatment: Value Reference Range C ulture, Urine See Below - * S pecimen Source Urine - Void - * Ivet Jacques 04/27/2024 9: 45:27 PM > Please let patient know this showed no growthGoble,Moira 05/08/2024 3:38:36 PM > pt informed ?LAB: Urinalysis - Inhouse (Collection Date & Time - 04/23/2024)* Value Reference Range C olor/Clarity dark yellow/clear * L euk neg * N itrite neg * U robili 3.2 * P rotein neg * p H 7.0 * B lood neg * S p. Gr. 1.020 * K etone 2+ * B syed neg * G nelly neg * Charlotte Queen 04/23/2024 2:48:56 PM > , Provider reviewed results while patient in office.SawyerIvet Mays 04/23/2024 3:27:19 PM > Notes: Will culture urine and increase water intake. Patient is and has been having some cramping but no bleeding. Will contact her OBGYN to report symptoms.?? * Procedure Codes: 8 1002 Urinalysis, no micro * Follow Up: v ia phone to report test results * Images: Billing Information: * Visit Code: 15597 Office Visit, Est Pt., Level 3. * Procedure Codes: 52283 Urinalysis, no micro. * Electronic signature of JUAN Chu on 08/22/2025 at 02:56 PM EST Sign off status: Pending * Provider: JUAN Hernandez Date: 0 04/23/2024 Generated for Chaimi ng/Fadahianag/eTransmitting on: 1 10/23/2024 02:56 PM EST History and Physical Notes * HPI (History of Present Illness) Category Sub-Category Detail Notes Category Not es Urology flank pain Pt complains of lower back pain for about 2 days, states that her urine is dark as well Examination Category Sub-Category Detail Notes Category Not es General Examination Heart: RSR Lungs: clear to auscultatio n Abdomen: , bowel soun ds present, soft and nontender, no organomegaly or masses, no guarding or rigidity General Appearance: NAD Back: no CVA tenderness Chest: normal shape and exp ansion
--- OUTSIDE RECORDS SUMMARY | 2024-10-16 10:15 | XMS_ITS ---
Author Organization [facility] Address [address] [facility] [address] [place] [id number] Care Team Providers Care Car Rider Name Role Phone Julia Jordan Primary Care Provider Nate Patel Unavailable [phone] Allergies Allergen (clinical drug ingredient) Drug/Non Drug [...] 10/16/2024 Encounters Encounter Location Date Provider Diagnosis [facility] [address] [facility] [address] [facility] [address] [place], [place] [id number] 10/16/2024 Nate Patel Acute URI J06.9 Assessments [...] Provider Name:Ivet alicea, 12/29/2025 10:30:00 AM, [address] [facility] [address] [facility], [address], [place], [place], [id number], Progress Notes * Lionel MEDLEYTrang:1995 ( 30 yo F)Acc No.[id number]:10/16/2024 Progress Notes Patient: Ellen NUGENT Provider: Vic Patel M.D. :1995 A ge:29 Y S ex:Female Date:10/16/2024 Address:[address] [address], [place], [id number] Pcp:Julia Jordan Subjective: * Chief Complaints: [...] Procedure Codes: 3 6416 CAPILLARY BLOOD DRAW, 42692 CBC WITH AUTO DIFF, 86291 COVID TEST IN HOUSE, Modifiers: QW , 16433 Flu Test- Nasal Swab, Modifiers: QW * Follow Up: p rn * Images: Billing Information: * Visit Code: 63723 Office Visit, Est Pt., Level 3. * Procedure Codes: 59377 CAPILLARY BLOOD DRAW. 84780 CBC WITH AUTO DIFF. 08032 COVID TEST IN HOUSE. Modifiers: QW 98436 Flu Test- Nasal Swab. Modifiers: QW * Electronic signature of Mikki Patel MD on 08/22/2025 at 02:56 PM EST Sign off status: Pending * Provider: Vic Patel M.D. Date: 0 10/16/2024 Generated for Chris howard/Justin/eTbladimirsmitting on: 1 10/23/2024 02:56 PM EST History and Physical Notes * HPI (History of Present Illness) Category Sub-Category Detail Notes Category Not es ENT/respiratory cough Pt complains of dry without any sputum production cough for 2 days. Associated with dry, itchy throat Fever body aches
--- OUTSIDE RECORDS SUMMARY | 2025-02-04 10:45 | XMS_ITS ---
Author Organization [facility] Address [address] [facility] [address] [place] [id number] Care Team Providers Care Sand Sifter Name Role Phone Julia Jordan Primary Care Provider [phone] Ivet Jacques Unavailable [phone] Allergies Allergen (clinical drug ingredient) Drug/Non Drug Allergy documented on EMR Reaction Allergy Type Onset Date Status Substance with penicillin structure and antibacterial mechanism of action (substance) Penicillins Unknown Drug Allergy Active Substance with sulfonamide structure and antibacterial mechanism of action (substance) Sulfa Antibiotics Unknown Drug Allergy Active Results Component Value Reference Range Notes CBC Fingerstick (in house) Reviewed date:02/05/2025 12:35:51 AM Interpretation: Performing Lab: Notes/Report: wbc 7.5 3.5 - 10 lym 31.6 15 - 50 mid 6.4 2 - 15 gran 62.0 35 - 80 rbc 5.01 3.5 - 5.5 hgb 15.8 11.5 - 16.5 hct 47.6 35 - 55 mcv 95.0 75 - 100 mch 31.5 25 - 35 mchc 33.1 31 - 38 plat 208 100 - 400 REASON FOR VISIT Sore throat,vomiting and diarrhea Medications Medication SIG (Take, Route, Frequency, Duration) Notes Start Date End Date Status Ondansetron 4 MG 1 tablet on the tong ue and allow to dissolve Orally three times a day as needed 02/04/2025 Active (w/Iron & FA) 27-0.8 MG 1 tablet Orally Once a day; Duration: 30 day(s) Active Vital Signs Blood pressure systolic 118 mm Hg 02/05/20 25 Blood pressure diastolic 72 mm Hg 025 Heart Rate 93 /min 02/04/2025 Height 66.50 in 02/04/2025 Weight 175.6 lbs 02/04/2025 BMI 27.91 kg/m2 02/04/2025 Encounters Encounter Location Date Provider Diagnosis [facility] [facility] 36 [facility] [address] [place], [place] [id number] 02/04/2025 Ivet Sawyer Gastroenteritis K52. 9 Assessments Encounter Date Diagnosis (ICD Code) Assessment Notes Treatment Notes Treatment Clinical Notes Section Notes 02/04/2025 Gastroenteritis (ICD-10 - K52.9) fluids, rest, supportive measures Plan Of Treatment Medication Medication Name Sig Start Date Stop Date Notes Ondansetron 4 MG 1 tablet on the tong ue and allow to dissolve Orally three times a day as needed 02/04/2025 Treatment Notes Assessment Notes Gastroenteritis fluids, rest, suppor tive measures Next Appt Details Follow Up: prn, Reason: Provider Name:Ivet alicea, 12/29/2025 10:30:00 AM, [address] [facility] 36 [facility], [address], [place], [id number], Progress Notes * Lionel MEDLEYEmilyB:1995 ( 30 yo F)Acc No.[id number]:02/04/2025 Progress Notes Patient: Ellen NUGENT Provider: JUAN Hernandez :1995 A ge:30 Y S ex:Female Date:02/04/2025 Address:[id number] Pcp:Julia Jordan Subjective: * Chief Complaints: * 1 . Sore throat,vomiting and diarrhea. * HPI: E NT/respiratory: 30 year old female presents with c/o sore throat P t sts she is unsure if her throats due to her vomiting. c/o headache. G astroenterology: c/o Vomiting P t sts she has been having nasty burps and sts she is unsure what that is from . c/o Diarrhea. c/o appetite P t sts she has not eaten since Saturday. Pt's mom sts she does breastfeed so she has not really taken anything to try and help. Pt sts her symptoms started on Saturday morning. * ROS: D ERMATOLOGY: no R eugenia. n o H nnamdi. G ASTROENTEROLOGY: no N ausea. n o V omiting. U ROLOGY: no D ifficulty urinating. n o B lood in urine. * Medical History: M edical History Verified. * Family History: F ather: alive 49 [...] 1 tablet Orally Once a day , Medication List reviewed and reconciled with the patient * Allergies: P enicillins, Sulfa Antibiotics. Objective: * Vitals: W t: 175.6, Temp: 98.6, BP: 118/72, HR: 93, O2 Sat: 98% on RA, Nurse: [facility], Ht: 66.50, BMI:27.91. * Examination: G eneral Examination: General Appearance: N AD. H EENT: u nremarkable.?Oral cavity: n o lesions, mucosa moist and WNL, no erythema. N heaven: s upple, no lymphadenopathy. C hest: n ormal shape and expansion. H eart: R SR. L ungs: c lear to auscultation. A bdomen: b owel sounds present , soft and nontender. ? Assessment: * Assessment: 1. G astroenteritis - K52.9 (Primary) Plan: * Treatment: Value Reference Range w bc 7.5 3.5 - 10 * l ym 31.6 15 - 50 * m id 6.4 2 - 15 * g ran 62.0 35 - 80 * r bc 5.01 3.5 - 5.5 * h gb 15.8 11.5 - 16.5 * h ct 47.6 35 - 55 * m cv 95.0 75 - 100 * m ch 31.5 25 - 35 * m chc 33.1 31 - 38 * p lat 208 100 - 400 * Sheri Cabrera 02/04/2025 04:2 4:10 PM > Provider reviewed results while patient in office. Notes: fluids, rest, supportive measures?? * Procedure Codes: 3 6416 CAPILLARY BLOOD DRAW, 31616 CBC WITH AUTO DIFF * Follow Up: p rn * Images: Billing Information: * Visit Code: 04761 Office Visit, Est Pt., Level 3. * Procedure Codes: 98693 CAPILLARY BLOOD DRAW. 31936 CBC WITH AUTO DIFF. * Electronic signature of JUAN Chu on 08/22/2025 at 02:57 PM EST Sign off status: Pending * Provider: JUAN Hernandez Date: 0 02/04/2025 Generated for Chris howard/Justin/eTransmitting on: 1 10/23/2024 02:57 PM EST History and Physical Notes * HPI (History of Present Illness) Category Sub-Category Detail Notes Category Not es ENT/respiratory sore throat Pt sts she is un sure if her throats due to her vomiting headache Gastroenterology Vomiting Pt sts she has been having nasty burps and sts she is unsure what that is from Pt sts her symptoms started on Saturday morning Diarrhea appetite Pt sts she has not e aten since Saturday. Pt's mom sts she does breastfeed so she has not really taken anything to try and help Examination Category Sub-Category Detail Notes Category Not es General Examination HEENT: unremarkable Heart: RSR Lungs: clear to auscultatio n Abdomen: bowel sounds present , soft and nontender General Appearance: NAD Neck: supple, no lymphaden opathy Oral cavity: no lesions, mucosa m oist and WNL, no erythema Chest: normal shape and exp ansion
--- OUTSIDE RECORDS SUMMARY | 2025-02-11 10:30 | XMS_ITS ---
Author Organization [facility] Address [address] [place] [id number] Care Team Providers Care B And B Gang Worker Name Role Phone Julia Jordan Primary Care Provider [phone] Allergies Allergen (clinical drug ingredient) Drug/Non Drug Allergy documented on EMR Reaction Allergy Type Onset Date Status Substance with penicillin structure and antibacterial mechanism of action (substance) Penicillins Unknown Drug Allergy Active Substance with sulfonamide structure and antibacterial mechanism of action (substance) Sulfa Antibiotics Unknown Drug Allergy Active Results Component Value Reference Range Notes Rapid Strep- Inhouse Reviewed date:02/12/2025 03:41:31 PM Interpretation:neg Performing Lab: Notes/Report: neg strep test neg REASON FOR VISIT sore throat white patches in throat Medications Medication SIG (Take, Route, Frequency, Duration) Notes Start Date End Date Status Zithromax Z-Que 250 MG as directed Orally 02/12/20 25 Active Ondansetron 4 MG 1 tablet on the tong ue and allow to dissolve Orally three times a day as needed 02/04/2025 Active (w/Iron & FA) 27-0.8 MG 1 tablet Orally Once a day; Duration: 30 day(s) Active Vital Signs Blood pressure systolic 120 mm Hg 02/12/20 25 Blood pressure diastolic 80 mm Hg 025 Heart Rate 96 /min 02/11/2025 Height 66.50 in 02/11/2025 Weight 178.2 lbs 02/11/2025 BMI 28.33 kg/m2 02/11/2025 Encounters Encounter Location Date Provider Diagnosis [facility] [address] [facility] [address] [place] [id number] 02/11/2025 Julia Jodran Acute pharyngitis J02.9 and BMI 28.0-28.9,adult Z68.28 Assessments Encounter Date Diagnosis (ICD Code) Assessment Notes Treatment Notes Treatment Clinical Notes Section Notes 02/11/2025 Acute pharyngitis (ICD-10 - J02.9) 02/11/2025 BMI 28.0-28.9,adult (ICD-10 - Z68.28) Plan Of Treatment Medication Medication Name Sig Start Date Stop Date Notes Zithromax Z-Que 250 MG as directed Orally 02/11/2025 Next Appt Details Follow Up: prn, Reason: Provider Name:Ivet alicea, 12/29/2025 10:30:00 AM, 1210 [facility] 36 [facility], [address], [place], [phone], Progress Notes * SARAH ChloéB:1995 ( 30 yo F)Acc No.[id number]:02/11/2025 Progress Notes Patient: Ellen NUGENT Provider: Julia Jordan M.D. :1995 A ge:30 Y S ex:Female Date:02/11/2025 Address:[id number] Subjective: * Chief Complaints: * 1 . Sore throat white patches in throat. * HPI: E NT/respiratory: She returns from her office visit last week with persistent complaints of sore throat. Her vomiting and diarrhea have resolved but sore throat has persisted and she notes some swollen glands and pain radiating to her ears. No fever, nasal congestion, or cough. * ROS: D ERMATOLOGY: no R eugenia. [...] tablet Orally Once a day , Taking Ondansetron 4 MG Tablet Disintegrating 1 tablet on the tongue and allow to dissolve Orally three times a day as needed , Medication List reviewed and reconciled with the patient * Allergies: P enicillins, Sulfa Antibiotics. Objective: * Vitals: W t: 178.2, Temp: 98.5, BP: 120/80, HR: 96, Nurse: anya, Ht: 66.50, BMI:28.33. * Examination: G eneral Examination: S he appears in no distress. TMs are normal bilaterally. Nares patent. Oropharynx is erythematous. I do not appreciate any exudate or vesicles. Neck is supple with bilateral superior cervical tender adenopathy. Lungs are clear. Assessment: * Assessment: 1. A cute pharyngitis - J02.9 (Primary) 2 . B NC 28.0-28.9,adult - Z68.28? Plan: * Treatment: * Labs: * L ab: Rapid Strep- Inhouse (Collection Date & Time - 02/11/2025) n eg Value Reference Range s trep test neg * Sheri Cabrera 02/11/2025 03:39 :54 PM EDT > Provider reviewed results while patient in office. * Procedure Codes: 8 7880 STREP A ASSAY W/OPTIC, Modifiers: QW , 1036F TOBACCO NON-USER, G8420 BMI<30 AND >=22 CALC & DOCU, G8783 BP SCR PRFRM RCMDD DEFIND SCR INTVL, G8752 MOST RECENT SYSTOLIC BP < 140MM HG, G8754 MOST RECENT DIASTOLIC BP < 90MM HG * Follow Up: p rn * Images: Billing Information: * Visit Code: 07709 Office Visit, Est Pt., Level 4. * Procedure Codes: 41379 STREP A ASSAY W/OPTIC. Modifiers: QW 1036F TOBACCO NON-USER. G8420 BMI<30 AND >=22 CALC & DOCU. G8783 BP SCR PRFRM RCMDD DEFIND SCR INTVL. G8752 MOST RECENT SYSTOLIC BP < 140MM HG. G8754 MOST RECENT DIASTOLIC BP < 90MM HG. * Electronic signature of Julia Jordan MD on 08/22/2025 at 02:56 PM EST Sign off status: Pending * Provider: Julia Jordan M.D. Date: 0 02/11/2025 Generated for Chris howard/Justin/Rezaitting on: 1 10/23/2024 02:56 PM EST History and Physical Notes * Examination Category Sub-Category Detail Notes Category Not es General Examination She appe ars in no distress. TMs are normal bilaterally. Nares patent. Oropharynx is erythematous. I do not appreciate any exudate or vesicles. Neck is supple with bilateral superior cervical tender adenopathy. Lungs are clear.
--- OUTSIDE RECORDS SUMMARY | 2025-04-26 10:00 | XMS_ITS ---
Author Organization [facility] Address [address] [facility] [address] [place] [id number] Care Team Providers Care Community Support Specialist Name Role Phone Julia Jordan Primary Care Provider Nate Patel Unavailable [phone] Allergies Allergen (clinical drug ingredient) Drug/Non Drug [...] Encounters Encounter Location Date Provider Diagnosis [facility] [address] [place] [address] 36 [facility] [address] [place], [place] [id number] 04/26/2025 Nate Patel Other chest pain R07.89 [...] Name:Ivet alicea, 12/29/2025 10:30:00 AM, [facility] [address], [address], [place], [id number], Progress Notes * Martin MEDLEYKristaB:1995 ( 30 yo F)Acc No.[id number]:04/26/2025 Progress Notes Patient: Ellen NUGENT Provider: Vic Patel M.D. :1995 A ge:30 Y S ex:Female Date:04/26/2025 Address:[address] Pcp:Julia Jordan Subjective: * Chief Complaints: [...] pain - R07.89 (Primary) 2 . B PR 28.0-28.9,adult - Z68.28? Plan: * Treatment: Value [...] Procedure Codes: 3 6416 CAPILLARY BLOOD DRAW, 81432 CBC WITH AUTO DIFF, 1036F TOBACCO NON-USER, 3075F SYST BP GE 130 - 139MM HG, 3078F DIAST BP < 80 MM HG * Follow Up: v ia phone to report test results * Images: Billing Information: * Visit Code: 27436 Office Visit, Est Pt., Level 3. * Procedure Codes: 50972 CAPILLARY BLOOD DRAW. 91741 CBC WITH AUTO DIFF. 1036F TOBACCO NON-USER. 3075F SYST BP GE 130 - 139MM HG. 3078F DIAST BP < 80 MM HG. * Electronic signature of Mikki Patel MD on 08/22/2025 at 02:57 PM EST Sign off status: Pending * Provider: Vic Patel M.D. Date: 0 04/26/2025 Generated for Chris howard/Justin/eTbladimirsmitting on: 1 10/23/2024 02:57 PM EST History [...]
--- OUTSIDE RECORDS SUMMARY | 2025-05-12 09:30 | XMS_ITS ---
Author Organization [facility] Address [address] [facility] [address] [place] [id number] Care Team Providers Care Technical Photographer Name Role Phone Julia Jordan Primary Care Provider Ivet Jacques [phone] Allergies Allergen (clinical drug ingredient) Drug/Non Drug [...] 05/12/2025 Encounters Encounter Location Date Provider Diagnosis [place] [address] [facility] [address] [place] [phone] 05/12/2025 Ivet Jacques PTSD (post-traumatic stress disorder) [...] [address], [address], [place], [place], [id number], Progress Notes * Lionel MEDLEYEmilyB:1995 ( 30 yo F)Acc No.[id number]:05/12/2025 Progress Notes Patient: Ellen NUGENT Provider: JUAN Hernandez :1995 A ge:30 Y S ex:Female Date:05/12/2025 Address:[address] [address], [place], [place] Pcp:Julia Jordan Subjective: * Chief Complaints: [...] * Images: Billing Information: * Visit Code: 55127 Office Visit, Est Pt., Level 3. * Procedure Codes: * Electronic signature of JUAN Chu on 08/22/2025 at 02:57 PM EST Sign off status: Pending * Provider: JUAN Hernandez Date: 0 05/12/2025 Generated for Chris howard/Justin/eTbladimirsmitting on: 1 10/23/2024 [...]
--- OUTSIDE RECORDS SUMMARY | 2025-06-02 06:15 | XMS_ITS ---
Author Organization [facility] Address [address] [facility] [address] [place] [id number] Care Team Providers Care Registrar Assistant Name Role Phone Julia Jordan Primary Care Provider Ivet Jacques Unavailable [phone] Allergies Allergen (clinical drug ingredient) Drug/Non Drug [...] Encounter Location Date Provider Diagnosis [place] [address] [facility] 36 [facility] [address] [place] [id number] 06/02/2025 Ivet Jacques PTSD (post-traumatic stress disorder) [...] Provider Name:Ivetelan alicea, 12/29/2025 10:30:00 AM, [address] [facility] 36 [facility], [address], [place], [phone], Progress Notes * MEDLEYMartinKristaB:1995 ( 30 yo F)Acc No.[id number]:06/02/2025 Progress Notes Patient: Ellen NUGENT Provider: JUAN Hernandez :1995 A ge:30 Y S ex:Female Date:06/02/2025 Address:[phone] Pcp:Julia Jordan Subjective: * Chief Complaints: [...] * Images: Billing Information: * Visit Code: 97665 Office Visit, Est Pt., Level 3. * Procedure Codes: 1036F TOBACCO NON-USER. 3074F SYST BP LT 130 MM HG. 3078F DIAST BP < 80 MM HG. * Electronic signature of JUAN Chu on 08/22/2025 at 02:57 PM EST Sign off status: Pending * Provider: JUAN Hernandez Date: 0 06/02/2025 Generated for Chris howard/Justin/Gray on: 1 10/23/2024 02:57 PM EST History [...]
--- OUTSIDE RECORDS SUMMARY | 2025-06-16 06:30 | XMS_ITS ---
Author Organization [facility] Address [address] [facility] [address] [place] [phone] Care Team Providers Care Composition Roll Maker And Cutter Name Role Phone Julia Jordan Primary Care Provider Ivet Jacques [phone] Allergies Allergen (clinical drug ingredient) Drug/Non Drug Allergy documented on EMR Reaction Allergy Type Onset Date Status Substance with penicillin structure and antibacterial mechanism of action (substance) Penicillins Unknown Drug Allergy Active Substance with sulfonamide structure and antibacterial mechanism of action (substance) Sulfa Antibiotics Unknown Drug Allergy Active REASON FOR VISIT 2 weeks Medications Medication SIG (Take, Route, Frequency, Duration) Notes Start Date End Date Status (w/Iron & FA) 27-0.8 MG 1 tablet Orally Once a day; Duration: 30 day(s) Active Sertraline HCl 50 MG 1/2 tab daily x 2 w eeks, then 1 tab daily Orally Once a day Active Vital Signs Blood pressure systolic 142 mm Hg 06/16/20 25 Blood pressure diastolic 92 mm Hg 025 Heart Rate 114 /min 06/16/2025 Height 66.50 in 06/16/2025 Weight 183 lbs 06/16/2025 BMI 29.09 kg/m2 06/16/2025 Encounters Encounter Location Date Provider Diagnosis [place] [address] [facility] [address] [place] [id number] 06/16/2025 Ivet Jacques PTSD (post-traumatic stress disorder) F43.10 and BMI 29.0-29.9,adult Z68.29 Assessments Encounter Date Diagnosis (ICD Code) Assessment Notes Treatment Notes Treatment Clinical Notes Section Notes 06/16/2025 PTSD (post-traumatic stress disorder) (ICD-10 - F43.10) Headaches were likely from new . She would like to go back on the sertraline. Will remain off work for 2 weeks and f/u. 06/16/2025 BMI 29.0-29.9,adult (ICD-10 - Z68.29) Plan Of Treatment Medication Medication Name Sig Start Date Stop Date Notes Sertraline HCl 50 MG 1/2 tab daily x 2 w eeks, then 1 tab daily Orally Once a day Treatment Notes Assessment Notes PTSD (post-traumatic stress disorder) He adaches were likely from new . She would like to go back on the sertraline. Will remain off work for 2 weeks and f/u. Next Appt Details Follow Up: 2 Weeks, Reason: Provider Name:Ivet alicea, 12/29/2025 10:30:00 AM, [address] [facility] 36 [facility], [address] , [place], [place], [phone], Progress Notes * MEDLEYMartinKristaB:1995 ( 30 yo F)Acc No.[id number]:06/16/2025 Progress Notes Patient: Ellen NUGENT Provider: JUAN Hernandez :1995 A ge:30 Y S ex:Female Date:06/16/2025 [address] Pcp:Julia Jordan Subjective: * Chief Complaints: * 1 . 2 weeks. * HPI: P sychology: 30 year old female presents with c/o Anxiety P t here for a 2 week checkup on Anxiety. Pt states she has not been taking Escitalopram due to finding out she was recently. Pt states she does not know how she is feeling right now. * ROS: D ERMATOLOGY: no R eugenia. [...] tablet Orally Once a day , Discontinued Escitalopram Oxalate 5 MG Tablet 1 tablet Orally Once a day , Discontinued Sertraline HCl 100 MG Tablet 1 tablet Orally Once a day , Discontinued Sertraline HCl 50 MG Tablet 1/2 tab daily x 2 weeks, then 1 tab daily Orally Once a day , Discontinued Paxil 20 MG Tablet 1 tablet in the morning Orally Once a day , Medication List reviewed and reconciled with the patient * Allergies: P enicillins, Sulfa Antibiotics. Objective: * Vitals: W t: 183, Temp: 98.1, BP: 142/92, HR: 114, Nurse: antonio, Ht: 66.50, Repeat BP: 120/78, BMI:29.09. * Examination: P sychology: General Appearance: N AD. G rooming : a dequate.?Eye contact : n ormal. M ood : p leasant. H eart: R SR. L ungs: c lear to auscultation. N eurologic Exam: I ntact, gait normal. Assessment: * Assessment: 1. P TSD (post-traumatic stress disorder) - F43.10 (Primary) 2 . B MD 29.0-29.9,adult - Z68.29 Plan: * Treatment: * Procedure Codes: 1 036F TOBACCO NON-USER, 3074F SYST BP LT 130 MM HG, 3078F DIAST BP < 80 MM HG * Follow Up: 2 Weeks * Images: Billing Information: * Visit Code: 57126 Office Visit, Est Pt., Level 3. * Procedure Codes: 1036F TOBACCO NON-USER. 3074F SYST BP LT 130 MM HG. 3078F DIAST BP < 80 MM HG. * Electronic signature of JUAN Chu on 08/22/2025 at 02:56 PM EST Sign off status: Pending * Provider: UJAN Hernandez Date: Generated for Chris howard/Justin/Romesmeloisa on: 10/23/2024 02:56 PM EST History and Physical Notes * HPI (History of Present Illness) Category Sub-Category Detail Notes Category Not es Psychology Anxiety Pt here for a 2 week checkup on Anxiety. Pt states she has not been taking Escitalopram due to finding out she was recently. Pt states she does not know how she is feeling right now Examination Category Sub-Category Detail Notes Category Not es Psychology Heart: RSR Lungs: clear to auscultatio n General Appearance: NAD Neurologic Exam: Intact, gait normal Grooming : adequate Eye contact : normal Mood : pleasant
--- OUTSIDE RECORDS SUMMARY | 2025-06-30 05:30 | XMS_ITS ---
Author Organization [facility] Address [address] [place] [phone] Care Team Providers Care Administration Intern Name Role Phone Julia Jordan Primary Care Provider [phone] Ivet Jacques [phone] Allergies Allergen (clinical drug ingredient) Drug/Non Drug [...] Provider Diagnosis Paulette [address] [place] [phone] 06/30/2025 Ivet Jacques PTSD (post-traumatic stress disorder) [...] 12/29/2025 10:30:00 AM, [address] [facility] [address], [place], [place], [phone], Progress Notes * Lionel MEDLEYaDOB:1995 ( 30 yo F)Acc No.[id number]:06/30/2025 Patient: Ellen NUGENT Provider: JUAN Hernandez :1995 A ge:30 Y S ex:Female Date:06/30/2025 Address:[id number] Pcp:Julia Jordan Subjective: * Chief Complaints: [...] - F43.10 (Primary) Plan: * Treatment: * Procedure Codes: 1 036F TOBACCO NON-USER, 3074F SYST BP LT 130 MM HG, 3079F DIAST BP 80-89 MM HG * Follow Up: 6 Months * Images: Billing Information: * Visit Code: 86132 Office Visit, Est Pt., Level 3. * Procedure Codes: 1036F TOBACCO NON-USER. 3074F SYST BP LT 130 MM HG. 3079F DIAST BP 80-89 MM HG. * Electronic signature of JUAN Chu on 08/22/2025 at 02:56 PM EST Sign off status: Pending * Provider: JUAN Hernandez Date: Generated for Chris howard/Justin/eTransmitting on: 10/23/2024 02:56 PM EST History and Physical Notes * HPI (History of Present Illness) Category Sub-Category Detail Notes Category Not es Psychology Anxiety Pt here for [facility] on anxiety. Pt states she is doing okay. Pt states some days are better than others Examination Category Sub-Category Detail Notes Category Not es Psychology Heart: RSR Lungs: clear to auscultatio n General Appearance: NAD Grooming : adequate Eye contact : normal Mood : pleasant
--- OUTSIDE RECORDS SUMMARY | 2025-08-16 10:00 | XMS_ITS ---
Author Organization [facility] Address [address] [facility] [address] [place] [id number] Care Team Providers Care Clean Room Assembler Name Role Phone Julia Jordan Primary Care Provider Nate Patel Unavailable [phone] Allergies Allergen (clinical drug ingredient) Drug/Non Drug Allergy documented on EMR Reaction Allergy Type Onset Date Status Substance with penicillin structure and antibacterial mechanism of action (substance) Penicillins Unknown Drug Allergy Active Substance with sulfonamide structure and antibacterial mechanism of action (substance) Sulfa Antibiotics Unknown Drug Allergy Active Results Component Value Reference Range Notes CBC Fingerstick (in house) Reviewed date:08/16/2025 05:21:52 PM Interpretation: Performing Lab: Notes/Report: wbc 9.9 3.5 - 10 lym 20.0% 15 - 50 mid 5.5% 2 - 15 gran 74.5% 35 - 80 rbc 4.20 3.5 - 5.5 hgb 13.8 11.5 - 16.5 hct 40.1 35 - 55 mcv 95.5 75 - 100 mch 32.8 25 - 35 mchc 34.3 31 - 38 plat 148 100 - 400 REASON FOR VISIT sinuses, pain in face Medications Medication SIG (Take, Route, Frequency, Duration) Notes Start Date End Date Status Cefdinir 300 MG 1 capsule Orally twi ce a day; Duration: 7 days 08/16/2025 Active Ondansetron 4 MG 1 tablet on the tong ue and allow to dissolve Orally Once a day Active (w/Iron & FA) 27-0.8 MG 1 tablet Orally Once a day; Duration: 30 day(s) Not-Taking Reglan 10 MG 1 tablet before meal s Orally Twice a day Active Sertraline HCl 50 MG 1 tablet Orally Onc e a day Not-Taking Vital Signs Blood pressure systolic 126 mm Hg 08/16/20 25 Blood pressure diastolic 78 mm Hg 025 Heart Rate 91 /min 08/16/2025 Height 66.50 in 08/16/2025 Weight 191.6 lbs 08/16/2025 BMI 30.46 kg/m2 08/16/2025 Encounters Encounter Location Date Provider Diagnosis [facility] [address] [facility] [address] [facility] [address] [place] [id number] 08/16/2025 Nate Patel Acute non-recurrent maxillary sinusitis J01.00 Assessments Encounter Date Diagnosis (ICD Code) Assessment Notes Treatment Notes Treatment Clinical Notes Section Notes 08/16/2025 Acute non-recurrent maxillary sinusitis (ICD-10 - J01.00) Plan Of Treatment Medication Medication Name Sig Start Date Stop Date Notes Cefdinir 300 MG 1 capsule Orally twi ce a day; Duration: 7 days 08/16/2025 Next Appt Details Follow Up: via phone to repo rt progress, Reason: Provider Name:Ivet José nixon, 12/29/2025 10:30:00 AM, [address] [facility] [address] [facility], [place] [id number], Progress Notes * Lionel MEDLEYEmilyB:1995 ( 30 yo F)Acc No.[id number]:08/16/2025 Progress Notes Patient: Ellen NUGENT Provider: Vic Patel M.D. :1995 A ge:30 Y S ex:Female Date:08/16/2025 Address:[address] [address], [place], [id number] Pcp:Julia Jordan Subjective: * Chief Complaints: * 1 . Sinuses, pain in face. * HPI: E NT/respiratory: 30 year old female presents with c/o nasal congestion s tuffy in am and at night, off and on, runny nose, some blood, yellow drainage, green drainage. c/o ear pain P t states it's all on the left side of her face, stopped up, pressure. c/o headache p ressure like sensation, both sinuses. * Medical History: M edical History Verified. [...] ouside US: no. * Medications: T aking Ondansetron 4 MG Tablet Disintegrating 1 tablet on the tongue and allow to dissolve Orally Once a day , Taking Reglan 10 MG Tablet 1 tablet before meals Orally Twice a day , Not-Taking (w/Iron & FA) 27-0.8 MG Tablet 1 tablet Orally Once a day , Not-Taking Sertraline HCl 50 MG Tablet 1 tablet Orally Once a day , Medication List reviewed and reconciled with the patient * Allergies: P enicillins, Sulfa Antibiotics. Objective: * Vitals: W t: 191.6, Temp: 98.5, BP: 126/78, HR: 91, Nurse: MADHU, Ht: 66.50, BMI:30.46. * Examination: E NT/Respiratory: General Appearance: N AD. E yes: P ERRLA, sclera clear. S inuses : t enderness present over left maxillary sinus. O ral cavity : e rythema without exudate on pharynx. N heaven : n o cervical lymphadenopathy. H eart : R RR, normal S1 S2. L ungs: c lear to auscultation bilaterally. Assessment: * Assessment: 1. A cute non-recurrent maxillary sinusitis - J01.00 (Primary) Plan: * Treatment: Value Reference Range w bc 9.9 3.5 - 10 * l ym 20.0% 15 - 50 * m id 5.5% 2 - 15 * g ran 74.5% 35 - 80 * r bc 4.20 3.5 - 5.5 * h gb 13.8 11.5 - 16.5 * h ct 40.1 35 - 55 * m cv 95.5 75 - 100 * m ch 32.8 25 - 35 * m chc 34.3 31 - 38 * p lat 148 100 - 400 * Arminda Sihelds 08/16/2025 03: 28:13 PM EST > Provider reviewed results while patient in office.Nate Patel 08/16/2025 05:21:47 PM EST > * Procedure Codes: 3 6416 CAPILLARY BLOOD DRAW, 06650 CBC WITH AUTO DIFF * Follow Up: v ia phone to report progress * Images: Billing Information: * Visit Code: 43397 Office Visit, Est Pt., Level 3. * Procedure Codes: 23892 CAPILLARY BLOOD DRAW. 25137 CBC WITH AUTO DIFF. * Electronic signature of Mikki Patel MD on 08/22/2025 at 02:56 PM EST Sign off status: Pending * Provider: Vic Patel M.D. Date: 10/17/2024 Generated for Chris howard/Justin/eTransmitting on: 10/23/2024 02:56 PM EST History and Physical Notes * HPI (History of Present Illness) Category Sub-Category Detail Notes Category Not es ENT/respiratory ear pain Pt states it's a ll on the left side of her face, stopped up, pressure headache pressure like sensat ion, both sinuses nasal congestion stuffy in am and at night, off and on, runny nose, some blood, yellow drainage, green drainage Examination Category Sub-Category Detail Notes Category Not es ENT/Respiratory Oral cavity : erythema without exudate on pharynx Sinuses : tenderness present o bonifacio left maxillary sinus Neck : no cervical lymphade nopathy Heart : RRR, normal S1 S2 Lungs: clear to auscultatio n bilaterally General Appearance: NAD Eyes: PERRLA, sclera clear
--- OUTSIDE RECORDS SUMMARY | 2025-08-22 14:55 | XMS_ITS | Patient Health Record ---
Author Organization [facility] Address [address] [facility] [address] [place] [id number] Care Team Providers Care Education Reporter Name Role Phone Julia Jordan Primary Care Provider [phone] Nate Patel Unavailable [phone] Ivet Jacques Unavailable [phone] Allergies Allergen (clinical drug ingredient) Drug/Non Drug [...] Interpretation:nothing acute Performing Lab: Notes/Report: nothing acute Rapid Strep- Inhouse Reviewed date:02/12/2025 03:41:31 PM Interpretation:neg Performing Lab: Notes/Report: neg strep test neg Covid test (in house) Reviewed date:10/16/2024 04:34:55 PM Interpretation:neg Performing Lab: Notes/Report: neg Result: neg CBC Fingerstick (in house) Reviewed date:10/16/2024 [...] - 38 plat 208 100 - 400 Influenza Screen (in house) Reviewed date:10/16/2024 04:35:04 PM Interpretation:neg Performing Lab: Notes/Report: neg results neg CBC Fingerstick (in house) Reviewed date:02/05/2025 12:35:51 [...] - 38 plat 208 100 - 400 CBC Fingerstick (in house) Reviewed date:08/16/2025 05:21:52 [...] - 38 plat 148 100 - 400 Reason For Referral No [...] tablet Orally Onc e a day Not-Taking Immunizations Vaccine Route Administration Date Status Comme nts COVID 19 Pfizer Unknown 07/06/2021 Administered Fluzone PF Quad (6-35 months) Unknown 11/22/2018 Admini stered MMR Unknown 05/07/1996 Administered MMR Unknown 02/02/1999 Administered Tetanus Tdap-Adacel (over 7yrs) Unknown 04/17/2006 Admi nistered Varivax Unknown 06/02/1996 Administered Problems Problem Type SNOMED Code ICD Code Onset Dates Problem Status W/U Status Risk Notes Problem Scoliosis (207882469) Scoliosis (737.43) Active confirmed Problem Gastroesophageal reflux disease (922528382) GERD (gastroesophag eal reflux disease) (K21.9) Active confirmed Problem Otitis externa (2539566) Otitis externa (H60.90) Active confirmed Problem Sciatica (69859184) Sciatic leg pain (M54.30) Active confirmed Problem Posttraumatic stress disorder (37843354) PTSD (post-traumati c stress disorder) (F43.10) Active confirmed Problem Adjustment disorder with mixed emotional features (75721173) 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) Active confirmed Vital Signs Heart Rate 91 /min 08/16/2025 Blood pressure diastolic 78 mm Hg 08/16/2025 Height 66.50 in 08/16/2025 Blood pressure systolic 126 mm Hg 08/16/2025 Weight 191.6 lbs 08/16/2025 BMI 30.46 kg/m2 08/16/2025 Encounters Encounter Location Date Provider Diagnosis [facility] [address] [facility] [address] [place], [place] [id number] 10/16/2024 Nate Sayre Acute URI J06.9 [facility] [address] [facility] [address] [place], [place] [phone] 02/04/2025 Ivet Crowdy Gastroenteritis K52. 9 [facility] [address] [place], [place] [id number] 02/11/2025 R Christopher Jordan Acute pharyngitis J0 2.9 and BMI 28.0-28.9,adult Z68.28 [facility] [address] [facility] [address] [place], [place] [id number] 04/26/2025 Nate Sayre Other chest pain R07 .89 and BMI 28.0-28.9,adult Z68.28 [facility] [address] [facility] [address] [place], [place] [phone] 05/12/2025 Ivet Jacques PTSD (post-traumatic stress disorder) F43.10 [facility] [address] [facility] [address] [place], [place] [id number] 06/02/2025 Ivet Jacques PTSD (post-traumatic stress disorder) F43.10 and Situational mixed anxiety and depressive disorder F43.23 [facility] [address] [facility] [address] [place], [place] [id number] 06/16/2025 Ivet Jacques PTSD (post-traumatic stress disorder) F43.10 and BMI 29.0-29.9,adult Z68.29 [facility] [address] [facility] [address] [place], [place] [id number] 06/30/2025 Ivet Jacques PTSD (post-traumatic stress disorder) F43.10 [facility] [address] [facility] [address] [place], [place] [id number] 08/16/2025 Nate Sayre Acute non-recurrent maxillary sinusitis J01.00 [facility] [address] [facility] [address] [place], [place] [id number] 05/17/2025 Julia Jordan [facility] [address] [facility] [address] [place], [place] [id number] 05/24/2025 Ivet Jacques Assessments Encounter Date Diagnosis [...] need to remain off work until f/u 06/16/2025 BMI 29.0-29.9,adult (ICD-10 - Z68.29) 06/16/2025 PTSD (post-traumatic stress disorder) (ICD-10 - F43.10) Headaches were likely from new . She would like to go back on the sertraline. Will remain off work for 2 weeks and f/u. 06/30/2025 PTSD (post-traumatic stress disorder) (ICD-10 - F43.10) Can return to work on Saturday. 08/16/2025 Acute non-recurrent maxillary sinusitis (ICD-10 - J01.00) Plan Of Treatment Next Appt Details Provider Name:Ivet alicea, 12/29/2025 10:30:00 AM, [address], [place], [place], [id number], Insurance Providers Payer Name Payer Address Payer Phone Subscriber Number Group Number Insured Name Patient Relationship to Insured Coverage Start Date Coverage End Date [employer] [address] [place] [address] [id number] Ellen Medley Self - patient is the insured [facility] [address] [place], [place] [id number] Ellen Medley Self - patient is the insured Medications Administered Medication Instructions Date of Administration Dosage Notes Dexamethasone 07/25/2020 1 mL Medical (General) History Surgical History Surgery Date(Month/Year) Hospitalization History Reason Date(Month/Year)
--- OUTSIDE RECORDS SUMMARY | 2025-08-22 14:56 | XMS_ITS | Data Portability ---
Author Organization [facility] Address [address] [place] [address] Assessment Encounter Date Assessment Date Assessment LastModified [...] CARLOS [facility], [address], Rick F, [place], [address], 8 20:10:08 urinalysis , dipstick 2016 017 [email or web address] Britton [employer], [address] [place] [address] , [place], [address], 7 11:21:40 culture, urine 2016 017 CARLOS [facility], [address], Rick [address], [place], [address], 7 06:06:27 Referral None recorded. Procedures None recorded. Surgeries None recorded. Imaging US, obstetric, 1st trimester 2022 023 [email or web address] Britton Junior Account Executive, [address] [place] [address] , [place], [address], 3 10:56:45 Medication Orders Sronyx 0.1 mg-20 mcg tablet 2017 018 [email or web address] [id number], [address], [id number], 3 10:21:28 Macrobid 100 mg capsule 2016 017 [facility][id number], [address], [id number], 8 08:42:07 Pyridium 200 mg tablet 2016 017 [facility] #[id number], [address], [id number], 8 08:42:13 Patient TargetsNo targets recorded. Patient Instructions Encounter Date Encounter Id Patient Instructions Last Modified By Organization Details Last Modified Time 06/13/2017 [id number] Finish medicatio n as directed Wipe front to back Increase intake of H20 Limit caffeines and sugars Will call with culture results F/u 7-10 days if s/s not improved [email or web address] Not available 06/13/2017 11:28:22 12/06/2017 [id number] Encourage Self Breast Exam Encourage Healthy eating/regular physical activity Doing well with contraceptive method and desires to continue Start bcps for cycle regulation, tx of dysmenorrhea and acne Understands risks of taking hormonal contraception Encourage MV F/u 2 months [email or web address] Not available 12/06/2017 09:11:42 We will call abnormal test results in 7-10 days. Patient is advised that normal test results will be retrievable through [facility] and that they will be notified of the availability of normal results from [employer] by phone call, text or email. [email or web address] Not available 12/06/2017 09:11:47 01/31/2018 [id number] See HPI Rto for IUD removal Continue bcps [email or web address] Not available 01/31/2018 08:36:43 02/14/2018 [id number] IUD removed with out difficulty Continue bcps Rto for AWE or earlier prn [email or web address] Not available 02/14/2018 08:48:03 07/11/2023 [id number] medical record request* - records from [facility]; [place] reports Not available 11/14/2023 11:05:49 [...] dipst ick Leukocytes Modera te Not Available [employer]on [employer] [address] [place] [address] , [place], [address], 06/13/2017 11:04:56 06/13/20 17 06/13/2017 urina lysis , dipst ick Nitrite positi ve Not Available [employer] [address] [place] [address] , [place], [address], 06/13/2017 11:04:56 06/13/20 17 06/13/2017 urina lysis , dipst ick Urobilinogen .[address] [facility] Junior Account Executive [address] [place] [address] , [place], [address], 06/13/2017 11:04:56 06/13/20 17 06/13/2017 urina lysis , dipst ick Protein Negati ve Not Available [employer] [address] [place] [address] , [place], [address], 06/13/2017 11:04:56 06/13/20 17 06/13/2017 urina lysis , dipst ick pH 6.0 Not Available [employer] [address] [place] [address] , [place], [address], 06/13/2017 11:04:56 06/13/20 17 06/13/2017 urina lysis , dipst ick Blood Modera te Not Available [facility] [address] [place] [address] , [place], [address], 06/13/2017 11:04:56 06/13/20 17 06/13/2017 urina lysis , dipst ick Specific Smilax 1.015 Not Available [facility] Junior Account Executive [address] [place] [address] , [place], [address], 06/13/2017 11:04:56 06/13/20 17 06/13/2017 urina lysis , dipst ick Ketone Small Not Available [facility]/[address] , [place], [address], 06/13/2017 11:04:56 06/13/20 17 06/13/2017 urina lysis , dipst ick Bilirubin Negati ve Not Available [facility]/[address] , [place], [address], 06/13/2017 11:04:56 06/13/20 17 06/13/2017 urina lysis , dipst ick Glucose Negati ve Not Available [facility]/[address] , [place], [address], 06/13/2017 11:04:56 06/13/20 17 06/13/2017 urina lysis , dipst ick Appearance Slight ly Cloudy Not Available [facility]/[address] , [place], [address], 06/13/2017 11:04:56 06/13/20 17 06/13/2017 urina lysis , dipst ick Color Dark Yellow Not Available [facility] [address] [place] [address] , [place], [address], 06/13/2017 11:04:56 06/13/20 17 06/15/2017 cultu re, urine urine culture, routine Final report Not Available [facility] ([facility]) [address] [place], [address], 06/15/2017 06:06:27 06/13/20 17 06/15/2017 cultu re, urine result 1 Commen t Great er than 2 organ isms recov ered, none predo minan t. Pleas e submi t anoth er sampl e if clini damon indic ated. Great er than 100,0 00 colon y formi ng units per mL Not Available [facility] ([facility]) [address] [facility], [place], [address], 06/15/2017 06:06:27 12/07/19 18 12/09/2017 pap, IG + CT/NG + refle x HPV chlamydia, nuc. acid amp Negati ve negati ve Not Available [facility] ([facility]) [address] [place], [address], 12/16/2017 20:10:08 12/07/19 18 12/09/2017 pap, IG + CT/NG + refle x HPV gonococcus, nuc. acid amp Negati ve negati ve Not Available [facility] ([facility]) [address] [place], [address], 12/16/2017 20:10:08 12/07/19 18 12/13/2017 pap, IG + CT/NG + refle x HPV diagnosis: Commen t abnormal EPITH ELIAL CELL ABNOR MALIT Y. ATYPI EDUARDO SQUAM OUS CELLS OF UNDET ERMIN ED SIGNI FICAN CE. Not Available [facility] ([facility]) [address] [place], [address], 12/16/2017 20:10:08 12/07/19 18 12/13/2017 pap, IG + CT/NG + refle x HPV recommendati on: Perla ross abnormal Sugge st follo w up as clini damon appro luis alberto e. Not Available [facility] ([facility]) [address] [facility], [place], [address], 12/16/2017 20:10:08 12/07/19 18 12/13/2017 pap, IG + CT/NG + refle x HPV specimen adequacy: Perla ross Satis facto ry for evalu ation . Endoc ervic al and/o r squam ous metap lasti c cells (endo cervi eduardo compo nent) are prese nt. Not Available [facility] ([facility]) [address] [facility], [place], [address], 12/16/2017 20:10:08 12/07/19 18 12/13/2017 pap, IG + CT/NG + refle x HPV clinician provided ICD10: Perla ross Z12.4 Not Available [facility] ([facility]) [address] [place], [address], 12/16/2017 20:10:08 12/07/19 18 12/13/2017 pap, IG + CT/NG + refle x HPV performed by: Perla Menezes ns, Cytot echno logis t (ASCP ) Not Available [facility] ([facility]) [address] [place], [address], 12/16/2017 20:10:08 12/07/19 18 12/13/2017 pap, IG + CT/NG + refle x HPV QC reviewed by: Perla Lim ns, Cytot echno logis t (ASCP ) Not Available [facility] ([facility]) [address] [place], [address], 12/16/2017 20:10:08 12/07/19 18 12/13/2017 pap, IG + CT/NG + refle x HPV electronical ly signed by: Perla Pichardo MD, Patho logis t Not Available [facility] ([facility]) [address] [facility], [place], [address], 12/16/2017 20:10:08 12/07/19 18 12/13/2017 pap, IG + CT/NG + refle x HPV . . Not Available [facility] ([facility]) [address] [facility], [place], [address], 12/16/2017 20:10:08 12/07/19 18 12/13/2017 pap, IG + CT/NG + refle x HPV pathologist provided ICD10: Perla ross R87.6 10 Not Available [facility] ([facility]) [address] [facility], [place], [address], 12/16/2017 20:10:08 12/07/19 18 12/13/2017 pap, IG [...] ts do occur . Not Available [facility] ([facility]) [address] [facility], [place], [address], 12/16/2017 20:10:08 12/07/19 18 12/13/2017 pap, IG + CT/NG + refle x HPV test methodology: Perla ross This liqui d based ThinP rep(R ) pap test was scree [place] with the use of an image guide isai chambers Not Available [facility] ([facility]) [address] [facility], [place], [address], 12/16/2017 20:10:08 12/07/19 18 12/13/2017 pap, IG + CT/NG + refle x HPV . Commen t See below for HPV testi ng resul ts. Not Available [facility] ([facility]) [address] [facility], [place], [address], 12/16/2017 20:10:08 12/07/19 18 12/16/2017 pap, IG + CT/NG + refle x HPV HPV, high-risk Negati ve negati ve This high- risk HPV test detec ts thirt een high- risk types (16/1 8/31/ 33/35 /39/4 5/51/ 52/56 /58/5 ) witho ut diffe renti ation . Not Available [facility] ([facility]) [address] [facility], [place], [address], 12/16/2017 20:10:08 07/11/20 23 US, obste tric, 1st trime ster No observ ation record ed. [email or web address] Britton [employer] [address] [place] [address] , [place], [address], 07/11/2023 10:54:59 07/12/20 23 07/11/2023 US, obste tric, 1st trime ster No observ ation record ed. BARCODE Britton [employer] [address] [place] [address] , [place], [address], 07/12/2023 14:07:10 Result Notes None recorded. Problems Name Problem SNOMED Code Status Onset Date Resolution Date Notes Provider Name and Address Organization Details Recorded Time Low grade squamous intraepithe lial lesion on cervical Papanicolao u smear 2811009405179 5 Active 2016 Funmilayo Rodriguez APRN [address], [place], [address], [place] - [facility] 7 16:15:59 Cervical intraepithe lial neoplasia grade 1 668627464 Active 2016 Funmilayo Rodriguez APRN [address], [place], [address], [place] [facility] 7 09:28:46 Dysmenorrhe a 951235216 Active 2017 Crystal Willard null, [place] - [facility] 8 08:20:23 Pain in pelvis 51925544 Active 2017 Funmilayo Rodriguez APRN [address], [place], [address], [place] [facility] 8 08:36:20 Missed miscarriage 70331291 Active 2022 Denae Fairchild MD [address], [place], [address], [place] - [facility] 3 10:53:40 Problem Notes None recorded. Procedures Surgical History Date Name Laterality Status Provider Name and Address Organization Details Recorded Time 07/11/20 23 OB Ultrasound Summary completed Aroldo Craven [place] - [facility] 07/11/2023 09:58:56 02/15/20 18 IUD Removal completed Stacy Wright [place] - [facility] 02/14/2018 08:26:25 02/15/20 18 IUD Removal completed Funmilayo Rodriguez APRN [address], [place], [address], [place] [facility] 02/14/2018 08:49:02 12/07/19 18 Date of Last Pap Smear completed Funmilayo Rodriguez APRN [address], [place], [address], [place] [facility] 12/18/2017 09:47:47 01/11/20 17 Colposcopy completed Funmilayo Rodriguez APRN [address], [place], [address], [place] [facility] 01/10/2017 16:14:59 01/11/20 17 Colposcopy completed Funmilayo Rodriguez APRN [address], [place], [address], [place] [facility] 01/16/2017 09:28:07 08/26/20 15 [...] Name and Address Organization Details Recorded Time 95893 Substance with sulfonami de structure and antibacte rial mechanism of action (substanc e) medicatio n Not available Not available Not available 06/15/20162014 53716 8003 SNOMED Not Available [facility] 6 08:13:49 18340 Product containin g penicilli n (product) medicatio n Not available Not available Not available 06/15/20162014 97196 8001 SNOMED Not Available [facility] 6 10:35:43 Medications Name Sig Start Date [...] Updated DateTime 12/06/2017 168.91 cm 21.1 kg/m2 65577.79 g 122/60 mm[Hg] Crystal Willard [place] - [facility] 12/06/2017 08:41:47 Date Recorded Body height Body mass index (BMI) Body weight Systolic And Diastolic Provider Name and Address Organization Details Last Updated DateTime 01/31/2018 168.91 cm 21.1 kg/m2 28547.79 g 118/60 mm[Hg] Crystal Willard [place] - [facility] 01/31/2018 08:20:03 Date Recorded Body mass index (BMI) Body weight Systolic And Diastolic Provider Name and Address Organization Details Last Updated DateTime 02/14/2018 21.1 kg/m2 69512.79 g 116/72 mm[Hg] Stacy Wright [place] - [facility] 02/14/2018 08:23:42 Date Recorded Body height Provider Name an d Address Organization Details Last Updated DateTime 02/14/2018 168.91 cm Stacey Chicas [place] - [facility] 02/15/20 18 08:19:06 Date Recorded Body height Body mass index (BMI) Body weight Systolic And Diastolic Provider Name and Address Organization Details Last Updated DateTime 06/13/2017 168.91 cm 20.4 kg/m2 70446.82 g 130/88 mm[Hg] Cyrstal Sudheer [place] - [facility] 06/13/2017 10:59:37 Date Recorded Body height Body mass index (BMI) Body weight Systolic And Diastolic Provider Name and Address Organization Details Last Updated DateTime 07/11/2023 167.64 cm 28.2 kg/m2 67664.66 g 118/78 mm[Hg] Abraham Reardon [place] - [...] N Arthritis N Restless Leg Syndrome N Infertility N Polyps N Carpal Tunnel N Acid Reflux (GERD) N Cancer N Stroke N Varicosities N Tendonitis N Crohn's Disease N Hypercholesterolemia N Skin Cancer N Fibromyalgia N Headaches N Anal Fissure N Irritable Bowel Syndrome N Kidney Disease N Heart Problems N [...] Bladder or Kidney Problems N Fracture N Schizophrenia N Panic Disorder N Concussion N Spina Bifida N Osteoarthritis N Parkinson's Disease N Disc Protrusion N STI N Esophagitis N Angina N Thyroid Problems N GI Problems N ADD/ADHD N Anemia N Multiple Sclerosis N Abnormal PAP N Lumbago N Mental Illness N Psychiatric Illness N Ovarian Cancer N Diabetes N Degenerative Disc Disease N Seizures/Epilepsy N Syncope N Hyperlipidemia N Insomnia N Eczema N Abuse/Domestic Violence N Attention Deficient Disorder N Dementia N Ulcerative colitis N Cerebrovascular Disease N Depression N Guillain-[facility] N Sleep Apnea N Aneurysm N Bronchitis N Heart Disease N Suicidal Ideation N Pre-Eclampsia N Hypertension N Osteoporosis N Gynecological History Statement/Question Response [...] ICD10 Code Diagnosis IMO Codes Diagnosis Note [id number] [facility] [address] [place] [address] 08/08/2015 00:00:00 105817 [facility] [address] [place] [address] 08/26/2015 00:00:00 130780 [facility] [address] [place] [address] 10/20/2015 00:00:00 [id number] XIOMARA Marrero HOME HEALTH CARE PROVIDER [address] [place] [address] JOHNIE Ayoub [address] 11/02/2016 12:35:19 11/02/2016 13:22:51 Routine gynecologic examination done 0483852276 91 Z01.419 Depression screening 171 245857 Z13.89 Hypertensi on screening 988096337 Z13.6 Screening for malignant neoplasm of cervix 865089384 Z12.4 Diet education 88160096 Z71.3 Encourage healthy eating/dec reased fats, sugars, fried foods Counseling 821728936 Z71 .9 Encouraged regular exercise 30-40min/d ay 4-5 days/wk Contracept ion care management 039088703 Z30.[address] Vaccine de clined by patient 4032368232 02 Z28.21 Body mass index 20-24 - normal 875485097 Z68.21 [id number] XIOMARA Marrero HOME HEALTH CARE PROVIDER [address] [place] [address] JOHNIE Ayoub [address] 12/06/2017 08:30:44 12/06/2017 09:05:31 Routine gynecologic examination done 1249295713 9101 Z01.419 Depression screening 171 249036 Z13.89 Hypertensi on screening 360221270 Z13.6 Screening for malignant neoplasm of cervix 995773616 Z12.4 Diet education 20416336 Z71.3 Encourage healthy eating/irizarry it fats, sugars, fried foods Counseling 656432884 Z71 .9 Encouraged regular exercise 30-40min/d ay 4-5 days/wk Contracept ion care management 821965024 Z30.[address] Body mass index 20-24 - normal 884445760 Z68.21 Dysmenorrhea 050099611 N 94.6 Irregular periods 601231 07 N92.6 [id number] XIOMARA Marrero HOME HEALTH CARE PROVIDER [address] [place] [address] JOHNIE Ayoub [address] 01/10/2017 14:21:53 01/10/2017 15:27:35 Low grade squamous intraepithelial lesion on cervical Papanicolaou smear 1465778413 9105 R87.650 [id number] XIOMARA Marrero HOME HEALTH CARE PROVIDER [address] [place] [address] JOHN[place] Ayoub [address] 06/13/2017 10:51:39 06/13/2017 11:26:11 Increased frequency of urination 641044131 R35.0 Acute urin mata tract infection 160834144 N39.0 [id number] XIOMARA Marrero HOME HEALTH CARE PROVIDER [address] [place] [address] JOHNIE Ayoub [address] 01/31/2018 08:08:33 01/31/2018 08:31:32 Pain in pelvis 94394175 R10.2 Uses IUD (intrauterine device) contraception 518998337 Z97.5 [id number] XIOMARA Marrero HOME HEALTH CARE PROVIDER [address] [place] [address] JOHNIE Ayoub [address] 02/14/2018 08:15:41 02/14/2018 08:50:53 Removal of intrauterine device 21059347 Z30.478 [id number] Denae Fairchild MD Britton HOME HEALTH CARE PROVIDER [address] [place] [address] JOHNIE Ayoub [address] 07/11/2023 09:33:45 07/11/2023 10:45:47 Missed miscarriage 79083737 O02.1 Recurrent miscarriage 10 2950689 N96 Health Concerns Section Related Observation LastModified by Organization Detai ls LastModified Time None Recorded Concern Status LastModified by Organization Details LastModified Time None Recorded Advance Directives Directive N: Payers Insurance Date Sequence Insurance Name Policy Number Policy Gutierrez Covered Member ID Gutierrez Member ID Guarantor Name 11/09/2016 1 [facility] [facility] (MEDICAID HMO) Ellen Urban [id number] Ellen Urban 07/17/2023 1 [place] [id number] Eleln Urban [id number] Ellen Youngbloodn 06/11/2018 [place] [facility] (MEDICAID) Ellen Urban [id number] Ellen Urban 06/11/2018 2 [employer] (MEDICAID REPLACEMENT - HMO) MEDICAID Ellen Youngbloodn [id number] Ellen Urban Notes Date Note Type Note [...] reportsmovement (up on her feet). Funmilayo Rodriguez, GLASS CHECKER [address], [place], [address], [place] [facility] 06/13/2017 11:28:37 12/07/19 18 [...] has also c/o more acne.She is working vp purchasing at . Funmilayo Rodriguez APRN [address], [place], [address], [place] - [facility] 12/06/2017 09:12:50 02/01/20 18 text/htm l ELIZABETH as noted in the HPI Patient is an established patient who presents for follow up on dysmenorrhea. 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 Funmilayo Rodriguez APRN [address], [place], [address], [place] - [facility] 01/31/2018 08:37:20 02/15/20 18 text/htm l Ellen is here today for IUD removal Funmilayo Rodriguez APRN [address], [place], [address], [place] [facility] 02/14/2018 08:49:13 07/11/20 23 text/htm l ELIZABETH as noted in the HPI Ellen is a 28 yo who presents today for second opinion. She has been following with [facility] for early . 06/11 she went to [...] from prior facility showing these ultrasounds. Denae Fairchild MD [facility] [address], [place], [address], [place] [facility] 07/11/2023 10:57:03 OBGyn Episode Ob Episode Information Episode Created Date Number of Fetuses Patient Bloodtype Patient rh Status Prepregnancy Weight lbs Domestic Partner Domestic Partner Phone Father Name Reel Film Inspector Status 07/11/20 1 CLOSED Fetus Data First [...] Domestic Partner Domestic Partner Phone Father Name Reel Film Inspector Status 07/11/20 23 1 CLOSED Fetus Data [...]
[2025-08-22 15:00] VITALS: BMI 29.8
[2025-08-22 15:07] VITALS: BP 143/81; PULSE 108; RESP 17; TEMP 37.8; O2SAT 98; BMI 31.6
[2025-08-22] MEDS: LACTATED RINGERS 1000ML 1,000 ML 999 ML IV (15:31)
[2025-08-22] MEDS: ONDANSETRON 4MG/2ML VIAL 4 MG IV (16:39)
[2025-08-22] MEDS: ACETAMINOPHEN 500MG TAB 1000 MG PO (17:18)
== END 2025-08-22 17:44 | disposition home or self-care (01) ==
LOC: OBOUT 14:54 → OB 14:55
PROVIDERS: PCP Family Medicine; Visit Provider Obstetrics & Gynecology
DX: O09.811 Supervision of pregnancy resulting from assisted reproductive technology, first trimester (principal); Z3A.13 13 weeks gestation of pregnancy
CPT/HCPCS: 99213; J2405; J7120